=== PATIENT | female | born 1950 | race Caucasian/White ===

== ENCOUNTER 2017-08-16 12:35 | Inpatient (IN) | payer OTHER ==
[2017-08-16 12:53] VITALS: BMI 21.6
--- NOTE | 2017-08-16 14:14 | PDOC ---
History of Present Illness - General Chief Complaint: Chest Pain Stated Complaint: CHEST PAIN Time Seen by Provider: 08/16/17 14:13 - History of Present Illness Initial Comments: 08/16/17 14:47 Ms. Stewart is a 67 yo female w/ pmh of HTN and prior R mastectomy for breast cancer (1998) who presents c/o a 2 month history of cough and 2 week history of chest pain. She presented to physician this morning and was sent over for further evaluation. Ms. Stewart says that she has been "coughing non-stop" although she denies any productive sputum. She reports she has had generalized body aches as well and that her chest hurts midline at her sternum. The patient denies headache and dizziness. Denies fever, chills, nausea, vomit, diarrhea and constipation. Denies dysuria, frequency, urgency and hematuria. Allergies: NKDA Past History - Past Medical History Allergies/Adverse Reactions: Allergies Allergy/AdvReac Type Severity Reaction Status Date / Time No Known Allergies Allergy Verified 08/16/17 12:50 Home Medications: Ambulatory Orders Albuterol 0.083% Nebulizer Marcia [Ventolin 0.083% Nebulizer Soln -] 1 neb NEB Q6H PRN 08/16/17 Losartan 50Mg/Hctz 12.5MG [Hyzaar -] 1 tab PO DAILY 08/16/17 Raloxifene HCl 60 mg PO DAILY 08/16/17 Cancer: Yes (rt breast) COPD: No HTN: Yes Other medical history: op - Suicide/Smoking/Psychosocial Hx Smoking History: Never smoked Information on smoking cessation initiated: No Hx Alcohol Use: No Drug/Substance Use Hx: No Substance Use Type: None *Physical Exam - Vital Signs Last Vital Signs Temp Pulse Resp BP Pulse Ox 98.0 F 93 H 18 130/75 100 08/16/17 12:50 08/16/17 12:50 08/16/17 12:50 08/16/17 12:50 08/16/17 12:50 ED Treatment Course - LABORATORY CBC & Chemistry Diagram: 08/16/17 14:30 08/16/17 14:30 Medical Decision Making - Medical Decision Making 08/16/17 15:00 Discussed patient w/ PCP Darell Loredo who requests cardiac workup plus chest x- ray and Dr. Howe for cardiology. Will comply. 08/16/17 16:18 EKG negative. Chest x-ray showed shaggy heart border suspicious for pneumonia. HEART score 1 (HTN). Patient sodium low at 130, Dr. Loredo would like to admit for treatment. Will comply. *DC/Admit/Observation/Transfer Diagnosis at time of Disposition: Hyponatremia - Discharge Dispostion Admit: Yes - Referrals - Patient Instructions - Post Discharge Activity
[2017-08-16 14:39] LABS: BASO % 0.6 % (0-2.0); EOS % 1.8 % (0-4.5); MCH 31.7 pg (25.7-33.7); MCHC 35.7 g/dl (32.0-36.0); MEAN CELL VOLUME 88.6 fl (80-96); MEAN PLT VOLUME 7.9 fl (7.5-11.1); NEUT % 57.6 % (42.8-82.8); PLATELET COUNT 277 K/MM3 (134-434); WHITE BLOOD COUNT 9.5 K/mm3 (4.0-10.0)
--- NOTE | 2017-08-16 14:43 | PDOC ---
Attending Attestation - HPI HPI: 08/16/17 16:15 Patient is a 67 year old female with a significant past medical history of HTN who presents to the ED with complaints of chest pain that began 2 weeks ago. Patient reports experiencing a dry cough for 2 months with no sign of subsiding. She reports chest pain is an intermittent pressured chest pain that does not radiate. Patient states chest pain comes every hour and lasts about 2 minutes. She reports nothing alleviates chest pain, as it is present even when she is at rest. Patient reports experiencing sweating, nausea, and diarrhea but is unsure if its connected to chest pain. She reports experiencing lightheadedness, dizziness, and bilateral leg cramping, that she states sometimes stops me from walking. Denies fever,chills. Denies vomiting. Denies out of state travel, contact with sick individuals. Denies any other symptoms. Allergies: None Social history: No smoking. No alcohol. No illicit drugs. Surgical history PMD: None - Physicial Exam PE: 08/16/17 16:15 Vitals: Triage Vital signs reviewed General Appearance: no acute distress, well nourished well developed Head: Atraumatic Chest Wall: Nontender Cardiac: Regular rate and rhythym, no murmurs, no rubs, no gallops Lungs: Clear to auscultation bilateral, good air movement bilaterally Abdomen: Soft, non distended, normal bowel sounds, non tender to palpation Extremities: Full range of motion to all extremities, no cyanosis, clubbing, or edema Skin: Warm and dry, no rashes or lesions, no rash, no petechiae Neuro: AOX3; Cranial Nerves 2-12 grossly intact, Strength intact to all extremities, Sensation intact to all extremities, gait normal Psych: Normal mood, normal affect - Medical Decision Making 08/16/17 16:15 Documentation prepared by Seth Feng, acting as medical records coder for John Flores MD, MD/DO. <Seth Feng - Last Filed: 08/16/17 16:15> - Resident Resident Name: TaigisselJorge - ED Attending Attestation I have performed the following: I have examined & evaluated the patient, The case was reviewed & discussed with the resident, I agree w/resident's findings & plan, Exceptions are as noted - HPI HPI: 08/16/17 16:27 2 week history of intermittent chest pain cough no PE DVT risk factors. EKG nonischemic troponin negative case discussed with patient's primary care provider given mild hyponatremia we will observe for serial troponins repletion of sodium and further management. Heart score 4. <John Flores - Last Filed: 08/16/17 16:27>
[2017-08-16 14:58] LABS: ALBUMIN 3.4 g/dl (3.4-5.0); ANION GAP 8 (8-16); CALCIUM 8.7 mg/dL (8.5-10.1); CO2 29 mmol/L (21-32); GLUCOSE,RANDOM 101 mg/dL (74-106); INR 1.08 (0.82-1.09); PROTHROMBIN TIME (PATIENT) 12.2 SEC (9.98-11.88)
--- NOTE | 2017-08-16 15:02 | EKG ---
Test Reason : Blood Pressure : / mmHG Vent. Rate : 092 BPM Atrial Rate : 092 BPM P-R Int : 120 ms QRS Dur : 086 ms QT Int : 352 ms P-R-T Axes : 019 040 045 degrees QTc Int : 435 ms NORMAL SINUS RHYTHM NORMAL ECG WHEN COMPARED WITH ECG OF 05-MAY-2010 13:27, NO SIGNIFICANT CHANGE WAS FOUND Confirmed by JORGE CÁRDENAS MD ([id number]) on 08/16/2017 3:01:48 PM Referred By: Confirmed By:JORGE CÁRDENAS MD
[2017-08-16 15:03] LABS: ALK PHOS 103 U/L (45-117); BILIRUBIN,TOTAL 0.5 mg/dL (0.2-1.0); CPK 61 IU/L (26-192); CREATININE 0.7 mg/dL (0.55-1.02); SGOT/AST 24 U/L (15-37); SGPT/ALT 29 U/L (12-78); TOT PROT 7.2 g/dl (6.4-8.2); TROPONIN I < 0.02 ng/ml (0.00-0.05)
--- NOTE | 2017-08-16 16:24 | HP ---
Admitting History and Physical - Admission Chief Complaint: chest heaviness x 1 wk sob History Source: Patient Limitations to Obtaining History: No Limitations - Past Medical History ...: No - Smoking History Smoking history: Never smoked - Alcohol/Substance Use Hx Alcohol Use: No Home Medications - Allergies Allergies/Adverse Reactions: Allergies Allergy/AdvReac Type Severity Reaction Status Date / Time No Known Allergies Allergy Verified 08/16/17 12:50 - Home Medications Home Medications: Ambulatory Orders Albuterol 0.083% Nebulizer Marcia [Ventolin 0.083% Nebulizer Soln -] 1 neb NEB Q6H PRN 08/16/17 Losartan 50Mg/Hctz 12.5MG [Hyzaar -] 1 tab PO DAILY 08/16/17 Raloxifene HCl 60 mg PO DAILY 08/16/17 Family Disease History - Family Disease History Family History: Unremarkable Review of Systems - Review of Systems Constitutional: reports: Other (sob cp) Eyes: reports: No Symptoms HENT: reports: No Symptoms Neck: reports: No Symptoms Cardiovascular: reports: Chest Pain, Shortness of Breath Respiratory: reports: SOB on Exertion Gastrointestinal: reports: No Symptoms Genitourinary: reports: No Symptoms Breasts: reports: No Symptoms Reported Musculoskeletal: reports: No Symptoms Integumentary: denies: No Symptoms Neurological: reports: No Symptoms Endocrine: reports: No Symptoms Hematology/Lymphatic: reports: No Symptoms Psychiatric: reports: Anxiety Physical Examination Vital Signs: Vital Signs Temperature 98.0 F 08/16/17 12:50 Pulse Rate 93 H 08/16/17 12:50 Respiratory Rate 18 08/16/17 12:50 Blood Pressure 130/75 08/16/17 12:50 O2 Sat by Pulse Oximetry (%) 100 08/16/17 12:50 Constitutional: Yes: Well Nourished Eyes: Yes: WNL HENT: Yes: WNL Neck: Yes: WNL Cardiovascular: Yes: WNL Respiratory: Yes: WNL Gastrointestinal: Yes: WNL ...Rectal Exam: Yes: WNL Renal/: Yes: WNL Breast(s): Yes: WNL Musculoskeletal: Yes: Joint Stiffness Extremities: Yes: WNL Edema: No Peripheral Pulses WNL: Yes Integumentary: Yes: WNL Neurological: Yes: WNL ...Motor Strength: WNL Psychiatric: Yes: WNL Labs: CBC, BMP 08/16/17 14:30 08/16/17 14:30 Problem List - Problems (1) Chest pain Code(s): R07.9 - CHEST PAIN, UNSPECIFIED (2) Hyponatremia Code(s): E87.1 - HYPO-OSMOLALITY AND HYPONATREMIA (3) Osteopenia Code(s): M85.80 - OTH DISRD OF BONE DENSITY AND STRUCTURE, UNSPECIFIED SITE (4) GERD without esophagitis Code(s): K21.9 - GASTRO-ESOPHAGEAL REFLUX DISEASE WITHOUT ESOPHAGITIS Assessment/Plan admt inserv 1 liter restriction dayly cardcen z q 2 card f/u ? stess test in am
[2017-08-16] MEDS: PANTOPRAZOLE 40 MG TABLET (FP) PO ONE (16:42)
[2017-08-16] MEDS ORDERED: PANTOPRAZOLE 40 MG TABLET (FP) ONE (16:43)
[2017-08-17] MEDS ORDERED: LOSARTAN 50MG/HCTZ 12.5MG 1 TAB (FP) PO SCH (10:00)
[2017-08-17] MEDS ORDERED: ASPIRIN 81 MG CHEWABLE TABLETS PO SCH (10:00)
[2017-08-17] MEDS ORDERED: PT OWN MED DRAWER 7, Y5N ONE (10:42)
--- NOTE | 2017-08-17 10:45 | PN ---
Progress Note, Physician Chief Complaint: less cp sob w exsertoin n/c dizzy w ambulation upon standing only no other complaints - Current Medication List Current Medications: Active Medications Aspirin (Ecotrin -) 81 mg PO DAILY BARB HCTZ/Losartan Potassium (Hyzaar -) 1 tab PO DAILY BARB - Objective Vital Signs: Vital Signs Temperature 98.2 F 08/17/17 06:00 Pulse Rate 92 H 08/17/17 06:00 Respiratory Rate 18 08/17/17 06:00 Blood Pressure 143/86 08/17/17 06:00 O2 Sat by Pulse Oximetry (%) 95 08/17/17 05:00 Constitutional: Yes: Well Nourished Eyes: Yes: WNL HENT: Yes: WNL Neck: Yes: WNL Cardiovascular: Yes: WNL Respiratory: Yes: SOB on Exertion (distant sounds) Gastrointestinal: Yes: WNL ...Rectal Exam: Yes: Deferred Genitourinary: Yes: WNL Breast(s): Yes: WNL, Left Musculoskeletal: Yes: WNL Extremities: Yes: WNL Edema: No Peripheral Pulses WNL: Yes Integumentary: Yes: WNL Neurological: Yes: WNL, Unresponsive Psychiatric: Yes: WNL Labs: CBC, BMP 08/16/17 14:30 INR, PTT INR 1.08 (0.82-1.09) 08/16/17 14:30 Problem List - Problems (1) Chest pain Code(s): R07.9 - CHEST PAIN, UNSPECIFIED (2) Hyponatremia Code(s): E87.1 - HYPO-OSMOLALITY AND HYPONATREMIA (3) Osteopenia Code(s): M85.80 - OT DISRD OF BONE DENSITY AND STRUCTURE, UNSPECIFIED SITE (4) GERD without esophagitis Code(s): K21.9 - GASTRO-ESOPHAGEAL REFLUX DISEASE WITHOUT ESOPHAGITIS Assessment/Plan chk na level now cont tx as is symbocort inhaler card for stress test ? today
[2017-08-17] MEDS: PANTOPRAZOLE 40 MG TABLET (FP) PO ONE (10:49)
[2017-08-17] MEDS: PNEUMOC 13-VAL CONJ-DIP CRM/PF 0.5 ML DISP.SYRIN IM ONE (10:54)
[2017-08-17] MEDS: ASPIRIN COATED 81 MG TABLET.EC PO SCH (10:54)
[2017-08-17 11:13] LABS: ANION GAP 6 (8-16); CO2 30 mmol/L (21-32); CREATININE 0.8 mg/dL (0.55-1.02); GLUCOSE,RANDOM 108 mg/dL (74-106)
--- NOTE | 2017-08-17 13:54 | CONS ---
CARDIOLOGY CONSULTATION DATE OF CONSULTATION: 08/17/2017 REQUESTING PHYSICIAN: Darell Loredo MD CHIEF COMPLAINTS: 1. Chest discomfort. 2. Shortness of breath. 3. Persistent nonproductive cough. HISTORY OF PRESENT ILLNESS: The patient has been complaining of retrosternal and anterior chest discomfort for the past 3 months. It occurs at random, has occurred both at rest, and at times, has woken up in the morning with chest discomfort, usually lasts approximately 1 minute and is relieved spontaneously. She also has been experiencing increasing dyspnea with exertion and has 4-pillow orthopnea, has a persistent cough for several years, which is mostly nonproductive. There is no history of paroxysmal nocturnal dyspnea. There is history of intermittent pedal edema that also occurs at random. Patient stated that she exercises for 30 minutes twice a week on a treadmill without experiencing any symptoms. She was told to have borderline elevation of cholesterol. She also was diagnosed to have COPD, a fatty liver, and has borderline elevation of blood sugar. Apparently has diskogenic disease involving the cervical spine. On further questioning, patient volunteers that the shortness of breath is relieved by using Atrovent inhaler, and she is symptom free for approximately 2 hours. The inhaler also helps alleviate her cough. She has bene using the inhaler frequently over the past 2 weeks. The wheezing is precipitated by humid and cold weather. PAST HISTORY: As mentioned in the history of present illness. SURGICAL HISTORY: Status post hysterectomy. Status post right mastectomy for carcinoma. SOCIAL HISTORY: She was born in [place]. 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 She has never smoked, never drank. Has 3 cups of decaffeinated coffee. FAMILY HISTORY: Father at age 58 of myocardial infarction. Mother at age 78 related to pancreatic cancer. A sister at age 49 of throat cancer, who was a smoker. She has a younger sister who also has asthma and hypertension. Has 4 brothers who are healthy. ALLERGIES: None reported. MEDICATIONS: 1. Symbicort 80/4.5 mcg 2 inhalations b.i.d. 2. Losartan/HCT 50/12.5 mg p.o. daily. 3. Aspirin 81 mg p.o. daily. REVIEW OF SYSTEMS: Constitutional: No history of chills, fever, or night sweats. No history of unintentional weight loss. HEENT: History of intermittent occipital headaches, usually associated with elevated blood pressure. No history of diplopia, blurred vision. No history of epistaxis, hoarseness, tinnitus, or deafness reported. Neck: History of intermittent neck discomfort, usually associated with movement and elevated blood pressure. Cardiovascular: See history of present illness. No history of palpitations. Respiratory: See history of present illness. No history of hemoptysis or tuberculosis. Gastrointestinal: No history of nausea, vomiting, melena, or hematemesis. No history of abdominal pain or discomfort. No history of change in bowel habits. Neurological: No history of seizures, syncope, or focal weakness. Occasional lightheadedness and dizziness with change in posture, especially on standing from recumbent position. Patient also has paresthesias involving the left lower extremity and gives history of low-back discomfort. Endocrine: No history of polyuria or polydipsia. No history of intolerance to cold or warm weather. Musculoskeletal: History of arthralgias involving the knees and neck. No history of myalgias. Genitourinary: History of hysterectomy. No history of dysuria, frequency, or hematuria. Hematological/Lymphatics: No history of anemia, ecchymosis, or bleeding. No history of lymphadenopathy. PHYSICAL EXAMINATION: General: A 67-year-old female who is in no distress. No pallor, cyanosis, clubbing, or jaundice. Vital Signs: Blood pressure 123/76 mmHg. Pulse 87 beats per minute and regular. Patient was afebrile. Respirations were 18 per minute. Oxygen saturation was 95% on room air. Neck: Supple. No jugular venous distention. Carotids were 2+. Upstrokes were normal. No bruits were heard and no thyromegaly was present. Heart: No heaves or thrills. PMI was in the 5th intercostal space. Heart sounds were slightly distant. S1 and S2 were normal. No murmur or gallops were heard. Lungs: Bibasilar fine crepitation, unchanged with coughing. Chest: Normal AP diameter. Expansion was symmetrical. Abdomen: Soft, slightly protuberant and nontender. No hepatosplenomegaly or palpable masses were felt. Bowel sounds were present. No bruits were heard. Extremities: No calf tenderness or dependent edema. Pulses were equal. No deformities were noted. LABORATORY DATA: CBC: WBC count was 9500. RBCs were 4.63. Hemoglobin was 14.7 g/dL. Platelets were 277,000. Differential revealed elevated monocytes at 11.4%. Chemistry: Sodium was 130, potassium was 3.9, chloride 93, CO2 of 29 mmol/L. BUN 15, creatinine 0.7 mg/dL. Random glucose was 101 mg/dL. Troponins were less than 0.02. CK was 61. BNP was 67.49 dated August 16, 2017. Blood work for August 17, 2017 is pending. X-ray chest dated August 16, 2017: A single frontal projection revealed tortuosity and calcification of the thoracic aorta and degenerative changes of the thoracic spine. Impression: No acute disease. ECG reported as normal sinus rhythm. Normal ECG. When compared to ECG of April,, no significant change was found. IMPRESSION: 1. Chest pain syndrome, atypical for coronary artery disease, angina pectoris needs exclusion. 2. Nonproductive cough, intermittent wheezing, and dyspnea, relieved temporarily by bronchodilators, is consistent with bronchial asthma, poorly controlled. 3. History of diskogenic disease involving the cervical spine. 4. Bibasilar crepitations, etiology: a. Bronchiectasis needs exclusion. b. Interstitial lung disease. 5. Hyponatremia. Etiology to be determined, possibly related to her diuretics. 6. Status post right mastectomy for carcinoma. RECOMMENDATIONS: 1. Consider CT scan of the chest. 2. Patient is able to walk on a treadmill; would suggest a Myoview stress test after she has obtained a CT scan. 3. Follow up basic metabolic profile. 4. Echocardiogram. 5. Further suggestions will depend upon the results of the above-mentioned tests. Thank you for your referral. Yours sincerely, SHEA HUDSON M.D. [id number]
[2017-08-17] MEDS: BUDESONIDE/FORMETEROL FUMARATE 80/4.5 mcg INHALER IH SCH (22:19)
[2017-08-17] MEDS ORDERED: ACETAMINOPHEN 325 MG TABLET (FP) PO PRN ×2 (23:07)
[2017-08-17] MEDS ORDERED: NITROGLYCERIN SUBLINGUAL 1/150 0.4 MG TAB SL PRN (23:08)
[2017-08-18] MEDS: METOPROLOL SUCCINATE 25 MG TAB.SR.24H (FP) PO SCH ×2 (00:15→13:02)
[2017-08-18 00:52] LABS: TROPONIN I < 0.02 ng/ml (0.00-0.05)
[2017-08-18 01:22] LABS: CPK 90 IU/L (26-192)
[2017-08-18 07:55] LABS: BASO % 0.4 % (0-2.0); EOS % 1.4 % (0-4.5); MCH 31.5 pg (25.7-33.7); MCHC 35.5 g/dl (32.0-36.0); MEAN CELL VOLUME 88.7 fl (80-96); MEAN PLT VOLUME 8.5 fl (7.5-11.1); NEUT % 67.1 % (42.8-82.8); PLATELET COUNT 272 K/MM3 (134-434); RDW 11.9 % (11.6-15.6); WHITE BLOOD COUNT 9.8 K/mm3 (4.0-10.0)
[2017-08-18 08:26] LABS: ANION GAP 10 (8-16); CALCIUM 8.7 mg/dL (8.5-10.1); CO2 28 mmol/L (21-32); CREATININE 0.8 mg/dL (0.55-1.02); GLUCOSE,RANDOM 143 mg/dL (74-106)
[2017-08-18] MEDS ORDERED: PT OWN MED DRAWER 7, Y5N ONE ×2 (09:47→11:00)
[2017-08-18] MEDS ORDERED: PIPERACILLIN/TAZOB 3.375 GM 3.375 GM in DEXTROSE 5%-WATER - 50 ML IVPB SCH (10:00)
[2017-08-18] MEDS: BUDESONIDE/FORMETEROL FUMARATE 80/4.5 mcg INHALER IH SCH ×3 (10:00→21:10)
[2017-08-18] MEDS: ASPIRIN COATED 81 MG TABLET.EC PO SCH ×2 (10:00→15:17)
[2017-08-18] MEDS ORDERED: REGADENOSON 0.4 MG/5 ML PRE-FILLED SYRINGE IVPUSH ONE (10:00)
[2017-08-18] MEDS ORDERED: PIPERACILLIN/TAZOB 3.375 GM 3.375 GM in DEXTROSE 5%-WATER - 50 ML IVPB ONE ×2 (11:15→15:15)
--- NOTE | 2017-08-18 11:33 | EKG ---
Test Reason : Blood Pressure : / mmHG Vent. Rate : 098 BPM Atrial Rate : 098 BPM P-R Int : 144 ms QRS Dur : 086 ms QT Int : 366 ms P-R-T Axes : 003 011 035 degrees QTc Int : 467 ms NORMAL SINUS RHYTHM MINIMAL VOLTAGE CRITERIA FOR LVH, MAY BE NORMAL VARIANT BORDERLINE ECG WHEN COMPARED WITH ECG OF 16-AUG-2017 12:42, NO SIGNIFICANT CHANGE WAS FOUND Confirmed by LILA JONES, CALVIN ([id number]) on 08/18/2017 11:33:50 AM Referred By: Confirmed By:CALVIN SHARP MD
--- NOTE | 2017-08-18 12:44 | PN ---
Progress Note, Physician - Current Medication List Current Medications: Active Medications Acetaminophen (Tylenol -) 650 mg PO Q4H PRN PRN Reason: FEVER OR PAIN Last Admin: 08/17/17 23:33 Dose: 650 mg Acetaminophen (Tylenol -) 650 mg PO Q6H PRN PRN Reason: FEVER OR PAIN Aspirin (Ecotrin -) [address] [facility] Last Admin: 08/17/17 10:54 Dose: 81 mg Budesonide/Formoterol Fumarate (Symbicort 80/4.5mcg -) 2 puff IH BID BARB Last Admin: 08/17/17 22:19 Dose: 2 puff Piperacillin Sod/Tazobactam (Sod 3.375 gm/ Dextrose) 50 mls @ 100 mls/hr IVPB Q8H-IV BARB PRN Reason: Protocol Stop: 08/23/17 02:29 Metoprolol Succinate (Toprol Xl -) [address] [facility] Nitroglycerin (Nitrostat -) 0.4 mg SL Q5M PRN - Objective Vital Signs: Vital Signs Temperature 97.9 F 08/18/17 10:00 Pulse Rate 72 08/18/17 10:00 Respiratory Rate 18 08/18/17 10:00 Blood Pressure 122/76 08/18/17 10:00 O2 Sat by Pulse Oximetry (%) 98 08/18/17 10:00 Constitutional: Yes: Well Nourished, Pallor HENT: Yes: WNL Neck: Yes: WNL Cardiovascular: Yes: WNL Respiratory: Yes: WNL Gastrointestinal: Yes: WNL ...Rectal Exam: Yes: Deferred Genitourinary: Yes: WNL Breast(s): Yes: WNL Musculoskeletal: Yes: WNL Extremities: Yes: WNL Edema: No Integumentary: Yes: WNL Neurological: Yes: WNL ...Motor Strength: WNL Psychiatric: Yes: WNL Labs: CBC, BMP 08/18/17 06:00 08/18/17 06:00 INR, PTT INR 1.08 (0.82-1.09) 08/16/17 14:30 Problem List - Problems (1) Chest pain Code(s): R07.9 - CHEST PAIN, UNSPECIFIED (2) Hyponatremia Code(s): E87.1 - HYPO-OSMOLALITY AND HYPONATREMIA (3) Osteopenia Code(s): M85.80 - OTH DISRD OF BONE DENSITY AND STRUCTURE, UNSPECIFIED SITE (4) GERD without esophagitis Code(s): K21.9 - GASTRO-ESOPHAGEAL REFLUX DISEASE WITHOUT ESOPHAGITIS Assessment/Plan W/U LOW NA CHANGRD DIET IV ANTBX PNUEMONIA MAAME RAY NOW GOING ON
--- NOTE | 2017-08-18 15:17 | PN ---
Progress Note (short form) - Note Progress Note: 67 year old female admitted with persistent cough, wheezing, 4 pillow orthopnea atypical chest pain and SOB. work up is in progress, underwent stress test and echocardiogram. Remains symptomatic. CT scan of chest reveals bilateral consolidatios atehe bases, bilateral hilar lymphadenopath and cholithiasis Active Medications Generic Name Dose Route Start Last Admin Trade Name Freq PRN Reason Stop Dose Admin Acetaminophen 650 mg 08/17/17 23:07 08/17/17 23:33 Tylenol - PO 650 mg Q4H PRN Administration FEVER OR PAIN Acetaminophen 650 mg 08/17/17 23:07 Tylenol - PO Q6H PRN FEVER OR PAIN Aspirin 81 mg 08/17/17 10:00 08/18/17 15:17 Ecotrin - PO 81 mg DAILY BARB Administration Budesonide/Formoterol Fumarate 2 puff 08/17/17 22:00 08/18/17 15:17 Symbicort 80/4.5mcg - IH 2 puff BID BARB Administration Piperacillin Sod/Tazobactam 50 mls @ 100 mls/hr 08/18/17 10:00 Sod 3.375 gm/ Dextrose IVPB 08/23/17 02:29 Q8H-IV BARB Protocol Piperacillin Sod/Tazobactam 50 mls @ 100 mls/hr 08/18/17 15:15 08/18/17 15:14 Sod 3.375 gm/ Dextrose IVPB 08/18/17 15:44 Not Given ONCE ONE Metoprolol Succinate 50 mg 08/19/17 10:00 08/18/17 15:18 Toprol Xl - PO 50 mg DAILY BARB Administration Nitroglycerin 0.4 mg 08/17/17 23:08 Nitrostat - SL Q5M PRN 67 year old female c/o fatique, no pallor, cyanosis, clubbing or jaundice. Last Vital Signs Temp Pulse Resp BP Pulse Ox 97.9 F 72 18 122/76 98 08/18/17 10:00 08/18/17 10:00 08/18/17 10:00 08/18/17 10:00 08/18/17 10:00 NECK: Supple, no JVD, carotids 2+ HEART: PMI in the 5th ICS, NEC along the LSB , no murmur or gallop heard. LUNGS: Bibasilar creps, no wheezing heard. ABDOMEN: Soft, nontender, no organomegaly or palpable masses. EXTREMITIES: No calf tenderness or dependent edema. CBC, BMP 08/18/17 06:00 08/18/17 06:00 CMP 1. Bronchial asthma, since age 26. 2. Clinical presentation and CT chest findings, a). Sarcoidosis needs to be excluded. b). Metastatic disease. 3. Hyponatermia, SIADH needs exclusion. 4. Atypical chest pain syndrome, etiology to be determined. 5. Elevated blood sugar. RECOMMENDATIONS: 1. Work up in progress. 2. Evaluation of hyponatermia and appropriate workup. 3. Myoview ETT results are pending. 4. HbAIc. 5. Pulmorary and ID work up and treatment in progress.
[2017-08-18] MEDS: METOPROLOL SUCCINATE 50 MG TAB.SR.24H (FP) PO SCH (15:18)
--- NOTE | 2017-08-18 15:36 | PN ---
Progress Note (short form) - Note Progress Note: PULMONARY CONSULTATION DICTATED 08/18/17 IMP BILATERAL CONSOLIDATIONS ? ETIOLOGY ?INFECTIOUS< ? INFLAMMATORY,BOOP PULMONARY NODULES ?INFLAMMATORY, ? MALIGNANT BILATERAL HILAR ADENOPATHY ?REACTIVE DYSPNEA,CHEST TIGHTNESS ASTHMA HYPONATREMIA ? SIADH H/O BREAST CA S/P R MASTECTOMY H/O EVA PLAN IV STEROIDS INHALED BRONCHODILATORS O2 ANTIBIOTICS PER ID CULTURES URINE LYTES,OSMOLALITY F/U CHEST CT 4WKS OF NO IMPROVEMENT WILL REQUIRE TISSUE DX DR PAULSON Problem List - Problems (1) Dyspnea Code(s): R06.00 - DYSPNEA, UNSPECIFIED (2) Hyponatremia Code(s): E87.1 - HYPO-OSMOLALITY AND HYPONATREMIA (3) Pneumonia Code(s): J18.9 - PNEUMONIA, UNSPECIFIED ORGANISM
[2017-08-18] MEDS ORDERED: ALBUTEROL SO4 2.5/IPRATROPIUM 0.5 INH SOL 3 ML VIAL.NEB. NEB PRN (15:39)
--- NOTE | 2017-08-18 16:42 | PN ---
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 denies HIV no history of tb last travel to [place] in July denies dental work lives with son- no pets house- no construction went to see PMD in May- given Ventolin MDI/ Prednisone/Zpak/flovent chest ct- bilateral adenopathy patchy bilateral nodular infiltrates bilateral infiltrates- ?infectious, ?inflammatory, ?neoplastic hyponatremia hiv testing tsh/cortisol/urine electrolytes with osm legionella antigen, blood cultures, mycoplasma serology esr/crp rocephin/zithromax quantiferon Problem List - Problems (1) Pneumonia Code(s): J18.9 - PNEUMONIA, UNSPECIFIED ORGANISM (2) Hyponatremia Code(s): E87.1 - HYPO-OSMOLALITY AND HYPONATREMIA
[2017-08-18] MEDS ORDERED: cefTRIAXone 1 GM/50 ML BAG (PRE-DOCKED) IVPB SCH (17:00)
[2017-08-18] MEDS: AZITHROMYCIN 250 MG TABLET PO SCH (17:04)
[2017-08-18] MEDS: methylPREDNISolone NA SUCC 40 MG/1 ML VIAL IVPUSH SCH ×2 (17:04→21:09)
[2017-08-18] MEDS: CEFTRIAXONE 1 G/50 ML PREMIX 50 ML IVPB SCH (17:04)
[2017-08-18 18:34] LABS: THYROID STIMULATING HORMONE 0.52 uIU/ml (0.358-3.74)
[2017-08-18 20:57] LABS: URINE APPEARANCE SLCLOUDY; URINE BILIRUBIN NEGATIVE (NEGATIVE); URINE BLOOD NEGATIVE (NEGATIVE); URINE COLOR YELLOW; URINE GLUCOSE (UA) NEGATIVE (NEGATIVE); URINE KETONE NEGATIVE (NEGATIVE); URINE NITRITE POSITIVE (NEGATIVE); URINE PROTEIN NEGATIVE (NEGATIVE); URINE UROBILINOGEN NEGATIVE mg/dL (0.2-1.0)
--- NOTE | 2017-08-18 21:07 | CONS ---
DATE OF CONSULTATION: 08/18/2017 REQUESTING PHYSICIAN: Darell Loredo MD This is a 67-year-old woman with past medical history of hypertension and breast cancer admitted with a several month history of nonproductive cough, especially at night. She is unable to lay flat to sleep. She has been sleeping in a recliner over the last 2 or 3 weeks. She has had worsening chest discomfort for which she presented to the emergency room. She denies any hemoptysis. She denies any weight loss. She has had no nausea or vomiting. She has no GI or symptoms. She is able to ambulate without getting dyspneic. She does have a history of asthma. I called her pharmacy. She saw her PMD in May and was prescribed Ventolin, 5 days of prednisone, Flovent, and a Z-Chato, which she took in May without any real improvement. She lives here in [place]. She denies any sick contacts. PAST MEDICAL HISTORY: Notable for a history of hypertension. She has a history of breast cancer. SURGICAL HISTORY: Notable for a hysterectomy and right mastectomy. SOCIAL HISTORY: She was originally from [place]. She has lived here for many years. Her last travel was in July to [place]. She is . 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 She lives with one of her sons. There is no history of any cigarette use. She is unaware of her PPD status. She reports that she has been HIV tested and was HIV-negative. There has been no history of any recent dental visits. REVIEW OF SYSTEMS: She has no fevers, chills, night sweats, or weight loss, nausea, vomiting, or symptoms. She has no rash. She has no diarrhea or dysuria. She has no pets at home. ALLERGIES: No known drug allergies. MEDICATIONS: Include Symbicort, losartan, hydrochlorothiazide, and aspirin. FAMILY HISTORY: Notable for father at 58 from [place] and mother of cancer. PHYSICAL EXAMINATION: General: She is a young appearing woman in no acute distress. HEENT: She is wearing sunglasses, which she refuses to take off. She refuses to open her mouth for an oral examination, but tells me that she has not recently been to the dentist. Neck: Supple. She has no adenopathy. Lungs: Clear to auscultation. Heart: Regular rate and rhythm. On my examination, she has no palpable sternal discomfort. Abdomen: Soft, nontender. She has no hepatosplenomegaly. Extremities: Without edema. LABORATORY: White count is 9.8, hemoglobin 14.2, platelets of 272. Her BUN is 13 and creatinine is 0.8. Sodium of 128. LFTs are normal. Urinalysis has not been done. There are no cultures. She had a CT scan of her chest that is notable for bilateral consolidative opacities and solid nodular opacities compatible with multifocal pneumonia. She also has bilateral hilar adenopathy and cholelithiasis. IN SUMMARY: This is a 67-year-old woman with bilateral infiltrates, possibly infectious inflammatory neoplastic along with hyponatremia. I recommend HIV testing with TSH, cortisol, urine electrolytes with urine osmolality and serum osmolality. Legionella antigen, blood cultures, mycoplasma serology, sedimentation rate, CRP. I will treat her with Rocephin and Zithromax and obtain a QuantiFERON as well. Further recommendations to follow based on her clinical course. Unfortunately she was quite exhausted from having spoken to many doctors today, hence the limited physical examination and history. JOHANNA BARRIGA M.D. VICOTR [id number]
[2017-08-18 21:09] LABS: URINE LEUK ESTERASE 1+ (NEGATIVE)
[2017-08-18 21:10] LABS: URINE HYALINE CAST 1 /lpf; URINE MUCUS RARE; URINE RBC 4 /hpf (0-3); URINE WBC 24 /hpf (3-5)
[2017-08-19] MEDS: methylPREDNISolone NA SUCC 40 MG/1 ML VIAL IVPUSH SCH ×4 (02:03→21:05)
[2017-08-19 08:48] LABS: BASO % 0.1 % (0-2.0); MCH 30.6 pg (25.7-33.7); MCHC 34.4 g/dl (32.0-36.0); MEAN CELL VOLUME 88.9 fl (80-96); MEAN PLT VOLUME 8.2 fl (7.5-11.1); NEUT % 85.7 % (42.8-82.8); PLATELET COUNT 299 K/MM3 (134-434); RDW 11.9 % (11.6-15.6); WHITE BLOOD COUNT 11.7 K/mm3 (4.0-10.0)
[2017-08-19 09:31] LABS: ANION GAP 13 (8-16); CALCIUM 9.1 mg/dL (8.5-10.1); CO2 26 mmol/L (21-32); CREATININE 0.8 mg/dL (0.55-1.02); GLUCOSE,RANDOM 167 mg/dL (74-106)
--- NOTE | 2017-08-19 09:51 | CONS ---
DATE OF CONSULTATION: 08/18/2017 REFERRING PHYSICIAN: Darell Loredo MD The patient is a 67-year-old female with a past medical history of asthma, history of breast CA, status post right mastectomy in 1990, history of total abdominal hysterectomy, nonsmoker, admitted to [facility] with complaint of 3-month history of shortness of breath, nonproductive cough, as well as chest tightness. The patient states that approximately 3 months ago she started developing the above symptoms. She states that she stayed progressively short of breath as well as having chest tightness and cough. She takes an inhaler, which offers some improvement. Symptoms continue to recur. She denies any nausea, vomiting, diaphoresis. Denies any fevers, weight loss, or night sweats. She states that she has had a cough for the past few months, which is nonproductive. She denies any hemoptysis. She denies any recent travel and she has no pets at home. She presented to the emergency room with the above and she was subsequently admitted for further evaluation and evaluated by Dr. Castro for cardiology consultation. Patient underwent an echocardiogram, which was within normal limits. She had a CT scan of the chest, which revealed bilateral lower lobe infiltrates as well as a nodular density bilaterally. PAST MEDICAL HISTORY: Again includes asthma, history of breast CA, status post right mastectomy in 1990, status post hysterectomy as well as osteoporosis. SOCIAL HISTORY: Nonsmoker. Born in [place]. Moved to the [facility] 30 years ago. 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 REVIEW OF SYSTEMS: Positive for orthopnea, positive dyspnea, positive cough, positive chest tightness. No chest pain, but chest tightness. No abdominal pain. No nausea, no vomiting. No diaphoresis or hemoptysis. No fevers, no weight loss, or night sweats. No lower extremity edema. CURRENT MEDICATIONS: Include Symbicort inhaled 4.5, Tylenol, piperacillin, Toprol, Nitro Stat, and Ecotrin. PHYSICAL EXAMINATION: General: The patient is a thin, female, well-developed, well-nourished. Awake and alert, in no acute distress. Vital signs: She is afebrile. Blood pressure is 122/76, respiratory rate is 18 , O2 saturation is 98% on 2 L. HEENT: Examination is normocephalic, atraumatic. Neck: Supple. Heart: Regular S1, S2. Chest: Bilateral crackles one-third up. Abdomen: Soft. Bowel sounds are positive. Extremities: No cyanosis or edema. LABORATORY: WBC is 9.8, hemoglobin is 14.2, hematocrit 39.9, platelet count of 272,000, 67 neutrophils, 19 lymphocytes, and 11 monocytes. D-dimer is 254, sodium is 128. Chest CT again reveals consolidation opacities compatible with multifocal pneumonia in the right lower lobe as well as the middle lobe and left upper lobe. There is mild mediastinal enlarged hilar nodes and scattered pulmonary nodules. IMPRESSION: 1. Bilateral infiltrates, etiology to be determined. Rule out possible infectious, although the patient has had these symptoms for the past 3 months. Possible inflammatory and possible Sarcoid, although radiographic findings are not completely typical. Rule out the possibility of neoplastic. 2. Dyspnea, chest tightness, possibly secondary to asthma and exacerbation of infectious process and/or inflammatory process. 3. Hyponatremia. Rule out syndrome of inappropriate antidiuretic hormone secretion. 4. History of breast cancer, status post right mastectomy. 5. History of hysterectomy. PLAN: Short course of IV steroids, inhaled bronchodilators, antibiotics as per Infectious Disease. Obtain cultures. We will also obtain ESR and sedimentation rate. Obtain urine electrolytes. We will also obtain follow up chest CT in approximately 1 month, at which time to evaluate response to the medications. If no change, would consider possible diagnostic procedure with bronchoscopy and/or needle biopsy to obtain tissue diagnosis. DELIA PAULSON M.D. [id number] MTDD
--- NOTE | 2017-08-19 10:33 | PN ---
Progress Note (short form) - Note Progress Note: PULMONARY States breathing slightly improved. Still dyspneic with exertion. No chest pain. No fevers or chills. Cough nonproductive. Last Vital Signs Temp Pulse Resp BP Pulse Ox 98 F 78 20 118/70 95 08/19/17 06:16 08/19/17 06:16 08/19/17 06:16 08/19/17 06:16 08/18/17 21:00 Gen: NAD at rest Heart: RRR Lung: scattered basilar rales Abd: soft, nontender Ext: no edema CBC, BMP 08/19/17 08:00 08/19/17 08:00 Active Medications Acetaminophen (Tylenol -) 650 mg PO Q4H PRN PRN Reason: FEVER OR PAIN Last Admin: 08/17/17 23:33 Dose: 650 mg Acetaminophen (Tylenol -) 650 mg PO Q6H PRN PRN Reason: FEVER OR PAIN Albuterol/Ipratropium (Duoneb -) 1 amp NEB Q4H PRN PRN Reason: SHORTNESS OF BREATH Aspirin (Ecotrin -) 81 mg PO DAILY [facility] Last Admin: 08/18/17 15:17 Dose: 81 mg Azithromycin (Zithromax -) 500 mg PO DAILY [facility] Last Admin: 08/18/17 17:04 Dose: 500 mg Budesonide/Formoterol Fumarate (Symbicort 80/4.5mcg -) 2 puff IH BID [facility] Last Admin: 08/18/17 21:10 Dose: 2 puff CEFTRIAXONE 1 G/50 ML PREMIX (Ceftriaxone 1 Gm-D5w Bag) 50 mls @ 100 mls/hr IVPB DAILY [facility] Last Admin: 08/18/17 17:04 Dose: 100 mls/hr Methylprednisolone Sodium Succinate (Solu-Medrol -) 40 mg IVPUSH Q6H-IV [facility] Last Admin: 08/19/17 02:03 Dose: 40 mg Metoprolol Succinate (Toprol Xl -) 50 mg PO DAILY [facility] Last Admin: 08/18/17 15:18 Dose: 50 mg Nitroglycerin (Nitrostat -) 0.4 mg SL Q5M PRN A/P r/o Pneumonia Lung Nodules Hilar Lymphadenopathy Asthma Hyponatremia - agree with empiric antibiotics, medrol - inhaled bronchodilators - O2 as needed - will need outpt f/u of chest imaging to ensure resolution - will need biopsy if nodules/infiltrates persist - DVT prophylaxis
[2017-08-19 10:37] LABS: URINE LEUK ESTERASE 1+ (NEGATIVE)
[2017-08-19] MEDS: CEFTRIAXONE 1 G/50 ML PREMIX 50 ML IVPB SCH (11:06)
[2017-08-19] MEDS: ASPIRIN COATED 81 MG TABLET.EC PO SCH (11:09)
[2017-08-19] MEDS: METOPROLOL SUCCINATE 50 MG TAB.SR.24H (FP) PO SCH (11:09)
[2017-08-19] MEDS: AZITHROMYCIN 250 MG TABLET PO SCH (11:09)
[2017-08-19] MEDS: BUDESONIDE/FORMETEROL FUMARATE 80/4.5 mcg INHALER IH SCH ×2 (13:33→21:05)
--- NOTE | 2017-08-19 15:16 | PN ---
Progress Note (short form) - Note Progress Note: ID consult dictated imp/reccd chest ct- bilateral adenopathy patchy bilateral nodular infiltrates feels better today no chest pain less cough Vital Signs Period Temp Pulse Resp BP Sys/Le Pulse Ox Last 24 Hr 97.7 F-98.6 F 78-85 18-20 114-143/64-76 95 cor-rrr lungs decreased bs at bases crackles left base abd soft,nt ext no edema CBC, BMP 08/19/17 08:00 08/19/17 08:00 Laboratory Tests 08/18/17 08/18/17 06:00 17:40 ESR 33 H C-Reactive Protein 0.4 H Microbiology 08/18/17 17:00 Urine For Antigen Detection Legionella Antigen - Final 08/18/17 17:00 Urine For Antigen Detection Streptococcus pneumoniae Antigen (M - Final a/p bilateral infiltrates- ?infectious, ?inflammatory, ?neoplastic-?sarcoid hyponatremia continue rocephin/zithromax persistent hypoonatremia suggest HIV testing Problem List - Problems (1) Pneumonia Code(s): J18.9 - PNEUMONIA, UNSPECIFIED ORGANISM (2) Hyponatremia Code(s): E87.1 - HYPO-OSMOLALITY AND HYPONATREMIA
--- NOTE | 2017-08-19 16:27 | PN ---
Progress Note, Physician Chief Complaint: pt states drinking 6 liters water daily at home siadh picture based on subclical values cont fl restriction chk labs in am nefro f/u will f/u ct chest out pt to see neoplasm vs inflm vs pneumonia - Current Medication List Current Medications: Active Medications Acetaminophen (Tylenol -) 650 mg PO Q4H PRN PRN Reason: FEVER OR PAIN Last Admin: 08/17/17 23:33 Dose: 650 mg Acetaminophen (Tylenol -) 650 mg PO Q6H PRN PRN Reason: FEVER OR PAIN Albuterol/Ipratropium (Duoneb -) 1 amp NEB Q4H PRN PRN Reason: SHORTNESS OF BREATH Aspirin (Ecotrin -) 81 mg PO DAILY [facility] Last Admin: 08/19/17 11:09 Dose: 81 mg Azithromycin (Zithromax -) 500 mg PO DAILY [facility] Last Admin: 08/19/17 11:09 Dose: 500 mg Budesonide/Formoterol Fumarate (Symbicort 80/4.5mcg -) 2 puff IH BID [facility] Last Admin: 08/19/17 13:33 Dose: Not Given CEFTRIAXONE 1 G/50 ML PREMIX (Ceftriaxone 1 Gm-D5w Bag) 50 mls @ 100 mls/hr IVPB DAILY [facility] Last Admin: 08/19/17 11:06 Dose: 100 mls/hr Methylprednisolone Sodium Succinate (Solu-Medrol -) 40 mg IVPUSH Q6H-IV [facility] Last Admin: 08/19/17 15:13 Dose: 40 mg Metoprolol Succinate (Toprol Xl -) 50 mg PO DAILY [facility] Last Admin: 08/19/17 11:09 Dose: 50 mg Nitroglycerin (Nitrostat -) 0.4 mg SL Q5M PRN - Objective Vital Signs: Vital Signs Temperature 97.7 F 08/19/17 14:10 Pulse Rate 78 08/19/17 14:10 Respiratory Rate 18 08/19/17 14:10 Blood Pressure 143/76 08/19/17 14:10 O2 Sat by Pulse Oximetry (%) 95 08/18/17 21:00 Constitutional: Yes: Well Nourished Eyes: Yes: WNL HENT: Yes: WNL Neck: Yes: WNL Cardiovascular: Yes: WNL Respiratory: Yes: WNL Gastrointestinal: Yes: WNL ...Rectal Exam: Yes: WNL Genitourinary: Yes: WNL Breast(s): Yes: WNL Musculoskeletal: Yes: WNL Extremities: Yes: WNL Edema: No Peripheral Pulses WNL: Yes Integumentary: Yes: WNL Neurological: Yes: WNL ...Motor Strength: WNL Psychiatric: Yes: WNL Labs: CBC, BMP 08/19/17 08:00 08/19/17 08:00 INR, PTT INR 1.08 (0.82-1.09) 08/16/17 14:30 Problem List - Problems (1) Chest pain Code(s): R07.9 - CHEST PAIN, UNSPECIFIED (2) Hyponatremia Code(s): E87.1 - HYPO-OSMOLALITY AND HYPONATREMIA (3) Osteopenia Code(s): M85.80 - OT DISRD OF BONE DENSITY AND STRUCTURE, UNSPECIFIED SITE (4) GERD without esophagitis Code(s): K21.9 - GASTRO-ESOPHAGEAL REFLUX DISEASE WITHOUT ESOPHAGITIS
--- NOTE | 2017-08-19 16:46 | CONSULT ---
Consult Consult Specialty:: Nephrology Reason for Consultation:: hyponatremia - History of Present Illness Chief Complaint: cough and chest pain History of Present Illness: Pt is a 67 year old female with pmhx of breast cancer and HTN who presents to the ER with cough and chest pain. She was admitted for workup. Her sodium has been low and I was called to evaluate her. Pt was on 12.5 mg hctz for 7 days before it was stopped. She also says she likes to drink water and drinks over 6 liters per day. She denies headache or loss of balance. She is awake and alert. She was found to have opacities in her lungs. - History Source History Provided By: Patient, Medical Record - Past Medical History Cardio/Vascular: Yes: HTN ...: No Heme/Onc: Yes: Other (breast cancer) - Past Surgical History Past Surgical History: Yes: Mastectomy - Alcohol/Substance Use Hx Alcohol Use: No - Smoking History Smoking history: Never smoked Home Medications - Allergies Allergies/Adverse Reactions: Allergies Allergy/AdvReac Type Severity Reaction Status Date / Time No Known Allergies Allergy Verified 08/16/17 12:50 - Home Medications Home Medications: Ambulatory Orders Albuterol Sulfate Inhaler - [Ventolin Hfa Inhaler -] 2 inh PO Q4H PRN 08/16/17 Losartan 50Mg/Hctz 12.5MG [Hyzaar -] 1 tab PO DAILY 08/16/17 Family Disease History - Family Disease History Family History: Denies Review of Systems - Review of Systems Constitutional: reports: Malaise Eyes: reports: No Symptoms HENT: reports: No Symptoms Neck: reports: No Symptoms Cardiovascular: reports: Chest Pain Respiratory: reports: Cough Gastrointestinal: reports: No Symptoms Genitourinary: reports: No Symptoms Musculoskeletal: reports: No Symptoms Integumentary: reports: No Symptoms Neurological: reports: No Symptoms Endocrine: reports: No Symptoms Hematology/Lymphatic: reports: No Symptoms Psychiatric: reports: No Symptoms Physical Exam Vital Signs: Vital Signs Temperature 97.7 F 08/19/17 14:10 Pulse Rate 78 08/19/17 14:10 Respiratory Rate 18 08/19/17 14:10 Blood Pressure 143/76 08/19/17 14:10 O2 Sat by Pulse Oximetry (%) 95 08/18/17 21:00 Constitutional: Yes: Calm Eyes: Yes: Conjunctiva Clear HENT: Yes: Atraumatic Cardiovascular: Yes: S1, S2 Respiratory: Yes: CTA Bilaterally Gastrointestinal: Yes: Soft Renal/: Yes: WNL Musculoskeletal: Yes: WNL Edema: No Neurological: Yes: Oriented Psychiatric: Yes: Oriented Labs: CBC, BMP 08/19/17 08:00 08/19/17 08:00 Laboratory Tests 08/16/17 08/18/17 08/18/17 14:30 06:00 06:00 WBC 9.5 9.8 Hgb 14.2 Sodium 128 L Random Glucose Serum Osmolality Urine Osmolality Ur Random Sodium 08/18/17 08/18/17 08/18/17 06:00 17:00 17:00 WBC Hgb Sodium Random Glucose Serum Osmolality 269 L Urine Osmolality 524 Ur Random Sodium 45 08/19/17 08/19/17 08:00 08:00 WBC 11.7 H Hgb 13.8 Sodium 130 L Random Glucose 167 H Serum Osmolality Urine Osmolality Ur Random Sodium Imaging - Results Cat Scan: Report Reviewed Problem List - Problems (1) Chest pain Code(s): R07.9 - CHEST PAIN, UNSPECIFIED (2) GERD without esophagitis Code(s): K21.9 - GASTRO-ESOPHAGEAL REFLUX DISEASE WITHOUT ESOPHAGITIS (3) Hyponatremia Code(s): E87.1 - HYPO-OSMOLALITY AND HYPONATREMIA (4) Pneumonia Code(s): J18.9 - PNEUMONIA, UNSPECIFIED ORGANISM Assessment/Plan Current Medications Generic Name Dose Route Start Last Admin Trade Name Freq PRN Reason Stop Dose Admin Acetaminophen 650 mg 08/17/17 23:07 08/17/17 23:33 Tylenol - PO 650 mg Q4H PRN Administration FEVER OR PAIN Acetaminophen 650 mg 08/17/17 23:07 Tylenol - PO Q6H PRN FEVER OR PAIN Albuterol/Ipratropium 1 amp 08/18/17 15:39 Duoneb - NEB Q4H PRN SHORTNESS OF BREATH Aspirin 81 mg 08/17/17 10:00 08/19/17 11:09 Ecotrin - PO 81 mg DAILY [facility] Administration Azithromycin 500 mg 08/18/17 17:00 08/19/17 11:09 Zithromax - PO 500 mg DAILY [facility] Administration Budesonide/Formoterol Fumarate 2 puff 08/17/17 22:00 08/19/17 13:33 Symbicort 80/4.5mcg - IH Not Given BID [facility] CEFTRIAXONE 1 G/50 ML PREMIX 50 mls @ 100 mls/hr 08/18/17 17:00 08/19/17 11: 06 Ceftriaxone 1 Gm-D5w Bag IVPB 100 mls/hr DAILY [facility] Administration Methylprednisolone Sodium Succinate 40 mg 08/18/17 15:45 08/19/17 15:13 Solu-Medrol - IVPUSH 40 mg Q6H-IV [facility] Administration Metoprolol Succinate 50 mg 08/19/17 10:00 08/19/17 11:09 Toprol Xl - PO 50 mg DAILY [facility] Administration Nitroglycerin 0.4 mg 08/17/17 23:08 Nitrostat - SL Q5M PRN Laboratory Tests 08/18/17 08/18/17 06:00 17:40 TSH 0.52 Cortisol PM Sample Pending Impression 1. hyponatremia 2. hx breast cancer 3. HTN 4. chest pain 5. gerd Plan - restrict free water to 1 liter - agree with stopping hctz - urine osm is much more concentrated than serum osm and urine sodium is elevated, these findings are consistent with an siadh picture - will repeat osms in am - repeat sodium - will give a salt tab today - will need to rule out malignancy Dr Maloney
--- NOTE | 2017-08-19 21:44 | PN ---
Progress Note (short form) - Note Progress Note: 67 year old female admitted with persistent cough, wheezing, 4 pillow orthopnea atypical chest pain and SOB. Feels better, no chest pain reported, no wheezing and no SOB. Myoview ETT did not reveal any ischemia A Active Medications Generic Name Dose Route Start Last Admin Trade Name Freq PRN Reason Stop Dose Admin Acetaminophen 650 mg 08/17/17 23:07 08/17/17 23:33 Tylenol - PO 650 mg Q4H PRN Administration FEVER OR PAIN Acetaminophen 650 mg 08/17/17 23:07 Tylenol - PO Q6H PRN FEVER OR PAIN Albuterol/Ipratropium 1 amp 08/18/17 15:39 Duoneb - NEB Q4H PRN SHORTNESS OF BREATH Aspirin 81 mg 08/17/17 10:00 08/19/17 11:09 Ecotrin - PO 81 mg DAILY [facility] Administration Azithromycin 500 mg 08/18/17 17:00 08/19/17 11:09 Zithromax - PO 500 mg DAILY [facility] Administration Budesonide/Formoterol Fumarate 2 puff 08/17/17 22:00 08/19/17 21:05 Symbicort 80/4.5mcg - IH 2 puff BID [facility] Administration CEFTRIAXONE 1 G/50 ML PREMIX 50 mls @ 100 mls/hr 08/18/17 17:00 08/19/17 11: 06 Ceftriaxone 1 Gm-D5w Bag IVPB 100 mls/hr DAILY [facility] Administration Methylprednisolone Sodium Succinate 40 mg 08/18/17 15:45 08/19/17 21:05 Solu-Medrol - IVPUSH 40 mg Q6H-IV [facility] Administration Metoprolol Succinate 50 mg 08/19/17 10:00 08/19/17 11:09 Toprol Xl - PO 50 mg DAILY [facility] Administration Nitroglycerin 0.4 mg 08/17/17 23:08 Nitrostat - SL Q5M PRN 67 year old female c/o fatique, no pallor, cyanosis, clubbing or jaundice. Last Vital Signs Temp Pulse Resp BP Pulse Ox 97.7 F 78 18 143/76 95 08/19/17 14:10 08/19/17 14:10 08/19/17 14:10 08/19/17 14:10 08/18/17 21:00 NECK: Supple, no JVD, carotids 2+ HEART: PMI in the 5th ICS, NEC along the LSB , no murmur or gallop heard. LUNGS: Bibasilar creps, no wheezing heard. ABDOMEN: Soft, nontender, no organomegaly or palpable masses. EXTREMITIES: No calf tenderness or dependent edema. CBC, BMP 08/19/17 08:00 08/19/17 08:00 1. Bronchial asthma, since age 26. 2. Clinical presentation and CT chest findings, a). Sarcoidosis needs to be excluded. b). Metastatic disease. 3. Hyponatermia, SIADH needs exclusion. 4. Diabetes Mellitus. RECOMMENDATIONS: 1. Work up in progress. 2. Evaluation of hyponatermia and hyposmolality in progress. 3. HbAIc.
[2017-08-20] MEDS: methylPREDNISolone NA SUCC 40 MG/1 ML VIAL IVPUSH SCH ×3 (02:52→17:42)
[2017-08-20] MEDS: PNEUMOC 13-VAL CONJ-DIP CRM/PF 0.5 ML DISP.SYRIN IM ONE (07:31)
[2017-08-20 08:19] LABS: ANION GAP 13 (8-16); CO2 25 mmol/L (21-32); GLUCOSE,RANDOM 175 mg/dL (74-106)
[2017-08-20] MEDS: METOPROLOL SUCCINATE 50 MG TAB.SR.24H (FP) PO SCH (09:32)
[2017-08-20] MEDS: ASPIRIN COATED 81 MG TABLET.EC PO SCH (09:33)
[2017-08-20] MEDS: AZITHROMYCIN 250 MG TABLET PO SCH (09:33)
[2017-08-20] MEDS: CEFTRIAXONE 1 G/50 ML PREMIX 50 ML IVPB SCH (09:33)
[2017-08-20] MEDS ORDERED: PT OWN MED DRAWER 7, Y5N ONE ×2 (09:36→20:12)
[2017-08-20] MEDS: BUDESONIDE/FORMETEROL FUMARATE 80/4.5 mcg INHALER IH SCH ×2 (09:48→21:00)
[2017-08-20] MEDS ORDERED: ASPIRIN COATED 81 MG TABLET.EC PO SCH (10:00)
--- NOTE | 2017-08-20 11:43 | PN ---
Progress Note (short form) - Note Progress Note: 67 year old female resting comfortably. Denies having cough or expectoration, no further wheezing reported. Patient is on IV steroids. No chills or fever. Etiology of mediastinal lymphadenopathy and lesions involving both lung higgins at the present time remains obscured. Active Medications Generic Name Dose Route Start Last Admin Trade Name Freq PRN Reason Stop Dose Admin Acetaminophen 650 mg 08/17/17 23:07 08/17/17 23:33 Tylenol - PO 650 mg Q4H PRN Administration FEVER OR PAIN Acetaminophen 650 mg 08/17/17 23:07 Tylenol - PO Q6H PRN FEVER OR PAIN Albuterol/Ipratropium 1 amp 08/18/17 15:39 Duoneb - NEB Q4H PRN SHORTNESS OF BREATH Aspirin 81 mg 08/17/17 10:00 08/20/17 09:33 Ecotrin - PO 81 mg DAILY [facility] Administration Azithromycin 500 mg 08/18/17 17:00 08/20/17 09:33 Zithromax - PO 500 mg DAILY [facility] Administration Budesonide/Formoterol Fumarate 2 puff 08/17/17 22:00 08/20/17 09:48 Symbicort 80/4.5mcg - IH 2 puff BID [facility] Administration CEFTRIAXONE 1 G/50 ML PREMIX 50 mls @ 100 mls/hr 08/18/17 17:00 08/20/17 09: 33 Ceftriaxone 1 Gm-D5w Bag IVPB 100 mls/hr DAILY [facility] Administration Methylprednisolone Sodium Succinate 40 mg 08/18/17 15:45 08/20/17 09:33 Solu-Medrol - IVPUSH 40 mg Q6H-IV [facility] Administration Metoprolol Succinate 50 mg 08/19/17 10:00 08/20/17 09:32 Toprol Xl - PO 50 mg DAILY [facility] Administration Nitroglycerin 0.4 mg 08/17/17 23:08 Nitrostat - SL Q5M PRN Sodium Chloride 1 gm 08/20/17 10:30 Sodium Chloride Tablet - PO BID [facility] 67 year old female c/o fatigue, no pallor, cyanosis, clubbing or jaundice. Last Vital Signs Temp Pulse Resp BP Pulse Ox 97.7 F 72 20 116/70 95 08/19/17 22:00 08/19/17 22:00 08/19/17 22:00 08/19/17 22:00 08/19/17 21:00 NECK: Supple, no JVD, carotids 2+ HEART: PMI in the 5th ICS, NEC along the LSB , no murmur or gallop heard. LUNGS: Bibasilar creps, no wheezing heard. ABDOMEN: Soft, nontender, no organomegaly or palpable masses. EXTREMITIES: No calf tenderness or dependent edema. CBC, BMP 08/19/17 08:00 08/20/17 06:30 1. Clinical presentation and CT chest findings, a). Sarcoidosis needs to be excluded. b). Metastatic pulmonary disease. c). Atypical PNA is being excluded. 2. Hyponatermia, SIADH needs exclusion. 3. Diabetes Mellitus. 4. Bronchial asthma. RECOMMENDATIONS: 1. Work up in progress. 2. Evaluation of hyponatermia and hyposmolality in progress. 3. Follow up fasting blood sugar and HbAIc.
[2017-08-20] MEDS: SODIUM CHLORIDE 1 GM TABLET PO SCH ×2 (11:55→21:00)
--- NOTE | 2017-08-20 13:39 | PN ---
Progress Note, Physician Chief Complaint: comfortable sugg reduce steroids salt tabs po ok chk lab in am - Current Medication List Current Medications: Active Medications Acetaminophen (Tylenol -) 650 mg PO Q4H PRN PRN Reason: FEVER OR PAIN Last Admin: 08/17/17 23:33 Dose: 650 mg Acetaminophen (Tylenol -) 650 mg PO Q6H PRN PRN Reason: FEVER OR PAIN Albuterol/Ipratropium (Duoneb -) 1 amp NEB Q4H PRN PRN Reason: SHORTNESS OF BREATH Aspirin (Ecotrin -) 81 mg PO DAILY [facility] Last Admin: 08/20/17 09:33 Dose: 81 mg Azithromycin (Zithromax -) 500 mg PO DAILY [facility] Last Admin: 08/20/17 09:33 Dose: 500 mg Budesonide/Formoterol Fumarate (Symbicort 80/4.5mcg -) 2 puff IH BID [facility] Last Admin: 08/20/17 09:48 Dose: 2 puff CEFTRIAXONE 1 G/50 ML PREMIX (Ceftriaxone 1 Gm-D5w Bag) 50 mls @ 100 mls/hr IVPB DAILY [facility] Last Admin: 08/20/17 09:33 Dose: 100 mls/hr Methylprednisolone Sodium Succinate (Solu-Medrol -) 40 mg IVPUSH Q6H-IV [facility] Last Admin: 08/20/17 09:33 Dose: 40 mg Metoprolol Succinate (Toprol Xl -) 50 mg PO DAILY [facility] Last Admin: 08/20/17 09:32 Dose: 50 mg Nitroglycerin (Nitrostat -) 0.4 mg SL Q5M PRN Sodium Chloride (Sodium Chloride Tablet -) 1 gm PO BID [facility] Last Admin: 08/20/17 11:55 Dose: 1 gm - Objective Vital Signs: Vital Signs Temperature 97.8 F 08/20/17 10:00 Pulse Rate 76 08/20/17 10:00 Respiratory Rate 20 08/20/17 10:00 Blood Pressure 129/67 08/20/17 10:00 O2 Sat by Pulse Oximetry (%) 95 08/19/17 21:00 Constitutional: Yes: Well Nourished Eyes: Yes: WNL HENT: Yes: WNL Neck: Yes: WNL Cardiovascular: Yes: WNL Respiratory: Yes: Other (distant) Gastrointestinal: Yes: WNL ...Rectal Exam: Yes: Deferred Genitourinary: Yes: WNL Breast(s): Yes: Other (rt mastectomy) Musculoskeletal: Yes: WNL Extremities: Yes: WNL Edema: No Peripheral Pulses WNL: Yes Integumentary: Yes: WNL Neurological: Yes: WNL ...Motor Strength: WNL Psychiatric: Yes: WNL Labs: CBC, BMP 08/19/17 08:00 08/20/17 06:30 INR, PTT INR 1.08 (0.82-1.09) 08/16/17 14:30 Problem List - Problems (1) Chest pain Code(s): R07.9 - CHEST PAIN, UNSPECIFIED (2) Hyponatremia Code(s): E87.1 - HYPO-OSMOLALITY AND HYPONATREMIA (3) Osteopenia Code(s): M85.80 - OT DISRD OF BONE DENSITY AND STRUCTURE, UNSPECIFIED SITE (4) GERD without esophagitis Code(s): K21.9 - GASTRO-ESOPHAGEAL REFLUX DISEASE WITHOUT ESOPHAGITIS
--- NOTE | 2017-08-20 14:18 | PN ---
Progress Note, Physician Chief Complaint: ID Asymptomatic Ceftriaxone - Current Medication List Current Medications: Active Medications Acetaminophen (Tylenol -) 650 mg PO Q4H PRN PRN Reason: FEVER OR PAIN Last Admin: 08/17/17 23:33 Dose: 650 mg Acetaminophen (Tylenol -) 650 mg PO Q6H PRN PRN Reason: FEVER OR PAIN Albuterol/Ipratropium (Duoneb -) 1 amp NEB Q4H PRN PRN Reason: SHORTNESS OF BREATH Aspirin (Ecotrin -) 81 mg PO DAILY [facility] Last Admin: 08/20/17 09:33 Dose: 81 mg Azithromycin (Zithromax -) 500 mg PO DAILY [facility] Last Admin: 08/20/17 09:33 Dose: 500 mg Budesonide/Formoterol Fumarate (Symbicort 80/4.5mcg -) 2 puff IH BID [facility] Last Admin: 08/20/17 09:48 Dose: 2 puff CEFTRIAXONE 1 G/50 ML PREMIX (Ceftriaxone 1 Gm-D5w Bag) 50 mls @ 100 mls/hr IVPB DAILY [facility] Last Admin: 08/20/17 09:33 Dose: 100 mls/hr Methylprednisolone Sodium Succinate (Solu-Medrol -) 40 mg IVPUSH Q6H-IV [facility] Last Admin: 08/20/17 09:33 Dose: 40 mg Metoprolol Succinate (Toprol Xl -) 50 mg PO DAILY [facility] Last Admin: 08/20/17 09:32 Dose: 50 mg Nitroglycerin (Nitrostat -) 0.4 mg SL Q5M PRN Sodium Chloride (Sodium Chloride Tablet -) 1 gm PO BID [facility] Last Admin: 08/20/17 11:55 Dose: 1 gm - Objective Vital Signs: Vital Signs Temperature 97.8 F 08/20/17 10:00 Pulse Rate 76 08/20/17 10:00 Respiratory Rate 20 08/20/17 10:00 Blood Pressure 129/67 08/20/17 10:00 O2 Sat by Pulse Oximetry (%) 95 08/19/17 21:00 Constitutional: Yes: Well Nourished, No Distress Neck: Yes: WNL, Supple Cardiovascular: Yes: Regular Rate and Rhythm, S1, S2. No: Murmur Respiratory: Yes: WNL, Regular, CTA Bilaterally Gastrointestinal: Yes: WNL, Normal Bowel Sounds, Soft Labs: CBC, BMP 08/19/17 08:00 08/20/17 06:30 INR, PTT INR 1.08 (0.82-1.09) 08/16/17 14:30 Assessment/Plan Microbiology 08/18/17 17:00 Urine For Antigen Detection Legionella Antigen - Final 08/18/17 17:00 Urine For Antigen Detection Streptococcus pneumoniae Antigen (M - Final 08/18/17 17:40 Blood - Peripheral Venous Blood Culture - Preliminary NO GROWTH OBTAINED AFTER 24 HOURS, INCUBATION TO CONTINUE FOR 4 DAYS. 08/18/17 17:40 Blood - Peripheral Venous Blood Culture - Preliminary NO GROWTH OBTAINED AFTER 24 HOURS, INCUBATION TO CONTINUE FOR 4 DAYS. Laboratory Tests 08/19/17 08:00 WBC 11.7 H RBC 4.51 Plt Count 299 Assessment Pneumonia unspecified etiology Plan For today continue current antibiotics Noha JONES
--- NOTE | 2017-08-20 14:42 | PN ---
Progress Note (short form) - Note Progress Note: PULMONARY AWAKE/ALERT OFFERS NO COMPLAINTS APPEARS STABLE VSS/AFEBRILE ANICTERIC DISTANT BUT CLEAR S1S2 BS+ NO EDEMA LABS/MEDS/NOTES/IMAGES/CT CHEST REVIEWED Pneumonia Lung Nodules Hilar Lymphadenopathy Asthma Hyponatremia - agree with empiric antibiotics - medrol taper - inhaled bronchodilators - O2 as needed - will need outpt f/u of chest imaging to ensure resolution - will need biopsy if nodules/infiltrates persist - DVT prophylaxis Rina SMILEY MD
--- NOTE | 2017-08-20 15:07 | PN ---
Progress Note, Physician History of Present Illness: Pt seen and examined at bedside. She is awake and alert. She denies shortness of breath. - Current Medication List Current Medications: Active Medications Acetaminophen (Tylenol -) 650 mg PO Q4H PRN PRN Reason: FEVER OR PAIN Last Admin: 08/17/17 23:33 Dose: 650 mg Acetaminophen (Tylenol -) 650 mg PO Q6H PRN PRN Reason: FEVER OR PAIN Albuterol/Ipratropium (Duoneb -) 1 amp NEB Q4H PRN PRN Reason: SHORTNESS OF BREATH Aspirin (Ecotrin -) 81 mg PO DAILY [facility] Last Admin: 08/20/17 09:33 Dose: 81 mg Azithromycin (Zithromax -) 500 mg PO DAILY [facility] Last Admin: 08/20/17 09:33 Dose: 500 mg Budesonide/Formoterol Fumarate (Symbicort 80/4.5mcg -) 2 puff IH BID [facility] Last Admin: 08/20/17 09:48 Dose: 2 puff CEFTRIAXONE 1 G/50 ML PREMIX (Ceftriaxone 1 Gm-D5w Bag) 50 mls @ 100 mls/hr IVPB DAILY [facility] Last Admin: 08/20/17 09:33 Dose: 100 mls/hr Methylprednisolone Sodium Succinate (Solu-Medrol -) 40 mg IVPUSH Q8H-IV [facility] Metoprolol Succinate (Toprol Xl -) 50 mg PO DAILY [facility] Last Admin: 08/20/17 09:32 Dose: 50 mg Nitroglycerin (Nitrostat -) 0.4 mg SL Q5M PRN Sodium Chloride (Sodium Chloride Tablet -) 1 gm PO BID [facility] Last Admin: 08/20/17 11:55 Dose: 1 gm - Objective Vital Signs: Vital Signs Temperature 97.8 F 08/20/17 10:00 Pulse Rate 76 08/20/17 10:00 Respiratory Rate 20 08/20/17 10:00 Blood Pressure 129/67 08/20/17 10:00 O2 Sat by Pulse Oximetry (%) 95 08/19/17 21:00 Constitutional: Yes: Calm Eyes: Yes: Conjunctiva Clear HENT: Yes: Atraumatic Neck: Yes: Supple Cardiovascular: Yes: S1, S2 Respiratory: Yes: CTA Bilaterally Gastrointestinal: Yes: Soft Genitourinary: Yes: WNL Musculoskeletal: Yes: WNL Edema: No Neurological: Yes: Oriented Psychiatric: Yes: Oriented Labs: CBC, BMP 08/19/17 08:00 08/20/17 06:30 INR, PTT INR 1.08 (0.82-1.09) 08/16/17 14:30 Problem List - Problems (1) Chest pain Code(s): R07.9 - CHEST PAIN, UNSPECIFIED (2) GERD without esophagitis Code(s): K21.9 - GASTRO-ESOPHAGEAL REFLUX DISEASE WITHOUT ESOPHAGITIS (3) Hyponatremia Code(s): E87.1 - HYPO-OSMOLALITY AND HYPONATREMIA (4) Pneumonia Code(s): J18.9 - PNEUMONIA, UNSPECIFIED ORGANISM Assessment/Plan Current Medications Generic Name Dose Route Start Last Admin Trade Name Freq PRN Reason Stop Dose Admin Acetaminophen 650 mg 08/17/17 23:07 08/17/17 23:33 Tylenol - PO 650 mg Q4H PRN Administration FEVER OR PAIN Acetaminophen 650 mg 08/17/17 23:07 Tylenol - PO Q6H PRN FEVER OR PAIN Albuterol/Ipratropium 1 amp 08/18/17 15:39 Duoneb - NEB Q4H PRN SHORTNESS OF BREATH Aspirin 81 mg 08/17/17 10:00 08/20/17 09:33 Ecotrin - PO 81 mg DAILY [facility] Administration Azithromycin 500 mg 08/18/17 17:00 08/20/17 09:33 Zithromax - PO 500 mg DAILY [facility] Administration Budesonide/Formoterol Fumarate 2 puff 08/17/17 22:00 08/20/17 09:48 Symbicort 80/4.5mcg - IH 2 puff BID [facility] Administration CEFTRIAXONE 1 G/50 ML PREMIX 50 mls @ 100 mls/hr 08/18/17 17:00 08/20/17 09: 33 Ceftriaxone 1 Gm-D5w Bag IVPB 100 mls/hr DAILY [facility] Administration Methylprednisolone Sodium Succinate 40 mg 08/20/17 18:00 Solu-Medrol - IVPUSH Q8H-IV [facility] Metoprolol Succinate 50 mg 08/19/17 10:00 08/20/17 09:32 Toprol Xl - PO 50 mg DAILY [facility] Administration Nitroglycerin 0.4 mg 08/17/17 23:08 Nitrostat - SL Q5M PRN Sodium Chloride 1 gm 08/20/17 10:30 08/20/17 11:55 Sodium Chloride Tablet - PO 1 gm BID [facility] Administration Laboratory Tests 08/18/17 17:40 Cortisol PM Sample Pending Impression 1. hyponatremia 2. hx breast cancer 3. HTN 4. chest pain 5. gerd Plan - cont free water restriction - cont salt tabs - taper steroids as tolerated - repeat labs in am - discussed plan with pt and her son - hctz stopped - will need to rule out malignancy Dr Maloney
[2017-08-20 16:28] LABS: QFT TB AG - NIL VALUE <0.01 IU/mL (.); QUANT MITOGEN VALUE 8.56 IU/mL (.); QUANT NIL VALUE 0.05 IU/mL (.); QUANT TB AG VALUE 0.04 IU/mL (.); QUANTIFERON GOLD Negative (Negative)
[2017-08-21] MEDS: methylPREDNISolone NA SUCC 40 MG/1 ML VIAL IVPUSH SCH ×2 (01:44→09:32)
[2017-08-21 08:02] LABS: BASO % 0.1 % (0-2.0); MCH 30.3 pg (25.7-33.7); MCHC 33.6 g/dl (32.0-36.0); MEAN PLT VOLUME 8.3 fl (7.5-11.1); NEUT % 87.6 % (42.8-82.8); PLATELET COUNT 329 K/MM3 (134-434); WHITE BLOOD COUNT 18.7 K/mm3 (4.0-10.0)
[2017-08-21 08:30] VITALS: BP 150/85; PULSE 80; TEMP 98.1
[2017-08-21 08:47] LABS: ALBUMIN 3.1 g/dl (3.4-5.0); ALK PHOS 85 U/L (45-117); ANION GAP 10 (8-16); BILIRUBIN,TOTAL 0.5 mg/dL (0.2-1.0); CALCIUM 8.8 mg/dL (8.5-10.1); CO2 26 mmol/L (21-32); CREATININE 0.9 mg/dL (0.55-1.02); GLUCOSE,RANDOM 172 mg/dL (74-106); SGOT/AST 12 U/L (15-37); SGPT/ALT 23 U/L (12-78); TOT PROT 6.5 g/dl (6.4-8.2)
[2017-08-21] MEDS: CEFTRIAXONE 1 G/50 ML PREMIX 50 ML IVPB SCH (09:35)
[2017-08-21] MEDS: ASPIRIN COATED 81 MG TABLET.EC PO SCH (09:37)
[2017-08-21] MEDS: SODIUM CHLORIDE 1 GM TABLET PO SCH (09:38)
[2017-08-21] MEDS: BUDESONIDE/FORMETEROL FUMARATE 80/4.5 mcg INHALER IH SCH (09:39)
[2017-08-21] MEDS: AZITHROMYCIN 250 MG TABLET PO SCH (09:39)
[2017-08-21] MEDS: METOPROLOL SUCCINATE 50 MG TAB.SR.24H (FP) PO SCH (09:39)
--- NOTE | 2017-08-21 12:41 | DS ---
Physical Examination Vital Signs: Vital Signs Temperature 98.1 F 08/21/17 08:27 Pulse Rate 80 08/21/17 08:27 Respiratory Rate 20 08/21/17 08:27 Blood Pressure 150/85 08/21/17 08:27 O2 Sat by Pulse Oximetry (%) 95 08/20/17 21:00 Constitutional: Yes: Well Nourished Eyes: Yes: WNL HENT: Yes: WNL Neck: Yes: WNL Cardiovascular: Yes: WNL Respiratory: Yes: WNL, SOB on Exertion Gastrointestinal: Yes: WNL ...Rectal Exam: Yes: Deferred Renal/: Yes: WNL Breast(s): Yes: WNL Musculoskeletal: Yes: WNL Extremities: Yes: WNL Edema: No Peripheral Pulses WNL: Yes Integumentary: Yes: WNL Neurological: Yes: WNL, Unresponsive Psychiatric: Yes: WNL Labs: CBC, BMP 08/21/17 06:00 08/21/17 06:00 Discharge Summary Reason For Visit: HYPONATREMIA Current Active Problems Chest pain (Acute) Dyspnea (Acute) GERD without esophagitis (Acute) Hyponatremia (Acute) Osteopenia (Acute) Pneumonia (Acute) Condition: Fair - Instructions Diet, Activity, Other Instructions: appt w ri tuesd 1200 Referrals: Mahendra Bain MD [Staff Physician] - Disposition: HOME - Home Medications Comprehensive Discharge Medication List: Ambulatory Orders Albuterol Sulfate Inhaler - [Ventolin HFA Inhaler -] 2 inh PO Q4H PRN 08/16/17 Aspirin Coated [Ecotrin -] 81 mg PO DAILY tablet.ec 08/21/17 Azithromycin [Zithromax 250mg Tablets -] 500 mg PO DAILY 4 Days #4 tablet Metoprolol Succinate [Toprol XL -] 50 mg PO DAILY #90 tab.sr.24h 08/21/17
== END 2017-08-21 13:30 | disposition home or self-care (01) | DRG 640 ==
LOC: JER 12:35 → JERBED 16:21 → J7W 19:10
PROVIDERS: ADMIT Family Medicine; ATTEND Family Medicine
DX: E87.1 Hypo-osmolality and hyponatremia (principal); J18.9 Pneumonia, unspecified organism; I10 Essential (primary) hypertension; R07.89 Other chest pain; M85.80 Other specified disorders of bone density and structure, unspecified site; K21.9 Gastro-esophageal reflux disease without esophagitis; J45.909 Unspecified asthma, uncomplicated; R91.8 Other nonspecific abnormal finding of lung field; R59.1 Generalized enlarged lymph nodes; E11.9 Type 2 diabetes mellitus without complications; Z85.3 Personal history of malignant neoplasm of breast
CPT/HCPCS: 36415; 71010-TC; 71260-TC; 78452-TC; 80048; 80053; 81003; 81015; 82533; 82550; 83880; 83930; 83935; 84300; 84443; 84484; 85025; 85379; 85610; 85651; 86140; 86480; 86738; 87040; 87899; 90670; 93005; 93010; 93017; 93306-TC; 95816; 99283-25; A9502; C1887

== ENCOUNTER 2017-09-26 12:19 | Inpatient (IN) | payer OTHER ==
[2017-09-26 12:37] VITALS: BMI 20.7
--- NOTE | 2017-09-26 14:24 | PDOC ---
History of Present Illness - General Chief Complaint: Pain Stated Complaint: PCP SENT, PAIN Time Seen by Provider: 09/26/17 14:23 History Source: Patient Exam Limitations: No Limitations - History of Present Illness Initial Comments: CHIEF COMPLAINT: 67 y/o afebrile female with PMH HTN, right mastectomy for breast CA (1998) sent in by Dr. Shetty for body pain. HISTORY OF PRESENT ILLNESS: The patient admits she has been in constant generalized pain for the past 3 weeks. She states all of her joints hurt and she cannot even walk to go to the bathroom because of the pain. She called Dr. Shetty today who wants her admitted to obs for a bone scan to r/o mets. She denies f/c, n/v/d, constipation, cough, GLEASON, CP, SOB, abd pain, dysuria. Vital signs on arrival are notable for pulse of 100. REVIEW OF SYSTEMS: GENERAL/CONSTITUTIONAL: No fever/chills. +weakness. +overall body pain. HEAD, EYES, EARS, NOSE AND THROAT: No change in vision. No ear pain or discharge. No sore throat. CARDIOVASCULAR: No chest pain or shortness of breath. RESPIRATORY: No cough, wheezing, or hemoptysis. GASTROINTESTINAL: No abd pain, nausea, vomiting, diarrhea. GENITOURINARY: No dysuria, frequency, or change in urination. MUSCULOSKELETAL: +generalized joint pain. No neck or back pain. SKIN: No rash or easy bruising. NEUROLOGIC: No headache, vertigo, loss of consciousness, or loss of sensation. PHYSICAL EXAM: GENERAL: The patient is awake, alert, and fully oriented, in no acute distress. She is non toxic but tired appearing. HEAD: Normal with no signs of trauma. ENT: Pupils equal, round and reactive to light, extraocular movements intact, sclera anicteric, conjunctiva clear. Neck supple. LUNGS: Clear to auscultation bilaterally. Normal excursion. No respiratory distress or use of accessory muscles. CV: Rapid rate/regular rhythm, S1/S2, no MRG. Cap refill < 2 sec. ABDOMEN: Soft, non-distended, non-tender even to deep palpation, no hepatomegaly or splenomegaly, no masses. EXTREMITIES: Normal range of motion, no edema. NEUROLOGICAL: Normal speech, normal gait. CN II-XII grossly intact.. SKIN: Warm, dry, normal turgor, no rashes or lesions noted. Past History - Past Medical History Allergies/Adverse Reactions: Allergies Allergy/AdvReac Type Severity Reaction Status Date / Time No Known Allergies Allergy Verified 09/26/17 12:38 Home Medications: Ambulatory Orders Aspirin Coated [Ecotrin -] 81 mg PO DAILY tablet.ec 08/21/17 Acetaminophen [Tylenol .Regular Strength -] 650 mg PO Q6H PRN #60 tablet Albuterol Sulfate Inhaler - [Ventolin HFA Inhaler -] 2 puff IH Q4H PRN #1 inhaler 10/12/17 Budesonide/Formeterol Fumarate [SYMBICORT 80/4.5mcg -] 2 puff IH BID #1 inhaler 10/12/17 Furosemide [Lasix -] 20 mg PO DAILY #90 tablet 10/12/17 Metoprolol Succinate [Toprol XL -] 50 mg PO DAILY 90 Days tab.sr.24h 10/12/17 Pantoprazole Sodium [Protonix -] 40 mg PO DAILY #90 tablet.ec 10/12/17 Prednisone [Deltasone -] 40 mg PO DAILY #90 tablet 10/12/17 Triamcinolone 0.1% Cream [Aristocort 0.1% Cream -] 1 applic TP DAILY #1 applic 10/12/17 Cancer: Yes (rt breast) COPD: No HTN: Yes - Suicide/Smoking/Psychosocial Hx Smoking History: Never smoked Have you smoked in the past 12 months: No Information on smoking cessation initiated: No Hx Alcohol Use: No Drug/Substance Use Hx: No Substance Use Type: None *Physical Exam - Vital Signs Last Vital Signs Temp Pulse Resp BP Pulse Ox 98.9 F 100 H 18 109/61 95 09/26/17 12:30 09/26/17 12:30 09/26/17 12:30 09/26/17 12:30 09/26/17 12:30 Heart Score/ECG Review - ECG Intrepretation Comment:: Twelve-lead EKG was performed and reviewed by Dr. Garza. There is sinus tachycardia. The axis is normal. The intervals are normal. There are no ST or T wave abnormalities. Impression: Otherwise normal twelve-lead EKG ED Treatment Course - LABORATORY CBC & Chemistry Diagram: 10/10/17 05:37 10/11/17 06:20 Medical Decision Making - Medical Decision Making A/P: 67 y/o female sent in by Dr. Darell Shetty for admission to [facility] for intractable pain to r/o bone mets. Spoke with Dr. Shetty. He would like a general work up and order for a bone scan to be performed by nuclear medicine tomorrow. Informed the patient of the plan. All orders are in. Troponin 0.27, potassium 5.5. Previous troponin <0.02 on 08/16/17 Patient was already on [facility] in a bed prior to all labs being resulted. Elevated troponin and potassium result never reported by the lab to myself. Shante, patient's RN on , informed of the results. Spoke with Dr. Shetty who states he will have the patient transferred to [facility] and will put orders in. *DC/Admit/Observation/Transfer Diagnosis at time of Disposition: Intractable pain - Discharge Dispostion Disposition: VNS/HOME HEALTH CARE Condition at time of disposition: Guarded Admit: Yes - Prescriptions - Referrals - Patient Instructions - Post Discharge Activity
[2017-09-26 16:17] LABS: HEMOGLOBIN 12.1 GM/dL (10.7-15.3); MCH 29.8 pg (25.7-33.7); MCHC 32.6 g/dl (32.0-36.0); MEAN CELL VOLUME 91.4 fl (80-96); MEAN PLT VOLUME 7.6 fl (7.5-11.1); PLATELET COUNT 433 K/MM3 (134-434); RBC 4.05 M/mm3 (3.60-5.2); RDW 14.3 % (11.6-15.6); WHITE BLOOD COUNT 21.1 K/mm3 (4.0-10.0)
[2017-09-26 16:41] LABS: ALBUMIN 1.4 g/dl (3.4-5.0); ANION GAP 9 (8-16); BILIRUBIN,TOTAL 0.2 mg/dL (0.2-1.0); BLOOD UREA NITROGEN 33 mg/dL (7-18); CALCIUM 8.1 mg/dL (8.5-10.1); CHLORIDE 102 mmol/L (98-107); CO2 25 mmol/L (21-32); CREATININE 0.8 mg/dL (0.55-1.02); GLUCOSE,RANDOM 191 mg/dL (74-106); POTASSIUM 5.5 mmol/L (3.5-5.1); SGOT/AST 176 U/L (15-37); SGPT/ALT 157 U/L (12-78); SODIUM 136 mmol/L (136-145); TOT PROT 4.7 g/dl (6.4-8.2)
[2017-09-26 16:53] LABS: ALK PHOS 69 U/L (45-117)
[2017-09-26 17:29] LABS: PLATELET ESTIMATE ADEQUATE
[2017-09-26] MEDS ORDERED: HEPARIN NA (PORCINE) 5,000 UNITS/ML 1ML VIAL IVPUSH PRN ×2 (18:23)
[2017-09-26] MEDS ORDERED: SODIUM CHLORIDE 1,000 ML IV SCH (18:30)
[2017-09-26] MEDS ORDERED: HEPARIN INFUSION - 25,000 UNITS/500 ML INFUS.BAG IVPB SCH (18:30)
--- NOTE | 2017-09-26 18:51 | PN ---
Progress Note, Physician History of Present Illness: pt sent to floor before pa? docter calling me of results even as i told pa specifically to call me in her notes it states chest pain x 3 wks under ros states no chest oain i transferd pt to telemetry stat spoke to card stat implimented mi w/u and tx ect started iv antbx will see pt in am - Current Medication List Current Medications: Active Medications Heparin Sodium (Porcine) (Heparin -) 1,000 unit IVPUSH PRN PRN PRN Reason: Heparin Heparin Sodium (Porcine) (Heparin -) 5,000 unit IVPUSH PRN PRN PRN Reason: Heparin Last Admin: 09/26/17 18:32 Dose: 5,000 unit Sodium Chloride (Normal Saline -) 1,000 mls @ 83 mls/hr IV ASDIR BARB HEPARIN SOD,PORK IN 0.45% NACL (Heparin-1/2ns 25,000 Units/500) 25,000 unit in 500 mls @ 16 mls/hr IVPB TITR BAR[facility]; 800 UNITS/HR PRN Reason: Protocol Nitroglycerin/Dextrose (Nitroglycerin 25mg/D5w 250ml) 25 mg in 250 mls @ 6 mls/ hr IVPB TITR [facility] PRN Reason: 10 MCG/MIN Piperacillin Sod/Tazobactam (Sod 3.375 gm/ Dextrose) 50 mls @ 100 mls/hr IVPB Q8H-IV [facility] PRN Reason: Protocol Stop: 10/01/17 18:29 Sodium Polystyrene Sulfonate (Kayexalate -) 15 gm PO ONCE ONE Stop: 09/26/17 18:34 - Objective Vital Signs: Vital Signs Temperature 98.9 F 09/26/17 12:30 Pulse Rate 101 H 09/26/17 16:05 Respiratory Rate 20 09/26/17 16:05 Blood Pressure 121/68 09/26/17 16:05 O2 Sat by Pulse Oximetry (%) 98 09/26/17 16:05 Labs: CBC, BMP 09/26/17 15:29 09/26/17 15:29
[2017-09-26] MEDS ORDERED: HYDROmorphone HCL 2 MG TABLET PO PRN ×2 (18:55→19:36)
[2017-09-26] MEDS ORDERED: SODIUM POLYSTYRENE SULFONATE 15 GM/60 ML BOTTLE PO ONE (19:15)
--- NOTE | 2017-09-26 20:12 | PN ---
Progress Note, Physician History of Present Illness: called by card pt w rash severe all over body confluent w/u in progrees for ctd autoimune dzs rh consult in - Current Medication List Current Medications: Active Medications Heparin Sodium (Porcine) (Heparin -) 1,000 unit IVPUSH PRN PRN PRN Reason: Heparin Heparin Sodium (Porcine) (Heparin -) 5,000 unit IVPUSH PRN PRN PRN Reason: Heparin Last Admin: 09/26/17 18:32 Dose: 5,000 unit Hydromorphone HCl (Dilaudid -) 1 mg PO Q6H PRN PRN Reason: PAIN LEVEL 6-10 Stop: 09/29/17 19:35 Sodium Chloride (Normal Saline -) 1,000 mls @ 83 mls/hr IV ASDIR BARB HEPARIN SOD,PORK IN 0.45% NACL (Heparin-1/2ns 25,000 Units/500) 25,000 unit in 500 mls @ 16 mls/hr IVPB TITR BARB; 800 UNITS/HR PRN Reason: Protocol Nitroglycerin/Dextrose (Nitroglycerin 25mg/D5w 250ml) 25 mg in 250 mls @ 6 mls/ hr IVPB TITR BARB PRN Reason: 10 MCG/MIN Piperacillin Sod/Tazobactam (Sod 3.375 gm/ Dextrose) 50 mls @ 100 mls/hr IVPB Q8H-IV [facility] PRN Reason: Protocol Stop: 10/01/17 18:29 Metoprolol Succinate (Toprol Xl -) 50 mg PO DAILY [facility] Pantoprazole Sodium (Protonix Iv) 40 mg IVPUSH DAILY [facility] - Objective Vital Signs: Vital Signs Temperature 98.9 F 09/26/17 12:30 Pulse Rate 101 H 09/26/17 16:05 Respiratory Rate 20 09/26/17 18:59 Blood Pressure 121/68 09/26/17 16:05 O2 Sat by Pulse Oximetry (%) 98 09/26/17 16:05 Labs: CBC, BMP 09/26/17 15:29 09/26/17 15:29
[2017-09-26 21:48] LABS: INR 1.17 (0.82-1.09); PROTHROMBIN TIME (PATIENT) 13.2 SEC (9.98-11.88)
[2017-09-26] MEDS: NITROGLYCERIN 25MG/D5W 250ML 25 MG/250 ML ML IVPB SCH (22:00)
[2017-09-26] MEDS ORDERED: SODIUM POLYSTYRENE SULFONATE 15 GM/60 ML BOTTLE ONE (22:41)
--- NOTE | 2017-09-26 22:46 | CONSULT ---
Consult Consult Specialty:: Rheumatology - History of Present Illness History of Present Illness: 67 year old female with history of right breasr CA in 1990, S/P hysterectomy in 2000, choleliothiasis (scheduled for cholecystectomy) hypertension and hypercholesterolemia (presently not on medication) and asthma, admitted with myalgia, weakness and skin rash. HPI The paatient reports a 3 month history of dry mouth. One month ago she developed progressive diffuse myalgia, diffuse arthralgia involving mainly shoulders, hands and knees with difficulty in standing up or walking in the last 2 weeks. Also one month ago she developed an intermittent pruritic skin rash involving trunk and extremities. She denie fever, oral ulcers, Raynaud's phenomenon or dry mouth and reports SOB related to asthma. On admission CBC with WBC 21.1, ESR 40, Creat 0.8, AST 176 and ALT 157.CK Initial 2,469. Hours later 3067. Tmax 98.9 and pulse 111 - History Source History Provided By: Patient, Medical Record Limitations to Obtaining History: No Limitations - Past Medical History Cardio/Vascular: Yes: AFIB, HTN Pulmonary: Yes: Asthma Gastrointestinal: Yes: Other (Cholelithiasis.) - Past Surgical History Past Surgical History: Yes: Hysterectomy, Mastectomy - Alcohol/Substance Use Hx Alcohol Use: No - Smoking History Smoking history: Never smoked Have you smoked in the past 12 months: No Home Medications - Allergies Allergies/Adverse Reactions: Allergies Allergy/AdvReac Type Severity Reaction Status Date / Time No Known Allergies Allergy Verified 09/26/17 12:38 - Home Medications Home Medications: Ambulatory Orders Albuterol Sulfate Inhaler - [Ventolin HFA Inhaler -] 2 inh PO Q4H PRN 08/16/17 Aspirin Coated [Ecotrin -] 81 mg PO DAILY tablet.ec 08/21/17 Azithromycin [Zithromax 250mg Tablets -] 500 mg PO DAILY 4 Days #4 tablet Metoprolol Succinate [Toprol XL -] 50 mg PO DAILY #90 tab.sr.24h 08/21/17 Review of Systems - Review of Systems Constitutional: reports: Malaise Eyes: reports: No Symptoms HENT: reports: Other (dry mouth) Neck: reports: No Symptoms Cardiovascular: reports: No Symptoms Respiratory: reports: SOB on Exertion Gastrointestinal: reports: No Symptoms Genitourinary: reports: No Symptoms Musculoskeletal: reports: Joint Pain, Muscle Weakness Integumentary: reports: Other (See HPI) Physical Exam Vital Signs: Vital Signs Temperature 98.6 F 09/26/17 21:04 Pulse Rate 111 H 09/26/17 21:04 Respiratory Rate 20 09/26/17 21:04 Blood Pressure 122/61 09/26/17 21:04 O2 Sat by Pulse Oximetry (%) 98 09/26/17 16:05 Constitutional: Yes: Mild Distress Eyes: Yes: WNL HENT: Yes: WNL Neck: Yes: WNL Cardiovascular: Yes: Tachycardia Respiratory: Yes: Other (Bilateral basal crepitus.) Gastrointestinal: Yes: WNL Musculoskeletal: Yes: Other (Significant tenderness in proximal and distal muscles. Muscle weakness 3 to 4 /5 in proximal muscles. No active joints) Labs: CBC, BMP 09/26/17 15:29 09/26/17 15:29 Problem List - Problems (1) Myositis Code(s): M60.9 - MYOSITIS, UNSPECIFIED
[2017-09-26] MEDS: HEPARIN SOD,PORK IN 0.45% NACL 25,000 UNIT/500 ML INFUS.BAG IVPB SCH (22:56)
--- NOTE | 2017-09-26 23:24 | CONS ---
DATE OF CONSULTATION: 09/26/2017 REQUESTING PHYSICIAN: Darell Loredo M.D. CARDIOLOGY CONSULTATION CHIEF COMPLAINT: 1. Shortness of breath with minimal exertion. 2. Palpitations associated with progressive shortness of breath. 3. Joint pains. 4. Progressive weakness of the legs. 5. Difficulty in standing and ambulating. HISTORY OF PRESENT ILLNESS: Patient is a 67-year-old female who was discharged back in August and had been admitted with symptoms of atypical chest pain, progressive shortness of breath over the past 3 months, persistent nonproductive cough, and workup disclosed pulmonary infiltrates, bilateral lymphadenopathy. She was also found to have fatty liver and borderline elevation of blood sugar. She now presents with a 3-week history of increasing dyspnea on minimal exertion , even walking to the bathroom, accompanied by palpitation that she describes as a rapid heartbeat and also has developed progressive arthritic pains which are severe involving the large joints and also has pain involving the interphalangeal joints; these symptoms also started approximately 3 weeks ago. She also complains of muscular pain mostly involving the lower extremities and is accompanied by muscle weakness. She is unable to stand and requires a cane and help to move around. There is no history of paroxysmal nocturnal dyspnea or orthopnea. She continues to have a cough that remains nonproductive. No history of recent chest pain or discomfort either at rest or with exertion. There is no history of pruritus, there is no history of lightheadedness or dizziness. There is no history of chills or fever, although she complains of some night sweats. There is no history of pedal edema. Patient states that she has been incapacitated for 3 weeks, and on questioning states that she has been experiencing pruritus which also started approximately 3 weeks ago. PAST HISTORY: 1. As mentioned in the history of present illness. 2. History of bronchial asthma starting at age 26. 3. History of carcinoma of the right breast diagnosed in 1990. 4. History of low back syndrome. 5. History of paresthesias involving the left lower extremity and recently she has felt paresthesias involving the right foot. SURGICAL HISTORY: 1. Status post hysterectomy and oophorectomy. 2. Status post right mastectomy. SOCIAL HISTORY: She was born in [place]. She is . 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 Had 2 sons, one of them last December in an automobile accident. The other son is also a audio video technician. She usually drinks 3 cups of decaffeinated coffee, has never smoked or had a drink . FAMILY HISTORY: Father at the age of 58 of a myocardial infarction. Mother at age 78 related to pancreatic cancer. A sister in her late 40s of throat carcinoma; she was a smoker. A younger sister has hypertension and bronchial asthma. She has 4 brothers who apparently are healthy. ALLERGIES: None reported. MEDICATION: Recorded in the emergency room are as follows. 1. Aspirin 81 mg p.o. daily. 2. Azithromycin that was given to her last in August. 3. Albuterol inhaler 2 inhalations q.i.d. p.r.n. 4. Metoprolol succinate 50 mg p.o. daily as recorded on August 21, 2017, but patient states she had to discontinue it because she was experiencing low blood pressure. CURRENT MEDICATIONS: 1. Apresoline. 2. Tazobactam 3.375 g IV q.8 h. 3. Heparin as per protocol. 4. Metoprolol 50 mg p.o. daily. 5. Nitroglycerin intravenously. 6. Hydromorphone 1 mg q.6 h. p.o. p.r.n. 7. Pantoprazole 40 mg IV daily. REVIEW OF SYSTEMS: Constitutional: No history of chills or fever, history of intermittent night sweats. History of weight loss. HEENT: No history of headaches, diplopia, blurred vision. History of sensitivity to light involving the left eye since childhood for which she wears sunglasses. No history of epistaxis, hoarseness, no history of tinnitus, or deafness reported. Cardiovascular: See history of recent chest pain or discomfort. See history of present illness. Respiratory: See history of present illness. Gastrointestinal: Denies having nausea, vomiting, melena or hematemesis. No history of abdominal pain or discomfort. History of gallstones as noted on CT scan of the abdomen. No history of change in bowel habits. Neurological: History of peripheral paresthesias, history of back syndrome. No history of seizures, syncope, no history of focal weakness. Musculoskeletal: History of severe arthralgias and myalgias accompanied by muscle weakness of the lower extremities. Endocrine: No history of polyuria, polydipsia. No history of intolerance to cold or warm weather. History of hyponatremia on last admission. Hematological/Lymphatics: No history of ecchymosis, anemia, or bleeding. Genitourinary: No history of dysuria, frequency, or hematuria. Skin: History of intense pruritus for the last 3 weeks. PHYSICAL EXAMINATION: General: A 67-year-old female was in no acute distress, no pallor, cyanosis, clubbing, or jaundice. Vital signs: Weight 125 pounds, blood pressure 121/68 mmHg, pulse 100 beats per minute and regular, temperature 98.9 degrees Fahrenheit, respirations 20 per minute, oxygen saturation 98% on room air. Neck: Supple. No jugular venous distention, hepatojugular reflex was negative, carotids were 2+, upstrokes were normal, no bruits were heard, and no thyromegaly was present. No supraclavicular or submandibular lymphadenopathy was palpable. Heart: PMI was in the 5th intercostal space, no heaves or thrills, rate was regular. S1 and S2 were normal. No murmur or gallops were heard. Lungs: Coarse breath sounds bilaterally. No expiratory wheezing or extraneous sounds were heard. There was no pleural rub. Chest: Normal AP diameter. Expansion was symmetrical. There was a right mastectomy. Abdomen: Soft, protuberant, nontender, no hepatosplenomegaly or palpable masses were felt. Bowel sounds were present. No bruits were heard. Extremities: No calf tenderness or dependent edema, pulses were equal. Skin: There was extensive rash involving both the anterior and posterior chest which was diffuse, and there was rash involving both upper extremities, left more pronounced than right. There was rash involving both thighs and lower back. There was a patchy area of rash involving the right forearm associated with nodularity , early erythema nodosum cannot be excluded. LABORATORY DATA: CBC: WBC count 21,100, hemoglobin 12.1 g, platelet count 433, 000. Differential: neutrophils 77%, bands 9.0%, lymphocytes 2%, eosinophil 5%, myelocytes 2%, platelets were reported to be adequate. Chemistry: sodium 136, potassium 5.5, chloride 102, CO2 of 25 mmol/L. BUN 33, creatinine 0.8 mg/dL. Random glucose 191 mg/dL. Calcium 8.1 mg/dL. AST 176, ALT 157. CK 2469, repeat 2666, alkaline phosphatase 69. Troponins 0.27, 0.36. Total protein 4.7, albumin 1.4 g/dL. X-ray chest not available. ECG: sinus tachycardia at 109 beats per minute, slightly low voltage, upward coving of ST segments in leads I and AVL, may be related to early repolarization, current of injury cannot be entirely ruled out. Compared to ECG of August 16, 2017, ST segments on current ECG in II, III, AVF , V4 to V6 are isoelectric. There is upward curving of ST segment noted in lead I. Myoview stress test of August 18, 2017, nuclear result normal perfusion scan, no evidence of stress-induced ischemia, normal ejection fraction 78%. CT scan of August 17, 2017, impression: 1. Bilateral sizeable consolidative opacities and solid nodular opacities as described above are compatible with multifocal pneumonia in the appropriate clinical setting. Followup images of the chest are recommended after completion of therapy to exclude other processes. 2. Bilateral hilar lymphadenopathy may be reactive. 3. Cholelithiasis. IMPRESSION: Progressive dyspnea on minimal exertion associated with palpitations, acute arthralgias, myalgias, associated with elevated CK and confluent rash in the presence of previous CT scan findings, etiology to be determined: 1. Sarcoidosis with multisystem involvement including possibility of sarcoid myocarditis has to be excluded. 2. Metastatic breast carcinoma. 3. Collagen disease needs exclusion. 4. Hypereosinophilic syndrome should be excluded. RECOMMENDATION: 1. Repeat CT scan of the chest. 2. Echocardiogram. 3. Collagen workup. 4. Pulmonary infectious and oncological evaluation. 5. IV nitroglycerin can be discontinued. 6. Check oxygen saturation on exertion. 7. ESR, C-reactive protein. 8. Lyme titer. Prognosis critical. Time: 2 hours and 10 minutes. Thank you for your referral. Yours sincerely, SHEA HUDSON M.D. [id number] MTDD
[2017-09-27] MEDS ORDERED: PIPERACILLIN/TAZOB 3.375 GM 3.375 GM in DEXTROSE 5%-WATER - 50 ML IVPB SCH (02:00)
[2017-09-27 06:16] LABS: ARTERIAL BLOOD GAS BASE EXCESS -0.5 meq/l (-2-2); ARTERIAL BLOOD GAS PCO2 34.2 mmHg (35-45); ARTERIAL BLOOD GAS PO2 67.5 mmHg (80-100); ARTERIAL BLOOD GAS pH 7.44 (7.35-7.45)
[2017-09-27 07:08] LABS: HEMATOCRIT 35.7 % (32.4-45.2); HEMOGLOBIN 11.7 GM/dL (10.7-15.3); MCH 29.9 pg (25.7-33.7); MCHC 32.7 g/dl (32.0-36.0); MEAN CELL VOLUME 91.3 fl (80-96); MEAN PLT VOLUME 7.4 fl (7.5-11.1); PLATELET COUNT 423 K/MM3 (134-434); RBC 3.91 M/mm3 (3.60-5.2); RDW 14.5 % (11.6-15.6); WHITE BLOOD COUNT 23.1 K/mm3 (4.0-10.0)
[2017-09-27 07:40] LABS: ALBUMIN 1.3 g/dl (3.4-5.0); ANION GAP 9 (8-16); BILIRUBIN,TOTAL 0.4 mg/dL (0.2-1.0); BLOOD UREA NITROGEN 27 mg/dL (7-18); CHLORIDE 103 mmol/L (98-107); CO2 22 mmol/L (21-32); CREATININE 0.6 mg/dL (0.55-1.02); GLUCOSE,RANDOM 93 mg/dL (74-106); POTASSIUM 4.5 mmol/L (3.5-5.1); SGOT/AST 185 U/L (15-37); SGPT/ALT 148 U/L (12-78); SODIUM 134 mmol/L (136-145); TOT PROT 4.5 g/dl (6.4-8.2)
[2017-09-27 07:41] LABS: ALK PHOS 61 U/L (45-117)
--- NOTE | 2017-09-27 08:51 | EKG ---
Test Reason : Blood Pressure : / mmHG Vent. Rate : 109 BPM Atrial Rate : 109 BPM P-R Int : 130 ms QRS Dur : 082 ms QT Int : 328 ms P-R-T Axes : 027 020 036 degrees QTc Int : 441 ms SINUS TACHYCARDIA OTHERWISE NORMAL ECG WHEN COMPARED WITH ECG OF 17-AUG-2017 23:43, NO SIGNIFICANT CHANGE WAS FOUND Confirmed by Cheo Galarza ([id number]) on 09/27/2017 8:51:28 AM Referred By: Confirmed By:Cheo Galarza
--- NOTE | 2017-09-27 09:50 | HP ---
Admitting History and Physical - Admission Chief Complaint: pt was d/c from [facility] ? aug 17 pneumonia low na of [place] si[place] r/o. pt sine than c/o of gen pain all jts i suspected malig? sec mets breast ca. bone scan ordered out pt. pt never had cp and denies it again. ? confused. and states rash comes and goes and subsided today conciderably History of Present Illness: always had streuous sob excertion weakneass progressing over x 2wks History Source: Patient, Family Member Limitations to Obtaining History: Poor Historian - Past Medical History Cardiovascular: Yes: AFIB, HTN Pulmonary: Yes: Asthma Gastrointestinal: Yes: Other (Cholelithiasis.) Hepatobiliary: Yes: Cholelithiasis Reproductive: Yes: Other (h/o brest ca) ...: No Heme/Onc: Yes: Other (breast cancer) Psych: Yes: Anxiety Musculoskeletal: Yes: Other (weak and jt pains) Rheumatology: Yes: Other (? fa test pnd) Dermatology: Yes: Other (chr rash on off) - Past Surgical History Past Surgical History: Yes: Hysterectomy, Mastectomy - Smoking History Smoking history: Never smoked Have you smoked in the past 12 months: No - Alcohol/Substance Use Hx Alcohol Use: No History of Substance Use: reports: None - Social History Usual Living Arrangement: Yes: Alone History of Recent Travel: No Home Medications - Allergies Allergies/Adverse Reactions: Allergies Allergy/AdvReac Type Severity Reaction Status Date / Time No Known Allergies Allergy Verified 09/26/17 12:38 - Home Medications Home Medications: Ambulatory Orders Albuterol Sulfate Inhaler - [Ventolin HFA Inhaler -] 2 inh PO Q4H PRN 08/16/17 Aspirin Coated [Ecotrin -] 81 mg PO DAILY tablet.ec 08/21/17 Azithromycin [Zithromax 250mg Tablets -] 500 mg PO DAILY 4 Days #4 tablet Metoprolol Succinate [Toprol XL -] 50 mg PO DAILY #90 tab.sr.24h 08/21/17 Family Disease History - Family Disease History Family History: Unremarkable Review of Systems - Review of Systems Musculoskeletal: reports: Muscle Pain, Muscle Weakness Integumentary: reports: Rash Pain Intensity: 6 Physical Examination Vital Signs: Vital Signs Temperature 98.3 F 09/27/17 05:56 Pulse Rate 102 H 09/27/17 05:56 Respiratory Rate 20 09/27/17 05:56 Blood Pressure 113/59 09/27/17 05:56 O2 Sat by Pulse Oximetry (%) 92 L 09/26/17 21:00 Constitutional: Yes: Calm Eyes: Yes: WNL HENT: Yes: WNL, Tonsillar Exudate Cardiovascular: Yes: WNL Respiratory: Yes: Diminished Gastrointestinal: Yes: WNL ...Rectal Exam: Yes: Deferred Renal/: Yes: WNL Breast(s): Yes: Other (m astectomy) Musculoskeletal: Yes: Joint Stiffness Extremities: Yes: Other (weakness) Edema: No Peripheral Pulses: Left Radial: 2+, Right Radial: 2+, Left Doralis Pedis: 2+, Right Dorsalis Pedis: 2+, Left Femoral: 2+, Right Femoral: 2+ Integumentary: Yes: Other (rash better) Neurological: Yes: Weakness Psychiatric: Yes: WNL Labs: CBC, BMP 09/27/17 05:15 09/27/17 06:15 Assessment/Plan emg now steroids later when we have more info chest sx ? bx lungs ? bx muscle watch na level will lower iv chk ct labs results no
[2017-09-27] MEDS: PANTOPRAZOLE SODIUM 40 MG VIAL IVPUSH SCH (09:52)
[2017-09-27] MEDS: HEPARIN SOD,PORK IN 0.45% NACL 25,000 UNIT/500 ML INFUS.BAG IVPB SCH ×2 (09:53→22:41)
[2017-09-27] MEDS ORDERED: SODIUM CHLORIDE 1,000 ML IV SCH (10:00)
--- NOTE | 2017-09-27 10:53 | CONSULT ---
Consult - text type - Consultation Consultation Note: Thoracic Surgery Consultation: 67F with h/o Breast cancer in 1990 s/p mastectomy, progressive weakness and dyspnea on exertion over 1 month. No weight loss or fevers. Now p/w B/L effusions and compressive atelectasis as well as multiple nodules. PE: breathing comfortably with normal vitals BSS decreased at bases. Imp/Plan: Bilateral effusions with nodules (appear inflammatory/rheumatologic more than maligant), suspect systemic illness ?rheum, ?malignancy Recommend pulm consultation, thoracentesis (right before left, probably by IR), depending on results would consider more invasive biopsy electively (options include bronchoscopy, ebus, or lung biopsy but not in acute setting). I have spent 40 minutes on this consultation with >50% in counseling and coordination of care including discussion with her physicians, reviewing the images, and discussion with the patient and her sister.
[2017-09-27] MEDS ORDERED: PHYTONADIONE 5 MG TABLET PO ONE (11:00)
--- NOTE | 2017-09-27 12:22 | PN ---
Progress Note (short form) - Note Progress Note: PULMONARY CONSULTATION DICTATED 09/27/17 IMP BILATERAL PLEURAL EFFUSIONS ?CHF,?INFECTIOUS,INFLAMMATORY,?MALIGNANT BILATERAL PULMONARY NODULES ? INFLAMMATORY,INFECTIOUS,SARCOID,? MALIGNANT DYSPNEA WEAKNESS GENERALIZED JOINT PAINS + TROPONINS MYOPATHY/MYOSITIS ASTHMA PLAN THORACENTESIS POSSIBLE BX PENDING RESULTS OF PLEURAL FLUID O2 ANALGESICS TREND TROPONINS ? RHEUMATOLOGY EVALUATION DR PAULSON Problem List - Problems (1) Pleural effusion Code(s): J90 - PLEURAL EFFUSION, NOT ELSEWHERE CLASSIFIED (2) Intractable pain Code(s): R52 - PAIN, UNSPECIFIED (3) Myositis Code(s): M60.9 - MYOSITIS, UNSPECIFIED (4) Dyspnea Code(s): R06.00 - DYSPNEA, UNSPECIFIED (5) Asthma Code(s): J45.909 - UNSPECIFIED ASTHMA, UNCOMPLICATED (6) Troponin level elevated Code(s): R74.8 - ABNORMAL LEVELS OF OTHER SERUM ENZYMES
[2017-09-27 14:17] LABS: ACANTHOCYTES 0; ANISOCYTOSIS 1+; MACROCYTOSIS 1+; PLATELET ESTIMATE NORMAL
--- NOTE | 2017-09-27 15:46 | PN ---
Progress Note (short form) - Note Progress Note: ID Consult dictated Bilateral pleural effusions Probable compressive atelectasis ? connective tissue disorder Will await cultures Diagnostic thoracentesis Observe off antibiotics HIV testing ( pt consents )
--- NOTE | 2017-09-27 17:17 | CONSULT ---
Consult Consult Specialty:: Dermatology - History Source History Provided By: Patient - Past Medical History Cardio/Vascular: Yes: AFIB, HTN Pulmonary: Yes: Asthma Gastrointestinal: Yes: Other (Cholelithiasis.) Hepatobiliary: Yes: Cholelithiasis ...: No Psych: Yes: Anxiety Musculoskeletal: Yes: Other (weak and jt pains) Rheumatology: Yes: Other (? fa test pnd) Dermatology: Yes: Other (chr rash on off) - Past Surgical History Past Surgical History: Yes: Hysterectomy, Mastectomy - Alcohol/Substance Use Hx Alcohol Use: No History of Substance Use: reports: None - Smoking History Smoking history: Never smoked Have you smoked in the past 12 months: No - Social History History of Recent Travel: No Home Medications - Allergies Allergies/Adverse Reactions: Allergies Allergy/AdvReac Type Severity Reaction Status Date / Time No Known Allergies Allergy Verified 09/26/17 12:38 - Home Medications Home Medications: Ambulatory Orders Albuterol Sulfate Inhaler - [Ventolin HFA Inhaler -] 2 inh PO Q4H PRN 08/16/17 Aspirin Coated [Ecotrin -] 81 mg PO DAILY tablet.ec 08/21/17 Azithromycin [Zithromax 250mg Tablets -] 500 mg PO DAILY 4 Days #4 tablet Metoprolol Succinate [Toprol XL -] 50 mg PO DAILY #90 tab.sr.24h 08/21/17 Physical Exam Vital Signs: Vital Signs Temperature 98.1 F 09/27/17 15:00 Pulse Rate 94 H 09/27/17 15:00 Respiratory Rate 20 09/27/17 15:00 Blood Pressure 112/62 09/27/17 15:00 O2 Sat by Pulse Oximetry (%) 92 L 09/26/17 21:00 Labs: CBC, BMP 09/27/17 05:15 09/27/17 06:15 Assessment/Plan Patient admitted for cancer workup. She complains of progressive weakness and difficulty walking a well as pain. Patient says she has a recurrent rash and itching for many years. On exam she has very dry skin and an eczematous erythematous eruption on forearms lower back and generalized pruritis. Patient advised to apply heavy moisturizing cream daily and triamcinolone to affected area daily Dx Eczema Rx moisturizer and triamciolone patient to follow up as needed as outpatient
[2017-09-27] MEDS ORDERED: ACETAMINOPHEN 325 MG TABLET (FP) ONE (17:25)
[2017-09-27] MEDS ORDERED: ACETAMINOPHEN 325 MG TABLET (FP) PO PRN (17:32)
--- NOTE | 2017-09-27 18:32 | CONS ---
INFECTIOUS DISEASE CONSULTATION DATE OF CONSULTATION: DATE OF DICTATION: 09/27/2017 REASON FOR CONSULTATION: The patient is a 67-year-old female who is evaluated for possible pneumonia. HISTORY OF PRESENT ILLNESS: She was admitted to the hospital on September 26, 2017, with a several-week history of generalized pain and weakness. Patient was hospitalized in August of 2017. She was admitted from August 16 through August 21 with pneumonia. She was treated with a course of antibiotics and discharged home. She has not been feeling well for the past several weeks. She reports at least 3-4 week history of constant generalized pain as well as weakness. She has difficulty standing from a seated position, has also had difficulty raising her arms above her shoulders. She was evaluated in the emergency room where she was afebrile. However, had an elevated white blood cell count. CAT scan of the chest shows bilateral pleural effusions with compressive atelectasis and pulmonary nodules. She reports cough which is productive of whitish sputum. She denies any chest pain or dyspnea. No complaints of hemoptysis. She has had no high-grade fever or shaking chills. The patient has a remote history of breast cancer status post mastectomy and hormonal therapy. She denies any ill contacts. She lives at home. She is originally from [place], has been living in [place] for the past 35 years. She denies tobacco, alcohol, or illicit drug use. She denies any risk factors for HIV, although her status is not known. QuantiFERON done in August 2017 was negative. PAST MEDICAL HISTORY: Positive for breast cancer in 1990 status post mastectomy and hormonal therapy, history of atrial fibrillation, hypertension, cholecystectomy, hyperlipidemia, asthma. PAST SURGICAL HISTORY: Status post right mastectomy in 1990, hysterectomy in 2000. ALLERGIES: No known allergies. MEDICATIONS AT HOME: Include Ventolin, Ecotrin, Toprol. SOCIAL HISTORY: As per HPI. SYSTEMS REVIEW: Neurologic: No loss of consciousness, seizure activity, focal weakness. Cardiac: Negative chest pain and palpitations. Respiratory: As per HPI. Gastrointestinal: Negative vomiting or diarrhea. Genitourinary: Negative urinary tract infection. LABORATORY DATA: White count 23,000. Neutrophils 83, bands 3, lymphocytes 1, monocytes 3, eosinophils 6. Hematocrit 35.7, platelet count 423. BUN is 27, creatinine 0.6. Total bilirubin 0.4, alkaline phosphatase 61, AST 185, ALT 148. Serum albumin is 1.3. CK-MB 24, CPK 3067. Aldolase is pending. Urinalysis 24 white cells. RPR and Lyme titer negative. Hepatitis panel pending. QuantiFERON from August 2017 negative. Previous cultures negative. Influenza swab negative. PHYSICAL EXAMINATION: General: She is out of bed to chair, in no acute distress. She is not acutely toxic appearing. Breathing is non-labored. Vital Signs: Temperature 98.3; blood pressure 113/59; pulse 102, regular; respirations 20 per minute. HEENT: Sclerae anicteric. Heart: Sounds S1, S2. No murmur. Lungs: Diminished breath sounds at the bases bilaterally. Abdomen: Soft. No tenderness elicited. Extremities: Pedal edema 1+. There is a macular/papular rash present on her chest and back, as well as extremities, pruritic in nature. No vesicular lesions noted. IMPRESSION: 1. Bilateral pleural effusions, new since her previous admission in August. 2. Probable compressive atelectasis. 3. Possible connective tissue disorder. Constellation of symptoms including generalized weakness and pain in conjunction with elevated CPK raises the possibility of an underlying connective tissue disorder such as dermatomyositis or polymyositis. Rheumatology evaluation appreciated. Serologies are pending. Blood cultures have been obtained. Will await cultures. Diagnostic thoracentesis. Observe off antibiotic therapy. Will obtain HIV serology as patient gives verbal consent. Case discussed with district supervisor and Cardiothoracic Surgery. Will follow. Thank you for the kind referral. HELEN ROD M.D. [id number]
--- NOTE | 2017-09-27 20:39 | PN ---
Progress Note (short form) - Note Progress Note: 67 year old female admitted with SOB, palpitations with minimal exertion arthalgias, myalgias and rash for the past 3 weeks. H/o of abnormal CT scan in 2016. Symptoms persist and there is a new patch of rash over the forehead. symptoms remain unchanged. except c/o further weakness of the lower extremities. Increase in total CK. Active Medications Generic Name Dose Route Start Last Admin Trade Name Freq PRN Reason Stop Dose Admin Acetaminophen 650 mg 09/27/17 17:32 Tylenol - PO Q6H PRN FEVER Heparin Sodium (Porcine) 1,000 unit 09/26/17 18:23 Heparin - IVPUSH PRN PRN Heparin Heparin Sodium (Porcine) 5,000 unit 09/26/17 18:23 09/26/17 18:32 Heparin - IVPUSH 5,000 unit PRN PRN Administration Heparin Hydromorphone HCl 1 mg 09/26/17 19:36 Dilaudid - PO 09/29/17 19:35 Q6H PRN PAIN LEVEL 6-10 HEPARIN SOD,PORK IN 0.45% NACL 25,000 unit in 500 mls @ 16 mls/hr 09/26/17 18: 30 09/27/17 09:53 Heparin-1/2ns 25,000 Units/500 IVPB 800 units/hr TITR BARB 16 mls/hr Protocol Administration 800 UNITS/HR Nitroglycerin/Dextrose 25 mg in 250 mls @ 6 mls/hr 09/26/17 18:45 09/26/17 22 :00 Nitroglycerin 25mg/D5w 250ml IVPB Not Given TITR BARB Protocol 10 MCG/MIN Sodium Chloride 1,000 mls @ 42 mls/hr 09/27/17 10:00 09/27/17 10:00 Normal Saline - IV 42 mls/hr ASDIR BARB Administration Metoprolol Succinate 50 mg 09/27/17 10:00 09/27/17 09:52 Toprol Xl - PO 50 mg DAILY BARB Administration Pantoprazole Sodium 40 mg 09/27/17 10:00 09/27/17 09:52 Protonix Iv IVPUSH 40 mg DAILY BARB Administration Triamcinolone Acetonide 1 applic 09/27/17 17:30 Aristocort 0.1% Ointment - TP DAILY [facility] 67 year old female c/o arthalgias and myalgias, no pallor or cyanosis, no jaundice noted. Last Vital Signs Temp Pulse Resp BP Pulse Ox 99.7 F H 104 H 20 132/66 93 L 09/27/17 18:00 09/27/17 18:00 09/27/17 18:00 09/27/17 18:00 09/27/17 09:00 Intake & Output 09/24/17 09/25/17 09/26/17 09/27/17 23:59 23:59 23:59 23:59 Intake Total 450 Balance 450 Weight 125 lb NECK: Supple, no JVD, slightly +ve HJR,carotids equal, no bruits. HEART: PMI in the 5th ICS, no heaves or thrills. S1 and S2 are normal, no murmur , gallops or rubs heard. LUNGS: Bibasilar crepitations. ABDOMEN: Soft, nontender, no organomegaly or masses felt. EXTREMITIES: Swelling of both hands, movements are painful. No dependent edema. SKIN: Persistent rash. CBC, BMP 09/27/17 05:15 09/27/17 06:15 Echocardiogram: Report is unchanged from previous study. CT chest: Bilateral pleural effusions and atelactesis. new developing pulmonary nodular lesion in the right middle lobe.No PE IMPRESSION: 1. Dyspnea, palpitations, arthritis, myalgias, rash and pulmonary nodular lesions and bilateral effusions, etiology; a). Sarcoidosis. b). Collagen disease. 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 2. Elevated trops: a). Secondary to Myocarditis b). KRISTEN. c). Infectious process. 3. CHF/ Volume overload needs exclusion. RECOMMENDATINS: 1. BNP 2. BMP/CBC. 3. Awaitng test results.
[2017-09-27] MEDS: NITROGLYCERIN 25MG/D5W 250ML 25 MG/250 ML ML IVPB SCH (22:42)
[2017-09-27] MEDS: TRIAMCINOLONE ACET 0.1% OINT 15 GM TUBE TP SCH (22:49)
[2017-09-28 07:27] LABS: HEMATOCRIT 36.4 % (32.4-45.2); HEMOGLOBIN 11.9 GM/dL (10.7-15.3); MCHC 32.6 g/dl (32.0-36.0); MEAN CELL VOLUME 91.9 fl (80-96); MEAN PLT VOLUME 7.6 fl (7.5-11.1); PLATELET COUNT 453 K/MM3 (134-434); RBC 3.96 M/mm3 (3.60-5.2); RDW 14.5 % (11.6-15.6); WHITE BLOOD COUNT 25.4 K/mm3 (4.0-10.0)
[2017-09-28 07:47] LABS: ALBUMIN 1.3 g/dl (3.4-5.0); ANION GAP 10 (8-16); BLOOD UREA NITROGEN 26 mg/dL (7-18); CALCIUM 7.3 mg/dL (8.5-10.1); CHLORIDE 103 mmol/L (98-107); CO2 21 mmol/L (21-32); CREATININE 0.6 mg/dL (0.55-1.02); GLUCOSE,RANDOM 76 mg/dL (74-106); SGOT/AST 249 U/L (15-37); SGPT/ALT 172 U/L (12-78); SODIUM 134 mmol/L (136-145)
[2017-09-28 07:49] LABS: ALK PHOS 65 U/L (45-117); BILIRUBIN,TOTAL 0.3 mg/dL (0.2-1.0); TOT PROT 4.5 g/dl (6.4-8.2)
[2017-09-28 08:34] LABS: INR 1.06 (0.82-1.09)
[2017-09-28 08:55] LABS: ACTIVATED PTT 79.5 SECONDS (26.9-34.4)
[2017-09-28] MEDS ORDERED: PT OWN MED DRAWER 7, Y5N ONE (09:15)
[2017-09-28] MEDS: PANTOPRAZOLE SODIUM 40 MG VIAL IVPUSH SCH (09:54)
[2017-09-28] MEDS: TRIAMCINOLONE ACET 0.1% OINT 15 GM TUBE TP SCH (09:56)
[2017-09-28] MEDS: HEPARIN SOD,PORK IN 0.45% NACL 25,000 UNIT/500 ML INFUS.BAG IVPB SCH ×3 (09:58→20:41)
[2017-09-28] MEDS ORDERED: SODIUM CHLORIDE 1,000 ML IV SCH (10:30)
--- NOTE | 2017-09-28 11:14 | PN ---
Progress Note, Physician History of Present Illness: PULMONARY ALERT,NO C/O SOB,-CP,+LOWER EXT WEAKNESS - Current Medication List Current Medications: Active Medications Acetaminophen (Tylenol -) 650 mg PO Q6H PRN PRN Reason: FEVER Heparin Sodium (Porcine) (Heparin -) 1,000 unit IVPUSH PRN PRN PRN Reason: Heparin Heparin Sodium (Porcine) (Heparin -) 5,000 unit IVPUSH PRN PRN PRN Reason: Heparin Last Admin: 09/26/17 18:32 Dose: 5,000 unit Hydromorphone HCl (Dilaudid -) 1 mg PO Q6H PRN PRN Reason: PAIN LEVEL 6-10 Stop: 09/29/17 19:35 HEPARIN SOD,PORK IN 0.45% NACL (Heparin-1/2ns 25,000 Units/500) 25,000 unit in 500 mls @ 16 mls/hr IVPB TITR BARB; 800 UNITS/HR PRN Reason: Protocol Last Admin: 09/28/17 10:07 Dose: 750 units/hr, 15 mls/hr Nitroglycerin/Dextrose (Nitroglycerin 25mg/D5w 250ml) 25 mg in 250 mls @ 6 mls/ hr IVPB TITR BARB; 10 MCG/MIN PRN Reason: Protocol Last Admin: 09/27/17 22:42 Dose: Not Given Sodium Chloride (Normal Saline -) 1,000 mls @ 125 mls/hr IV ASDIR BARB Metoprolol Succinate (Toprol Xl -) 50 mg PO DAILY [facility] Last Admin: 09/28/17 09:54 Dose: 50 mg Pantoprazole Sodium (Protonix Iv) 40 mg IVPUSH DAILY [facility] Last Admin: 09/28/17 09:54 Dose: 40 mg Triamcinolone Acetonide (Aristocort 0.1% Ointment -) 1 applic TP DAILY [facility] Last Admin: 09/28/17 09:56 Dose: 1 applic - Objective Vital Signs: Vital Signs Temperature 98 F 09/28/17 10:00 Pulse Rate 102 H 09/28/17 10:00 Respiratory Rate 20 09/28/17 10:00 Blood Pressure 124/60 09/28/17 10:00 O2 Sat by Pulse Oximetry (%) 95 09/27/17 21:00 Constitutional: Yes: Well Nourished, Calm Eyes: Yes: WNL HENT: Yes: WNL Neck: Yes: WNL Cardiovascular: Yes: Regular Rate and Rhythm, S1, S2 Respiratory: Yes: Rales (LOBO CRACKLES) Gastrointestinal: Yes: Normal Bowel Sounds, Soft Extremities: Yes: WNL Edema: Yes Labs: CBC, BMP 09/28/17 06:30 09/28/17 06:30 INR, PTT INR 1.06 (0.82-1.09) 09/28/17 06:30 Problem List - Problems (1) Pleural effusion Code(s): J90 - PLEURAL EFFUSION, NOT ELSEWHERE CLASSIFIED (2) Intractable pain Code(s): R52 - PAIN, UNSPECIFIED (3) Myositis Code(s): M60.9 - MYOSITIS, UNSPECIFIED (4) Dyspnea Code(s): R06.00 - DYSPNEA, UNSPECIFIED (5) Asthma Code(s): J45.909 - UNSPECIFIED ASTHMA, UNCOMPLICATED (6) Troponin level elevated Code(s): R74.8 - ABNORMAL LEVELS OF OTHER SERUM ENZYMES Assessment/Plan IMP BILATERAL PLEURAL EFFUSIONS ?CHF,?INFECTIOUS,INFLAMMATORY,?MALIGNANT BILATERAL PULMONARY NODULES ? INFLAMMATORY,INFECTIOUS,SARCOID,? MALIGNANT DYSPNEA WEAKNESS GENERALIZED JOINT PAINS + TROPONINS ? MYOPATHY,?CTD ASTHMA PLAN THORACENTESIS POSSIBLE BX PENDING RESULTS OF PLEURAL FLUID O2 ANALGESICS TREND TROPONINS DR PAULSON Problem List - Problems (1) Pleural effusion Code(s): J90 - PLEURAL EFFUSION, NOT ELSEWHERE CLASSIFIED (2) Intractable pain Code(s): R52 - PAIN, UNSPECIFIED (3) Myositis Code(s): M60.9 - MYOSITIS, UNSPECIFIED (4) Dyspnea Code(s): R06.00 - DYSPNEA, UNSPECIFIED (5) Asthma Code(s): J45.909 - UNSPECIFIED ASTHMA, UNCOMPLICATED (6) Troponin level elevated Code(s): R74.8 - ABNORMAL LEVELS OF OTHER SERUM ENZYMES
[2017-09-28] MEDS ORDERED: FUROSEMIDE 40 MG/4 ML INJECTABLE VIAL IVPUSH ONE ×2 (11:19→22:45)
--- NOTE | 2017-09-28 11:27 | PN ---
Progress Note, Physician Chief Complaint: weakness no other complaints History of Present Illness: aneesh leg edema plus 2 ? fluid overload ?// - Current Medication List Current Medications: Active Medications Acetaminophen (Tylenol -) 650 mg PO Q6H PRN PRN Reason: FEVER Heparin Sodium (Porcine) (Heparin -) 1,000 unit IVPUSH PRN PRN PRN Reason: Heparin Heparin Sodium (Porcine) (Heparin -) 5,000 unit IVPUSH PRN PRN PRN Reason: Heparin Last Admin: 09/26/17 18:32 Dose: 5,000 unit Hydromorphone HCl (Dilaudid -) 1 mg PO Q6H PRN PRN Reason: PAIN LEVEL 6-10 Stop: 09/29/17 19:35 HEPARIN SOD,PORK IN 0.45% NACL (Heparin-1/2ns 25,000 Units/500) 25,000 unit in 500 mls @ 16 mls/hr IVPB TITR BARB; 800 UNITS/HR PRN Reason: Protocol Last Admin: 09/28/17 10:07 Dose: 750 units/hr, 15 mls/hr Nitroglycerin/Dextrose (Nitroglycerin 25mg/D5w 250ml) 25 mg in 250 mls @ 6 mls/ hr IVPB TITR BARB; 10 MCG/MIN PRN Reason: Protocol Last Admin: 09/27/17 22:42 Dose: Not Given Metoprolol Succinate (Toprol Xl -) 50 mg PO DAILY [facility] Last Admin: 09/28/17 09:54 Dose: 50 mg Pantoprazole Sodium (Protonix Iv) 40 mg IVPUSH DAILY [facility] Last Admin: 09/28/17 09:54 Dose: 40 mg Triamcinolone Acetonide (Aristocort 0.1% Ointment -) 1 applic TP DAILY [facility] Last Admin: 09/28/17 09:56 Dose: 1 applic - Objective Vital Signs: Vital Signs Temperature 98 F 09/28/17 10:00 Pulse Rate 102 H 09/28/17 10:00 Respiratory Rate 20 09/28/17 10:00 Blood Pressure 124/60 09/28/17 10:00 O2 Sat by Pulse Oximetry (%) 95 09/27/17 21:00 Constitutional: Yes: Other (weak) Eyes: Yes: WNL HENT: Yes: WNL Neck: Yes: WNL Cardiovascular: Yes: WNL Respiratory: Yes: SOB on Exertion Gastrointestinal: Yes: WNL ...Rectal Exam: Yes: Deferred Genitourinary: Yes: WNL Breast(s): Yes: WNL, Left Musculoskeletal: Yes: Muscle Weakness Extremities: Yes: Other (edema) Edema: Yes Edema: LLE: 2+, RLE: 2+ Peripheral Pulses WNL: Yes Peripheral Pulses: Left Radial: 1+, Right Radial: 1+, Left Doralis Pedis: 1+, Right Dorsalis Pedis: 1+, Left Femoral: 1+ Integumentary: Yes: Rash (on and off derm appreciated) Labs: CBC, BMP 09/28/17 06:30 09/28/17 06:30 INR, PTT INR 1.06 (0.82-1.09) 09/28/17 06:30 Assessment/Plan give lasix 40 iv stat hold fluids thorocetisis in am w dr castro hold vhep 6 to 8 hrs prior to procedure fiu labs in am oob p/t tom chk remaining serology labs
--- NOTE | 2017-09-28 12:17 | PN ---
Progress Note, Physician History of Present Illness: Awake, alert Supine in bed C/O profound weakness, inability to stand unasisted + dry cough No c/o chest pain/ dyspnea Low grade temp noted WBC remains elevated Blood c/s (-) HIV test negative - Current Medication List Current Medications: Active Medications Acetaminophen (Tylenol -) 650 mg PO Q6H PRN PRN Reason: FEVER Heparin Sodium (Porcine) (Heparin -) 1,000 unit IVPUSH PRN PRN PRN Reason: Heparin Heparin Sodium (Porcine) (Heparin -) 5,000 unit IVPUSH PRN PRN PRN Reason: Heparin Last Admin: 09/26/17 18:32 Dose: 5,000 unit Hydromorphone HCl (Dilaudid -) 1 mg PO Q6H PRN PRN Reason: PAIN LEVEL 6-10 Stop: 09/29/17 19:35 HEPARIN SOD,PORK IN 0.45% NACL (Heparin-1/2ns 25,000 Units/500) 25,000 unit in 500 mls @ 16 mls/hr IVPB TITR BARB; 800 UNITS/HR PRN Reason: Protocol Last Admin: 09/28/17 10:07 Dose: 750 units/hr, 15 mls/hr Nitroglycerin/Dextrose (Nitroglycerin 25mg/D5w 250ml) 25 mg in 250 mls @ 6 mls/ hr IVPB TITR BARB; 10 MCG/MIN PRN Reason: Protocol Last Admin: 09/27/17 22:42 Dose: Not Given Metoprolol Succinate (Toprol Xl -) 50 mg PO DAILY [facility] Last Admin: 09/28/17 09:54 Dose: 50 mg Pantoprazole Sodium (Protonix Iv) 40 mg IVPUSH DAILY [facility] Last Admin: 09/28/17 09:54 Dose: 40 mg Triamcinolone Acetonide (Aristocort 0.1% Ointment -) 1 applic TP DAILY [facility] Last Admin: 09/28/17 09:56 Dose: 1 applic - Objective Vital Signs: Vital Signs Temperature 98 F 09/28/17 10:00 Pulse Rate 102 H 09/28/17 10:00 Respiratory Rate 20 09/28/17 10:00 Blood Pressure 124/60 09/28/17 10:00 O2 Sat by Pulse Oximetry (%) 95 09/27/17 21:00 Constitutional: Yes: No Distress Eyes: Yes: Conjunctiva Clear Cardiovascular: Yes: Regular Rate and Rhythm, S1, S2 Respiratory: Yes: Other (few crepitations at bases bilaterally) Gastrointestinal: Yes: Normal Bowel Sounds, Soft. No: Tenderness Edema: Yes Edema: LLE: 1+, RLE: 1+ Labs: CBC, BMP 09/28/17 06:30 INR, PTT INR 1.06 (0.82-1.09) 09/28/17 06:30 Assessment/Plan Bilateral pleural effusions Leukocytosis ? connective tissue disorder ? occult malignancy For diagnostic thoracentesis Observe off antibiotics
[2017-09-28 12:38] LABS: LIPASE 160 U/L (73-393)
[2017-09-28 14:26] LABS: MACROCYTOSIS 1+
--- NOTE | 2017-09-28 15:08 | PN ---
Progress Note (short form) - Note Progress Note: surgery pt seen and examined. 67f scheduled for elective cholecystectomy in october, admitted for sudden deterioration of health with myocarditis, heart failure, pleural effusions, pulmonary nodules, myositis, kidney failure,... all of unknown etiology. Pt tolerating regular diet and scheduled for pleural tap. Clinically no acute biliary event. would defer any elective cholecystectomy while acute events are being diagnosed and treated. should re-evaluate surgery as outpt once well.
[2017-09-28 16:29] LABS: JO-1 ANTIBODY 4.8 AI (0.0-0.9)
--- NOTE | 2017-09-28 19:09 | PN ---
Progress Note (short form) - Note Progress Note: 67 year old female admitted with SOB, palpitations with minimal exertion arthalgias, myalgias and rash for the past 3 weeks. C/O SOB with minimal exertion and accompanied by palpitations. She is developing generalised edema. Rash is less pronounced on topical steroids. IV fluids were d/c'd. Increasing leukocytosis and thrombocytosis. Intermittent air hunger. Active Medications Acetaminophen (Tylenol -) 650 mg PO Q6H PRN PRN Reason: FEVER Heparin Sodium (Porcine) (Heparin -) 1,000 unit IVPUSH PRN PRN PRN Reason: Heparin Heparin Sodium (Porcine) (Heparin -) 5,000 unit IVPUSH PRN PRN PRN Reason: Heparin Last Admin: 09/26/17 18:32 Dose: 5,000 unit Hydromorphone HCl (Dilaudid -) 1 mg PO Q6H PRN PRN Reason: PAIN LEVEL 6-10 Stop: 09/29/17 19:35 HEPARIN SOD,PORK IN 0.45% NACL (Heparin-1/2ns 25,000 Units/500) 25,000 unit in 500 mls @ 16 mls/hr IVPB TITR BARB; 800 UNITS/HR PRN Reason: Protocol Last Admin: 09/28/17 10:07 Dose: 750 units/hr, 15 mls/hr Nitroglycerin/Dextrose (Nitroglycerin 25mg/D5w 250ml) 25 mg in 250 mls @ 6 mls/ hr IVPB TITR BARB; 10 MCG/MIN PRN Reason: Protocol Last Admin: 09/27/17 22:42 Dose: Not Given Metoprolol Succinate (Toprol Xl -) 50 mg PO DAILY [facility] Last Admin: 09/28/17 09:54 Dose: 50 mg Pantoprazole Sodium (Protonix Iv) 40 mg IVPUSH DAILY [facility] Last Admin: 09/28/17 09:54 Dose: 40 mg Triamcinolone Acetonide (Aristocort 0.1% Ointment -) 1 applic TP DAILY [facility] Last Admin: 09/28/17 09:56 Dose: 1 applic 67 year old female in mild distress no pallor or cyanosis or jaundice. Last Vital Signs Temp Pulse Resp BP Pulse Ox 99.8 F H 96 H 20 114/63 98 09/28/17 18:00 09/28/17 18:00 09/28/17 18:00 09/28/17 18:00 09/28/17 09:00 Intake & Output 09/25/17 09/26/17 09/27/17 09/28/17 23:59 23:59 23:59 23:59 Intake Total 450 690 Balance 450 690 Weight 125 lb NECK: Supple, no JVD, slightly +ve HJR,carotids equal, no bruits. HEART: PMI in the 5th ICS, no heaves or thrills. S1 and S2 are normal, no murmur , gallops or rubs heard. LUNGS:Bilateral posterior crepitations ABDOMEN: Soft, nontender, no organomegaly or masses felt. EXTREMITIES: 2+ Pitting edema of both upper and lower extremities, increase warmth rt.wrist. SKIN: Persistent rash, less pronounced than 09-27-17 CBC, BMP 09/28/17 06:30 IMPRESSION: 1. Dyspnea, palpitations, arthritis, myalgias, rash and pulmonary nodular lesions and bilateral effusions, etiology; a). Sarcoidosis. b). Collagen disease. 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 2. Elevated trops: a). Secondary to Myocarditis b). KRISTEN. c). Infectious process. 3. CHF/ Volume overload needs exclusion. RECOMMENDATINS: 1. Scheduled to undergo thoracentesis. 2. Consider hematological consult. 3. O2 2 liters /min 4. Daily weights. 5. BNP
[2017-09-28] MEDS: NITROGLYCERIN 25MG/D5W 250ML 25 MG/250 ML ML IVPB SCH (20:41)
[2017-09-29 00:11] LABS: COMPLEMENT TOTAL(CH50) 44 U/mL (42-60)
[2017-09-29 07:52] LABS: HEMATOCRIT 34.9 % (32.4-45.2); HEMOGLOBIN 11.3 GM/dL (10.7-15.3); MCH 29.6 pg (25.7-33.7); MCHC 32.5 g/dl (32.0-36.0); MEAN CELL VOLUME 91.1 fl (80-96); MEAN PLT VOLUME 7.4 fl (7.5-11.1); PLATELET COUNT 476 K/MM3 (134-434); RBC 3.83 M/mm3 (3.60-5.2); RDW 14.5 % (11.6-15.6); WHITE BLOOD COUNT 25.2 K/mm3 (4.0-10.0)
[2017-09-29 08:01] LABS: CHLORIDE 101 mmol/L (98-107); POTASSIUM 4.4 mmol/L (3.5-5.1); SODIUM 135 mmol/L (136-145)
[2017-09-29 08:14] LABS: ALBUMIN 1.3 g/dl (3.4-5.0); ALK PHOS 65 U/L (45-117); ANION GAP 10 (8-16); BILIRUBIN,TOTAL 0.3 mg/dL (0.2-1.0); BLOOD UREA NITROGEN 27 mg/dL (7-18); CALCIUM 7.5 mg/dL (8.5-10.1); CO2 24 mmol/L (21-32); CREATININE 0.6 mg/dL (0.55-1.02); GLUCOSE,RANDOM 83 mg/dL (74-106); SGOT/AST 252 U/L (15-37); SGPT/ALT 190 U/L (12-78); TOT PROT 4.8 g/dl (6.4-8.2)
[2017-09-29 08:16] LABS: INR 1.04 (0.82-1.09); PROTHROMBIN TIME (PATIENT) 11.8 SEC (9.98-11.88)
[2017-09-29] MEDS: TRIAMCINOLONE ACET 0.1% OINT 15 GM TUBE TP SCH (09:10)
[2017-09-29] MEDS: PANTOPRAZOLE SODIUM 40 MG VIAL IVPUSH SCH (10:11)
--- NOTE | 2017-09-29 10:22 | PN ---
Progress Note (short form) - Note Progress Note: 67 year old female admitted with SOB, palpitations with minimal exertion arthalgias, myalgias and rash for the past 3 weeks. Waiting for thoracentesis, Slightly less dyspneic and generalised edema. Increasing leukocytosis and thrombocytosis. still has palpitations with minimal exertion. Diagnosis remains uncertain. Active Medications Generic Name Dose Route Start Last Admin Trade Name Freq PRN Reason Stop Dose Admin Acetaminophen 650 mg 09/27/17 17:32 Tylenol - PO Q6H PRN FEVER Heparin Sodium (Porcine) 1,000 unit 09/26/17 18:23 Heparin - IVPUSH PRN PRN Heparin Heparin Sodium (Porcine) 5,000 unit 09/26/17 18:23 09/26/17 18:32 Heparin - IVPUSH 5,000 unit PRN PRN Administration Heparin Hydromorphone HCl 1 mg 09/26/17 19:36 Dilaudid - PO 09/29/17 19:35 Q6H PRN PAIN LEVEL 6-10 HEPARIN SOD,PORK IN 0.45% NACL 25,000 unit in 500 mls @ 16 mls/hr 09/26/17 18: 30 09/28/17 20:41 Heparin-1/2ns 25,000 Units/500 IVPB Not Given TITR BARB Protocol 800 UNITS/HR Nitroglycerin/Dextrose 25 mg in 250 mls @ 6 mls/hr 09/26/17 18:45 09/28/17 20 :41 Nitroglycerin 25mg/D5w 250ml IVPB Not Given TITR BARB Protocol 10 MCG/MIN Metoprolol Succinate 50 mg 09/27/17 10:00 09/28/17 09:54 Toprol Xl - PO 50 mg DAILY [facility] Administration Pantoprazole Sodium 40 mg 09/27/17 10:00 09/28/17 09:54 Protonix Iv IVPUSH 40 mg DAILY [facility] Administration Triamcinolone Acetonide 1 applic 09/27/17 17:30 09/28/17 09:56 Aristocort 0.1% Ointment - TP 1 applic DAILY [facility] Administration 67 year old female in mild distress no pallor or cyanosis or jaundice. Last Vital Signs Temp Pulse Resp BP Pulse Ox 99.8 F H 96 H 20 114/63 98 09/28/17 18:00 09/28/17 18:00 09/28/17 18:00 09/28/17 18:00 09/28/17 09:00 Intake & Output 09/25/17 09/26/17 09/27/17 09/28/17 23:59 23:59 23:59 23:59 Intake Total 450 690 Balance 450 690 Weight 125 lb NECK: Supple, no JVD, slightly +ve HJR,carotids equal, no bruits. HEART: PMI in the 5th ICS, no heaves or thrills. S1 and S2 are normal, no murmur , gallops or rubs heard. LUNGS:Bilateral posterior crepitations. ABDOMEN: Soft, nontender, no organomegaly or masses felt. Dullness on percussion rt. flank EXTREMITIES: 1+ Pitting edema of both upper and lower extremities, increase warmth rt.wrist. SKIN: Persistent but less pronounced rash. CBC, BMP 09/29/17 06:16 09/29/17 06:16 Troponin, BNP 09/28/17 09/29/17 20:30 06:16 B-Natriuretic Peptide 1760.95 H 1592.16 H IMPRESSION: 1. Dyspnea, palpitations, arthritis, myalgias, rash and pulmonary nodular lesions and bilateral effusions, etiology; a). Sarcoidosis. b). Collagen disease. 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 2. Elevated trops: a). Secondary to Myocarditis b). KRISTEN. c). Infectious process. 3. CHF/ Volume overload needs exclusion. RECOMMENDATINS: 1. Scheduled to undergo thoracentesis. 2. Consider hematological consult. 3. O2 2 liters /min 4. Daily weights. 5. Consider abdominal CT.
[2017-09-29 11:47] LABS: ACANTHOCYTES 0; ANISOCYTOSIS 0; HELMET CELLS 0; HOWELL-JOLLY BODIES 0; MACROCYTOSIS 0; OVALOCYTE 0; PLATELET ESTIMATE INCREASED; ROULEAU 0; SICKELED CELLS 0; TARGET CELLS 0; TEAR DROP CELLS 0; TOXIC GRANULATION 0
--- NOTE | 2017-09-29 12:13 | PN ---
Progress Note, Physician History of Present Illness: For diagnostic thoracentesis today Awake, alert Supine in bed Continues to c/o profound weakness, inability to stand unasisted Rash resolved No c/o pruritis No c/o chest pain/ dyspnea Low grade temp noted WBC remains elevated Blood c/s (-) HIV test negative - Current Medication List Current Medications: Active Medications Acetaminophen (Tylenol -) 650 mg PO Q6H PRN PRN Reason: FEVER Heparin Sodium (Porcine) (Heparin -) 1,000 unit IVPUSH PRN PRN PRN Reason: Heparin Heparin Sodium (Porcine) (Heparin -) 5,000 unit IVPUSH PRN PRN PRN Reason: Heparin Last Admin: 09/26/17 18:32 Dose: 5,000 unit Hydromorphone HCl (Dilaudid -) 1 mg PO Q6H PRN PRN Reason: PAIN LEVEL 6-10 Stop: 09/29/17 19:35 HEPARIN SOD,PORK IN 0.45% NACL (Heparin-1/2ns 25,000 Units/500) 25,000 unit in 500 mls @ 16 mls/hr IVPB TITR BARB; 800 UNITS/HR PRN Reason: Protocol Last Admin: 09/28/17 20:41 Dose: Not Given Nitroglycerin/Dextrose (Nitroglycerin 25mg/D5w 250ml) 25 mg in 250 mls @ 6 mls/ hr IVPB TITR BARB; 10 MCG/MIN PRN Reason: Protocol Last Admin: 09/28/17 20:41 Dose: Not Given Metoprolol Succinate (Toprol Xl -) 50 mg PO DAILY [facility] Last Admin: 09/29/17 10:11 Dose: 50 mg Pantoprazole Sodium (Protonix Iv) 40 mg IVPUSH DAILY [facility] Last Admin: 09/29/17 10:11 Dose: 40 mg Triamcinolone Acetonide (Aristocort 0.1% Ointment -) 1 applic TP DAILY [facility] Last Admin: 09/28/17 09:56 Dose: 1 applic - Objective Vital Signs: Vital Signs Temperature 98.7 F 09/29/17 09:00 Pulse Rate 101 H 09/29/17 09:00 Respiratory Rate 20 09/29/17 09:00 Blood Pressure 111/62 09/29/17 09:00 O2 Sat by Pulse Oximetry (%) 95 09/29/17 09:00 Constitutional: Yes: No Distress Eyes: Yes: Conjunctiva Clear Cardiovascular: Yes: Regular Rate and Rhythm, S1, S2 Respiratory: Yes: Diminished Gastrointestinal: Yes: Normal Bowel Sounds, Soft. No: Tenderness Edema: Yes Edema: LLE: 1+, RLE: 1+ Labs: CBC, BMP 09/29/17 06:16 09/29/17 06:16 INR, PTT INR 1.04 (0.82-1.09) 09/29/17 06:16 Assessment/Plan Bilateral pleural effusions Leukocytosis ? connective tissue disorder ? occult malignancy For diagnostic thoracentesis Observe off antibiotics
--- NOTE | 2017-09-29 14:31 | PN ---
Progress Note (short form) - Note Progress Note: Physiatry event note: was requested for EMG. Patient called for Wednesday09/27/[address] Schuler, unable to come for EMG due to bone scan. Patient called for Wednesday by Dr Schuler, patient unable to come (reason not given). Patient called for Wednesday09/29/17 by myself, patient unable to come due to thoracentesis. Will try again later in week if patient available. EMG may also be done as outpatient if unable to come while inpatient.
[2017-09-29 17:07] LABS: PLEURAL FLUID APPEARANCE SL.CLOUDY; PLEURAL FLUID COLOR YELLOW; PLEURAL FLUID RBC 934 /mm3
[2017-09-29] MEDS: ASPIRIN 81 MG CHEWABLE TABLETS PO SCH (17:10)
[2017-09-29 18:35] LABS: GLUCOSE,PLEURAL FLUID 106.317; TOTAL PROTEIN,PLEURAL FLUID 2.132
--- NOTE | 2017-09-29 20:08 | CONS ---
PHYSICAL MEDICINE REHABILITATION AND ELECTRODIAGNOSTIC CONSULTATION DATE OF CONSULTATION: 09/29/2017 DATE OF ELECTRODIAGNOSTIC STUDY: 09/29/2017 HISTORY OF PRESENT ILLNESS: The patient is a 67-year-old woman who was admitted with weakness, difficulty walking. Patient evidently found to have elevation in CPK in about 3000 range. Patient was seen by Dr. Negro who ordered electrodiagnostic studies. On admission, patient had some elevation in WBCs. On September 27, they were 23.1, hemoglobin 11.7, platelet count 423; BUN 27, creatinine 0.6. Patient also underwent a bone scan which showed possible rib trauma but no evidence of any bony metastatic disease. Patient also underwent thoracentesis, results pending. Patient continues to have difficulty walking. She states premorbidly she was completely independent and has 20 stairs at home she was able to negotiate, but over the last 3 weeks, she has had progressive weakness. She also had a rash which comes and goes but apparently is much better currently. She is again now seen for electrodiagnostic evaluation to rule out myositis. PAST MEDICAL AND SURGICAL HISTORY: Atrial fibrillation, hypertension, asthma, cholelithiasis, breast cancer, hysterectomy, mastectomy. SOCIAL HISTORY: Lives with daughter, 20 steps within the home, premorbidly independent. Current function: Needs assistance. No tobacco. No alcohol use. REVIEW OF SYSTEMS: She does get lightheaded at times. No chest pain. At times but no current shortness of breath. No numbness/tingling but she has weakness in both the upper and lower limbs. No neck or back pain. PHYSICAL EXAMINATION: General: Patient is seen both sitting as well as standing and transferring. She is in on acute distress. She is awake and cooperative. HEENT: She is normocephalic and atraumatic. Extraocular muscles appear intact. Neck: Supple. Extremities: With some edema in the lower extremities, +1. Neuromuscular: She is awake, alert, and cooperative. Cranial nerves 2-12 are grossly intact. She has weakness in the shoulder girdle and hip girdle grossly 2-3/5, better strength distally, 4/5. Normal sensation to light touch and pinprick and again difficulty getting up from lower surface, easier to get up from elevated surface. RESULTS OF ELECTROMYOGRAPHY NERVE CONDUCTION STUDIES: Please refer to report for details. OVERALL IMPRESSION: 1. Proximal muscle membrane instability with lower amplitude proximal motor conduction studies, which could be consistent with inflammatory myopathy. 2. No polyneuropathy, left lumbosacral or left cervical radiculopathy. No mononeuropathy such as carpal tunnel syndrome. 3. Deficits in mobility and activities of daily living. 4. Pleural effusion status post thoracentesis. 5. History of breast cancer. 6. Atrial fibrillation. 7. Chronic obstructive pulmonary disease and asthma. 8. Elevated risk for deep venous thrombosis due to immobility. 9. Edema of the lower extremities. PLAN/SUGGESTION: 1. Follow up with Dr. Negro. 2. For definite diagnosis, consider right proximal upper or right proximal lower limb muscle biopsy. 3. Physical therapy. 4. Consider steroids. 5. Results of thoracentesis. 6. DVT prophylaxis. 7. Consider LOENILA stockings. 8. Bowel regimen. Patient may require short-term rehab. Thank you for this referral. KRYSTYNA BARRETO M.D. [id number]
[2017-09-29 20:57] LABS: PLEURAL FLUID LYMPHOCYTES 3 %; PLEURAL FLUID MONOCYTE 3 %; PLEURAL FLUID NEUTROPHIL 69 %
[2017-09-29 20:58] LABS: PLEURAL FLD EOSINOPHIL 2 %; PLEURAL FLUID MACROPHAGES 10 %; PLEURAL FLUID MESOTHELIAL 13 %
[2017-09-29] MEDS: NITROGLYCERIN 25MG/D5W 250ML 25 MG/250 ML ML IVPB SCH (21:13)
[2017-09-30 07:52] LABS: HEMATOCRIT 34.1 % (32.4-45.2); HEMOGLOBIN 11.2 GM/dL (10.7-15.3); MCH 29.8 pg (25.7-33.7); MCHC 32.8 g/dl (32.0-36.0); MEAN CELL VOLUME 90.8 fl (80-96); MEAN PLT VOLUME 7.4 fl (7.5-11.1); PLATELET COUNT 480 K/MM3 (134-434); RBC 3.75 M/mm3 (3.60-5.2); RDW 14.5 % (11.6-15.6); WHITE BLOOD COUNT 25.9 K/mm3 (4.0-10.0)
[2017-09-30 08:14] LABS: CHLORIDE 103 mmol/L (98-107); POTASSIUM 4.7 mmol/L (3.5-5.1); SODIUM 137 mmol/L (136-145)
[2017-09-30 08:20] LABS: ALBUMIN 1.3 g/dl (3.4-5.0); ALK PHOS 56 U/L (45-117); ANION GAP 10 (8-16); BILIRUBIN,TOTAL 0.5 mg/dL (0.2-1.0); BLOOD UREA NITROGEN 25 mg/dL (7-18); CALCIUM 7.1 mg/dL (8.5-10.1); CO2 24 mmol/L (21-32); CREATININE 0.5 mg/dL (0.55-1.02); GLUCOSE,RANDOM 84 mg/dL (74-106); LDH 456 U/L (84-246); SGOT/AST 220 U/L (15-37); SGPT/ALT 184 U/L (12-78); TOT PROT 4.5 g/dl (6.4-8.2)
[2017-09-30] MEDS: PANTOPRAZOLE SODIUM 40 MG VIAL IVPUSH SCH (09:36)
[2017-09-30] MEDS: ASPIRIN 81 MG CHEWABLE TABLETS PO SCH (09:36)
[2017-09-30] MEDS: TRIAMCINOLONE ACET 0.1% OINT 15 GM TUBE TP SCH (09:36)
--- NOTE | 2017-09-30 10:23 | PN ---
Progress Note (short form) - Note Progress Note: 67 year old female admitted with SOB, palpitations with minimal exertion arthalgias, myalgias and rash for the past 3 weeks. Still has joint pains but less pronounced, decrease in generalised edema. C/o severe lower extremity weakness, Rash has faded but still present. Awaiting results on pleural fluid. Active Medications Acetaminophen (Tylenol -) 650 mg PO Q6H PRN PRN Reason: FEVER Aspirin (Asa -) 81 mg PO DAILY [facility] Last Admin: 09/30/17 09:36 Dose: 81 mg Nitroglycerin/Dextrose (Nitroglycerin 25mg/D5w 250ml) 25 mg in 250 mls @ 6 mls/ hr IVPB TITR BARB; 10 MCG/MIN PRN Reason: Protocol Last Admin: 09/29/17 21:13 Dose: Not Given Metoprolol Succinate (Toprol Xl -) 50 mg PO DAILY [facility] Last Admin: 09/30/17 09:36 Dose: 50 mg Pantoprazole Sodium (Protonix Iv) 40 mg IVPUSH DAILY [facility] Last Admin: 09/30/17 09:36 Dose: 40 mg Triamcinolone Acetonide (Aristocort 0.1% Ointment -) 1 applic TP DAILY [facility] Last Admin: 09/30/17 09:36 Dose: Not Given 67 year old female in mild distress no pallor or cyanosis or jaundice. Last Vital Signs Temp Pulse Resp BP Pulse Ox 97.7 F 100 H 20 117/56 99 09/30/17 06:00 09/30/17 06:00 09/30/17 09:00 09/30/17 06:00 09/30/17 09:00 Intake & Output 09/27/17 09/28/17 09/29/17 09/30/17 23:59 23:59 23:59 23:59 Intake Total 450 690 420 20 Balance 450 690 420 20 NECK: Supple, no JVD, slightly +ve HJR,carotids equal, no bruits. HEART: PMI in the 5th ICS, no heaves or thrills. S1 and S2 are normal, no murmur , gallops or rubs heard. LUNGS:Bilateral posterior crepitations. ABDOMEN: Soft, nontender, no organomegaly or masses felt. Dullness on percussion both flanks. EXTREMITIES: 1 to 2+ lower extremities, edema of the hands has resolved. no wrist tenderness elicited. SKIN: Persistent but less pronounced rash. CBC, BMP 09/30/17 06:21 09/30/17 06:21 IMPRESSION: 1. Dyspnea, palpitations, arthritis, myalgias, Severe peripheral myopathy, rash and pulmonary nodular lesions and bilateral effusions, etiology; a). Sarcoidosis. b). Collagen disease. c). Carcinomatosis. 2. Elevated trops: a). Secondary to Myocarditis b). KRISTEN. c). Infectious process. 3. CHF/ Volume overload needs exclusion. 4. Ascitis needs to b excluded 5. Persistent leukocytosis and thrombocytosis, Etiology to be determined. RECOMMENDATINS: 1. Abdominal CT vs ultra sound. 2. Consider hematological consult. 3. Results on pleural fluid pending
--- NOTE | 2017-09-30 10:30 | PN ---
Progress Note (short form) - Note Progress Note: No clinical changes. The patient continues having significant weakness. P/E. Lungs clear. Proximal weakness 3-4/5. I am aware of thoracocentesis: WBC 907, N:69, L: 3, M:3, E: 2 Macrophage 10. LDH pleural/ serum: 0.5. Protein pleural/serum: 0.47. The patient had yesterday evening an EMG - reported with inflammatory myopathy. Anti-Estela:1 positive. Last CK: 3067. Based on these findings the patient has polymyositis and the association with anti-Estela-1 indictaed a high risk for interstitial lung disease. Plan: As per discussion with Dr. Loredo, will obtain surgical consult for muscle biopsy (Obtain biopsy on RIGHT thigh (she had the EMG on the left)). I will start Prednisone 60 mg/d. Problem List - Problems (1) Myositis Code(s): M60.9 - MYOSITIS, UNSPECIFIED
[2017-09-30] MEDS: predniSONE 20 MG TABLET (UD) PO SCH ×2 (10:41→10:59)
--- NOTE | 2017-09-30 10:59 | PN ---
Progress Note, Physician - Current Medication List Current Medications: Active Medications Acetaminophen (Tylenol -) 650 mg PO Q6H PRN PRN Reason: FEVER Aspirin (Asa -) 81 mg PO DAILY [facility] Last Admin: 09/30/17 09:36 Dose: 81 mg Nitroglycerin/Dextrose (Nitroglycerin 25mg/D5w 250ml) 25 mg in 250 mls @ 6 mls/ hr IVPB TITR BARB; 10 MCG/MIN PRN Reason: Protocol Last Admin: 09/29/17 21:13 Dose: Not Given Metoprolol Succinate (Toprol Xl -) 50 mg PO DAILY [facility] Last Admin: 09/30/17 09:36 Dose: 50 mg Pantoprazole Sodium (Protonix Iv) 40 mg IVPUSH DAILY [facility] Last Admin: 09/30/17 09:36 Dose: 40 mg Prednisone (Deltasone -) 60 mg PO DAILY [facility] Last Admin: 09/30/17 10:41 Dose: Not Given Triamcinolone Acetonide (Aristocort 0.1% Ointment -) 1 applic TP DAILY [facility] Last Admin: 09/30/17 09:36 Dose: Not Given - Objective Vital Signs: Vital Signs Temperature 97.7 F 09/30/17 06:00 Pulse Rate 102 H 09/30/17 10:34 Respiratory Rate 18 09/30/17 10:34 Blood Pressure 127/67 09/30/17 10:34 O2 Sat by Pulse Oximetry (%) 99 09/30/17 09:00 Constitutional: Yes: No Distress, Calm Eyes: Yes: WNL HENT: Yes: WNL Neck: Yes: WNL Cardiovascular: Yes: WNL Respiratory: Yes: WNL Gastrointestinal: Yes: WNL ...Rectal Exam: Yes: Deferred Genitourinary: Yes: WNL Breast(s): Yes: WNL Musculoskeletal: Yes: Muscle Pain, Other (exts edema) Extremities: Yes: Other (edematous) Edema: LUE: 3+, RUE: 3+, LLE: 3+, RLE: 3+ Peripheral Pulses WNL: Yes Integumentary: Yes: Other (edema) Psychiatric: Yes: WNL Labs: CBC, BMP 09/30/17 06:21 09/30/17 06:21 INR, PTT INR 1.04 (0.82-1.09) 09/29/17 06:16 Assessment/Plan 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 plan dr reyes bx muscle steroids will not eff results dr kang ? bone marrow bx doubt wbc reactive steroids stated and agree wbxc will react more? oob p/t important
[2017-09-30 11:49] LABS: ANISOCYTOSIS 0; PLATELET ESTIMATE NORMAL; TOXIC GRANULATION 1+
--- NOTE | 2017-09-30 11:53 | CONSULT ---
Consult Consult Specialty:: Hematology - History of Present Illness History of Present Illness: 67 year old female admitted with SOB, palpitations with minimal exertion arthalgias, myalgias and rash for the past 3 weeks. Hospital Course thus far: she was found to have bilateral pleural effusions, pleural nodules, seen by ID/ Rheum/Cardiology/Pulm. she underwent thoracentesis Awaiting pulm studies EMG reviewed, consistent with myopathy plan to start steroids. Hematology consulted for Leucocytosis. Patient seen and examined . - History Source History Provided By: Patient, Medical Record - Past Medical History Cardio/Vascular: Yes: AFIB, HTN Pulmonary: Yes: Asthma Gastrointestinal: Yes: Other (Cholelithiasis.) Hepatobiliary: Yes: Cholelithiasis ...: No Psych: Yes: Anxiety Musculoskeletal: Yes: Other (weak and jt pains) Rheumatology: Yes: Other (? fa test pnd) Dermatology: Yes: Other (chr rash on off) - Past Surgical History Past Surgical History: Yes: Hysterectomy, Mastectomy - Alcohol/Substance Use Hx Alcohol Use: No History of Substance Use: reports: None - Smoking History Smoking history: Never smoked Have you smoked in the past 12 months: No - Social History History of Recent Travel: No Home Medications - Allergies Allergies/Adverse Reactions: Allergies Allergy/AdvReac Type Severity Reaction Status Date / Time No Known Allergies Allergy Verified 09/26/17 12:38 - Home Medications Home Medications: Ambulatory Orders Albuterol Sulfate Inhaler - [Ventolin HFA Inhaler -] 2 inh PO Q4H PRN 08/16/17 Aspirin Coated [Ecotrin -] 81 mg PO DAILY tablet.ec 08/21/17 Azithromycin [Zithromax 250mg Tablets -] 500 mg PO DAILY 4 Days #4 tablet Metoprolol Succinate [Toprol XL -] 50 mg PO DAILY #90 tab.sr.24h 08/21/17 Physical Exam Vital Signs: Vital Signs Temperature 97.7 F 09/30/17 06:00 Pulse Rate 102 H 09/30/17 10:34 Respiratory Rate 18 09/30/17 10:34 Blood Pressure 127/67 09/30/17 10:34 O2 Sat by Pulse Oximetry (%) 99 09/30/17 09:00 Constitutional: Yes: Calm Eyes: Yes: Other (glasses) HENT: Yes: Atraumatic, Normocephalic Neck: Yes: Supple, Trachea Midline Cardiovascular: Yes: Regular Rate and Rhythm Respiratory: Yes: Regular Gastrointestinal: Yes: Normal Bowel Sounds, Soft, Abdomen, Obese Extremities: Yes: WNL Edema: Yes Edema: LLE: 1+, RLE: 1+ Neurological: Yes: Alert, Oriented Psychiatric: Yes: Alert, Oriented Labs: CBC, BMP 09/30/17 06:21 09/30/17 06:21 Imaging - Results Cat Scan: Report Reviewed Problem List - Problems (1) Myositis Code(s): M60.9 - MYOSITIS, UNSPECIFIED (2) Pleural effusion Code(s): J90 - PLEURAL EFFUSION, NOT ELSEWHERE CLASSIFIED (3) Leucocytosis Code(s): D72.829 - ELEVATED WHITE BLOOD CELL COUNT, UNSPECIFIED (4) Intractable pain Code(s): R52 - PAIN, UNSPECIFIED (5) Breast cancer Code(s): C50.919 - MALIGNANT NEOPLASM OF UNSP SITE OF UNSPECIFIED FEMALE BREAST Assessment/Plan Leucocytosis/thrombocytosis mostly reactive from the underlying rheumatological disorder. diff mostly with neutrophils. paper work sent for peripheral blood flow. Pleural effusion: will follow cytology given hx of malignancy Inflammatory myositis steroids per rehum White cells expected to trend up
--- NOTE | 2017-09-30 12:17 | PN ---
Progress Note, Physician History of Present Illness: PULMONARY ALERT,FEELING BETTER,-RESP DISTRESS. PT S/P THORACENTESIS,PLEURAL FLUID C/W EXUDATE ELEVATED LDH 242 > 2/3 UPPER LIMIT NORMAL FOR SERUM LDH (246),ALBUMIN GRADIENT LESS THAN 1.2,PLEURAL FLUID PROTEIN GRADIENT 2.7 (3.1 0R GREATER C/W TRANSUDATE) - Current Medication List Current Medications: Active Medications Acetaminophen (Tylenol -) 650 mg PO Q6H PRN PRN Reason: FEVER Aspirin (Asa -) 81 mg PO DAILY [facility] Last Admin: 09/30/17 09:36 Dose: 81 mg Nitroglycerin/Dextrose (Nitroglycerin 25mg/D5w 250ml) 25 mg in 250 mls @ 6 mls/ hr IVPB TITR BARB; 10 MCG/MIN PRN Reason: Protocol Last Admin: 09/29/17 21:13 Dose: Not Given Metoprolol Succinate (Toprol Xl -) 50 mg PO DAILY [facility] Last Admin: 09/30/17 09:36 Dose: 50 mg Pantoprazole Sodium (Protonix Iv) 40 mg IVPUSH DAILY [facility] Last Admin: 09/30/17 09:36 Dose: 40 mg Prednisone (Deltasone -) 60 mg PO DAILY [facility] Last Admin: 09/30/17 10:59 Dose: 60 mg Triamcinolone Acetonide (Aristocort 0.1% Ointment -) 1 applic TP DAILY [facility] Last Admin: 09/30/17 09:36 Dose: Not Given - Objective Vital Signs: Vital Signs Temperature 97.7 F 09/30/17 06:00 Pulse Rate 102 H 09/30/17 10:34 Respiratory Rate 18 09/30/17 10:34 Blood Pressure 127/67 09/30/17 10:34 O2 Sat by Pulse Oximetry (%) 99 09/30/17 09:00 Constitutional: Yes: Well Nourished, Calm Eyes: Yes: WNL HENT: Yes: WNL Neck: Yes: WNL Cardiovascular: Yes: Regular Rate and Rhythm, S1, S2 Respiratory: Yes: Rales (BILATERAL CRACKLES) Gastrointestinal: Yes: Normal Bowel Sounds, Soft Extremities: Yes: WNL Edema: Yes Labs: CBC, BMP 09/30/17 06:21 09/30/17 06:21 INR, PTT INR 1.04 (0.82-1.09) 09/29/17 06:16 Problem List - Problems (1) Pleural effusion Code(s): J90 - PLEURAL EFFUSION, NOT ELSEWHERE CLASSIFIED (2) Intractable pain Code(s): R52 - PAIN, UNSPECIFIED (3) Myositis Code(s): M60.9 - MYOSITIS, UNSPECIFIED (4) Dyspnea Code(s): R06.00 - DYSPNEA, UNSPECIFIED (5) Asthma Code(s): J45.909 - UNSPECIFIED ASTHMA, UNCOMPLICATED (6) Troponin level elevated Code(s): R74.8 - ABNORMAL LEVELS OF OTHER SERUM ENZYMES Assessment/Plan IMP BILATERAL PLEURAL EFFUSIONS ,?INFECTIOUS,INFLAMMATORY,?MALIGNANT BILATERAL PULMONARY NODULES ? INFLAMMATORY,INFECTIOUS,SARCOID,? MALIGNANT DYSPNEA WEAKNESS IMPROVING GENERALIZED JOINT PAINS + TROPONINS MYOPATHY,MYOSITIS ASTHMA PLAN PREDNISONE CHECK RESULTS OF PLEURAL FLUID CYTOLOGY O2 ANALGESICS DR PAULSON Problem List - Problems (1) Pleural effusion Code(s): J90 - PLEURAL EFFUSION, NOT ELSEWHERE CLASSIFIED (2) Intractable pain Code(s): R52 - PAIN, UNSPECIFIED (3) Myositis Code(s): M60.9 - MYOSITIS, UNSPECIFIED (4) Dyspnea Code(s): R06.00 - DYSPNEA, UNSPECIFIED (5) Asthma Code(s): J45.909 - UNSPECIFIED ASTHMA, UNCOMPLICATED (6) Troponin level elevated Code(s): R74.8 - ABNORMAL LEVELS OF OTHER SERUM ENZYMES
[2017-09-30 13:49] LABS: MACROCYTOSIS 1+
--- NOTE | 2017-09-30 14:31 | PN ---
Progress Note, Physician History of Present Illness: S/P thoracentesis. Breathing improved Awake, alert Supine in bed Continues to c/o profound weakness, inability to stand unasisted No c/o chest pain/ dyspnea Afebrile WBC remains elevated Blood c/s (-) HIV test negative - Current Medication List Current Medications: Active Medications Acetaminophen (Tylenol -) 650 mg PO Q6H PRN PRN Reason: FEVER Aspirin (Asa -) 81 mg PO DAILY [facility] Last Admin: 09/30/17 09:36 Dose: 81 mg Nitroglycerin/Dextrose (Nitroglycerin 25mg/D5w 250ml) 25 mg in 250 mls @ 6 mls/ hr IVPB TITR BARB; 10 MCG/MIN PRN Reason: Protocol Last Admin: 09/29/17 21:13 Dose: Not Given Metoprolol Succinate (Toprol Xl -) 50 mg PO DAILY [facility] Last Admin: 09/30/17 09:36 Dose: 50 mg Pantoprazole Sodium (Protonix Iv) 40 mg IVPUSH DAILY [facility] Last Admin: 09/30/17 09:36 Dose: 40 mg Prednisone (Deltasone -) 60 mg PO DAILY [facility] Last Admin: 09/30/17 10:59 Dose: 60 mg Triamcinolone Acetonide (Aristocort 0.1% Ointment -) 1 applic TP DAILY [facility] Last Admin: 09/30/17 09:36 Dose: Not Given - Objective Vital Signs: Vital Signs Temperature 97.7 F 09/30/17 06:00 Pulse Rate 102 H 09/30/17 10:34 Respiratory Rate 18 09/30/17 10:34 Blood Pressure 127/67 09/30/17 10:34 O2 Sat by Pulse Oximetry (%) 99 09/30/17 09:00 Constitutional: Yes: No Distress Eyes: Yes: Conjunctiva Clear Cardiovascular: Yes: Regular Rate and Rhythm, S1, S2 Respiratory: Yes: Diminished Gastrointestinal: Yes: Normal Bowel Sounds, Soft. No: Tenderness Edema: Yes Labs: CBC, BMP 09/30/17 06:21 09/30/17 06:21 INR, PTT INR 1.04 (0.82-1.09) 09/29/17 06:16 Assessment/Plan Bilateral pleural effusions S/P thoracentesis Leukocytosis ? connective tissue disorder ? occult malignancy Started on prednisone for polymyositis Await pleural fluid cultures Observe off antibiotics
--- NOTE | 2017-09-30 16:27 | PN ---
Progress Note (short form) - Note Progress Note: Vascular Surgery Pt seen and examined with son at bedside. Rheum note appreciated. Will do right thigh muscle biopsy betsy at 9am. NPO past midnite Lizandro trevino DO
[2017-10-01 07:32] LABS: ALBUMIN 1.4 g/dl (3.4-5.0); ANION GAP 8 (8-16); BLOOD UREA NITROGEN 24 mg/dL (7-18); CALCIUM 7.6 mg/dL (8.5-10.1); CHLORIDE 104 mmol/L (98-107); CO2 25 mmol/L (21-32); GLUCOSE,RANDOM 94 mg/dL (74-106); POTASSIUM 4.5 mmol/L (3.5-5.1); SGOT/AST 169 U/L (15-37); SGPT/ALT 195 U/L (12-78); SODIUM 137 mmol/L (136-145)
[2017-10-01 07:34] LABS: ALK PHOS 62 U/L (45-117); BILIRUBIN,TOTAL 0.3 mg/dL (0.2-1.0); CREATININE 0.5 mg/dL (0.55-1.02); TOT PROT 4.8 g/dl (6.4-8.2)
[2017-10-01] MEDS ORDERED: PROPOFOL 20 ML ONE (08:04)
[2017-10-01] MEDS ORDERED: MIDAZOLAM HCL 2 MG/2 ML SINGLE DOSE VIAL ONE (08:05)
[2017-10-01 08:07] LABS: HEMATOCRIT 34.7 % (32.4-45.2); HEMOGLOBIN 11.3 GM/dL (10.7-15.3); MCH 30.1 pg (25.7-33.7); MCHC 32.7 g/dl (32.0-36.0); MEAN PLT VOLUME 7.6 fl (7.5-11.1); PLATELET COUNT 499 K/MM3 (134-434); RBC 3.77 M/mm3 (3.60-5.2); WHITE BLOOD COUNT 28.9 K/mm3 (4.0-10.0)
[2017-10-01] MEDS ORDERED: LIDOCAINE HCL 1%, 10 MG/ML (20ML VIAL) ONE (08:49)
[2017-10-01 09:07] LABS: CHOLESTEROL 119 mg/dL (50-200); TRIGLYCERIDES 136 mg/dL (35-160)
[2017-10-01] MEDS ORDERED: BACITRACIN 15 GM TUBE TOPICAL OINTMENT ONE (09:12)
[2017-10-01 09:24] LABS: HDL CHOLESTEROL 24 mg/dl (29-89); LDL CHOLESTEROL (ONLY SJRH) 88 mg/dL (5-100)
[2017-10-01] MEDS ORDERED: ceFAZolin SODIUM 1 GM VIAL IVPB ONE (09:33)
[2017-10-01] MEDS ORDERED: LIDOCAINE HCL 1%, 10 MG/ML (20ML VIAL) INF ONE (09:41)
[2017-10-01] MEDS ORDERED: ceFAZolin SODIUM 1 GM VIAL ONE (09:41)
--- NOTE | 2017-10-01 09:58 | OP ---
Operative Note - Note: Operative Date: 10/01/17 Pre-Operative Diagnosis: rule out myositis Operation: right thigh muscle biopsy Post-Operative Diagnosis: Same as Pre-op Surgeon: Lizandro Musa Anesthesia: Fractional Specimens Removed: muscle sent to path Estimated Blood Loss (mls): 5 Operative Report Dictated: Yes
--- NOTE | 2017-10-01 10:37 | PN ---
Progress Note (short form) - Note Progress Note: 67 year old female admitted with SOB, palpitations with minimal exertion arthalgias, myalgias and rash for the past 3 weeks. Patient seen in the recovery room. Drowsy but awake. Had muscle biopsy. Hemodynamically stable except that she has sinus tachycardia at 106 beats per minute. Active Medications Generic Name Dose Route Start Last Admin Trade Name Freq PRN Reason Stop Dose Admin Acetaminophen 650 mg 09/27/17 17:32 Tylenol - PO Q6H PRN FEVER Aspirin 81 mg 09/29/17 16:30 09/30/17 09:36 Asa - PO 81 mg DAILY [facility] Administration Fentanyl 25 mcg 10/01/17 10:04 Sublimaze Injection - IVPUSH [id number] PRN PAIN-PACU ORDER X 4 DOSES ONLY Metoprolol Succinate 50 mg 09/27/17 10:00 09/30/17 09:36 Toprol Xl - PO 50 mg DAILY [facility] Administration Pantoprazole Sodium 40 mg 09/27/17 10:00 09/30/17 09:36 Protonix Iv IVPUSH 40 mg DAILY [facility] Administration Prednisone 60 mg 09/30/17 10:50 09/30/17 10:59 Deltasone - PO 60 mg DAILY [facility] Administration Triamcinolone Acetonide 1 applic 09/27/17 17:30 09/30/17 09:36 Aristocort 0.1% Ointment - TP Not Given DAILY [facility] 67 year old female in mild distress no pallor or cyanosis or jaundice. Last Vital Signs Temp Pulse Resp BP Pulse Ox 97.8 F 92 H 20 116/69 99 10/01/17 06:00 10/01/17 06:00 10/01/17 06:00 10/01/17 06:00 09/30/17 21:00 Intake & Output 09/28/17 09/29/17 09/30/17 10/01/17 23:59 23:59 23:59 23:59 Intake Total 690 420 330 200 Balance 690 420 330 200 NECK: Supple, no JVD, slightly +ve HJR,carotids equal, no bruits. HEART: PMI in the 5th ICS, no heaves or thrills. S1 and S2 are normal, no murmur , gallops or rubs heard. LUNGS:Bilateral posterior crepitations. ABDOMEN: Soft, nontender, no organomegaly or masses felt. Dullness on percussion both flanks. EXTREMITIES: 1 to 2+ lower extremities, edema of the hands has resolved. no wrist tenderness elicited. CBC, BMP 10/01/17 06:45 10/01/17 06:45 IMPRESSION: 1. Dyspnea, palpitations, arthritis, myalgias, Severe peripheral myopathy, rash and pulmonary nodular lesions and bilateral effusions, etiology; a). Sarcoidosis. b). Collagen disease. c). Carcinomatosis. 2. Elevated trops: a). Secondary to Myocarditis b). KRISTEN. c). Infectious process. 3. CHF/ Volume overload needs exclusion. 4. Ascitis needs to b excluded 5. Persistent leukocytosis and thrombocytosis, Etiology to be determined. RECOMMENDATINS: 1. Abdominal CT vs ultra sound. 2. Results on pleural fluid pending.
--- NOTE | 2017-10-01 10:43 | OP ---
DATE OF OPERATION: 10/01/2017 PREOPERATIVE DIAGNOSIS: Rule out myositis. POSTOPERATIVE DIAGNOSIS: Rule out myositis. PROCEDURE: Right thigh muscle biopsy. SURGEON: Lizandro Francis DO ANESTHESIA: Fractional. BLOOD LOSS: 5 mL. INDICATIONS: The patient is a 67-year-old female recently seen by Medicine and Rheumatology. She is having a lot of muscle atrophy and muscle weakness in bilateral lower extremities, and it was decided that she would need a muscle biopsy. DESCRIPTION OF PROCEDURE: The patient was consented for the procedure understanding all risks, benefits, and alternatives and then taken to the operating room. Once in the operative suite, she was laid on the operating room table in supine position. The area of the right thigh was prepped and draped in a sterile surgical manner. We then using a skin marker khushbu a 5-cm transverse incision over the thigh. We then injected 10 mL of lidocaine 1% in the area. We then took our 15 blade and made a 5-cm incision. Bovie electrocautery was used to control hemostasis. Using Bovie electrocautery, we were able to get through all of the subcutaneous and down to the fascia. Once we got down to the fascia, we used Metzenbaum scissors and opened the fascia, and the muscle was right there. We then went ahead and took an Allis clamp and grabbed the biceps femoris muscle. Using a 15 blade, we were able to excise the muscle and sent it down to Pathology. Bovie electrocautery was used to control hemostasis. We then irrigated the wound copiously. Then 3-0 Vicryl was used, and the subcutaneous tissue was approximated in an interrupted manner, and the skin was closed with 4-0 Biosyn in a subcuticular running fashion. The area was wet and dried. Steri-Strips, 4 x 4s, and Tegaderms were placed. The patient tolerated the procedure with no complication. The patient was transferred to PACU in stable condition. LIZANDRO FRANCIS DO LOG SKIDDER/[id number]
[2017-10-01] MEDS: PANTOPRAZOLE SODIUM 40 MG VIAL IVPUSH SCH (12:14)
[2017-10-01] MEDS: ASPIRIN 81 MG CHEWABLE TABLETS PO SCH (12:15)
[2017-10-01] MEDS: TRIAMCINOLONE ACET 0.1% OINT 15 GM TUBE TP SCH (12:15)
[2017-10-01] MEDS: predniSONE 20 MG TABLET (UD) PO SCH ×2 (12:15→16:35)
[2017-10-01 13:08] LABS: ACANTHOCYTES 0; ANISOCYTOSIS 0; HELMET CELLS 0; HOWELL-JOLLY BODIES 0; MACROCYTOSIS 0; OVALOCYTE 0; PLATELET ESTIMATE INCREASED; ROULEAU 0; SICKELED CELLS 0; TARGET CELLS 0; TEAR DROP CELLS 0; TOXIC GRANULATION 0
--- NOTE | 2017-10-01 15:07 | PN ---
Progress Note, Physician History of Present Illness: S/P muscle biopsy Awake, weak apearing Supine in bed C/O profound weakness No c/o chest pain/ dyspnea Afebrile WBC remains elevated. Now on steroids Blood c/s (-) HIV test negative - Current Medication List Current Medications: Active Medications Acetaminophen (Tylenol -) 650 mg PO Q6H PRN PRN Reason: FEVER Aspirin (Ecotrin -) 81 mg PO DAILY [facility] Fentanyl (Sublimaze Injection -) 25 mcg IVPUSH [id number] PRN PRN Reason: PAIN-PACU ORDER X 4 DOSES ONLY Metoprolol Succinate (Toprol Xl -) 50 mg PO DAILY [facility] Pantoprazole Sodium (Protonix -) 40 mg PO DAILY [facility] Prednisone (Deltasone -) 60 mg PO DAILY [facility] Triamcinolone Acetonide (Aristocort 0.1% Cream -) 1 applic TP DAILY [facility] - Objective Vital Signs: Vital Signs Temperature 98.7 F 10/01/17 14:00 Pulse Rate 112 H 10/01/17 14:00 Respiratory Rate 22 10/01/17 11:00 Blood Pressure 147/84 10/01/17 14:00 O2 Sat by Pulse Oximetry (%) 94 L 10/01/17 11:00 Constitutional: Yes: No Distress Eyes: Yes: Conjunctiva Clear Cardiovascular: Yes: Regular Rate and Rhythm, S1, S2 Respiratory: Yes: Diminished Gastrointestinal: Yes: Normal Bowel Sounds, Soft. No: Tenderness Edema: Yes Labs: CBC, BMP 10/01/17 06:45 10/01/17 06:45 INR, PTT INR 1.04 (0.82-1.09) 09/29/17 06:16 Assessment/Plan Bilateral pleural effusions S/P thoracentesis Cultures negative Leukocytosis connective tissue disorder ? occult malignancy Started on prednisone for polymyositis pleural fluid cultures no growth Await muscle bx Observe off antibiotics
--- NOTE | 2017-10-01 16:20 | PN ---
Progress Note (short form) - Note Progress Note: Patient seen and examined s/p muscle biopsy she feels tired and fatigued. O/E: Constitutional: Yes: Calm Eyes: Yes: Other (glasses) HENT: Yes: Atraumatic, Normocephalic Neck: Yes: Supple, Trachea Midline Cardiovascular: Yes: Regular Rate and Rhythm Respiratory: Yes: Regular Gastrointestinal: Yes: Normal Bowel Sounds, Soft, Abdomen, Obese Extremities: Yes: WNL Edema: Yes Edema: LLE: 1+, RLE: 1+ Neurological: Yes: Alert, Oriented Psychiatric: Yes: Alert, Oriented Last Vital Signs Temp Pulse Resp BP Pulse Ox 98.7 F 112 H 22 147/84 94 L 10/01/17 14:00 10/01/17 14:00 10/01/17 11:00 10/01/17 14:00 10/01/17 11:00 CBC, BMP 10/01/17 06:45 10/01/17 06:45 Current Medications Generic Name Dose Route Start Last Admin Trade Name Freq PRN Reason Stop Dose Admin Acetaminophen 650 mg 10/01/17 11:01 Tylenol - PO Q6H PRN FEVER Aspirin 81 mg 10/01/17 16:15 Ecotrin - PO DAILY [facility] Fentanyl 25 mcg 10/01/17 10:04 Sublimaze Injection - IVPUSH [id number] PRN PAIN-PACU ORDER X 4 DOSES ONLY Metoprolol Succinate 50 mg 10/01/17 16:15 Toprol Xl - PO DAILY [facility] Pantoprazole Sodium 40 mg 10/01/17 16:15 Protonix - PO DAILY [facility] Prednisone 60 mg 10/01/17 16:15 Deltasone - PO DAILY [facility] Triamcinolone Acetonide 1 applic 10/02/17 10:00 Aristocort 0.1% Cream - TP DAILY [facility] Leucocytosis/thrombocytosis mostly reactive from the underlying rheumatological disorder. diff mostly with neutrophils. f/u on peripheral flow cytometry Pleural effusion: will follow cytology given hx of malignancy Inflammatory myositis steroids per rehum White cells trend up as expected. s/p muscle biopsy today rheum f/u noted will follow Problem List - Problems (1) Myositis Code(s): M60.9 - MYOSITIS, UNSPECIFIED (2) Pleural effusion Code(s): J90 - PLEURAL EFFUSION, NOT ELSEWHERE CLASSIFIED (3) Leucocytosis Code(s): D72.829 - ELEVATED WHITE BLOOD CELL COUNT, UNSPECIFIED (4) Intractable pain Code(s): R52 - PAIN, UNSPECIFIED (5) Breast cancer Code(s): C50.919 - MALIGNANT NEOPLASM OF UNSP SITE OF UNSPECIFIED FEMALE BREAST
[2017-10-01] MEDS: ASPIRIN COATED 81 MG TABLET.EC PO SCH (16:35)
[2017-10-01] MEDS: PANTOPRAZOLE 40 MG TABLET (FP) PO SCH (16:35)
[2017-10-02 08:01] LABS: HEMATOCRIT 35.3 % (32.4-45.2); HEMOGLOBIN 11.5 GM/dL (10.7-15.3); MCH 29.8 pg (25.7-33.7); MCHC 32.4 g/dl (32.0-36.0); MEAN CELL VOLUME 91.9 fl (80-96); MEAN PLT VOLUME 7.1 fl (7.5-11.1); PLATELET COUNT 502 K/MM3 (134-434); RBC 3.84 M/mm3 (3.60-5.2); RDW 14.7 % (11.6-15.6); WHITE BLOOD COUNT 22.2 K/mm3 (4.0-10.0)
[2017-10-02] MEDS ORDERED: PANTOPRAZOLE SODIUM 40 MG VIAL IVPUSH SCH (10:00)
[2017-10-02] MEDS ORDERED: TRIAMCINOLONE ACET 0.1% OINT 15 GM TUBE TP SCH (10:00)
[2017-10-02] MEDS ORDERED: ASPIRIN 81 MG CHEWABLE TABLETS PO SCH (10:00)
--- NOTE | 2017-10-02 10:21 | PN ---
Progress Note (short form) - Note Progress Note: Anesthesiology post-op POD#1 s/p right thigh muscle biopsy under MAC. Pt. is OOB in chair. She is feeling well, denies pain. VSS. No apparent anesthesia-related issues.
[2017-10-02] MEDS: predniSONE 20 MG TABLET (UD) PO SCH (10:30)
[2017-10-02] MEDS: ASPIRIN COATED 81 MG TABLET.EC PO SCH (10:30)
[2017-10-02] MEDS: PANTOPRAZOLE 40 MG TABLET (FP) PO SCH (10:31)
[2017-10-02] MEDS: TRIAMCINOLONE ACET 0.1% CREAM 15 GM TUBE TP SCH (10:40)
[2017-10-02 10:54] LABS: ANION GAP 7 (8-16); BLOOD UREA NITROGEN 25 mg/dL (7-18); CALCIUM 7.4 mg/dL (8.5-10.1); CHLORIDE 103 mmol/L (98-107); CO2 26 mmol/L (21-32); CREATININE 0.5 mg/dL (0.55-1.02); GLUCOSE,RANDOM 119 mg/dL (74-106); POTASSIUM 5.3 mmol/L (3.5-5.1); SODIUM 136 mmol/L (136-145)
[2017-10-02] MEDS ORDERED: SODIUM POLYSTYRENE SULFONATE 15 GM/60 ML BOTTLE PO ONE (11:48)
--- NOTE | 2017-10-02 12:48 | PN ---
Progress Note, Physician History of Present Illness: pt more mobile wbc less despite steroids k tx today was high - Current Medication List Current Medications: Active Medications Acetaminophen (Tylenol -) 650 mg PO Q6H PRN PRN Reason: FEVER Aspirin (Ecotrin -) 81 mg PO DAILY [facility] Last Admin: 10/02/17 10:30 Dose: 81 mg Metoprolol Succinate (Toprol Xl -) 50 mg PO DAILY [facility] Last Admin: 10/02/17 10:30 Dose: 50 mg Pantoprazole Sodium (Protonix -) 40 mg PO DAILY [facility] Last Admin: 10/02/17 10:31 Dose: 40 mg Prednisone (Deltasone -) 60 mg PO DAILY [facility] Last Admin: 10/02/17 10:30 Dose: 60 mg Triamcinolone Acetonide (Aristocort 0.1% Cream -) 1 applic TP DAILY [facility] Last Admin: 10/02/17 10:40 Dose: 1 applic - Objective Vital Signs: Vital Signs Temperature 98.1 F 10/02/17 04:54 Pulse Rate 86 10/02/17 04:54 Respiratory Rate 20 10/02/17 04:54 Blood Pressure 126/70 10/02/17 04:54 O2 Sat by Pulse Oximetry (%) 96 10/01/17 20:34 Constitutional: Yes: No Distress Eyes: Yes: WNL HENT: Yes: WNL Neck: Yes: WNL Cardiovascular: Yes: WNL Respiratory: Yes: WNL, SOB on Exertion Gastrointestinal: Yes: WNL ...Rectal Exam: Yes: Deferred Genitourinary: Yes: WNL Breast(s): Yes: WNL Musculoskeletal: Yes: Muscle Pain Extremities: Yes: WNL Edema: LUE: 1+, RUE: 1+, LLE: 1+, RLE: 1+ Peripheral Pulses WNL: Yes Integumentary: Yes: WNL Neurological: Yes: Weakness Psychiatric: Yes: WNL Labs: CBC, BMP 10/02/17 05:05 10/02/17 10:15 INR, PTT INR 1.04 (0.82-1.09) 09/29/17 06:16 Assessment/Plan cont steroids oob p/t f/u labs in am
--- NOTE | 2017-10-02 13:27 | PN ---
Progress Note (short form) - Note Progress Note: PULMONARY VSS/AFEBRILE SUBJECTIVE IMPROVEMENT ANICTERIC DIMINISHED BREATH SOUNDS BASES S1S2 BS+ RIGHT LOWER EXT EDEMA1+ LABS/MEDS/NOTES/IMAGES REVIEWED (1) Pleural effusion Code(s): J90 - PLEURAL EFFUSION, NOT ELSEWHERE CLASSIFIED (2) Intractable pain Code(s): R52 - PAIN, UNSPECIFIED (3) Myositis Code(s): M60.9 - MYOSITIS, UNSPECIFIED (4) Dyspnea Code(s): R06.00 - DYSPNEA, UNSPECIFIED (5) Asthma Code(s): J45.909 - UNSPECIFIED ASTHMA, UNCOMPLICATED (6) Troponin level elevated Code(s): R74.8 - ABNORMAL LEVELS OF OTHER SERUM ENZYMES Assessment/Plan IMP BILATERAL PLEURAL EFFUSIONS ,?INFECTIOUS,INFLAMMATORY,?MALIGNANT BILATERAL PULMONARY NODULES ? INFLAMMATORY,INFECTIOUS,SARCOID,? MALIGNANT DYSPNEA + TROPONINS MYOPATHY,MYOSITIS ASTHMA AWAITING CYTOLOGY/MICRO ON PLEURAL FLUID CONTINUE CURRENT TREATMENT AWAITING MUSCLE BIPSY RESULT
[2017-10-02] MEDS ORDERED: SODIUM POLYSTYRENE SULFONATE 15 GM/60 ML BOTTLE ONE (14:04)
--- NOTE | 2017-10-02 14:25 | CON.NEP ---
Consult Consult Specialty:: nephrology - History of Present Illness Chief Complaint: weakness History of Present Illness: Asked to evaluate this pleasant 67 year old woman with history of breast ca s/p mastectomy for nephrotic syndrome. She was admitted with progressive weakness to the point that she is unable to walk. She was seen in the past for hyponatremia and now she is hyperkalemic. Devyn denies difficulty urinating though states that when she is given medications she urinates less. She also has not been eating her usual fruits so is not having as many bowel movements. She is currently coughing and weak. - History Source History Provided By: Patient, Medical Record - Past Medical History Cardio/Vascular: Yes: AFIB, HTN Pulmonary: Yes: Asthma Gastrointestinal: Yes: Other (Cholelithiasis.) Hepatobiliary: Yes: Cholelithiasis ...: No Psych: Yes: Anxiety Musculoskeletal: Yes: Other (weak and jt pains) Rheumatology: Yes: Other (? fa test pnd) Dermatology: Yes: Other (chr rash on off) - Past Surgical History Past Surgical History: Yes: Hysterectomy, Mastectomy - Alcohol/Substance Use Hx Alcohol Use: No History of Substance Use: reports: None - Smoking History Smoking history: Never smoked Have you smoked in the past 12 months: No - Social History History of Recent Travel: No Home Medications - Allergies Allergies/Adverse Reactions: Allergies Allergy/AdvReac Type Severity Reaction Status Date / Time No Known Allergies Allergy Verified 09/26/17 12:38 - Home Medications Home Medications: Ambulatory Orders Albuterol Sulfate Inhaler - [Ventolin HFA Inhaler -] 2 inh PO Q4H PRN 08/16/17 Aspirin Coated [Ecotrin -] 81 mg PO DAILY tablet.ec 08/21/17 Azithromycin [Zithromax 250mg Tablets -] 500 mg PO DAILY 4 Days #4 tablet Metoprolol Succinate [Toprol XL -] 50 mg PO DAILY #90 tab.sr.24h 08/21/17 Review of Systems - Review of Systems Constitutional: reports: Weakness Eyes: reports: No Symptoms HENT: reports: No Symptoms Neck: reports: No Symptoms Cardiovascular: reports: No Symptoms Respiratory: reports: Cough Gastrointestinal: reports: No Symptoms Genitourinary: reports: No Symptoms Breasts: reports: No Symptoms Reported Musculoskeletal: reports: Muscle Weakness Integumentary: reports: No Symptoms Neurological: reports: Weakness Endocrine: reports: No Symptoms Hematology/Lymphatic: reports: No Symptoms Psychiatric: reports: No Symptoms Nephrology Consult - Height Height: 5 ft 5 in - Weight Weight: 125 lb - BMI Body Mass Index (BMI): 20.7 - Lab Results CBC,BMP: CBC, BMP 10/02/17 05:05 10/02/17 10:15 Anion Gap: Anion Gap Anion Gap 7 (8-16) L 10/02/17 10:15 - Imaging Chest X-ray: Report Reviewed (resolution of effusion post thoracentesis no pneumothorax) - Physical Examination Vital Signs: Vital Signs Temperature 98.1 F 10/02/17 04:54 Pulse Rate 86 10/02/17 04:54 Respiratory Rate 20 10/02/17 04:54 Blood Pressure 126/70 10/02/17 04:54 O2 Sat by Pulse Oximetry (%) 96 10/01/17 20:34 Constitutional: Yes: Well Nourished, Mild Distress Eyes: Yes: Conjunctiva Clear HENT: Yes: Atraumatic, Normocephalic Neck: Yes: Supple, Trachea Midline Cardiovascular: Yes: Regular Rate and Rhythm Respiratory: Yes: Rhonchi Gastrointestinal: Yes: Normal Bowel Sounds Renal/: Yes: WNL Musculoskeletal: Yes: WNL Extremities: Yes: WNL Edema: Yes Edema: LLE: 1+, RLE: 1+ Integumentary: Yes: Other (biopsy site on right thigh clean and dry) Wound/Incision: Yes: Clean/Dry Neurological: Yes: Alert, Oriented Psychiatric: Yes: Alert, Oriented Assessment/Plan IMPRESSION Pt has normal renal plasma filtration ANti Jo1 antibody positive which is consistent with polymyositis Hep B c IgM positive needs further investigation mild hyperkalemia possibly from constipation and reduced urine output, also from muscle enzyme release exudative effusion PLAN obtain urinalysis and urine protein and creatinine follow up pathology report rheum follow up necessary- pt already on steroids Hep B DNA, Hep B e antigen MV
[2017-10-02 14:38] LABS: URINE APPEARANCE SLCLOUDY; URINE BILIRUBIN NEGATIVE (NEGATIVE); URINE BLOOD 2+ (NEGATIVE); URINE COLOR YELLOW; URINE GLUCOSE (UA) NEGATIVE (NEGATIVE); URINE KETONE NEGATIVE (NEGATIVE); URINE LEUK ESTERASE NEGATIVE (NEGATIVE); URINE NITRITE NEGATIVE (NEGATIVE); URINE PROTEIN NEGATIVE (NEGATIVE); URINE UROBILINOGEN NEGATIVE mg/dL (0.2-1.0)
[2017-10-02 14:58] LABS: EPI CELLS RARE /HPF (FEW); URINE BACTERIA FEW /hpf (NONE SEEN); URINE HYALINE CAST 10 /lpf; URINE MUCUS RARE
--- NOTE | 2017-10-02 15:16 | PN ---
Progress Note (short form) - Note Progress Note: 67 year old female admitted with SOB, palpitations with minimal exertion arthalgias, myalgias and rash for the past 3 weeks prior to admission.H /o Hyponatremia. She continues to have progressive muscular weakness and is having difficulty to stand up and is unable to lift her right arm without support, The left arm is also has significant weakness. She is again developing edema of the extremities. Decrease in arthritic pain. No chest pain or discomfort, no SOB, PND or orthopnea. U/A revealed 2+ blood, 10 hylaine casts no protein. total protein and albumin have been low. On steroids. Rash has faded. Diagnosis remains undetermined. Active Medications Acetaminophen (Tylenol -) 650 mg PO Q6H PRN PRN Reason: FEVER Aspirin (Ecotrin -) 81 mg PO DAILY [facility] Last Admin: 10/02/17 10:30 Dose: 81 mg Metoprolol Succinate (Toprol Xl -) 50 mg PO DAILY [facility] Last Admin: 10/02/17 10:30 Dose: 50 mg Pantoprazole Sodium (Protonix -) 40 mg PO DAILY [facility] Last Admin: 10/02/17 10:31 Dose: 40 mg Prednisone (Deltasone -) 60 mg PO DAILY [facility] Last Admin: 10/02/17 10:30 Dose: 60 mg Triamcinolone Acetonide (Aristocort 0.1% Cream -) 1 applic TP DAILY [facility] Last Admin: 10/02/17 10:40 Dose: 1 applic Zolpidem Tartrate (Ambien -) 5 mg PO HS PRN PRN Reason: INSOMNIA Stop: 10/06/17 23:59 67 year old female in mild distress no pallor or cyanosis or jaundice. Last Vital Signs Temp Pulse Resp BP Pulse Ox 98.1 F 86 20 126/70 96 10/02/17 04:54 10/02/17 04:54 10/02/17 04:54 10/02/17 04:54 10/01/17 20:34 Intake & Output 09/29/17 09/30/17 10/01/17 10/02/17 23:59 23:59 23:59 23:59 Intake Total 420 330 610 0 Output Total 0 Balance 420 330 610 0 Weight 125 lb NECK: Supple, no JVD, slightly +ve HJR,carotids equal, no bruits. HEART: PMI in the 5th ICS, no heaves or thrills. S1 and S2 are normal, no murmur , gallops or rubs heard. LUNGS:Bilateral posterior crepitations. ABDOMEN: Soft, nontender, no organomegaly or masses felt. Dullness on percussion both flanks. EXTREMITIES: 1 to 2+ lower extremities, edema of the hands has resolved. no wrist tenderness elicited. CBC, BMP 10/02/17 05:05 10/02/17 10:15 Abnormal Lab Results 10/02/17 10/02/17 10/02/17 05:05 10:15 13:00 WBC 22.2 H Plt Count 502 H MPV 7.1 L Potassium 5.3 H Anion Gap 7 L BUN 25 H Creatinine 0.5 L Random Glucose 119 H Calcium 7.4 L Urine Blood 2+ H Urine Test Results Urine Color Yellow 10/02/17 13:00 Urine Appearance Slcloudy 10/02/17 13:00 Urine pH 5.0 (5.0-8.0) 10/02/17 13:00 Ur Specific [place] 1.021 (1.001-1.035) 10/02/17 13:00 Urine Protein Negative (NEGATIVE) 10/02/17 13:00 Urine Glucose (UA) Negative (NEGATIVE) 10/02/17 13:00 Urine Ketones Negative (NEGATIVE) 10/02/17 13:00 Urine Blood 2+ (NEGATIVE) H 10/02/17 13:00 Urine Nitrite Negative (NEGATIVE) 10/02/17 13:00 Urine Bilirubin Negative (NEGATIVE) 10/02/17 13:00 Ur Leukocyte Esterase Negative (NEGATIVE) 10/02/17 13:00 Ur Epithelial Cells Rare /HPF (FEW) 10/02/17 13:00 Urine Bacteria Few /hpf (NONE SEEN) 10/02/17 13:00 Urine Mucus Rare 10/02/17 13:00 IMPRESSION: 1. Dyspnea, palpitations, arthritis, myalgias, Severe peripheral geralised polymyopathy, rash and pulmonary nodular lesions, lymphadenopathy and bilateral effusions, etiology; a). Sarcoidosis. b). Collagen disease. c). Carcinomatosis. 2. Elevated trops: a). Secondary to Myocarditis b). KRISTEN. c). Infectious process. 3. Generalised edema, partly related to hypoproteinemia. 4. Ascitis needs to b excluded 5. Persistent leukocytosis and thrombocytosis, Etiology to be determined. RECOMMENDATINS: 1. Abdominal CT vs ultra sound. 2. Results on pleural fluid pending and muscle biopsy results are pending. 3. F/u echocardiogram Time spent-35 mins.
[2017-10-02] MEDS ORDERED: ZOLPIDEM TARTRATE 5 MG TABLET PO PRN (22:00)
[2017-10-03 07:10] LABS: HEMATOCRIT 39.4 % (32.4-45.2); HEMOGLOBIN 12.7 GM/dL (10.7-15.3); MCH 29.4 pg (25.7-33.7); MCHC 32.2 g/dl (32.0-36.0); MEAN CELL VOLUME 91.3 fl (80-96); PLATELET COUNT 561 K/MM3 (134-434); RBC 4.32 M/mm3 (3.60-5.2); WHITE BLOOD COUNT 19.6 K/mm3 (4.0-10.0)
[2017-10-03 07:14] LABS: CHLORIDE 102 mmol/L (98-107); POTASSIUM 4.4 mmol/L (3.5-5.1); SODIUM 137 mmol/L (136-145)
[2017-10-03 07:40] LABS: ALBUMIN 1.5 g/dl (3.4-5.0); ALK PHOS 63 U/L (45-117); ANION GAP 9 (8-16); BILIRUBIN,DIRECT < 0.2 mg/dL (0.0-0.2); BILIRUBIN,TOTAL 0.4 mg/dL (0.2-1.0); BLOOD UREA NITROGEN 31 mg/dL (7-18); CALCIUM 7.9 mg/dL (8.5-10.1); CO2 26 mmol/L (21-32); CREATININE 0.6 mg/dL (0.55-1.02); GLUCOSE,RANDOM 105 mg/dL (74-106); SGOT/AST 154 U/L (15-37); SGPT/ALT 181 U/L (12-78)
[2017-10-03] MEDS: PANTOPRAZOLE 40 MG TABLET (FP) PO SCH (09:16)
[2017-10-03] MEDS: predniSONE 20 MG TABLET (UD) PO SCH (09:16)
[2017-10-03] MEDS: ASPIRIN COATED 81 MG TABLET.EC PO SCH (09:16)
[2017-10-03] MEDS: ACETAMINOPHEN 325 MG TABLET (FP) PO PRN (09:17)
[2017-10-03] MEDS: TRIAMCINOLONE ACET 0.1% CREAM 15 GM TUBE TP SCH (09:20)
[2017-10-03 09:54] LABS: ACANTHOCYTES 0; ANISOCYTOSIS 0; HELMET CELLS 0; HOWELL-JOLLY BODIES 0; MACROCYTOSIS 0; OVALOCYTE 0; PLATELET ESTIMATE INCREASED; ROULEAU 0; SICKELED CELLS 0; TARGET CELLS 0; TEAR DROP CELLS 0; TOXIC GRANULATION 0
[2017-10-03 10:32] LABS: URINE APPEARANCE SLCLOUDY; URINE BILIRUBIN NEGATIVE (NEGATIVE); URINE BLOOD 3+ (NEGATIVE); URINE COLOR YELLOW; URINE GLUCOSE (UA) NEGATIVE (NEGATIVE); URINE KETONE NEGATIVE (NEGATIVE); URINE LEUK ESTERASE NEGATIVE (NEGATIVE); URINE NITRITE NEGATIVE (NEGATIVE); URINE UROBILINOGEN NEGATIVE mg/dL (0.2-1.0)
[2017-10-03 10:36] LABS: URINE PROTEIN 1+ (NEGATIVE)
[2017-10-03 11:21] LABS: EPI CELLS RARE /HPF (FEW); GRANULAR CASTS 12 /lpf; URINE HYALINE CAST 1 /lpf; URINE MUCUS RARE
[2017-10-03] MEDS ORDERED: ALBUTEROL SO4 0.083% IH SOL 2.5 MG/3 ML VIAL.NEB. NEB ONE (12:01)
--- NOTE | 2017-10-03 13:08 | PN ---
Progress Note (short form) - Note Progress Note: PULMONARY VSS/AFEBRILE HAD SOB EARLIER RESPONDING TO ALBUTEROL TAYLOR ANICTERIC DIMINISHED BREATH SOUNDS BASES S1S2 BS+ RIGHT LOWER EXT EDEMA1+ LABS/MEDS/NOTES/IMAGES REVIEWED (1) Pleural effusion Code(s): J90 - PLEURAL EFFUSION, NOT ELSEWHERE CLASSIFIED (2) Intractable pain Code(s): R52 - PAIN, UNSPECIFIED (3) Myositis Code(s): M60.9 - MYOSITIS, UNSPECIFIED (4) Dyspnea Code(s): R06.00 - DYSPNEA, UNSPECIFIED (5) Asthma Code(s): J45.909 - UNSPECIFIED ASTHMA, UNCOMPLICATED (6) Troponin level elevated Code(s): R74.8 - ABNORMAL LEVELS OF OTHER SERUM ENZYMES Assessment/Plan IMP BILATERAL PLEURAL EFFUSIONS ,?INFECTIOUS,INFLAMMATORY,?MALIGNANT BILATERAL PULMONARY NODULES ? INFLAMMATORY,INFECTIOUS,SARCOID,? MALIGNANT DYSPNEA + TROPONINS MYOPATHY,MYOSITIS ASTHMA AWAITING CYTOLOGY/MICRO ON PLEURAL FLUID CONTINUE CURRENT TREATMENT AWAITING MUSCLE BIPSY RESULT WILL ORDER PRN TAYLOR SMILEY MD
[2017-10-03 13:09] LABS: RATIO URIN PROTEIN/URIN CREAT 0.9 MG/DL
--- NOTE | 2017-10-03 14:51 | PN ---
Progress Note (short form) - Note Progress Note: RENAL Awake and alert more comfortable today able to move her lower extremities Last Vital Signs Temp Pulse Resp BP Pulse Ox 98.9 F 102 H 20 145/88 96 10/03/17 09:00 10/03/17 09:00 10/03/17 09:00 10/03/17 09:00 10/03/17 09:00 lungs wheezing anteriorly cvs s1s2 rr abd soft ext +edema neuro a+ox3 CBC, BMP 10/03/17 05:05 10/03/17 05:05 Current Medications Generic Name Dose Route Start Last Admin Trade Name Freq PRN Reason Stop Dose Admin Acetaminophen 650 mg 10/01/17 11:01 10/03/17 09:17 Tylenol - PO 650 mg Q6H PRN Administration FEVER Albuterol Sulfate 1 amp 10/03/17 13:10 Ventolin 0.083% Nebulizer Soln - NEB Q4H PRN SHORT OF BREATH/WHEEZING Aspirin 81 mg 10/01/17 16:15 10/03/17 09:16 Ecotrin - PO 81 mg DAILY BARB Administration Metoprolol Succinate 50 mg 10/01/17 16:15 10/03/17 09:20 Toprol Xl - PO Not Given DAILY [facility] Pantoprazole Sodium 40 mg 10/01/17 16:15 10/03/17 09:16 Protonix - PO 40 mg DAILY [facility] Administration Prednisone 60 mg 10/01/17 16:15 10/03/17 09:16 Deltasone - PO 60 mg DAILY BARB Administration Triamcinolone Acetonide 1 applic 10/02/17 10:00 10/03/17 09:20 Aristocort 0.1% Cream - TP Not Given DAILY BARB Zolpidem Tartrate 5 mg 10/02/17 22:00 10/02/17 22:05 Ambien - PO 10/06/17 21:59 5 mg HS PRN Administration INSOMNIA IMPRESSION Pt has normal renal plasma filtration ANti Jo1 antibody positive which is consistent with polymyositis Hep B c IgM positive needs further investigation mild hyperkalemia possibly from constipation and reduced urine output, also from muscle enzyme release exudative effusion urinalysis is suggestive of myoglobinuria, subnephrotic proteinuria PLAN urine protein electrophoresis no indication for kidney biopsy for now follow up muscle biopsy report rheum follow up necessary- pt already on steroids Hep B DNA, Hep B e antigen MV
--- NOTE | 2017-10-03 15:30 | PN ---
Progress Note (short form) - Note Progress Note: 67 year old female admitted with SOB, palpitations with minimal exertion arthalgias, myalgias and rash for the past 3 weeks prior to admission. H/o Hyponatremia. Patient feels better today, less myalgias and arthralgias, c/o SOB and felt better after a treatment. The left arm is also has weakness. She is again developing edema of the extremities. Decrease in arthritic pain. No chest pain or discomfort, no SOB, PND or orthopnea. U/A revealed 2+ blood, 10 hylaine casts no protein. Total protein and albumin have been low. On steroids. Rash has faded. Diagnosis remains undetermined. Active Medications Generic Name Dose Route Start Last Admin Trade Name Freq PRN Reason Stop Dose Admin Acetaminophen 650 mg 10/01/17 11:01 10/03/17 09:17 Tylenol - PO 650 mg Q6H PRN Administration FEVER Albuterol Sulfate 1 amp 10/03/17 13:10 Ventolin 0.083% Nebulizer Soln - NEB Q4H PRN SHORT OF BREATH/WHEEZING Aspirin 81 mg 10/01/17 16:15 10/03/17 09:16 Ecotrin - PO 81 mg DAILY BARB Administration Metoprolol Succinate 50 mg 10/01/17 16:15 10/03/17 09:20 Toprol Xl - PO Not Given DAILY [facility] Pantoprazole Sodium 40 mg 10/01/17 16:15 10/03/17 09:16 Protonix - PO 40 mg DAILY [facility] Administration Prednisone 60 mg 10/01/17 16:15 10/03/17 09:16 Deltasone - PO 60 mg DAILY [facility] Administration Triamcinolone Acetonide 1 applic 10/02/17 10:00 10/03/17 09:20 Aristocort 0.1% Cream - TP Not Given DAILY [facility] Zolpidem Tartrate 5 mg 10/02/17 22:00 10/02/17 22:05 Ambien - PO 10/06/17 21:59 5 mg HS PRN Administration INSOMNIA 67 year old female in mild distress no pallor or cyanosis or jaundice. Last Vital Signs Temp Pulse Resp BP Pulse Ox 98.8 F 94 H 20 105/62 96 10/03/17 14:00 10/03/17 14:00 10/03/17 14:00 10/03/17 14:00 10/03/17 09:00 Intake & Output 09/30/17 10/01/17 10/02/17 10/03/17 23:59 23:59 23:59 23:59 Intake Total 330 610 10 Output Total 0 Balance 330 610 10 Weight 125 lb 138 lb 12.8 oz NECK: Supple, no JVD, slightly +ve HJR,carotids equal, no bruits. HEART: PMI in the 5th ICS, no heaves or thrills. S1 and S2 are normal, no murmur , gallops or rubs heard. LUNGS:Bilateral posterior crepitations. ABDOMEN: Soft, nontender, no organomegaly or masses felt. Dullness on percussion both flanks. EXTREMITIES: 2+ lower extremities, edema of the hands has resolved. no wrist tenderness elicited or increased warmth, no tenderness of the knees. CBC, BMP 10/03/17 05:05 10/03/17 05:05 LIZBETH-i antibody is elevated 48. Ultra sound of the abdomen: Diffuse fatty liver, GB sludge, large pleural effusions and trace ascitis. IMPRESSION: 1. Dyspnea, palpitations, arthritis, myalgias, Severe peripheral geralised polymyopathy, rash and pulmonary nodular lesions, lymphadenopathy and bilateral Pleurals effusions, a). Sarcoidosis. b). Collagen disease/ polymyositis. c). Carcinomatosis. 2. Elevated trops: a). Secondary to Myocarditis b). KRISTEN. c). Infectious process. 3. Generalised edema, partly related to hypoproteinemia. 4. Ascitis needs to b excluded 5. Persistent leukocytosis and thrombocytosis, Etiology to be determined. 6. Exudative bilateralpleural effusions ( see pleural fluid report). RECOMMENDATINS: 1. Abdominal CT vs ultra sound. 2. Results of muscle biopsy results are pending. 3. F/u echocardiogram. 4. Rheumatology follow up.
--- NOTE | 2017-10-03 18:36 | PN ---
Progress Note, Physician - Current Medication List Current Medications: Active Medications Acetaminophen (Tylenol -) 650 mg PO Q6H PRN PRN Reason: FEVER Last Admin: 10/03/17 09:17 Dose: 650 mg Albuterol Sulfate (Ventolin 0.083% Nebulizer Soln -) 1 amp NEB Q4H PRN PRN Reason: SHORT OF BREATH/WHEEZING Aspirin (Ecotrin -) 81 mg PO DAILY [facility] Last Admin: 10/03/17 09:16 Dose: 81 mg Metoprolol Succinate (Toprol Xl -) 50 mg PO DAILY [facility] Last Admin: 10/03/17 09:20 Dose: Not Given Pantoprazole Sodium (Protonix -) 40 mg PO DAILY [facility] Last Admin: 10/03/17 09:16 Dose: 40 mg Prednisone (Deltasone -) 60 mg PO DAILY [facility] Last Admin: 10/03/17 09:16 Dose: 60 mg Triamcinolone Acetonide (Aristocort 0.1% Cream -) 1 applic TP DAILY [facility] Last Admin: 10/03/17 09:20 Dose: Not Given Zolpidem Tartrate (Ambien -) 5 mg PO HS PRN PRN Reason: INSOMNIA Stop: 10/06/17 21:59 Last Admin: 10/02/17 22:05 Dose: 5 mg - Objective Vital Signs: Vital Signs Temperature 98.8 F 10/03/17 14:00 Pulse Rate 94 H 10/03/17 14:00 Respiratory Rate 20 10/03/17 14:00 Blood Pressure 105/62 10/03/17 14:00 O2 Sat by Pulse Oximetry (%) 96 10/03/17 09:00 Labs: CBC, BMP 10/03/17 05:05 10/03/17 05:05 INR, PTT INR 1.04 (0.82-1.09) 09/29/17 06:16 Assessment/Plan wheezing today vss protein in urine on steroids alweady neb tx on going chk bx may not be ready in 9 days? cont p/t will see if d/c ok if rheumotologist agree
[2017-10-03] MEDS: ALBUTEROL SO4 0.083% IH SOL 2.5 MG/3 ML VIAL.NEB. NEB PRN (21:21)
[2017-10-04] MEDS: ALBUTEROL SO4 0.083% IH SOL 2.5 MG/3 ML VIAL.NEB. NEB PRN ×5 (05:25→21:29)
[2017-10-04 06:59] LABS: HEMATOCRIT 40.4 % (32.4-45.2); HEMOGLOBIN 13.1 GM/dL (10.7-15.3); MCH 29.8 pg (25.7-33.7); MCHC 32.4 g/dl (32.0-36.0); MEAN CELL VOLUME 91.8 fl (80-96); PLATELET COUNT 550 K/MM3 (134-434); RDW 14.9 % (11.6-15.6); WHITE BLOOD COUNT 24.1 K/mm3 (4.0-10.0)
[2017-10-04 07:43] LABS: ANION GAP 10 (8-16); BLOOD UREA NITROGEN 33 mg/dL (7-18); CALCIUM 7.8 mg/dL (8.5-10.1); CHLORIDE 102 mmol/L (98-107); CO2 25 mmol/L (21-32); CREATININE 0.6 mg/dL (0.55-1.02); GLUCOSE,RANDOM 95 mg/dL (74-106); POTASSIUM 4.4 mmol/L (3.5-5.1); SODIUM 137 mmol/L (136-145)
[2017-10-04] MEDS: TRIAMCINOLONE ACET 0.1% CREAM 15 GM TUBE TP SCH (09:46)
[2017-10-04] MEDS: ASPIRIN COATED 81 MG TABLET.EC PO SCH (09:47)
[2017-10-04] MEDS: PANTOPRAZOLE 40 MG TABLET (FP) PO SCH (09:47)
[2017-10-04] MEDS: predniSONE 20 MG TABLET (UD) PO SCH (09:47)
--- NOTE | 2017-10-04 10:24 | PN ---
Progress Note, Physician Chief Complaint: pt states feels chest tight pule 100 pe min weak upper exts still oob p/t on going wbc up again? steroids - Current Medication List Current Medications: Active Medications Acetaminophen (Tylenol -) 650 mg PO Q6H PRN PRN Reason: FEVER Last Admin: 10/03/17 09:17 Dose: 650 mg Albuterol Sulfate (Ventolin 0.083% Nebulizer Soln -) 1 amp NEB Q4H PRN PRN Reason: SHORT OF BREATH/WHEEZING Last Admin: 10/04/17 08:28 Dose: 1 amp Aspirin (Ecotrin -) 81 mg PO DAILY [facility] Last Admin: 10/04/17 09:47 Dose: 81 mg Metoprolol Succinate (Toprol Xl -) 50 mg PO DAILY [facility] Last Admin: 10/04/17 09:47 Dose: 50 mg Pantoprazole Sodium (Protonix -) 40 mg PO DAILY [facility] Last Admin: 10/04/17 09:47 Dose: 40 mg Prednisone (Deltasone -) 60 mg PO DAILY [facility] Last Admin: 10/04/17 09:47 Dose: 60 mg Triamcinolone Acetonide (Aristocort 0.1% Cream -) 1 applic TP DAILY [facility] Last Admin: 10/04/17 09:46 Dose: Not Given Zolpidem Tartrate (Ambien -) 5 mg PO HS PRN PRN Reason: INSOMNIA Stop: 10/06/17 21:59 Last Admin: 10/02/17 22:05 Dose: 5 mg - Objective Vital Signs: Vital Signs Temperature 98.5 F 10/04/17 02:00 Pulse Rate 101 H 10/04/17 02:00 Respiratory Rate 20 10/04/17 02:00 Blood Pressure 144/80 10/04/17 02:00 O2 Sat by Pulse Oximetry (%) 97 10/03/17 21:00 Constitutional: Yes: No Distress Eyes: Yes: WNL HENT: Yes: WNL Neck: Yes: WNL Cardiovascular: Yes: Tachycardia Respiratory: Yes: Diminished, On Nasal O2, SOB on Exertion Gastrointestinal: Yes: WNL ...Rectal Exam: Yes: Deferred Genitourinary: Yes: WNL Breast(s): Yes: WNL Musculoskeletal: Yes: Muscle Pain, Muscle Weakness Extremities: Yes: WNL Edema: Yes Edema: LUE: 2+, RUE: 2+, LLE: 2+, RLE: 2+ Peripheral Pulses WNL: Yes Peripheral Pulses: Left Radial: 1+, Right Radial: 1+, Left Doralis Pedis: 1+, Right Dorsalis Pedis: 1+, Left Femoral: 1+, Right Femoral: 1+ Integumentary: Yes: WNL Wound/Incision: Yes: Clean/Dry ...Motor Strength: WNL, LUE (all weak), LLE, RUE, RLE Labs: CBC, BMP 10/04/17 06:35 10/04/17 06:35 INR, PTT INR 1.04 (0.82-1.09) 09/29/17 06:16 Assessment/Plan change po to iv steroids 40 q 6 hrs cont neb tx inhalers also cxr today watsch for pe doubt nepro rhn to see pt today ? renal bx? lap chol for ruq pain on off w food assit pt w eating
[2017-10-04] MEDS ORDERED: ALBUTEROL SO4 18 GM HFA INHALER IH PRN (10:27)
[2017-10-04 10:29] LABS: ANISOCYTOSIS 1+; MACROCYTOSIS 0; PLATELET ESTIMATE INCREASED
--- NOTE | 2017-10-04 12:22 | PATH ---
Surgical Pathology Report Patient Name: BEATRICE VILLALOBOS [facility]. Rec. #: [id number] /Age/Gender: 1950 (Age: 67) / F Account: [id number] Location: 4 W TELEMETRY U Taken: 10/01/2017 Received: 10/01/2017 Reported: 10/04/2017 Physicians: Rosibel Solomon M.D. Specimen(s) Received PERIPHERAL BLOOD Clinical History The Leukocytosis Final Diagnosis COMPREHENSIVE FLOW PANEL performed and interpreted at [facility], [place], [place] ([id number]) shows the following: INTERPRETATION: Granulocytosis with no discrete atypical flow cytometric findings seen. See [facility] report ([id number]) for additional details. Electronically Signed Janet Orozco M.D. Gross Description Received are 2 green top tubes of peripheral blood which are sent to [facility]. DL/10/01/2017 saudi/10/01/2017
--- NOTE | 2017-10-04 13:06 | PN ---
Progress Note, Physician History of Present Illness: pulmonary alert,c/o sob with exertion,+palpitations - Current Medication List Current Medications: Active Medications Acetaminophen (Tylenol -) 650 mg PO Q6H PRN PRN Reason: FEVER Last Admin: 10/03/17 09:17 Dose: 650 mg Albuterol Sulfate (Ventolin 0.083% Nebulizer Soln -) 1 amp NEB Q4H PRN PRN Reason: SHORT OF BREATH/WHEEZING Last Admin: 10/04/17 11:38 Dose: 1 amp Albuterol Sulfate (Ventolin Hfa Inhaler -) 2 puff IH Q4H PRN PRN Reason: SHORT OF BREATH/WHEEZING Aspirin (Ecotrin -) 81 mg PO DAILY [facility] Last Admin: 10/04/17 09:47 Dose: 81 mg Budesonide/Formoterol Fumarate (Symbicort 80/4.5mcg -) 2 puff IH BID BARB Methylprednisolone Sodium Succinate (Solu-Medrol -) 40 mg IVPUSH Q6H-IV BARB Metoprolol Succinate (Toprol Xl -) 50 mg PO DAILY [facility] Last Admin: 10/04/17 09:47 Dose: 50 mg Pantoprazole Sodium (Protonix -) 40 mg PO DAILY [facility] Last Admin: 10/04/17 09:47 Dose: 40 mg Triamcinolone Acetonide (Aristocort 0.1% Cream -) 1 applic TP DAILY [facility] Last Admin: 10/04/17 09:46 Dose: Not Given Zolpidem Tartrate (Ambien -) 5 mg PO HS PRN PRN Reason: INSOMNIA Stop: 10/06/17 21:59 Last Admin: 10/02/17 22:05 Dose: 5 mg - Objective Vital Signs: Vital Signs Temperature 98.5 F 10/04/17 02:00 Pulse Rate 101 H 10/04/17 02:00 Respiratory Rate 20 10/04/17 02:00 Blood Pressure 144/80 10/04/17 02:00 O2 Sat by Pulse Oximetry (%) 97 10/03/17 21:00 Constitutional: Yes: Well Nourished, Calm Eyes: Yes: WNL HENT: Yes: WNL Neck: Yes: WNL Cardiovascular: Yes: Regular Rate and Rhythm, S1, S2 Respiratory: Yes: Diminished, Rales (diminished bs at bases,few aneesh crackles) Gastrointestinal: Yes: Normal Bowel Sounds, Soft Extremities: Yes: WNL Edema: Yes Labs: CBC, BMP 10/04/17 06:35 10/04/17 06:35 INR, PTT INR 1.04 (0.82-1.09) 09/29/17 06:16 Problem List - Problems (1) Pleural effusion Code(s): J90 - PLEURAL EFFUSION, NOT ELSEWHERE CLASSIFIED (2) Intractable pain Code(s): R52 - PAIN, UNSPECIFIED (3) Myositis Code(s): M60.9 - MYOSITIS, UNSPECIFIED (4) Dyspnea Code(s): R06.00 - DYSPNEA, UNSPECIFIED (5) Asthma Code(s): J45.909 - UNSPECIFIED ASTHMA, UNCOMPLICATED (6) Troponin level elevated Code(s): R74.8 - ABNORMAL LEVELS OF OTHER SERUM ENZYMES Assessment/Plan IMP BILATERAL PLEURAL EFFUSIONS BILATERAL PULMONARY NODULES ? INFLAMMATORY,INFECTIOUS,SARCOID,? MALIGNANT DYSPNEA WEAKNESS IMPROVING GENERALIZED JOINT PAINS + TROPONINS MYOPATHY,MYOSITIS ?POLYMYOSITIS + ANTI LIZBETH ANTIBODY ASTHMA PLAN STEROIDS PER RHEUMATOLOGY RESULTS OF PLEURAL FLUID CYTOLOGY PENDING O2 ANALGESICS MUSCLE BX PATH PENDING RHEUMATOLOGY F/U DR PAULSON Problem List - Problems (1) Pleural effusion Code(s): J90 - PLEURAL EFFUSION, NOT ELSEWHERE CLASSIFIED (2) Intractable pain Code(s): R52 - PAIN, UNSPECIFIED (3) Myositis Code(s): M60.9 - MYOSITIS, UNSPECIFIED (4) Dyspnea Code(s): R06.00 - DYSPNEA, UNSPECIFIED (5) Asthma Code(s): J45.909 - UNSPECIFIED ASTHMA, UNCOMPLICATED (6) Troponin level elevated Code(s): R74.8 - ABNORMAL LEVELS OF OTHER SERUM ENZYMES
--- NOTE | 2017-10-04 14:45 | PN ---
Progress Note, Physician History of Present Illness: Pt seen and examined at bedside. She is awake and alert. She complains of generalized edema. She also complains of shortness of breath. - Current Medication List Current Medications: Active Medications Acetaminophen (Tylenol -) 650 mg PO Q6H PRN PRN Reason: FEVER Last Admin: 10/03/17 09:17 Dose: 650 mg Albuterol Sulfate (Ventolin 0.083% Nebulizer Soln -) 1 amp NEB Q4H PRN PRN Reason: SHORT OF BREATH/WHEEZING Last Admin: 10/04/17 11:38 Dose: 1 amp Albuterol Sulfate (Ventolin Hfa Inhaler -) 2 puff IH Q4H PRN PRN Reason: SHORT OF BREATH/WHEEZING Aspirin (Ecotrin -) 81 mg PO DAILY [facility] Last Admin: 10/04/17 09:47 Dose: 81 mg Budesonide/Formoterol Fumarate (Symbicort 80/4.5mcg -) 2 puff IH BID [facility] Methylprednisolone Sodium Succinate (Solu-Medrol -) 40 mg IVPUSH Q6H-IV BARB Metoprolol Succinate (Toprol Xl -) 50 mg PO DAILY [facility] Last Admin: 10/04/17 09:47 Dose: 50 mg Pantoprazole Sodium (Protonix -) 40 mg PO DAILY [facility] Last Admin: 10/04/17 09:47 Dose: 40 mg Triamcinolone Acetonide (Aristocort 0.1% Cream -) 1 applic TP DAILY [facility] Last Admin: 10/04/17 09:46 Dose: Not Given Zolpidem Tartrate (Ambien -) 5 mg PO HS PRN PRN Reason: INSOMNIA Stop: 10/06/17 21:59 Last Admin: 10/02/17 22:05 Dose: 5 mg - Objective Vital Signs: Vital Signs Temperature 98.5 F 10/04/17 02:00 Pulse Rate 101 H 10/04/17 02:00 Respiratory Rate 20 10/04/17 02:00 Blood Pressure 144/80 10/04/17 02:00 O2 Sat by Pulse Oximetry (%) 97 10/03/17 21:00 Constitutional: Yes: Calm Eyes: Yes: Conjunctiva Clear HENT: Yes: Atraumatic Cardiovascular: Yes: S1, S2 Respiratory: Yes: On Nasal O2 Gastrointestinal: Yes: Soft Genitourinary: Yes: WNL Musculoskeletal: Yes: WNL Edema: Yes Edema: LLE: 1+, RLE: 1+ Neurological: Yes: Oriented Psychiatric: Yes: Oriented Labs: CBC, BMP 10/04/17 06:35 10/04/17 06:35 INR, PTT INR 1.04 (0.82-1.09) 09/29/17 06:16 Problem List - Problems (1) Asthma Code(s): J45.909 - UNSPECIFIED ASTHMA, UNCOMPLICATED (2) Myositis Code(s): M60.9 - MYOSITIS, UNSPECIFIED (3) Pleural effusion Code(s): J90 - PLEURAL EFFUSION, NOT ELSEWHERE CLASSIFIED (4) Chest pain Code(s): R07.9 - CHEST PAIN, UNSPECIFIED Assessment/Plan Current Medications Generic Name Dose Route Start Last Admin Trade Name Freq PRN Reason Stop Dose Admin Acetaminophen 650 mg 10/01/17 11:01 10/03/17 09:17 Tylenol - PO 650 mg Q6H PRN Administration FEVER Albuterol Sulfate 1 amp 10/03/17 13:10 10/04/17 11:38 Ventolin 0.083% Nebulizer Soln - NEB 1 amp Q4H PRN Administration SHORT OF BREATH/WHEEZING Albuterol Sulfate 2 puff 10/04/17 10:27 Ventolin Hfa Inhaler - IH Q4H PRN SHORT OF BREATH/WHEEZING Aspirin 81 mg 10/01/17 16:15 10/04/17 09:47 Ecotrin - PO 81 mg DAILY [facility] Administration Budesonide/Formoterol Fumarate 2 puff 10/04/17 22:00 Symbicort 80/4.5mcg - IH BID [facility] Methylprednisolone Sodium Succinate 40 mg 10/04/17 15:00 Solu-Medrol - IVPUSH Q6H-IV BARB Metoprolol Succinate 50 mg 10/01/17 16:15 10/04/17 09:47 Toprol Xl - PO 50 mg DAILY [facility] Administration Pantoprazole Sodium 40 mg 10/01/17 16:15 10/04/17 09:47 Protonix - PO 40 mg DAILY [facility] Administration Triamcinolone Acetonide 1 applic 10/02/17 10:00 10/04/17 09:46 Aristocort 0.1% Cream - TP Not Given DAILY [facility] Zolpidem Tartrate 5 mg 10/02/17 22:00 10/02/17 22:05 Ambien - PO 10/06/17 21:59 5 mg HS PRN Administration INSOMNIA Laboratory Tests 09/26/17 09/27/17 09/27/17 21:00 06:15 06:15 Creatinine Albumin Urine Protein Urine Blood Protein/Creatinin Ratio Rheumatoid Arth Biomark Pending c-ANCA Pending Proteinase 3 (PR3) Pending p-ANCA Pending Double Strand DNA Ab <1 Tot Complement (CH50) 44 Hep Bs Antigen Negative Hep B Core IgM Ab Positive H Hep B DNA copies/mL Hep B DNA (Units/mL) Hepatitis Be Antibody Hepatitis Be Antigen Hepatitis C Antibody 0.1 HIV 1&2 Antibody Screen HIV P24 Antigen 09/28/17 10/03/17 10/03/17 06:30 05:05 05:05 Creatinine Albumin 1.5 L Urine Protein Urine Blood Protein/Creatinin Ratio Rheumatoid Arth Biomark c-ANCA Proteinase 3 (PR3) p-ANCA Double Strand DNA Ab Tot Complement (CH50) Hep Bs Antigen Hep B Core IgM Ab Hep B DNA copies/mL Pending Hep B DNA (Units/mL) Pending Hepatitis Be Antibody Pending Hepatitis Be Antigen Pending Hepatitis C Antibody HIV 1&2 Antibody Screen Negative HIV P24 Antigen Negative 10/03/17 10/03/17 10/04/17 09:15 09:15 06:35 Creatinine 0.6 Albumin Urine Protein 1+ H Urine Blood 3+ H Protein/Creatinin Ratio 0.9 Rheumatoid Arth Biomark c-ANCA Proteinase 3 (PR3) p-ANCA Double Strand DNA Ab Tot Complement (CH50) Hep Bs Antigen Hep B Core IgM Ab Hep B DNA copies/mL Hep B DNA (Units/mL) Hepatitis Be Antibody Hepatitis Be Antigen Hepatitis C Antibody HIV 1&2 Antibody Screen HIV P24 Antigen Impression 1. polymyositis 2. hx breast cancer 3. HTN 4. pleural effusions 5. gerd 6. pos heb b core 7. hypoalbuminemia 8. mucroscopic hematuria Plan - called and discussed with pmd - recall rheum for follow up - will give a dose of lasix for edema - repeat labs in am - renal workup in progress - may need kidney biopsy - will hold asa 81, pt on it prophylactically - repeat ua and prt to ironer sock ration - follow up biopsy - hep sq for dvt proph, discussed with attending Dr Maloney
[2017-10-04] MEDS ORDERED: methylPREDNISolone NA SUCC 40 MG/1 ML VIAL IVPUSH SCH (15:00)
[2017-10-04] MEDS ORDERED: FUROSEMIDE 40 MG/4 ML INJECTABLE VIAL IVPUSH ONE (15:15)
--- NOTE | 2017-10-04 15:44 | PATH ---
Cytology Non-Gynecological Report Patient Name: BEATRICE VILLALOBOS [facility]. Rec. #: [id number] /Age/Gender: 1950 (Age: 67) / F Account: [id number] Location: 4 W TELEMETRY U Taken: 09/29/2017 Received: 10/01/2017 Reported: 10/04/2017 Physicians: Rosibel Munson M.D. Specimen(s) Received A: PLEURAL FLUID B: PLEURAL FLUID Clinical History Pleural effusion Final Diagnosis A & B. PLEURAL FLUID, RIGHT, THORACENTESIS: SATISFACTORY FOR EVALUATION. NO MALIGNANT CELLS IDENTIFIED. MESOTHELIAL CELLS, SCATTERED NEUTROPHILS AND LYMPHOCYTES PRESENT. Electronically Signed Janet Orozco M.D. Gross Description A. Approximately 50 cc of yellow fluid received fixed in 50% alcohol. Two cytofunnels and one cellblock prepared. B. Approximately 500 cc of yellow fluid received fresh. Two cytofunnels and one cellblock prepared.
--- NOTE | 2017-10-04 19:29 | PN ---
Progress Note (short form) - Note Progress Note: 67 year old female admitted with SOB, palpitations with minimal exertion arthalgias, myalgias and rash for the past 3 weeks prior to admission. H/o Hyponatremia. Patient feels better today, less myalgias and arthralgias, c/o SOB and felt better after a treatment. The left arm is also has weakness. She is again developing edema of the extremities. No chest pain or discomfort, has increasing edema and received lasix, has polymyositis and elevated lizbeth-1antibody which can explain the pulmonary findings. Waiting for rheumatology follow up. 67 year old female in mild distress no pallor or cyanosis or jaundice. Last Vital Signs Temp Pulse Resp BP Pulse Ox 98.8 F 94 H 20 105/62 96 10/03/17 14:00 10/03/17 14:00 10/03/17 14:00 10/03/17 14:00 10/03/17 09:00 Intake & Output 09/30/17 10/01/17 10/02/17 10/03/17 23:59 23:59 23:59 23:59 Intake Total 330 610 10 Output Total 0 Balance 330 610 10 Weight 125 lb 138 lb 12.8 oz NECK: Supple, no JVD, slightly +ve HJR,carotids equal, no bruits. HEART: PMI in the 5th ICS, no heaves or thrills. S1 and S2 are normal, no murmur , gallops or rubs heard. LUNGS:Bilateral posterior crepitations. ABDOMEN: Soft, nontender, no organomegaly or masses felt. Dullness on percussion both flanks. EXTREMITIES: 2+ lower extremities, edema of the hands has recurred, no wrist tenderness elicited or increased warmth, no tenderness of the knees. CBC, BMP 10/03/17 05:05 10/03/17 05:05 LIZBETH-i antibody is elevated 4.8. Ultra sound of the abdomen: Diffuse fatty liver, GB sludge, large pleural effusions and trace ascitis. IMPRESSION: 1. Dyspnea, palpitations, arthritis, myalgias, Severe peripheral geralised polymyopathy, rash and pulmonary nodular lesions, lymphadenopathy and bilateral Pleurals effusions. Etiology still not confirmed a). Polymyositis, associated with pulmonary infiltrates and lymphadenopathy b). Sarcoidosis c). Carcinomatosis. 2. Elevated trops: a). Secondary to Myocarditis b). KRISTEN. c). Infectious process. 3. Generalised edema, partly related to hypoproteinemia. 4. Ascitis needs to b excluded 5. Persistent leukocytosis and thrombocytosis, Etiology to be determined. 6. Exudative bilateral pleural effusions ( see pleural fluid report). RECOMMENDATINS: 1. In view of multi organ involvement with minimal response to steroids (to date ) may need to consider further evaluation regarding diagnosis and treatment. 2. Results of muscle biopsy results are pending. 3. F/u echocardiogram, to exclude valvular and myocardial involvement. 4. Rheumatology follow up GATO.
[2017-10-04] MEDS: HEPARIN NA (PORCINE) 5,000 UNITS/ML 1ML VIAL SQ SCH (21:02)
[2017-10-04] MEDS: BUDESONIDE/FORMETEROL FUMARATE 80/4.5 mcg INHALER IH SCH (22:49)
[2017-10-05 07:11] LABS: ALBUMIN 1.6 g/dl (3.4-5.0); ALK PHOS 50 U/L (45-117); ANION GAP 9 (8-16); BILIRUBIN,TOTAL 0.4 mg/dL (0.2-1.0); BLOOD UREA NITROGEN 39 mg/dL (7-18); CALCIUM 8.1 mg/dL (8.5-10.1); CHLORIDE 100 mmol/L (98-107); CO2 27 mmol/L (21-32); CREATININE 0.8 mg/dL (0.55-1.02); GLUCOSE,RANDOM 114 mg/dL (74-106); POTASSIUM 4.9 mmol/L (3.5-5.1); SGOT/AST 135 U/L (15-37); SGPT/ALT 177 U/L (12-78); SODIUM 136 mmol/L (136-145); TOT PROT 5.2 g/dl (6.4-8.2)
--- NOTE | 2017-10-05 07:38 | PN ---
Progress Note (short form) - Note Progress Note: The patient reports weakness is improving, can walk better, Contnues having SOB and peripheral edema. P/E Lungs - diffuse crackles. Pitting edema in right arm and both legs. Aware of CT chest 09/26: bilateral pleural effusion with atelectatic changes in both lower lobes. Increased interstitial markings in upper lobes. Bilateral pleural effusion. Initial infiltration improved. CK improved 1:28: 07228. Today AST 135, ALT 177. Albumin 1.6. Urinalysis protein 1+ and blood 3+, Prot/creat ratio 0.9 Impression. Polymyositis with anti-Jo1 positive. Myositis improving with steroids. Etiology of lung disease not clear. It is unlikely that she has alveolitis or interstitial lung disease related to polymyositis. Significant edema low albumin. UA with active sediment. Rule out MCTD. Plan: ANti-Sm, anti-RETAIL CONSULTANT, Continue with Prednisone 60 mg/d., I will discuss with Dr. Maloney obtaining kidney biopsy. Problem List - Problems (1) Myositis Code(s): M60.9 - MYOSITIS, UNSPECIFIED
[2017-10-05 07:42] LABS: HEMATOCRIT 38.8 % (32.4-45.2); HEMOGLOBIN 12.5 GM/dL (10.7-15.3); MCH 29.5 pg (25.7-33.7); MCHC 32.2 g/dl (32.0-36.0); MEAN CELL VOLUME 91.6 fl (80-96); MEAN PLT VOLUME 7.2 fl (7.5-11.1); PLATELET COUNT 476 K/MM3 (134-434); RBC 4.24 M/mm3 (3.60-5.2); RDW 15.1 % (11.6-15.6); WHITE BLOOD COUNT 25.5 K/mm3 (4.0-10.0)
[2017-10-05] MEDS: predniSONE 20 MG TABLET (UD) PO SCH (09:36)
[2017-10-05] MEDS: PANTOPRAZOLE 40 MG TABLET (FP) PO SCH (09:36)
[2017-10-05] MEDS: HEPARIN NA (PORCINE) 5,000 UNITS/ML 1ML VIAL SQ SCH (09:37)
[2017-10-05] MEDS: BUDESONIDE/FORMETEROL FUMARATE 80/4.5 mcg INHALER IH SCH ×2 (09:38→21:10)
--- NOTE | 2017-10-05 10:59 | PN ---
Progress Note, Physician Chief Complaint: good apetite providing gets help eating bnm ok vss needs assistance w brps needs ass w ambulating ? walker also ext closest to torso n/c edematous - Current Medication List Current Medications: Active Medications Acetaminophen (Tylenol -) 650 mg PO Q6H PRN PRN Reason: FEVER Last Admin: 10/03/17 09:17 Dose: 650 mg Albuterol Sulfate (Ventolin 0.083% Nebulizer Soln -) 1 amp NEB Q4H PRN PRN Reason: SHORT OF BREATH/WHEEZING Last Admin: 10/04/17 21:29 Dose: 1 amp Albuterol Sulfate (Ventolin Hfa Inhaler -) 2 puff IH Q4H PRN PRN Reason: SHORT OF BREATH/WHEEZING Budesonide/Formoterol Fumarate (Symbicort 80/4.5mcg -) 2 puff IH BID [facility] Last Admin: 10/05/17 09:38 Dose: 2 puff Heparin Sodium (Porcine) (Heparin -) 5,000 unit SQ BID [facility] Last Admin: 10/05/17 09:37 Dose: 5,000 unit Metoprolol Succinate (Toprol Xl -) 50 mg PO DAILY [facility] Last Admin: 10/05/17 09:36 Dose: 50 mg Pantoprazole Sodium (Protonix -) 40 mg PO DAILY [facility] Last Admin: 10/05/17 09:36 Dose: 40 mg Prednisone (Deltasone -) 60 mg PO DAILY [facility] Last Admin: 10/05/17 09:36 Dose: 60 mg Triamcinolone Acetonide (Aristocort 0.1% Cream -) 1 applic TP DAILY [facility] Last Admin: 10/04/17 09:46 Dose: Not Given Zolpidem Tartrate (Ambien -) 5 mg PO HS PRN PRN Reason: INSOMNIA Stop: 10/06/17 21:59 Last Admin: 10/02/17 22:05 Dose: 5 mg - Objective Vital Signs: Vital Signs Temperature 98 F 10/05/17 09:00 Pulse Rate 102 H 10/05/17 09:00 Respiratory Rate 18 10/05/17 09:00 Blood Pressure 132/86 10/05/17 09:00 O2 Sat by Pulse Oximetry (%) 97 10/04/17 20:12 Constitutional: Yes: Calm Eyes: Yes: WNL HENT: Yes: WNL Neck: Yes: WNL Cardiovascular: Yes: WNL Respiratory: Yes: On Nasal O2, SOB on Exertion Gastrointestinal: Yes: WNL ...Rectal Exam: Yes: Deferred Genitourinary: Yes: WNL Breast(s): Yes: WNL Musculoskeletal: Yes: Joint Stiffness, Muscle Pain, Muscle Weakness Extremities: Yes: Other (weak) Edema: Yes Edema: LUE: 1+, RUE: 1+, LLE: 1+, RLE: 1+ Peripheral Pulses WNL: Yes Integumentary: Yes: Other (edemaTOUS) Neurological: Yes: WNL Labs: CBC, BMP 10/05/17 05:05 10/05/17 05:05 INR, PTT INR 1.04 (0.82-1.09) 09/29/17 06:16 Assessment/Plan NO MIORE ECHO SUG METHOTRAXATE PER RHUOMOTOLOGIST NEEDS HELP W FEEDING NEEDS HELP W AMBULATING FOR BRPS DOUBT IF CHEST SX WILL BX SMALL RUL NODULE CT ABD PELVIC NL WITCH I REVEUED W RAD IOLOG MALIGNACY I DOUBT DX ? POLYMYOSITIS NEPRETIC SYN ASA D/C 2 DAYS AGO ? RENAL BX PULM F/U ? PLEUROSNDESIS ASD PE DR PAULSON F/U FOR REHAP OUT PT OR At minimum vns sevices
[2017-10-05] MEDS: TRIAMCINOLONE ACET 0.1% CREAM 15 GM TUBE TP SCH (11:19)
--- NOTE | 2017-10-05 11:58 | PN ---
Progress Note, Physician History of Present Illness: PULMONARY ALERT,OOB-CHAIR,LESS DYSPNEIC - Current Medication List Current Medications: Active Medications Acetaminophen (Tylenol -) 650 mg PO Q6H PRN PRN Reason: FEVER Last Admin: 10/03/17 09:17 Dose: 650 mg Albuterol Sulfate (Ventolin 0.083% Nebulizer Soln -) 1 amp NEB Q4H PRN PRN Reason: SHORT OF BREATH/WHEEZING Last Admin: 10/04/17 21:29 Dose: 1 amp Albuterol Sulfate (Ventolin Hfa Inhaler -) 2 puff IH Q4H PRN PRN Reason: SHORT OF BREATH/WHEEZING Budesonide/Formoterol Fumarate (Symbicort 80/4.5mcg -) 2 puff IH BID [facility] Last Admin: 10/05/17 09:38 Dose: 2 puff Heparin Sodium (Porcine) (Heparin -) 5,000 unit SQ BID [facility] Last Admin: 10/05/17 09:37 Dose: 5,000 unit Metoprolol Succinate (Toprol Xl -) 50 mg PO DAILY [facility] Last Admin: 10/05/17 09:36 Dose: 50 mg Pantoprazole Sodium (Protonix -) 40 mg PO DAILY [facility] Last Admin: 10/05/17 09:36 Dose: 40 mg Prednisone (Deltasone -) 60 mg PO DAILY [facility] Last Admin: 10/05/17 09:36 Dose: 60 mg Triamcinolone Acetonide (Aristocort 0.1% Cream -) 1 applic TP DAILY [facility] Last Admin: 10/05/17 11:19 Dose: 1 applic Zolpidem Tartrate (Ambien -) 5 mg PO HS PRN PRN Reason: INSOMNIA Stop: 10/06/17 21:59 Last Admin: 10/02/17 22:05 Dose: 5 mg - Objective Vital Signs: Vital Signs Temperature 98 F 10/05/17 09:00 Pulse Rate 102 H 10/05/17 09:00 Respiratory Rate 18 10/05/17 09:00 Blood Pressure 132/86 10/05/17 09:00 O2 Sat by Pulse Oximetry (%) 98 10/05/17 09:00 Constitutional: Yes: Well Nourished, Calm Eyes: Yes: WNL HENT: Yes: WNL Neck: Yes: WNL Cardiovascular: Yes: Regular Rate and Rhythm, S1, S2 Respiratory: Yes: Diminished Gastrointestinal: Yes: Normal Bowel Sounds, Soft Extremities: Yes: WNL Edema: Yes Labs: CBC, BMP 10/05/17 05:05 10/05/17 05:05 INR, PTT INR 1.04 (0.82-1.09) 09/29/17 06:16 Problem List - Problems (1) Pleural effusion Code(s): J90 - PLEURAL EFFUSION, NOT ELSEWHERE CLASSIFIED (2) Intractable pain Code(s): R52 - PAIN, UNSPECIFIED (3) Myositis Code(s): M60.9 - MYOSITIS, UNSPECIFIED (4) Dyspnea Code(s): R06.00 - DYSPNEA, UNSPECIFIED (5) Asthma Code(s): J45.909 - UNSPECIFIED ASTHMA, UNCOMPLICATED (6) Troponin level elevated Code(s): R74.8 - ABNORMAL LEVELS OF OTHER SERUM ENZYMES Assessment/Plan IMP BILATERAL PLEURAL EFFUSIONS cytology negative BILATERAL PULMONARY NODULES ? INFLAMMATORY,INFECTIOUS,SARCOID,? MALIGNANT DYSPNEA WEAKNESS IMPROVING GENERALIZED JOINT PAINS + TROPONINS MYOPATHY,MYOSITIS ?POLYMYOSITIS + ANTI LIZBETH ANTIBODY ASTHMA PLAN STEROIDS RHEUMATOLOGY O2 ANALGESICS MUSCLE BX PATH PENDING THORACENTESIS DR PAULSON Problem List - Problems (1) Pleural effusion Code(s): J90 - PLEURAL EFFUSION, NOT ELSEWHERE CLASSIFIED (2) Intractable pain Code(s): R52 - PAIN, UNSPECIFIED (3) Myositis Code(s): M60.9 - MYOSITIS, UNSPECIFIED (4) Dyspnea Code(s): R06.00 - DYSPNEA, UNSPECIFIED (5) Asthma Code(s): J45.909 - UNSPECIFIED ASTHMA, UNCOMPLICATED (6) Troponin level elevated Code(s): R74.8 - ABNORMAL LEVELS OF OTHER SERUM ENZYMES
[2017-10-05 11:59] LABS: ACANTHOCYTES 0; ANISOCYTOSIS 0; HELMET CELLS 0; HOWELL-JOLLY BODIES 0; MACROCYTOSIS 0; OVALOCYTE 0; PLATELET ESTIMATE NORMAL; ROULEAU 0; SICKELED CELLS 0; TARGET CELLS 0; TEAR DROP CELLS 0; TOXIC GRANULATION 0
--- NOTE | 2017-10-05 14:46 | CONSULT ---
Consult - text type - Consultation Consultation Note: Progress Note: Pt seen and discussed plan. Appears to have systemic inflammatory process. Would repeat CT scan and if plan is for lung bx would recommend doing CT guided core of RUL peripheral lesion if still present.
--- NOTE | 2017-10-05 14:58 | PN ---
Progress Note (short form) - Note Progress Note: Patient seen and examined feels a bit improved. all the notes reviewed. O/E: Constitutional: Yes: Calm Eyes: Yes: Other (glasses) HENT: Yes: Atraumatic, Normocephalic Neck: Yes: Supple, Trachea Midline Cardiovascular: Yes: Regular Rate and Rhythm Respiratory: Yes: Regular Gastrointestinal: Yes: Normal Bowel Sounds, Soft, Abdomen, Obese Extremities: Yes: WNL Edema: Yes Edema: LLE: 1+, RLE: 1+ Neurological: Yes: Alert, Oriented Psychiatric: Yes: Alert, Oriented Last Vital Signs Temp Pulse Resp BP Pulse Ox 98.2 F 90 18 142/82 98 10/05/17 14:35 10/05/17 14:35 10/05/17 14:35 10/05/17 14:35 10/05/17 09:00 CBC, BMP 10/05/17 05:05 10/05/17 05:05 Current Medications Generic Name Dose Route Start Last Admin Trade Name Freq PRN Reason Stop Dose Admin Acetaminophen 650 mg 10/01/17 11:01 10/03/17 09:17 Tylenol - PO 650 mg Q6H PRN Administration FEVER Albuterol Sulfate 1 amp 10/03/17 13:10 10/04/17 21:29 Ventolin 0.083% Nebulizer Soln - NEB 1 amp Q4H PRN Administration SHORT OF BREATH/WHEEZING Albuterol Sulfate 2 puff 10/04/17 10:27 Ventolin Hfa Inhaler - IH Q4H PRN SHORT OF BREATH/WHEEZING Budesonide/Formoterol Fumarate 2 puff 10/04/17 22:00 10/05/17 09:38 Symbicort 80/4.5mcg - IH 2 puff BID [facility] Administration Metoprolol Succinate 50 mg 10/01/17 16:15 10/05/17 09:36 Toprol Xl - PO 50 mg DAILY [facility] Administration Pantoprazole Sodium 40 mg 10/01/17 16:15 10/05/17 09:36 Protonix - PO 40 mg DAILY [facility] Administration Prednisone 60 mg 10/05/17 10:00 10/05/17 09:36 Deltasone - PO 60 mg DAILY [facility] Administration Triamcinolone Acetonide 1 applic 10/02/17 10:00 10/05/17 11:19 Aristocort 0.1% Cream - TP 1 applic DAILY [facility] Administration Zolpidem Tartrate 5 mg 10/02/17 22:00 10/02/17 22:05 Ambien - PO 10/06/17 21:59 5 mg HS PRN Administration INSOMNIA Leucocytosis/thrombocytosis mostly reactive from the underlying rheumatological disorder. diff mostly with neutrophils. unremarkable peripheral flow cytometry Pleural effusion: no malignant cells isolated Inflammatory myositis steroids per rehum rheum f/u noted Problem List - Problems (1) Myositis Code(s): M60.9 - MYOSITIS, UNSPECIFIED (2) Pleural effusion Code(s): J90 - PLEURAL EFFUSION, NOT ELSEWHERE CLASSIFIED (3) Leucocytosis Code(s): D72.829 - ELEVATED WHITE BLOOD CELL COUNT, UNSPECIFIED (4) Intractable pain Code(s): R52 - PAIN, UNSPECIFIED (5) Breast cancer Code(s): C50.919 - MALIGNANT NEOPLASM OF UNSP SITE OF UNSPECIFIED FEMALE BREAST
--- NOTE | 2017-10-05 15:51 | PN ---
Progress Note, Physician History of Present Illness: Pt seen and examined at bedside. She is awake and alert. She complains of generalized edema. - Current Medication List Current Medications: Active Medications Acetaminophen (Tylenol -) 650 mg PO Q6H PRN PRN Reason: FEVER Last Admin: 10/03/17 09:17 Dose: 650 mg Albuterol Sulfate (Ventolin 0.083% Nebulizer Soln -) 1 amp NEB Q4H PRN PRN Reason: SHORT OF BREATH/WHEEZING Last Admin: 10/04/17 21:29 Dose: 1 amp Albuterol Sulfate (Ventolin Hfa Inhaler -) 2 puff IH Q4H PRN PRN Reason: SHORT OF BREATH/WHEEZING Budesonide/Formoterol Fumarate (Symbicort 80/4.5mcg -) 2 puff IH BID [facility] Last Admin: 10/05/17 09:38 Dose: 2 puff Metoprolol Succinate (Toprol Xl -) 50 mg PO DAILY [facility] Last Admin: 10/05/17 09:36 Dose: 50 mg Pantoprazole Sodium (Protonix -) 40 mg PO DAILY [facility] Last Admin: 10/05/17 09:36 Dose: 40 mg Prednisone (Deltasone -) 60 mg PO DAILY [facility] Last Admin: 10/05/17 09:36 Dose: 60 mg Triamcinolone Acetonide (Aristocort 0.1% Cream -) 1 applic TP DAILY [facility] Last Admin: 10/05/17 11:19 Dose: 1 applic Zolpidem Tartrate (Ambien -) 5 mg PO HS PRN PRN Reason: INSOMNIA Stop: 10/06/17 21:59 Last Admin: 10/02/17 22:05 Dose: 5 mg - Objective Vital Signs: Vital Signs Temperature 98.2 F 10/05/17 14:35 Pulse Rate 90 10/05/17 14:35 Respiratory Rate 18 10/05/17 14:35 Blood Pressure 142/82 10/05/17 14:35 O2 Sat by Pulse Oximetry (%) 98 10/05/17 09:00 Constitutional: Yes: Calm Eyes: Yes: Conjunctiva Clear HENT: Yes: Atraumatic Neck: Yes: Supple Cardiovascular: Yes: S1, S2 Respiratory: Yes: On Nasal O2 Gastrointestinal: Yes: Soft Genitourinary: Yes: WNL Musculoskeletal: Yes: Muscle Weakness Edema: Yes Edema: LUE: 1+, RUE: 1+, LLE: 2+, RLE: 2+ Neurological: Yes: Oriented Psychiatric: Yes: Oriented Labs: CBC, BMP 10/05/17 05:05 10/05/17 05:05 INR, PTT INR 1.04 (0.82-1.09) 09/29/17 06:16 Problem List - Problems (1) Asthma Code(s): J45.909 - UNSPECIFIED ASTHMA, UNCOMPLICATED (2) Myositis Code(s): M60.9 - MYOSITIS, UNSPECIFIED (3) Pleural effusion Code(s): J90 - PLEURAL EFFUSION, NOT ELSEWHERE CLASSIFIED (4) Chest pain Code(s): R07.9 - CHEST PAIN, UNSPECIFIED Assessment/Plan Current Medications Generic Name Dose Route Start Last Admin Trade Name Freq PRN Reason Stop Dose Admin Acetaminophen 650 mg 10/01/17 11:01 10/03/17 09:17 Tylenol - PO 650 mg Q6H PRN Administration FEVER Albuterol Sulfate 1 amp 10/03/17 13:10 10/04/17 21:29 Ventolin 0.083% Nebulizer Soln - NEB 1 amp Q4H PRN Administration SHORT OF BREATH/WHEEZING Albuterol Sulfate 2 puff 10/04/17 10:27 Ventolin Hfa Inhaler - IH Q4H PRN SHORT OF BREATH/WHEEZING Budesonide/Formoterol Fumarate 2 puff 10/04/17 22:00 10/05/17 09:38 Symbicort 80/4.5mcg - IH 2 puff BID [facility] Administration Metoprolol Succinate 50 mg 10/01/17 16:15 10/05/17 09:36 Toprol Xl - PO 50 mg DAILY [facility] Administration Pantoprazole Sodium 40 mg 10/01/17 16:15 10/05/17 09:36 Protonix - PO 40 mg DAILY [facility] Administration Prednisone 60 mg 10/05/17 10:00 10/05/17 09:36 Deltasone - PO 60 mg DAILY [facility] Administration Triamcinolone Acetonide 1 applic 10/02/17 10:00 10/05/17 11:19 Aristocort 0.1% Cream - TP 1 applic DAILY [facility] Administration Zolpidem Tartrate 5 mg 10/02/17 22:00 01/27/18 22:05 Ambien - PO 10/06/17 21:59 5 mg HS PRN Administration INSOMNIA Laboratory Tests 09/27/17 10/05/17 06:15 05:05 Double Strand DNA Ab <1 Glomerular Base Memb Ab Pending Impression 1. polymyositis 2. hx breast cancer 3. HTN 4. pleural effusions 5. gerd 6. pos heb b core 7. hypoalbuminemia 8. mucroscopic hematuria Plan - will give another dose of lasix today - repeat labs in am - kidney biopsy once pt off of asa for 7 days - dvt prphylaxis - renal workup in progress - repeat ua and prt to latex fashions designer ration - follow up muscle biopsy Dr Maloney
[2017-10-05] MEDS ORDERED: FUROSEMIDE 40 MG TABLET (FP) PO ONE (16:00)
[2017-10-05] MEDS: ALBUTEROL SO4 0.083% IH SOL 2.5 MG/3 ML VIAL.NEB. NEB PRN (21:41)
--- NOTE | 2017-10-05 21:59 | PN ---
Progress Note (short form) - Note Progress Note: 67 year old female admitted with SOB, palpitations with minimal exertion arthalgias, myalgias and rash for the past 3 weeks prior to admission. Recent history of Hyponatremia. Patient has recurring SOB relieved by bronchodilators, feels better. Weakness of the extremities persists, still not able to stand up without assistance. No chest pain or discomfort, rash has cleared. Active Medications Acetaminophen (Tylenol -) 650 mg PO Q6H PRN PRN Reason: FEVER Last Admin: 10/03/17 09:17 Dose: 650 mg Albuterol Sulfate (Ventolin 0.083% Nebulizer Soln -) 1 amp NEB Q4H PRN PRN Reason: SHORT OF BREATH/WHEEZING Last Admin: 10/05/17 21:41 Dose: 1 amp Albuterol Sulfate (Ventolin Hfa Inhaler -) 2 puff IH Q4H PRN PRN Reason: SHORT OF BREATH/WHEEZING Budesonide/Formoterol Fumarate (Symbicort 80/4.5mcg -) 2 puff IH BID [facility] Last Admin: 10/05/17 21:10 Dose: 2 puff Metoprolol Succinate (Toprol Xl -) 50 mg PO DAILY [facility] Last Admin: 10/05/17 09:36 Dose: 50 mg Pantoprazole Sodium (Protonix -) 40 mg PO DAILY [facility] Last Admin: 10/05/17 09:36 Dose: 40 mg Prednisone (Deltasone -) 60 mg PO DAILY [facility] Last Admin: 10/05/17 09:36 Dose: 60 mg Triamcinolone Acetonide (Aristocort 0.1% Cream -) 1 applic TP DAILY [facility] Last Admin: 10/05/17 11:19 Dose: 1 applic Zolpidem Tartrate (Ambien -) 5 mg PO HS PRN PRN Reason: INSOMNIA Stop: 10/06/17 21:59 Last Admin: 10/02/17 22:05 Dose: 5 mg 67 year old female in mild distress no pallor or cyanosis or jaundice. Last Vital Signs Temp Pulse Resp BP Pulse Ox 97.7 F 90 18 139/76 91 L 10/05/17 20:09 10/05/17 20:09 10/05/17 20:10/05/17 20:10/05/17 14:00 Intake & Output 01/10/03/17 10/04/17 10/05/17 23:59 23:59 23:59 23:59 Intake Total 10 300 10 0 Balance 10 300 10 0 Weight 125 lb 138 lb 12.8 oz 136 lb 12.8 oz 138 lb 4 oz NECK: Supple, no JVD, slightly +ve HJR,carotids equal, no bruits. HEART: PMI in the 5th ICS, no heaves or thrills. S1 and S2 are normal, no murmur , gallops or rubs heard. LUNGS: Bilateral fine posterior crepitations. Decreased breath sounds at both bases. ABDOMEN: Soft, nontender, no organomegaly or masses felt. Dullness on percussion both flanks. EXTREMITIES: 2+ lower extremities, edema of the hands has recurred, no wrist tenderness elicited or increased warmth, no tenderness of the knees. CBC, BMP 10/05/17 05:05 10/05/17 05:05 Abnormal Lab Results 10/03/17 10/05/17 10/05/17 05:05 05:05 05:05 WBC 25.5 H Plt Count 476 H MPV 7.2 L Neutrophils % (Manual) 90.9 H* Lymphocytes % (Manual) 0.0 L BUN 39 H Random Glucose 114 H Calcium 8.1 L AST 135 H ALT 177 H Total Protein 5.2 L Albumin 1.6 L Hepatitis Be Antibody Positive H IMPRESSION: 1. Dyspnea, palpitations, arthritis, myalgias, Severe peripheral generalised polymyopathy, rash and pulmonary nodular lesions, lymphadenopathy and bilateral exudative pleural effusions. Etiology still not confirmed a). Polymyositis, associated with pulmonary infiltrates and lymphadenopathy b). Sarcoidosis c). Carcinomatosis. 2. Elevated trops: a). Secondary to Myocarditis b). KRISTEN. c). Infectious process. 3. Generalised edema, partly related to hypoproteinemia. 4. Persistent leukocytosis and thrombocytosis, Etiology to be determined, secondary to inflammatory process. 5. Exudative bilateral pleural effusions ( see pleural fluid report). 6. S/p breast carcinoma. RECOMMENDATIONS: 1. F/u Echocardiogram. 2. Diuretic as per nephrology. 3. Further work up in progress.
[2017-10-06] MEDS: ALBUTEROL SO4 0.083% IH SOL 2.5 MG/3 ML VIAL.NEB. NEB PRN ×3 (01:35→22:13)
[2017-10-06 01:52] LABS: URINE APPEARANCE CLEAR; URINE BILIRUBIN NEGATIVE (NEGATIVE); URINE BLOOD 2+ (NEGATIVE); URINE COLOR LTYELLOW; URINE GLUCOSE (UA) NEGATIVE (NEGATIVE); URINE KETONE NEGATIVE (NEGATIVE); URINE LEUK ESTERASE NEGATIVE (NEGATIVE); URINE NITRITE NEGATIVE (NEGATIVE); URINE PROTEIN NEGATIVE (NEGATIVE); URINE UROBILINOGEN NEGATIVE mg/dL (0.2-1.0)
[2017-10-06 02:23] LABS: EPI CELLS FEW /HPF (FEW); URINE HYALINE CAST 7 /lpf; URINE MUCUS RARE
[2017-10-06 07:16] LABS: HEMATOCRIT 40.4 % (32.4-45.2); MCH 29.3 pg (25.7-33.7); MCHC 32.2 g/dl (32.0-36.0); MEAN CELL VOLUME 91.1 fl (80-96); MEAN PLT VOLUME 7.2 fl (7.5-11.1); PLATELET COUNT 491 K/MM3 (134-434); RBC 4.43 M/mm3 (3.60-5.2); RDW 15.1 % (11.6-15.6); WHITE BLOOD COUNT 21.6 K/mm3 (4.0-10.0)
[2017-10-06 07:49] LABS: CHLORIDE 98 mmol/L (98-107); SODIUM 134 mmol/L (136-145)
[2017-10-06 07:59] LABS: ALBUMIN 1.8 g/dl (3.4-5.0); ALK PHOS 53 U/L (45-117); ANION GAP 13 (8-16); BILIRUBIN,TOTAL 0.5 mg/dL (0.2-1.0); BLOOD UREA NITROGEN 39 mg/dL (7-18); CO2 23 mmol/L (21-32); CREATININE 0.8 mg/dL (0.55-1.02); GLUCOSE,RANDOM 88 mg/dL (74-106); SGOT/AST 161 U/L (15-37); SGPT/ALT 190 U/L (12-78); TOT PROT 5.4 g/dl (6.4-8.2)
[2017-10-06 08:07] LABS: ALPHA 2 MACROGLOBULINS,QN 252 mg/dL (110-276); ALT(SGPT)P5P 162 IU/L (0-40); CHOLESTEROL TOTAL 125 mg/dL (100-199); FIBROSIS SCORE 0.12 (0.00-0.21); GGT= 8 IU/L (0-60); GLUCOSE SERUM 120 mg/dL (65-99); HEIGHT 65 Inches (.); WEIGHT- 138 LBS (.)
[2017-10-06] MEDS ORDERED: PT OWN MED DRAWER 7, Y5N ONE (09:01)
[2017-10-06] MEDS: predniSONE 20 MG TABLET (UD) PO SCH (09:04)
[2017-10-06] MEDS: PANTOPRAZOLE 40 MG TABLET (FP) PO SCH (09:04)
[2017-10-06] MEDS: BUDESONIDE/FORMETEROL FUMARATE 80/4.5 mcg INHALER IH SCH ×2 (09:05→21:05)
--- NOTE | 2017-10-06 10:39 | PN ---
Progress Note (short form) - Note Progress Note: 67 year old female admitted with SOB, palpitations with minimal exertion arthalgias, myalgias and rash for the past 3 weeks prior to admission. Recent history of Hyponatremia. Patient undergoing physical therapy with the help of a walker. Improving myopathy. Still has dyspnea on minimal exertion associated with palpitations. No arthralgia reported. Still has edema of both upper and lower extremities. Echocardiogram reveals normal LV function, there is trace mitral and tricuspid regurgitation. Active Medications Generic Name Dose Route Start Last Admin Trade Name Freq PRN Reason Stop Dose Admin Acetaminophen 650 mg 10/01/17 11:01 10/03/17 09:17 Tylenol - PO 650 mg Q6H PRN Administration FEVER Albuterol Sulfate 1 amp 10/03/17 13:10 10/06/17 01:35 Ventolin 0.083% Nebulizer Soln - NEB 1 amp Q4H PRN Administration SHORT OF BREATH/WHEEZING Albuterol Sulfate 2 puff 10/04/17 10:27 Ventolin Hfa Inhaler - IH Q4H PRN SHORT OF BREATH/WHEEZING Budesonide/Formoterol Fumarate 2 puff 10/04/17 22:00 10/06/17 09:05 Symbicort 80/4.5mcg - IH 2 puff BID [facility] Administration Metoprolol Succinate 50 mg 10/01/17 16:15 10/06/17 09:04 Toprol Xl - PO 50 mg DAILY [facility] Administration Pantoprazole Sodium 40 mg 10/01/17 16:15 10/06/17 09:04 Protonix - PO 40 mg DAILY [facility] Administration Prednisone 60 mg 10/05/17 10:00 10/06/17 09:04 Deltasone - PO 60 mg DAILY [facility] Administration Triamcinolone Acetonide 1 applic 10/02/17 10:00 10/05/17 11:19 Aristocort 0.1% Cream - TP 1 applic DAILY [facility] Administration 67 year old female in mild distress no pallor or cyanosis or jaundice. Last Vital Signs Temp Pulse Resp BP Pulse Ox 98.2 F 104 H 18 120/68 91 L 10/06/17 08:20 10/06/17 08:20 10/06/17 08:20 10/06/17 08:20 10/05/17 14:00 Intake & Output 10/03/17 10/04/17 10/05/17 01/31/18 23:59 23:59 23:59 23:59 Intake Total 300 10 10 Balance 300 10 10 Weight 138 lb 12.8 oz 136 lb 12.8 oz 138 lb 4 oz 137 lb 3.2 oz NECK: Supple, no JVD, slightly +ve HJR,carotids equal, no bruits. HEART: PMI in the 5th ICS, no heaves or thrills. S1 and S2 are normal, no murmur , gallops or rubs heard. LUNGS:Bilateral posterior crepitations. ABDOMEN: Soft, nontender, no organomegaly or masses felt. Dullness on percussion both flanks. EXTREMITIES: 2+ lower extremities, edema of the hands has recurred, no wrist tenderness elicited or increased warmth, no tenderness of the knees. CBC, BMP 10/06/17 06:55 10/06/17 06:55 Abnormal Lab Results 10/06/17 10/06/17 06:55 06:55 WBC 21.6 H Plt Count 491 H MPV 7.2 L Neutrophils % (Manual) Lymphocytes % (Manual) Haptoglobin Sodium 134 L BUN 39 H Glucose Calcium 8.0 L AST 161 H ALT 190 H Total Protein 5.4 L Albumin 1.8 L Apolipoprotein A-1 Urine Blood IMPRESSION: 1. Dyspnea, palpitations, arthritis, myalgias, Severe peripheral generalised polymyopathy, rash and pulmonary nodular lesions, lymphadenopathy and bilateral exudative pleural effusions. Etiology is being determined. 2. S/p breast carcinoma. 3. Generalised edema, partly related to hypoproteinemia. 4. Persistent leukocytosis and thrombocytosis, Etiology to be determined, secondary to inflammatory process. 5. Exudative bilateral pleural effusions ( see pleural fluid report). 6. Fatty liver. RECOMMENDATIONS: 1. Continue therapy as outlined. 2. Progressive ambulation in progress. 3. Muscle biopsy report is pending.
--- NOTE | 2017-10-06 11:19 | PN ---
Progress Note, Physician History of Present Illness: Pt seen and examined at bedside. She is awake and alert. She complains of generalized edema. - Current Medication List Current Medications: Active Medications Acetaminophen (Tylenol -) 650 mg PO Q6H PRN PRN Reason: FEVER Last Admin: 10/03/17 09:17 Dose: 650 mg Albuterol Sulfate (Ventolin 0.083% Nebulizer Soln -) 1 amp NEB Q4H PRN PRN Reason: SHORT OF BREATH/WHEEZING Last Admin: 10/06/17 01:35 Dose: 1 amp Albuterol Sulfate (Ventolin Hfa Inhaler -) 2 puff IH Q4H PRN PRN Reason: SHORT OF BREATH/WHEEZING Budesonide/Formoterol Fumarate (Symbicort 80/4.5mcg -) 2 puff IH BID [facility] Last Admin: 10/06/17 09:05 Dose: 2 puff Metoprolol Succinate (Toprol Xl -) 50 mg PO DAILY [facility] Last Admin: 10/06/17 09:04 Dose: 50 mg Pantoprazole Sodium (Protonix -) 40 mg PO DAILY [facility] Last Admin: 10/06/17 09:04 Dose: 40 mg Prednisone (Deltasone -) 60 mg PO DAILY [facility] Last Admin: 10/06/17 09:04 Dose: 60 mg Triamcinolone Acetonide (Aristocort 0.1% Cream -) 1 applic TP DAILY [facility] Last Admin: 10/05/17 11:19 Dose: 1 applic - Objective Vital Signs: Vital Signs Temperature 98.2 F 10/06/17 08:20 Pulse Rate 104 H 10/06/17 08:20 Respiratory Rate 18 10/06/17 08:20 Blood Pressure 120/68 10/06/17 08:20 O2 Sat by Pulse Oximetry (%) 91 L 10/05/17 14:00 Constitutional: Yes: Calm Eyes: Yes: Conjunctiva Clear HENT: Yes: Atraumatic Neck: Yes: Supple Cardiovascular: Yes: S1, S2 Respiratory: Yes: On Nasal O2 Gastrointestinal: Yes: Soft Genitourinary: Yes: WNL Musculoskeletal: Yes: WNL Edema: Yes Edema: LUE: 1+, RUE: 1+, LLE: 2+, RLE: 2+ Wound/Incision: Yes: Dressing Dry and Intact Neurological: Yes: Oriented Psychiatric: Yes: Oriented Labs: CBC, BMP 10/06/17 06:55 10/06/17 06:55 INR, PTT INR 1.04 (0.82-1.09) 09/29/17 06:16 Problem List - Problems (1) Asthma Code(s): J45.909 - UNSPECIFIED ASTHMA, UNCOMPLICATED (2) Myositis Code(s): M60.9 - MYOSITIS, UNSPECIFIED (3) Pleural effusion Code(s): J90 - PLEURAL EFFUSION, NOT ELSEWHERE CLASSIFIED (4) Chest pain Code(s): R07.9 - CHEST PAIN, UNSPECIFIED Assessment/Plan Current Medications Generic Name Dose Route Start Last Admin Trade Name Freq PRN Reason Stop Dose Admin Acetaminophen 650 mg 10/01/17 11:01 10/03/17 09:17 Tylenol - PO 650 mg Q6H PRN Administration FEVER Albuterol Sulfate 1 amp 10/03/17 13:10 10/06/17 01:35 Ventolin 0.083% Nebulizer Soln - NEB 1 amp Q4H PRN Administration SHORT OF BREATH/WHEEZING Albuterol Sulfate 2 puff 10/04/17 10:27 Ventolin Hfa Inhaler - IH Q4H PRN SHORT OF BREATH/WHEEZING Budesonide/Formoterol Fumarate 2 puff 10/04/17 22:00 10/06/17 09:05 Symbicort 80/4.5mcg - IH 2 puff BID [facility] Administration Metoprolol Succinate 50 mg 10/01/17 16:15 10/06/17 09:04 Toprol Xl - PO 50 mg DAILY [facility] Administration Pantoprazole Sodium 40 mg 10/01/17 16:15 10/06/17 09:04 Protonix - PO 40 mg DAILY [facility] Administration Prednisone 60 mg 10/05/17 10:00 10/06/17 09:04 Deltasone - PO 60 mg DAILY [facility] Administration Triamcinolone Acetonide 1 applic 10/02/17 10:00 10/05/17 11:19 Aristocort 0.1% Cream - TP 1 applic DAILY [facility] Administration Laboratory Tests 09/26/17 09/26/17 09/27/17 21:00 21:00 06:15 Urine Protein Urine Blood Rheumatoid Arth Biomark Pending [place] Screen c-ANCA Pending Proteinase 3 (PR3) Pending p-ANCA Pending Atypical p-ANCA Pending Myeloperoxidase Ab Pending LIZBETH-1 Antibody 4.8 H Double Strand DNA Ab <1 Smooth Musc &BIOSOLIDS MANAGEMENT TECHNICIAN Intrp Glomerular Base Memb Ab Complement C3 Complement C4 10/05/17 10/05/17 10/05/17 05:05 05:05 08:30 Urine Protein Urine Blood Rheumatoid Arth Biomark [place] Screen Pending c-ANCA Proteinase 3 (PR3) p-ANCA Atypical p-ANCA Myeloperoxidase Ab LIZBETH-1 Antibody Double Strand DNA Ab Smooth Musc &BIOSOLIDS MANAGEMENT TECHNICIAN Intrp Pending Glomerular Base Memb Ab Pending Complement C3 116 Complement C4 22 10/06/17 01:30 Urine Protein Negative Urine Blood 2+ H Rheumatoid Arth Biomark [place] Screen c-ANCA Proteinase 3 (PR3) p-ANCA Atypical p-ANCA Myeloperoxidase Ab LIZBETH-1 Antibody Double Strand DNA Ab Smooth Musc &BIOSOLIDS MANAGEMENT TECHNICIAN Intrp Glomerular Base Memb Ab Complement C3 Complement C4 Impression 1. polymyositis 2. hx breast cancer 3. HTN 4. pleural effusions 5. gerd 6. pos heb b core 7. hypoalbuminemia 8. microscopic hematuria Plan - follow muscle biopsy - protein on UA is improved, she still has blood - follow serologic workup - will give does of lasix - kidney biopsy once pt off of asa for 7 days - dvt prophylaxis - renal workup in progress Dr Maloney
[2017-10-06 11:42] LABS: ACANTHOCYTES 0; ANISOCYTOSIS 0; HELMET CELLS 0; HOWELL-JOLLY BODIES 0; MACROCYTOSIS 0; OVALOCYTE 0; PLATELET ESTIMATE NORMAL; ROULEAU 0; SICKELED CELLS 0; TARGET CELLS 0; TEAR DROP CELLS 0; TOXIC GRANULATION 0
--- NOTE | 2017-10-06 12:17 | PN ---
Progress Note, Physician History of Present Illness: pulmonary alert,less dyspneic,still weak but improving,-cp. pt for thoracentesis today , then f/u chest ct - Current Medication List Current Medications: Active Medications Acetaminophen (Tylenol -) 650 mg PO Q6H PRN PRN Reason: FEVER Last Admin: 10/03/17 09:17 Dose: 650 mg Albuterol Sulfate (Ventolin 0.083% Nebulizer Soln -) 1 amp NEB Q4H PRN PRN Reason: SHORT OF BREATH/WHEEZING Last Admin: 10/06/17 11:45 Dose: 1 amp Albuterol Sulfate (Ventolin Hfa Inhaler -) 2 puff IH Q4H PRN PRN Reason: SHORT OF BREATH/WHEEZING Budesonide/Formoterol Fumarate (Symbicort 80/4.5mcg -) 2 puff IH BID [facility] Last Admin: 10/06/17 09:05 Dose: 2 puff Furosemide (Lasix -) 40 mg PO DAILY [facility] Metoprolol Succinate (Toprol Xl -) 50 mg PO DAILY [facility] Last Admin: 10/06/17 09:04 Dose: 50 mg Pantoprazole Sodium (Protonix -) 40 mg PO DAILY [facility] Last Admin: 10/06/17 09:04 Dose: 40 mg Prednisone (Deltasone -) 60 mg PO DAILY [facility] Last Admin: 10/06/17 09:04 Dose: 60 mg Triamcinolone Acetonide (Aristocort 0.1% Cream -) 1 applic TP DAILY [facility] Last Admin: 10/05/17 11:19 Dose: 1 applic - Objective Vital Signs: Vital Signs Temperature 98.2 F 10/06/17 08:20 Pulse Rate 104 H 10/06/17 08:20 Respiratory Rate 18 10/06/17 08:20 Blood Pressure 120/68 10/06/17 08:20 O2 Sat by Pulse Oximetry (%) 91 L 10/05/17 14:00 Constitutional: Yes: Well Nourished, Calm Eyes: Yes: WNL HENT: Yes: WNL Neck: Yes: WNL Cardiovascular: Yes: Regular Rate and Rhythm, S1, S2 Respiratory: Yes: Diminished, Rales (few crackles aneesh) Gastrointestinal: Yes: Normal Bowel Sounds, Soft Extremities: Yes: WNL Edema: Yes Labs: CBC, BMP 10/06/17 06:55 10/06/17 06:55 INR, PTT INR 1.04 (0.82-1.09) 09/29/17 06:16 Problem List - Problems (1) Pleural effusion Code(s): J90 - PLEURAL EFFUSION, NOT ELSEWHERE CLASSIFIED (2) Intractable pain Code(s): R52 - PAIN, UNSPECIFIED (3) Myositis Code(s): M60.9 - MYOSITIS, UNSPECIFIED (4) Dyspnea Code(s): R06.00 - DYSPNEA, UNSPECIFIED (5) Asthma Code(s): J45.909 - UNSPECIFIED ASTHMA, UNCOMPLICATED (6) Troponin level elevated Code(s): R74.8 - ABNORMAL LEVELS OF OTHER SERUM ENZYMES Assessment/Plan IMP BILATERAL PLEURAL EFFUSIONS cytology negative BILATERAL PULMONARY NODULES ? INFLAMMATORY,INFECTIOUS,SARCOID,? MALIGNANT DYSPNEA WEAKNESS IMPROVING GENERALIZED JOINT PAINS + TROPONINS MYOPATHY,MYOSITIS ?POLYMYOSITIS + ANTI LIZBETH ANTIBODY ASTHMA PLAN STEROIDS RHEUMATOLOGY O2 ANALGESICS MUSCLE BX PATH PENDING THORACENTESIS TODAY F/U CHEST CT TODAY AFTER THORACENTESIS LASIX PER RENAL DR PAULSON Problem List - Problems (1) Pleural effusion Code(s): J90 - PLEURAL EFFUSION, NOT ELSEWHERE CLASSIFIED (2) Intractable pain Code(s): R52 - PAIN, UNSPECIFIED (3) Myositis Code(s): M60.9 - MYOSITIS, UNSPECIFIED (4) Dyspnea Code(s): R06.00 - DYSPNEA, UNSPECIFIED (5) Asthma Code(s): J45.909 - UNSPECIFIED ASTHMA, UNCOMPLICATED (6) Troponin level elevated Code(s): R74.8 - ABNORMAL LEVELS OF OTHER SERUM ENZYMES
[2017-10-06] MEDS: TRIAMCINOLONE ACET 0.1% CREAM 15 GM TUBE TP SCH (13:46)
[2017-10-06] MEDS: FUROSEMIDE 40 MG TABLET (FP) PO SCH (13:46)
[2017-10-06 14:18] LABS: RNP ANTIBODIES <0.2 AI (0.0-0.9)
--- NOTE | 2017-10-06 15:50 | PN ---
Progress Note (short form) - Note Progress Note: The patient reports improvement in muscle strength, however she had difficulty in walking even short distances due to shortness of breath and light headiness. P/E. Lungs decreased air entry in bases, difuse crackles. I spoke with the pathologist at [facility]. Preliminary report of muslce biopsy: no significant iflammatory infiltration, mild atrophy (probably of fiber type II) and no necrosis. Histochemistry and EM pending. Laboratory work-up: ant-DNAds, anti-BGM, anti-Sm and anti-PUBLICITY AGENT negative. Complement normal (C3: 116, C4: 22). Urinalysis blood 2+ and no protein. Impression. Myositis with anti-Estela-1 and no evidence of interstitial lung disease. Based on labs it is unlikley that the patient has lupus or mixed connective tissue disease. Histological findings are not typical for polymyositis. Edema probably related to low albumin, however etiology of low protein is not clear. Hematuria and normal creatinine, etiology to be determined. Kidney biopsy was postponed due to previous treatment with aspirin. In summary she has probable polymyositis associated with anti-Estela-1. Lung disease and kidney disease could be associated to polymyosistis, however serology for other CTS is negative. Myositis improving with steroids. Awaiting kidney biopsy. Problem List - Problems (1) Myositis Code(s): M60.9 - MYOSITIS, UNSPECIFIED
[2017-10-07 06:56] LABS: BASO % 0.1 % (0-2.0); EOS % 0.3 % (0-4.5); HEMATOCRIT 33.3 % (32.4-45.2); HEMOGLOBIN 10.9 GM/dL (10.7-15.3); LYMPH % 8.3 % (8-40); MCH 29.8 pg (25.7-33.7); MCHC 32.7 g/dl (32.0-36.0); MONO % 9.3 % (3.8-10.2); PLATELET COUNT 317 K/MM3 (134-434); RBC 3.66 M/mm3 (3.60-5.2); RDW 15.3 % (11.6-15.6); WHITE BLOOD COUNT 16.1 K/mm3 (4.0-10.0)
[2017-10-07 07:48] LABS: ALBUMIN 1.6 g/dl (3.4-5.0); BLOOD UREA NITROGEN 36 mg/dL (7-18); CHLORIDE 100 mmol/L (98-107); POTASSIUM 3.6 mmol/L (3.5-5.1); SODIUM 137 mmol/L (136-145)
[2017-10-07 07:54] LABS: ALK PHOS 43 U/L (45-117); ANION GAP 9 (8-16); BILIRUBIN,TOTAL 0.4 mg/dL (0.2-1.0); CALCIUM 7.2 mg/dL (8.5-10.1); CO2 28 mmol/L (21-32); CREATININE 0.6 mg/dL (0.55-1.02); GLUCOSE,RANDOM 76 mg/dL (74-106); SGOT/AST 127 U/L (15-37); SGPT/ALT 161 U/L (12-78); TOT PROT 4.4 g/dl (6.4-8.2)
[2017-10-07] MEDS: predniSONE 20 MG TABLET (UD) PO SCH (09:45)
[2017-10-07] MEDS: FUROSEMIDE 40 MG TABLET (FP) PO SCH (09:46)
[2017-10-07] MEDS: TRIAMCINOLONE ACET 0.1% CREAM 15 GM TUBE TP SCH (09:46)
[2017-10-07] MEDS: PANTOPRAZOLE 40 MG TABLET (FP) PO SCH (09:46)
[2017-10-07] MEDS: BUDESONIDE/FORMETEROL FUMARATE 80/4.5 mcg INHALER IH SCH ×2 (09:46→21:55)
[2017-10-07] MEDS: ALBUTEROL SO4 0.083% IH SOL 2.5 MG/3 ML VIAL.NEB. NEB PRN ×3 (09:58→21:35)
--- NOTE | 2017-10-07 10:27 | PN ---
Progress Note (short form) - Note Progress Note: 67 year old female admitted with SOB, palpitations with minimal exertion arthalgias, myalgias and rash for the past 3 weeks prior to admission. Recent history of Hyponatremia. Patient has recurring SOB relieved by bronchodilators and o2, currently on aerosol therapy. Weakness of the extremities persists, still not able to stand up without assistance. No chest pain or discomfort,gereralised edema persists. No mylagias or arthalgias reported. Sitting in a chair.Dr. Negro's note seen. Active Medications Acetaminophen (Tylenol -) 650 mg PO Q6H PRN PRN Reason: FEVER Last Admin: 10/03/17 09:17 Dose: 650 mg Albuterol Sulfate (Ventolin 0.083% Nebulizer Soln -) 1 amp NEB Q4H PRN PRN Reason: SHORT OF BREATH/WHEEZING Last Admin: 10/07/17 09:58 Dose: 1 amp Albuterol Sulfate (Ventolin Hfa Inhaler -) 2 puff IH Q4H PRN PRN Reason: SHORT OF BREATH/WHEEZING Budesonide/Formoterol Fumarate (Symbicort 80/4.5mcg -) 2 puff IH BID [facility] Last Admin: 10/07/17 09:46 Dose: 2 puff Furosemide (Lasix -) 40 mg PO DAILY [facility] Last Admin: 10/07/17 09:46 Dose: 40 mg Metoprolol Succinate (Toprol Xl -) 50 mg PO DAILY [facility] Last Admin: 10/07/17 09:46 Dose: 50 mg Pantoprazole Sodium (Protonix -) 40 mg PO DAILY [facility] Last Admin: 10/07/17 09:46 Dose: 40 mg Prednisone (Deltasone -) 60 mg PO DAILY [facility] Last Admin: 10/07/17 09:45 Dose: 60 mg Triamcinolone Acetonide (Aristocort 0.1% Cream -) 1 applic TP DAILY [facility] Last Admin: 10/07/17 09:46 Dose: 1 applic 67 year old female in moderate distress no pallor or cyanosis or jaundice. Last Vital Signs Temp Pulse Resp BP Pulse Ox 98.7 F 98 H 20 130/74 91 L 10/07/17 05:04 10/07/17 05:04 10/07/17 05:04 10/07/17 05:04 10/05/17 14:00 Intake & Output 10/04/17 10/05/17 10/06/17 10/07/17 23:59 23:59 23:59 23:59 Intake Total 10 10 110 Balance 10 10 110 Weight 136 lb 12.8 oz 138 lb 4 oz 137 lb 3.2 oz 137 lb 3.2 oz NECK: Supple, no JVD, slightly +ve HJR,carotids equal, no bruits. HEART: PMI in the 5th ICS, no heaves or thrills. S1 and S2 are normal, no murmur , gallops or rubs heard. LUNGS: Bilateral fine posterior crepitations. Decreased breath sounds at both bases. ABDOMEN: Soft, nontender, no organomegaly or masses felt. EXTREMITIES: 2+ lower extremities, edema of the hands has recurred, no wrist tenderness elicited or increased warmth, no tenderness of the knees. CBC, BMP 10/07/17 06:15 10/07/17 06:15 IMPRESSION: 1. Dyspnea, palpitations, arthritis, myalgias, Severe peripheral generalised polymyopathy, rash and pulmonary nodular lesions, lymphadenopathy and bilateral exudative pleural effusions. Etiology a). Polymyositis, associated with pulmonary infiltrates, pleural effusions and lymphadenopathy. 2. Elevated trops: a). Secondary to Myocarditis b). KRISTEN. c). Infectious process. 3. Generalised edema, partly related to hypoproteinemia. 4. Improving leukocytosis and thrombocytosis, since on steroids. 5. Exudative bilateral pleural effusions ( see pleural fluid report). 6. S/p breast carcinoma. 7. Fatty liver, RECOMMENDATIONS: 1. GI evauation for fatty liver disease. 2. Diuretics as per nephrology. 3. Further work up in progress.
--- NOTE | 2017-10-07 10:47 | PN ---
Progress Note, Physician History of Present Illness: Pt seen and examined at bedside. She is out of bed to chair today. She says that her appetite is improving. - Current Medication List Current Medications: Active Medications Acetaminophen (Tylenol -) 650 mg PO Q6H PRN PRN Reason: FEVER Last Admin: 10/03/17 09:17 Dose: 650 mg Albuterol Sulfate (Ventolin 0.083% Nebulizer Soln -) 1 amp NEB Q4H PRN PRN Reason: SHORT OF BREATH/WHEEZING Last Admin: 10/07/17 09:58 Dose: 1 amp Albuterol Sulfate (Ventolin Hfa Inhaler -) 2 puff IH Q4H PRN PRN Reason: SHORT OF BREATH/WHEEZING Budesonide/Formoterol Fumarate (Symbicort 80/4.5mcg -) 2 puff IH BID [facility] Last Admin: 10/07/17 09:46 Dose: 2 puff Furosemide (Lasix -) 40 mg PO DAILY [facility] Last Admin: 10/07/17 09:46 Dose: 40 mg Metoprolol Succinate (Toprol Xl -) 50 mg PO DAILY [facility] Last Admin: 10/07/17 09:46 Dose: 50 mg Pantoprazole Sodium (Protonix -) 40 mg PO DAILY [facility] Last Admin: 10/07/17 09:46 Dose: 40 mg Prednisone (Deltasone -) 60 mg PO DAILY [facility] Last Admin: 10/07/17 09:45 Dose: 60 mg Triamcinolone Acetonide (Aristocort 0.1% Cream -) 1 applic TP DAILY [facility] Last Admin: 10/07/17 09:46 Dose: 1 applic - Objective Vital Signs: Vital Signs Temperature 98.7 F 10/07/17 05:04 Pulse Rate 98 H 10/07/17 05:04 Respiratory Rate 20 10/07/17 05:04 Blood Pressure 130/74 10/07/17 05:04 O2 Sat by Pulse Oximetry (%) 91 L 10/05/17 14:00 Constitutional: Yes: Calm Eyes: Yes: Conjunctiva Clear HENT: Yes: Atraumatic Neck: Yes: Supple Cardiovascular: Yes: S1, S2 Respiratory: Yes: Rhonchi Gastrointestinal: Yes: Soft Genitourinary: Yes: WNL Musculoskeletal: Yes: Muscle Weakness Edema: Yes (improving) Edema: LUE: 1+, RUE: 1+, LLE: 1+, RLE: 1+ Neurological: Yes: Oriented Psychiatric: Yes: Oriented Labs: CBC, BMP 10/07/17 06:15 10/07/17 06:15 INR, PTT INR 1.04 (0.82-1.09) 09/29/17 06:16 Problem List - Problems (1) Asthma Code(s): J45.909 - UNSPECIFIED ASTHMA, UNCOMPLICATED (2) Myositis Code(s): M60.9 - MYOSITIS, UNSPECIFIED (3) Pleural effusion Code(s): J90 - PLEURAL EFFUSION, NOT ELSEWHERE CLASSIFIED (4) Chest pain Code(s): R07.9 - CHEST PAIN, UNSPECIFIED Assessment/Plan Current Medications Generic Name Dose Route Start Last Admin Trade Name Freq PRN Reason Stop Dose Admin Acetaminophen 650 mg 10/01/17 11:01 10/03/17 09:17 Tylenol - PO 650 mg Q6H PRN Administration FEVER Albuterol Sulfate 1 amp 10/03/17 13:10 10/07/17 09:58 Ventolin 0.083% Nebulizer Soln - NEB 1 amp Q4H PRN Administration SHORT OF BREATH/WHEEZING Albuterol Sulfate 2 puff 10/04/17 10:27 Ventolin Hfa Inhaler - IH Q4H PRN SHORT OF BREATH/WHEEZING Budesonide/Formoterol Fumarate 2 puff 10/04/17 22:00 10/07/17 09:46 Symbicort 80/4.5mcg - IH 2 puff BID [facility] Administration Furosemide 40 mg 10/06/17 11:30 10/07/17 09:46 Lasix - PO 40 mg DAILY [facility] Administration Metoprolol Succinate 50 mg 10/01/17 16:15 10/07/17 09:46 Toprol Xl - PO 50 mg DAILY [facility] Administration Pantoprazole Sodium 40 mg 10/01/17 16:15 10/07/17 09:46 Protonix - PO 40 mg DAILY [facility] Administration Prednisone 60 mg 10/05/17 10:00 10/07/17 09:45 Deltasone - PO 60 mg DAILY [facility] Administration Triamcinolone Acetonide 1 applic 10/02/17 10:00 10/07/17 09:46 Aristocort 0.1% Cream - TP 1 applic DAILY [facility] Administration Impression 1. polymyositis 2. hx breast cancer 3. HTN 4. pleural effusions 5. gerd 6. pos heb b core 7. hypoalbuminemia 8. microscopic hematuria 9. fatty infiltration of liver Plan - cont steroids - encourage PO intake - dvt prophylaxis - cont with lasix - discussed with rheumatology - follow serologic workup - GI prophylaxis - consider GI eval for fatty liver - kidney biopsy once pt off of asa for 7 days - renal workup in progress Dr Maloney
--- NOTE | 2017-10-07 10:59 | PN ---
Progress Note, Physician Chief Complaint: pt states not hungre oob chair less leg edema - Current Medication List Current Medications: Active Medications Acetaminophen (Tylenol -) 650 mg PO Q6H PRN PRN Reason: FEVER Last Admin: 10/03/17 09:17 Dose: 650 mg Albuterol Sulfate (Ventolin 0.083% Nebulizer Soln -) 1 amp NEB Q4H PRN PRN Reason: SHORT OF BREATH/WHEEZING Last Admin: 10/07/17 09:58 Dose: 1 amp Albuterol Sulfate (Ventolin Hfa Inhaler -) 2 puff IH Q4H PRN PRN Reason: SHORT OF BREATH/WHEEZING Budesonide/Formoterol Fumarate (Symbicort 80/4.5mcg -) 2 puff IH BID [facility] Last Admin: 10/07/17 09:46 Dose: 2 puff Furosemide (Lasix -) 40 mg PO DAILY [facility] Last Admin: 10/07/17 09:46 Dose: 40 mg Metoprolol Succinate (Toprol Xl -) 50 mg PO DAILY [facility] Last Admin: 10/07/17 09:46 Dose: 50 mg Pantoprazole Sodium (Protonix -) 40 mg PO DAILY [facility] Last Admin: 10/07/17 09:46 Dose: 40 mg Prednisone (Deltasone -) 60 mg PO DAILY [facility] Last Admin: 10/07/17 09:45 Dose: 60 mg Triamcinolone Acetonide (Aristocort 0.1% Cream -) 1 applic TP DAILY [facility] Last Admin: 10/07/17 09:46 Dose: 1 applic - Objective Vital Signs: Vital Signs Temperature 98.7 F 10/07/17 05:04 Pulse Rate 98 H 10/07/17 05:04 Respiratory Rate 20 10/07/17 05:04 Blood Pressure 130/74 10/07/17 05:04 O2 Sat by Pulse Oximetry (%) 91 L 10/05/17 14:00 Constitutional: Yes: Other (slightly malnutritive) Eyes: Yes: WNL HENT: Yes: WNL Neck: Yes: WNL Cardiovascular: Yes: WNL Respiratory: Yes: WNL Gastrointestinal: Yes: WNL ...Rectal Exam: Yes: Deferred Genitourinary: Yes: WNL Breast(s): Yes: WNL Musculoskeletal: Yes: Muscle Weakness Extremities: Yes: WNL Edema: Yes Edema: LUE: 1+, RUE: 1+, LLE: 1+, RLE: 1+ Peripheral Pulses WNL: Yes Peripheral Pulses: Left Radial: 1+, Right Radial: 1+, Left Doralis Pedis: 1+, Right Dorsalis Pedis: 1+, Left Femoral: 1+, Right Femoral: 1+ Integumentary: Yes: WNL Neurological: Yes: WNL Psychiatric: Yes: WNL Labs: CBC, BMP 10/07/17 06:15 10/07/17 06:15 INR, PTT INR 1.04 (0.82-1.09) 09/29/17 06:16 Assessment/Plan nesure po nutrtionts to see pt restart herparin
--- NOTE | 2017-10-07 11:20 | CONSULT ---
Admitting History and Physical - Primary Care Physician PCP: Darell Loredo - Admission History of Present Illness: Per EMR and pt history: 67 year old female with history of right breast CA in 1990, S/P hysterectomy in 2000, choleliothiasis (scheduled for cholecystectomy) hypertension and hypercholesterolemia (presently not on medication) and asthma, admitted with myalgia, weakness and skin rash. emg noted 3 month history of dry mouth, which has worsened over last week.. One month ago she developed progressive diffuse myalgia, diffuse arthralgia involving mainly shoulders, hands and knees with difficulty in standing up or walking in the last 2 weeks. Also one month ago she developed an intermittent pruritic skin rash involving trunk and extremities. Rheumathology: probable polymyositis associated with [id number] on steroids History Source: Patient, Medical Record Limitations to Obtaining History: No Limitations - Past Medical History Cardiovascular: Yes: AFIB, HTN Pulmonary: Yes: Asthma Gastrointestinal: Yes: Other (Cholelithiasis.) Hepatobiliary: Yes: Cholelithiasis ...: No Heme/Onc: Yes: Other (breast cancer) Psych: Yes: Anxiety Musculoskeletal: Yes: Other (weak and jt pains) Rheumatology: Yes: Other (? fa test pnd) Dermatology: Yes: Other (chr rash on off) - Past Surgical History Past Surgical History: Yes: Hysterectomy, Mastectomy - Smoking History Smoking history: Never smoked Have you smoked in the past 12 months: No - Alcohol/Substance Use Hx Alcohol Use: No History of Substance Use: reports: None - Social History History of Recent Travel: No History - Admission Reason For Visit: INTRACTABLE PAIN - Diagnostics X-ray: Report Reviewed CT Scan: Report Reviewed - General Mental Status: Alert and Oriented, Awake and Alert, Able to Follow Commands Attention: Intact Ability to Follow Directions: Excellent Head/Neck Control: WFL - Hearing Hearing: Functional Speech Evaluation - Communication Primary Language: ARMENIAN Communication: Yes: Within Normal Limits Oral Expression Ability: Yes: No Impairment - Speech Production Able to Make Needs Known: Yes: WNL Intelligibility: Yes: WNL - Speech Characteristics Voice Loudness: Mildly Soft/Quiet Voice Pitch: Yes: Normal Voice Phonatory-based Quality: Yes: Normal Speech Pattern: Normal Speech Clarity: < 100% Nasal Resonance: Normal Rate of Speech: Intact - Language/Auditory Comprehension Follows: Yes: 2 Stage Simple Commands - Language/Verbal Expression Able to Respond to Simple Queries: Yes: WNL Able to Communicate Wants and Needs: Yes: WNL Functional Communication Status: Yes: WNL - Swallow Evaluation/Bedside Assessment Current Nutritional Intake: Thin Liquids, Other (choppede) Oral Secretions: Yes: Dryness Dentition: Yes: Adequate Facial Symmetry at Rest: Symmetrical Facial Symmetry on Retraction: Symmetrical (bilateral reduced retraction?) Facial Movement: Controlled Pucker Lips: Normal Smile: Weak Lingual Movement: Normal, Symmetric Lingual Speed of Movement: Normal Lingual Movement Characteristics: Normal Velopharyngeal Movement: Normal Laryngeal Elevation: Impaired Laryngeal Movement: Reduced Excursion, Labored,delay initiation, Reduced Velocity Rate of Intake: WFL Bolus Size: Small Labial Seal: WFL Chewing: Impaired Oral Prep Time: Increased A-P Transit: Impaired Pocketing: None Timing of Swallow: Delayed Coughing/Throat Clear: Yes (thin liquid intermittently) Recommendations - Speech Evaluation, Impression/Plan Impression: Per Rheumathology: probable polymyositis associated with anti-Estela- 1started on steroids. Pt reports dry mouth, coughing intermittently on thin liquids and food sticking in her throat. Laryngeal elevation is delayed in onset, reduced in vom and excursion. Suspect intermittent aspiration and stasis in pharynx with solids. - Disposition Discharge to: To be Determined (str?) - Dysphagia Impressions/Plan Dysphagia Impressions: Mild Impairment, Moderate Impairment, Suspect Aspiration *Silent aspiration: cannot be R/O at bedside Recommendations: MBS w Esophagus - Recommendations Medication Administration: Crushed with applesauce
--- NOTE | 2017-10-07 12:32 | PN ---
Progress Note (short form) - Note Progress Note: Breathing feels better, less SOB. Generalized weakness and fatigue. No CP. Seems to be improving since steroids were started. Intake & Output 10/04/17 10/05/17 10/06/17 10/07/17 23:59 23:59 23:59 23:59 Intake Total 10 10 110 Balance 10 10 110 Weight 136 lb 12.8 oz 138 lb 4 oz 137 lb 3.2 oz 137 lb 3.2 oz Last Vital Signs Temp Pulse Resp BP Pulse Ox 98.7 F 98 H 20 130/74 91 L 10/07/17 05:04 10/07/17 05:04 10/07/17 05:04 10/07/17 05:04 10/05/17 14:00 Active Medications Acetaminophen (Tylenol -) 650 mg PO Q6H PRN PRN Reason: FEVER Last Admin: 10/03/17 09:17 Dose: 650 mg Albuterol Sulfate (Ventolin 0.083% Nebulizer Soln -) 1 amp NEB Q4H PRN PRN Reason: SHORT OF BREATH/WHEEZING Last Admin: 10/07/17 09:58 Dose: 1 amp Albuterol Sulfate (Ventolin Hfa Inhaler -) 2 puff IH Q4H PRN PRN Reason: SHORT OF BREATH/WHEEZING Budesonide/Formoterol Fumarate (Symbicort 80/4.5mcg -) 2 puff IH BID [facility] Last Admin: 10/07/17 09:46 Dose: 2 puff Furosemide (Lasix -) 40 mg PO DAILY [facility] Last Admin: 10/07/17 09:46 Dose: 40 mg Heparin Sodium (Porcine) (Heparin -) 5,000 unit SQ TID [facility] Metoprolol Succinate (Toprol Xl -) 50 mg PO DAILY [facility] Last Admin: 10/07/17 09:46 Dose: 50 mg Pantoprazole Sodium (Protonix -) 40 mg PO DAILY [facility] Last Admin: 10/07/17 09:46 Dose: 40 mg Prednisone (Deltasone -) 60 mg PO DAILY [facility] Last Admin: 10/07/17 09:45 Dose: 60 mg Triamcinolone Acetonide (Aristocort 0.1% Cream -) 1 applic TP DAILY [facility] Last Admin: 10/07/17 09:46 Dose: 1 applic Constitutional: Yes: NAD Eyes: Yes: WNL HENT: Yes: WNL Neck: Yes: WNL Cardiovascular: Yes: Regular Rate and Rhythm, S1, S2 Respiratory: Yes: Diminished, few basilar Gastrointestinal: Yes: Normal Bowel Sounds, Soft Extremities: Yes: WNL Edema: Yes Labs: Laboratory Results - last 24 hr 10/05/17 10/05/17 10/05/17 05:05 05:05 08:30 WBC RBC Hgb Hct MCV MCH MCHC RDW Plt Count MPV Neutrophils % Lymphocytes % Monocytes % Eosinophils % Basophils % Sodium Potassium Chloride Carbon Dioxide Anion Gap BUN Creatinine Creat Clearance w eGFR Random Glucose Calcium Total Bilirubin AST ALT Alkaline Phosphatase Total Protein Albumin MANSOOR Screen Negative Sm (Carr) Antibody <0.2 [employer] Antibody <0.2 Smooth Musc &[employer] Intrp 24 H Glomerular Base Memb Ab 3 10/07/17 10/07/17 06:15 06:15 WBC 16.1 H RBC 3.66 Hgb 10.9 D Hct 33.3 D MCV 91.0 MCH 29.8 MCHC 32.7 RDW 15.3 Plt Count 317 D MPV 7.0 L Neutrophils % 82.0 Lymphocytes % 8.3 Monocytes % 9.3 D Eosinophils % 0.3 D Basophils % 0.1 Sodium 137 Potassium 3.6 Chloride 100 Carbon Dioxide 28 Anion Gap 9 BUN 36 H Creatinine 0.6 Creat Clearance w eGFR > 60 Random Glucose 76 Calcium 7.2 L Total Bilirubin 0.4 AST 127 H ALT 161 H Alkaline Phosphatase 43 L Total Protein 4.4 L Albumin 1.6 L MANSOOR Screen Sm (Carr) Antibody [employer] Antibody Smooth Musc &[employer] Intrp Glomerular Base Memb Ab Problem List - Problems (1) Pleural effusion Code(s): J90 - PLEURAL EFFUSION, NOT ELSEWHERE CLASSIFIED (2) Intractable pain Code(s): R52 - PAIN, UNSPECIFIED (3) Myositis Code(s): M60.9 - MYOSITIS, UNSPECIFIED (4) Dyspnea Code(s): R06.00 - DYSPNEA, UNSPECIFIED (5) Asthma Code(s): J45.909 - UNSPECIFIED ASTHMA, UNCOMPLICATED (6) Troponin level elevated Code(s): R74.8 - ABNORMAL LEVELS OF OTHER SERUM ENZYMES Assessment/Plan IMP BILATERAL PLEURAL EFFUSIONS cytology negative BILATERAL PULMONARY NODULES ? INFLAMMATORY,INFECTIOUS,SARCOID,? MALIGNANT DYSPNEA WEAKNESS IMPROVING GENERALIZED JOINT PAINS + TROPONINS MYOPATHY,MYOSITIS ?POLYMYOSITIS + ANTI LIZBETH ANTIBODY ASTHMA PLAN Prednisone 60 MG OD O2 as needed Nutritional support Susana PT Dr Mathis
[2017-10-07] MEDS: HEPARIN NA (PORCINE) 5,000 UNITS/ML 1ML VIAL SQ SCH ×2 (17:15→21:55)
[2017-10-08] MEDS: ALBUTEROL SO4 0.083% IH SOL 2.5 MG/3 ML VIAL.NEB. NEB PRN ×5 (02:55→23:32)
[2017-10-08] MEDS: HEPARIN NA (PORCINE) 5,000 UNITS/ML 1ML VIAL SQ SCH ×3 (06:48→21:24)
[2017-10-08 07:15] LABS: BASO % 0.3 % (0-2.0); EOS % 0.2 % (0-4.5); HEMATOCRIT 34.5 % (32.4-45.2); HEMOGLOBIN 11.4 GM/dL (10.7-15.3); LYMPH % 9.8 % (8-40); MCH 30.1 pg (25.7-33.7); MEAN CELL VOLUME 91.2 fl (80-96); MEAN PLT VOLUME 7.5 fl (7.5-11.1); MONO % 11.9 % (3.8-10.2); NEUT % 77.8 % (42.8-82.8); PLATELET COUNT 290 K/MM3 (134-434); RBC 3.78 M/mm3 (3.60-5.2); RDW 15.2 % (11.6-15.6)
[2017-10-08 07:25] LABS: CHLORIDE 101 mmol/L (98-107); POTASSIUM 3.9 mmol/L (3.5-5.1); SODIUM 137 mmol/L (136-145)
[2017-10-08 07:34] LABS: ALBUMIN 1.8 g/dl (3.4-5.0); ALK PHOS 49 U/L (45-117); ANION GAP 8 (8-16); BILIRUBIN,TOTAL 0.5 mg/dL (0.2-1.0); BLOOD UREA NITROGEN 35 mg/dL (7-18); CALCIUM 7.4 mg/dL (8.5-10.1); CO2 28 mmol/L (21-32); CREATININE 0.7 mg/dL (0.55-1.02); GLUCOSE,RANDOM 101 mg/dL (74-106); SGOT/AST 131 U/L (15-37); SGPT/ALT 163 U/L (12-78); TOT PROT 4.7 g/dl (6.4-8.2)
--- NOTE | 2017-10-08 09:10 | PN ---
Progress Note, Physician Chief Complaint: feels better vss diet better toleratesd nl bm oob less edema in legs chest tightness n/c - Current Medication List Current Medications: Active Medications Acetaminophen (Tylenol -) 650 mg PO Q6H PRN PRN Reason: FEVER Last Admin: 10/03/17 09:17 Dose: 650 mg Albuterol Sulfate (Ventolin 0.083% Nebulizer Soln -) 1 amp NEB Q4H PRN PRN Reason: SHORT OF BREATH/WHEEZING Last Admin: 10/08/17 08:17 Dose: 1 amp Albuterol Sulfate (Ventolin Hfa Inhaler -) 2 puff IH Q4H PRN PRN Reason: SHORT OF BREATH/WHEEZING Budesonide/Formoterol Fumarate (Symbicort 80/4.5mcg -) 2 puff IH BID [facility] Last Admin: 10/07/17 21:55 Dose: 2 puff Furosemide (Lasix -) 40 mg PO DAILY [facility] Last Admin: 10/07/17 09:46 Dose: 40 mg Heparin Sodium (Porcine) (Heparin -) 5,000 unit SQ TID [facility] Last Admin: 10/08/17 06:48 Dose: 5,000 unit Metoprolol Succinate (Toprol Xl -) 50 mg PO DAILY [facility] Last Admin: 10/07/17 09:46 Dose: 50 mg Pantoprazole Sodium (Protonix -) 40 mg PO DAILY [facility] Last Admin: 10/07/17 09:46 Dose: 40 mg Prednisone (Deltasone -) 60 mg PO DAILY [facility] Last Admin: 10/07/17 09:45 Dose: 60 mg Triamcinolone Acetonide (Aristocort 0.1% Cream -) 1 applic TP DAILY [facility] Last Admin: 10/07/17 09:46 Dose: 1 applic - Objective Vital Signs: Vital Signs Temperature 98.1 F 10/08/17 06:00 Pulse Rate 94 H 10/08/17 06:00 Respiratory Rate 20 10/08/17 06:00 Blood Pressure 122/67 10/08/17 06:00 O2 Sat by Pulse Oximetry (%) 98 10/07/17 21:00 Constitutional: Yes: Calm Eyes: Yes: WNL HENT: Yes: WNL Neck: Yes: WNL Cardiovascular: Yes: WNL Respiratory: Yes: On Nasal O2, SOB on Exertion Gastrointestinal: Yes: WNL ...Rectal Exam: Yes: Deferred Genitourinary: Yes: WNL Breast(s): Yes: WNL Musculoskeletal: Yes: Muscle Weakness Extremities: Yes: WNL Edema: Yes Edema: LUE: Trace, RUE: Trace, LLE: Trace, RLE: Trace Peripheral Pulses WNL: Yes Peripheral Pulses: Left Radial: 1+, Right Radial: 1+, Left Doralis Pedis: 1+, Right Dorsalis Pedis: 1+, Left Femoral: 1+, Right Femoral: 1+ Integumentary: Yes: WNL Neurological: Yes: WNL Psychiatric: Yes: WNL Labs: CBC, BMP 10/08/17 05:35 10/08/17 05:35 INR, PTT INR 1.04 (0.82-1.09) 09/29/17 06:16 Assessment/Plan nephro bx kid wednesday a must npo after mid on wednesday ? lung bx nodule also ? wednesday gallbladder sx outpt cont all tx as is cxr in am
[2017-10-08] MEDS: PANTOPRAZOLE 40 MG TABLET (FP) PO SCH (09:51)
[2017-10-08] MEDS: FUROSEMIDE 40 MG TABLET (FP) PO SCH (09:51)
[2017-10-08] MEDS: predniSONE 20 MG TABLET (UD) PO SCH (09:51)
[2017-10-08] MEDS: TRIAMCINOLONE ACET 0.1% CREAM 15 GM TUBE TP SCH (09:52)
[2017-10-08] MEDS: BUDESONIDE/FORMETEROL FUMARATE 80/4.5 mcg INHALER IH SCH ×2 (09:52→21:24)
--- NOTE | 2017-10-08 10:58 | PN ---
Progress Note (short form) - Note Progress Note: 67 year old female admitted with SOB, palpitations with minimal exertion arthalgias, myalgias and rash for the past 3 weeks prior to admission. Recent history of Hyponatremia. Patient is out of bed in the chair. Still has difficulty lifting her arms above her shoulders. Denies having mylagias or arthalgia. No chest pain or discomfort, gereralised edema persists. Movement causes increase in heart rate. Echocardiogram revealed normal LV function. Improving renal function and decreasing WBC count. Liver function tests appear to have stabilized but are still abnormal. Active Medications Generic Name Dose Route Start Last Admin Trade Name Freq PRN Reason Stop Dose Admin Acetaminophen 650 mg 10/01/17 11:01 10/03/17 09:17 Tylenol - PO 650 mg Q6H PRN Administration FEVER Albuterol Sulfate 1 amp 10/03/17 13:10 10/08/17 08:17 Ventolin 0.083% Nebulizer Soln - NEB 1 amp Q4H PRN Administration SHORT OF BREATH/WHEEZING Albuterol Sulfate 2 puff 10/04/17 10:27 Ventolin Hfa Inhaler - IH Q4H PRN SHORT OF BREATH/WHEEZING Budesonide/Formoterol Fumarate 2 puff 10/04/17 22:00 10/08/17 09:52 Symbicort 80/4.5mcg - IH 2 puff BID [facility] Administration Furosemide 40 mg 10/06/17 11:30 10/08/17 09:51 Lasix - PO 40 mg DAILY [facility] Administration Heparin Sodium (Porcine) 5,000 unit 10/07/17 14:00 10/08/17 06:48 Heparin - SQ 5,000 unit TID [facility] Administration Metoprolol Succinate 50 mg 10/01/17 16:15 10/08/17 09:51 Toprol Xl - PO 50 mg DAILY [facility] Administration Pantoprazole Sodium 40 mg 10/01/17 16:15 10/08/17 09:51 Protonix - PO 40 mg DAILY [facility] Administration Prednisone 60 mg 10/05/17 10:00 10/08/17 09:51 Deltasone - PO 60 mg DAILY [facility] Administration Triamcinolone Acetonide 1 applic 10/02/17 10:00 10/08/17 09:52 Aristocort 0.1% Cream - TP 1 applic DAILY [facility] Administration 67 year old female in moderate distress no pallor or cyanosis or jaundice. Last Vital Signs Temp Pulse Resp BP Pulse Ox 98.2 F 98 H 20 118/72 97 10/08/17 10:00 10/08/17 10:00 10/08/17 10:00 10/08/17 10:10/08/17 10:00 Intake & Output 10/05/17 10/06/17 10/07/17 10/08/17 23:59 23:59 23:59 23:59 Intake Total 10 110 320 160 Balance 10 110 320 160 Weight 138 lb 4 oz 137 lb 3.2 oz 137 lb 3.2 oz 137 lb 3.2 oz NECK: Supple, no JVD, slightly +ve HJR,carotids equal, no bruits. HEART: PMI in the 5th ICS, no heaves or thrills. S1 and S2 are normal, no murmur , gallops or rubs heard. LUNGS: No crepitations or wheezing heard. Decreased breath sounds at both bases. ABDOMEN: Soft, nontender, no organomegaly or masses felt. EXTREMITIES: 2+ lower extremities, edema of the hands has recurred, no wrist tenderness elicited or increased warmth, no tenderness of the knees. CBC, BMP 10/08/17 05:35 10/08/17 05:35 IMPRESSION: 1. Dyspnea, palpitations, arthritis, myalgias, Severe peripheral generalised polymyopathy, rash and pulmonary nodular lesions, lymphadenopathy and bilateral exudative pleural effusions. Etiology a). Polymyositis, associated with pulmonary infiltrates, pleural effusions and lymphadenopathy. 2. Elevated trops: a). Secondary to Myocarditis b). KRISTEN. c). Infectious process. 3. Generalised edema, partly related to hypoproteinemia. 4. Improving leukocytosis and thrombocytosis, since on steroids. 5. Exudative bilateral pleural effusions ( see pleural fluid report). 6. S/p breast carcinoma. 7. Fatty liver, RECOMMENDATIONS: 1. Progressive PT 2. Awaiting renal biopsy.
--- NOTE | 2017-10-08 11:45 | PN ---
Progress Note, Physician History of Present Illness: PULMONARY ALERT,+AGUILLON,-CP. - Current Medication List Current Medications: Active Medications Acetaminophen (Tylenol -) 650 mg PO Q6H PRN PRN Reason: FEVER Last Admin: 10/03/17 09:17 Dose: 650 mg Albuterol Sulfate (Ventolin 0.083% Nebulizer Soln -) 1 amp NEB Q4H PRN PRN Reason: SHORT OF BREATH/WHEEZING Last Admin: 10/08/17 08:17 Dose: 1 amp Albuterol Sulfate (Ventolin Hfa Inhaler -) 2 puff IH Q4H PRN PRN Reason: SHORT OF BREATH/WHEEZING Budesonide/Formoterol Fumarate (Symbicort 80/4.5mcg -) 2 puff IH BID [facility] Last Admin: 10/08/17 09:52 Dose: 2 puff Furosemide (Lasix -) 40 mg PO DAILY [facility] Last Admin: 10/08/17 09:51 Dose: 40 mg Heparin Sodium (Porcine) (Heparin -) 5,000 unit SQ TID [facility] Last Admin: 10/08/17 06:48 Dose: 5,000 unit Metoprolol Succinate (Toprol Xl -) 50 mg PO DAILY [facility] Last Admin: 10/08/17 09:51 Dose: 50 mg Pantoprazole Sodium (Protonix -) 40 mg PO DAILY [facility] Last Admin: 10/08/17 09:51 Dose: 40 mg Prednisone (Deltasone -) 60 mg PO DAILY [facility] Last Admin: 10/08/17 09:51 Dose: 60 mg Triamcinolone Acetonide (Aristocort 0.1% Cream -) 1 applic TP DAILY [facility] Last Admin: 10/08/17 09:52 Dose: 1 applic - Objective Vital Signs: Vital Signs Temperature 98.2 F 10/08/17 10:00 Pulse Rate 98 H 10/08/17 10:00 Respiratory Rate 20 10/08/17 10:00 Blood Pressure 118/72 10/08/17 10:00 O2 Sat by Pulse Oximetry (%) 97 10/08/17 10:00 Constitutional: Yes: Well Nourished, Calm Eyes: Yes: WNL HENT: Yes: WNL Neck: Yes: WNL Cardiovascular: Yes: Regular Rate and Rhythm, S1, S2 Respiratory: Yes: Diminished Gastrointestinal: Yes: Normal Bowel Sounds, Soft Extremities: Yes: WNL Edema: Yes Labs: CBC, BMP 10/08/17 05:35 10/08/17 05:35 INR, PTT INR 1.04 (0.82-1.09) 09/29/17 06:16 Problem List - Problems (1) Pleural effusion Code(s): J90 - PLEURAL EFFUSION, NOT ELSEWHERE CLASSIFIED (2) Intractable pain Code(s): R52 - PAIN, UNSPECIFIED (3) Myositis Code(s): M60.9 - MYOSITIS, UNSPECIFIED (4) Dyspnea Code(s): R06.00 - DYSPNEA, UNSPECIFIED (5) Asthma Code(s): J45.909 - UNSPECIFIED ASTHMA, UNCOMPLICATED (6) Troponin level elevated Code(s): R74.8 - ABNORMAL LEVELS OF OTHER SERUM ENZYMES Assessment/Plan IMP BILATERAL PLEURAL EFFUSIONS cytology negative BILATERAL PULMONARY NODULES ? INFLAMMATORY,INFECTIOUS,SARCOID,? MALIGNANT DYSPNEA WEAKNESS IMPROVING GENERALIZED JOINT PAINS + TROPONINS MYOPATHY,MYOSITIS ?POLYMYOSITIS + ANTI LIZBETH ANTIBODY ASTHMA PLAN STEROIDS RHEUMATOLOGY O2 ANALGESICS MUSCLE BX PATH PENDING THORACENTESIS ON WEDNESDAY F/U CHEST CT AFTER THORACENTESIS LASIX PER RENAL DR PAULSON Problem List - Problems (1) Pleural effusion Code(s): J90 - PLEURAL EFFUSION, NOT ELSEWHERE CLASSIFIED (2) Intractable pain Code(s): R52 - PAIN, UNSPECIFIED (3) Myositis Code(s): M60.9 - MYOSITIS, UNSPECIFIED (4) Dyspnea Code(s): R06.00 - DYSPNEA, UNSPECIFIED (5) Asthma Code(s): J45.909 - UNSPECIFIED ASTHMA, UNCOMPLICATED (6) Troponin level elevated Code(s): R74.8 - ABNORMAL LEVELS OF OTHER SERUM ENZYMES
--- NOTE | 2017-10-08 12:24 | PN ---
Progress Note, TRANSPORTATION COORDINATOR - Note Progress Note: MBS results reviewed with staff, pt and family.Pt is compliant with swallowing compensatory strategies. Swallowing exercises given for self practice between tx sessions. Selected Entries 10/07/17 10/07/17 10/07/17 02:00 05:04 10:00 Breakfast 75% Lunch Supper Temperature 97.7 F 98.7 F 98.1 F 10/07/17 10/07/17 10/07/17 14:00 18:00 19:26 Breakfast 75% Lunch 50% Supper 75% Temperature 98.0 F 10/07/17 10/08/17 10/08/17 22:00 02:00 06:00 Breakfast Lunch Supper Temperature 98.2 F 98.2 F 98.1 F 10/08/17 10/08/17 10:00 11:06 Breakfast 50% 75% Lunch Supper Temperature 98.2 F Continued swallowing tx upon d/c. Repeat MBS, if changes in swallowing are noted.
--- NOTE | 2017-10-08 15:54 | PN ---
Progress Note, Physician History of Present Illness: Pt seen and examined at bedside. She says that she feels better today. She feels that her edema is starting to improve. - Current Medication List Current Medications: Active Medications Acetaminophen (Tylenol -) 650 mg PO Q6H PRN PRN Reason: FEVER Last Admin: 10/03/17 09:17 Dose: 650 mg Albuterol Sulfate (Ventolin Hfa Inhaler -) 2 puff IH Q4H PRN PRN Reason: SHORT OF BREATH/WHEEZING Budesonide/Formoterol Fumarate (Symbicort 80/4.5mcg -) 2 puff IH BID [facility] Last Admin: 10/08/17 09:52 Dose: 2 puff Furosemide (Lasix -) 40 mg PO DAILY [facility] Last Admin: 10/08/17 09:51 Dose: 40 mg Heparin Sodium (Porcine) (Heparin -) 5,000 unit SQ TID [facility] Last Admin: 10/08/17 15:16 Dose: 5,000 unit Metoprolol Succinate (Toprol Xl -) 50 mg PO DAILY [facility] Last Admin: 10/08/17 09:51 Dose: 50 mg Pantoprazole Sodium (Protonix -) 40 mg PO DAILY [facility] Last Admin: 10/08/17 09:51 Dose: 40 mg Prednisone (Deltasone -) 60 mg PO DAILY [facility] Last Admin: 10/08/17 09:51 Dose: 60 mg Triamcinolone Acetonide (Aristocort 0.1% Cream -) 1 applic TP DAILY [facility] Last Admin: 10/08/17 09:52 Dose: 1 applic - Objective Vital Signs: Vital Signs Temperature 98.9 F 10/08/17 15:00 Pulse Rate 85 10/08/17 15:00 Respiratory Rate 20 10/08/17 15:00 Blood Pressure 146/90 10/08/17 15:00 O2 Sat by Pulse Oximetry (%) 97 10/08/17 10:00 Constitutional: Yes: Calm Eyes: Yes: Conjunctiva Clear HENT: Yes: Atraumatic Neck: Yes: Supple Cardiovascular: Yes: S1, S2 Respiratory: Yes: CTA Bilaterally Gastrointestinal: Yes: Soft Genitourinary: Yes: WNL Musculoskeletal: Yes: Muscle Weakness Edema: Yes Edema: LLE: 2+, RLE: 2+ Neurological: Yes: Oriented Psychiatric: Yes: Oriented Labs: CBC, BMP 10/08/17 05:35 10/08/17 05:35 INR, PTT INR 1.04 (0.82-1.09) 09/29/17 06:16 Problem List - Problems (1) Asthma Code(s): J45.909 - UNSPECIFIED ASTHMA, UNCOMPLICATED (2) Myositis Code(s): M60.9 - MYOSITIS, UNSPECIFIED (3) Pleural effusion Code(s): J90 - PLEURAL EFFUSION, NOT ELSEWHERE CLASSIFIED (4) Chest pain Code(s): R07.9 - CHEST PAIN, UNSPECIFIED Assessment/Plan Current Medications Generic Name Dose Route Start Last Admin Trade Name Freq PRN Reason Stop Dose Admin Acetaminophen 650 mg 10/01/17 11:01 10/03/17 09:17 Tylenol - PO 650 mg Q6H PRN Administration FEVER Albuterol Sulfate 2 puff 10/04/17 10:27 Ventolin Hfa Inhaler - IH Q4H PRN SHORT OF BREATH/WHEEZING Budesonide/Formoterol Fumarate 2 puff 10/04/17 22:00 10/08/17 09:52 Symbicort 80/4.5mcg - IH 2 puff BID [facility] Administration Furosemide 40 mg 10/06/17 11:30 10/08/17 09:51 Lasix - PO 40 mg DAILY [facility] Administration Heparin Sodium (Porcine) 5,000 unit 10/07/17 14:00 10/08/17 15:16 Heparin - SQ 5,000 unit TID [facility] Administration Metoprolol Succinate 50 mg 10/01/17 16:15 10/08/17 09:51 Toprol Xl - PO 50 mg DAILY [facility] Administration Pantoprazole Sodium 40 mg 10/01/17 16:15 10/08/17 09:51 Protonix - PO 40 mg DAILY [facility] Administration Prednisone 60 mg 10/05/17 10:00 10/08/17 09:51 Deltasone - PO 60 mg DAILY [facility] Administration Triamcinolone Acetonide 1 applic 10/02/17 10:00 10/08/17 09:52 Aristocort 0.1% Cream - TP 1 applic DAILY [facility] Administration Impression 1. polymyositis 2. hx breast cancer 3. HTN 4. pleural effusions 5. gerd 6. pos heb b core 7. hypoalbuminemia 8. microscopic hematuria 9. fatty infiltration of liver Plan - repeat labs in am - repeat ua tomorrow - thoracocentesis on Wednesday - serologic workup in progress - follow final path from muscle biopsy - consider GI eval for fatty liver - kidney biopsy once pt off of asa for 7 days - renal workup in progress Dr Maloney
--- NOTE | 2017-10-08 16:50 | PN ---
Progress Note (short form) - Note Progress Note: Patient seen and examined Feels well. Denies any complaints Last Vital Signs Temp Pulse Resp BP Pulse Ox 98.9 F 85 20 146/90 97 10/08/17 15:00 10/08/17 15:00 10/08/17 15:00 10/08/17 15:00 10/08/17 10:00 Cor: RSR, No murmurs, No gallops Lungs: Clear to P&A Abd: Soft, Normal bowel sounds, No organomegaly Ext:RUE edema.b/l lower ext edema Abnormal Lab Results 10/08/17 10/08/17 05:35 05:35 WBC 14.0 H Monocytes % 11.9 H BUN 35 H Calcium 7.4 L AST 131 H ALT 163 H Total Protein 4.7 L Albumin 1.8 L Active Medications Generic Name Dose Route Start Last Admin Trade Name Freq PRN Reason Stop Dose Admin Acetaminophen 650 mg 10/01/17 11:01 10/03/17 09:17 Tylenol - PO 650 mg Q6H PRN Administration FEVER Albuterol Sulfate 2 puff 10/04/17 10:27 Ventolin Hfa Inhaler - IH Q4H PRN SHORT OF BREATH/WHEEZING Budesonide/Formoterol Fumarate 2 puff 10/04/17 22:00 10/08/17 09:52 Symbicort 80/4.5mcg - IH 2 puff BID [facility] Administration Furosemide 40 mg 10/06/17 11:30 10/08/17 09:51 Lasix - PO 40 mg DAILY [facility] Administration Heparin Sodium (Porcine) 5,000 unit 10/07/17 14:00 10/08/17 15:16 Heparin - SQ 5,000 unit TID [facility] Administration Metoprolol Succinate 50 mg 10/01/17 16:15 10/08/17 09:51 Toprol Xl - PO 50 mg DAILY [facility] Administration Pantoprazole Sodium 40 mg 10/01/17 16:15 10/08/17 09:51 Protonix - PO 40 mg DAILY [facility] Administration Prednisone 60 mg 10/05/17 10:00 10/08/17 09:51 Deltasone - PO 60 mg DAILY [facility] Administration Triamcinolone Acetonide 1 applic 10/02/17 10:00 10/08/17 09:52 Aristocort 0.1% Cream - TP 1 applic DAILY [facility] Administration A/P 67y/o female-- Leucocytosis/thrombocytosis mostly reactive from the underlying rheumatological disorder. diff mostly with neutrophils. unremarkable peripheral flow cytometry Pleural effusion: no malignant cells isolated Inflammatory myositis steroids per rehum rheum f/u noted forkidney biopsy
[2017-10-09] MEDS: ALBUTEROL SO4 0.083% IH SOL 2.5 MG/3 ML VIAL.NEB. NEB PRN ×5 (04:09→19:49)
[2017-10-09] MEDS: HEPARIN NA (PORCINE) 5,000 UNITS/ML 1ML VIAL SQ SCH ×3 (05:54→21:05)
[2017-10-09 07:46] LABS: HEMATOCRIT 34.9 % (32.4-45.2); HEMOGLOBIN 11.4 GM/dL (10.7-15.3); MCH 29.7 pg (25.7-33.7); MCHC 32.7 g/dl (32.0-36.0); MEAN CELL VOLUME 91.1 fl (80-96); MEAN PLT VOLUME 7.5 fl (7.5-11.1); PLATELET COUNT 281 K/MM3 (134-434); RBC 3.83 M/mm3 (3.60-5.2); RDW 14.9 % (11.6-15.6); WHITE BLOOD COUNT 13.9 K/mm3 (4.0-10.0)
[2017-10-09 08:07] LABS: ALBUMIN 1.9 g/dl (3.4-5.0); ANION GAP 4 (8-16); BLOOD UREA NITROGEN 31 mg/dL (7-18); CHLORIDE 102 mmol/L (98-107); CO2 31 mmol/L (21-32); GLUCOSE,RANDOM 103 mg/dL (74-106); POTASSIUM 3.9 mmol/L (3.5-5.1); SODIUM 137 mmol/L (136-145)
[2017-10-09 08:10] LABS: ALK PHOS 49 U/L (45-117); BILIRUBIN,TOTAL 0.5 mg/dL (0.2-1.0); CALCIUM 7.4 mg/dL (8.5-10.1); CREATININE 0.7 mg/dL (0.55-1.02); SGOT/AST 134 U/L (15-37); SGPT/ALT 173 U/L (12-78); TOT PROT 4.8 g/dl (6.4-8.2)
--- NOTE | 2017-10-09 08:45 | PN ---
Progress Note, Physician Chief Complaint: (seen for dr baltazar) History of Present Illness: notes that her breathing feels better when getting OOB to bathroom feet swollen--denies this at home no cp, palpitations no cigs - Current Medication List Current Medications: Active Medications Acetaminophen (Tylenol -) 650 mg PO Q6H PRN PRN Reason: FEVER Last Admin: 10/03/17 09:17 Dose: 650 mg Albuterol Sulfate (Ventolin Hfa Inhaler -) 2 puff IH Q4H PRN PRN Reason: SHORT OF BREATH/WHEEZING Albuterol Sulfate (Ventolin 0.083% Nebulizer Soln -) 1 amp NEB Q4H PRN PRN Reason: SHORT OF BREATH/WHEEZING Last Admin: 10/09/17 04:09 Dose: 1 amp Budesonide/Formoterol Fumarate (Symbicort 80/4.5mcg -) [address] [facility] Last Admin: 10/08/17 21:24 Dose: 2 puff Furosemide (Lasix -) [address] [facility] Last Admin: 10/08/17 09:51 Dose: 40 mg Heparin Sodium (Porcine) (Heparin -) 5,[address] [facility] Stop: 10/10/17 23:00 Last Admin: 10/09/17 05:54 Dose: 5,000 unit Metoprolol Succinate (Toprol Xl -) [address] [facility] Last Admin: 10/08/17 09:51 Dose: 50 mg Pantoprazole Sodium (Protonix -) [address] [facility] Last Admin: 10/08/17 09:51 Dose: 40 mg Prednisone (Deltasone -) [address] [facility] Last Admin: 10/08/17 09:51 Dose: 60 mg Triamcinolone Acetonide (Aristocort 0.1% Cream -) [address] [facility] Last Admin: 10/08/17 09:52 Dose: 1 applic - Objective Vital Signs: Vital Signs Temperature 98 F 10/09/17 06:00 Pulse Rate 93 H 10/09/17 06:00 Respiratory Rate 18 10/09/17 06:00 Blood Pressure 122/38 10/09/17 06:00 O2 Sat by Pulse Oximetry (%) 99 10/09/17 06:00 Constitutional: Yes: No Distress, Calm Eyes: No: Sclera Icterus HENT: No: Nasal Congestion Cardiovascular: Yes: Regular Rate and Rhythm, JVD (+ 10cm), S1, S2, Other (PMI non diplaced). No: Gallop, Murmur Respiratory: Yes: CTA Bilaterally, Diminished (at bases). No: Accessory Muscle Use, Rales, Wheezes Gastrointestinal: Yes: Normal Bowel Sounds, Soft. No: Tenderness Musculoskeletal: Yes: Other (No kyphosis) Extremities: No: Cold Edema: Yes (2+ pedal) Integumentary: No: Jaundice Neurological: Yes: Alert, Oriented (x3) Psychiatric: No: Agitated Labs: CBC, BMP 10/09/17 05:43 INR, PTT INR 1.04 (0.82-1.09) 09/29/17 06:16 - ....Imaging EKG: Other (tele: NSR, no VT) Assessment/Plan IMPRESSION: 1. Dyspnea, palpitations, arthritis, myalgias, severe peripheral generalised polymyopathy, rash and pulmonary nodular lesions, lymphadenopathy and bilateral exudative pleural effusions. Etiology a). Polymyositis, associated with pulmonary infiltrates, pleural effusions and lymphadenopathy. 2. Intermediate range trops on admit (0.2-0.3), not diagnostic of ACS in absence of suggestive clinical history-->repeated for trend on 10/09 = 0.7 --? secondary to Mario-pericarditis--has had no ventricular arrhythmias on tele here, LV (and RV) function remains normal on 3 x serial echoes here, no peric effusion No infectious process has been identified to cause troponin leak, no major tachy /hypotension/hypoxia or acute anemia recorded in computer which would cause Type II LA 3. Volume overload (including JVD), hypoalbuminemia 4. Improving leukocytosis and thrombocytosis, since on steroids. 5. Exudative bilateral pleural effusions (see pleural fluid report). 6. S/p breast carcinoma. 7. Elevated AST/LT--? sec to fatty liver 8. Skeletal muscle CPK elevation--? from underlying connective tissue/ inflammatory dz PLAN: 1) plan per rheum 2) for renal biopsy once off ASA x 7d 3) for thoracentesis and f/u chest CT after that, per pulmonary 4) change lasix to iv (40mg iv qd)--trend weights and lytes/renal fxn 5) cont tele monitoring 6) trend troponins 7) remains with no myocardial ischemia sx's. cont metoprolol as doing, ASA on hold for renal biopsy 8) consider risk stratification with MPI once other clinical issues are stabilized--per dr baltazar
[2017-10-09] MEDS: FUROSEMIDE 40 MG TABLET (FP) PO SCH (09:43)
[2017-10-09] MEDS: predniSONE 20 MG TABLET (UD) PO SCH (09:43)
[2017-10-09] MEDS: PANTOPRAZOLE 40 MG TABLET (FP) PO SCH (09:43)
[2017-10-09] MEDS: TRIAMCINOLONE ACET 0.1% CREAM 15 GM TUBE TP SCH (09:44)
[2017-10-09] MEDS: BUDESONIDE/FORMETEROL FUMARATE 80/4.5 mcg INHALER IH SCH ×2 (09:44→21:08)
[2017-10-09 09:54] LABS: PLATELET ESTIMATE ADEQUATE
--- NOTE | 2017-10-09 12:41 | PN ---
Progress Note (short form) - Note Progress Note: PULMONARY Still with shortness of breath, nonproductive cough and wheezing but improving. Last Vital Signs Temp Pulse Resp BP Pulse Ox 98.3 F 92 H 18 130/77 99 10/09/17 10:00 10/09/17 10:00 10/09/17 10:00 10/09/17 10:00 10/09/17 10:00 Gen: NAD at rest Heart: RRR Lung: decreased breath sounds at the bases Abd: soft, nontender Ext: no edema CBC, BMP 10/09/17 05:43 10/09/17 05:43 Active Medications Acetaminophen (Tylenol -) 650 mg PO Q6H PRN PRN Reason: FEVER Last Admin: 10/03/17 09:17 Dose: 650 mg Albuterol Sulfate (Ventolin Hfa Inhaler -) 2 puff IH Q4H PRN PRN Reason: SHORT OF BREATH/WHEEZING Last Admin: 10/09/17 09:45 Dose: 2 inh Albuterol Sulfate (Ventolin 0.083% Nebulizer Soln -) 1 amp NEB Q4H PRN PRN Reason: SHORT OF BREATH/WHEEZING Last Admin: 10/09/17 12:31 Dose: 1 amp Budesonide/Formoterol Fumarate (Symbicort 80/4.5mcg -) 2 puff IH BID [facility] Last Admin: 10/09/17 09:44 Dose: 2 puff Furosemide (Lasix Injection -) 40 mg IVPUSH DAILY [facility] Heparin Sodium (Porcine) (Heparin -) 5,000 unit SQ TID [facility] Stop: 10/10/17 23:00 Last Admin: 10/09/17 05:54 Dose: 5,000 unit Metoprolol Succinate (Toprol Xl -) 50 mg PO DAILY [facility] Last Admin: 10/09/17 09:43 Dose: 50 mg Pantoprazole Sodium (Protonix -) 40 mg PO DAILY [facility] Last Admin: 10/09/17 09:43 Dose: 40 mg Prednisone (Deltasone -) 60 mg PO DAILY [facility] Last Admin: 10/09/17 09:43 Dose: 60 mg Triamcinolone Acetonide (Aristocort 0.1% Cream -) 1 applic TP DAILY [facility] Last Admin: 10/09/17 09:44 Dose: Not Given A/P Polymyositis Pleural Effusions Lung Nodules +Troponins Asthma - continue prednisone same dose - inhaled bronchodilators - f/u biopsy - continue lasix - monitor urine output, creatinine - O2 as needed - DVT prophylaxis
--- NOTE | 2017-10-09 15:05 | PN ---
Progress Note, Physician History of Present Illness: Pt seen and examined at bedside. - Current Medication List Current Medications: Active Medications Acetaminophen (Tylenol -) 650 mg PO Q6H PRN PRN Reason: FEVER Last Admin: 10/03/17 09:17 Dose: 650 mg Albuterol Sulfate (Ventolin Hfa Inhaler -) 2 puff IH Q4H PRN PRN Reason: SHORT OF BREATH/WHEEZING Last Admin: 10/09/17 09:45 Dose: 2 inh Albuterol Sulfate (Ventolin 0.083% Nebulizer Soln -) 1 amp NEB Q4H PRN PRN Reason: SHORT OF BREATH/WHEEZING Last Admin: 10/09/17 12:31 Dose: 1 amp Budesonide/Formoterol Fumarate (Symbicort 80/4.5mcg -) 2 puff IH BID [facility] Last Admin: 10/09/17 09:44 Dose: 2 puff Furosemide (Lasix Injection -) 40 mg IVPUSH DAILY [facility] Heparin Sodium (Porcine) (Heparin -) 5,000 unit SQ TID [facility] Stop: 10/10/17 23:00 Last Admin: 10/09/17 13:21 Dose: 5,000 unit Metoprolol Succinate (Toprol Xl -) 50 mg PO DAILY [facility] Last Admin: 10/09/17 09:43 Dose: 50 mg Pantoprazole Sodium (Protonix -) 40 mg PO DAILY [facility] Last Admin: 10/09/17 09:43 Dose: 40 mg Prednisone (Deltasone -) 60 mg PO DAILY [facility] Last Admin: 10/09/17 09:43 Dose: 60 mg Triamcinolone Acetonide (Aristocort 0.1% Cream -) 1 applic TP DAILY [facility] Last Admin: 10/09/17 09:44 Dose: Not Given - Objective Vital Signs: Vital Signs Temperature 98.3 F 10/09/17 10:00 Pulse Rate 92 H 10/09/17 10:00 Respiratory Rate 18 10/09/17 10:00 Blood Pressure 130/77 10/09/17 10:00 O2 Sat by Pulse Oximetry (%) 99 10/09/17 10:00 Constitutional: Yes: Calm Eyes: Yes: Conjunctiva Clear HENT: Yes: Atraumatic Cardiovascular: Yes: S1, S2 Respiratory: Yes: On Nasal O2 Gastrointestinal: Yes: Soft Genitourinary: Yes: WNL Musculoskeletal: Yes: Muscle Weakness Edema: Yes Edema: LLE: 1+, RLE: 1+ Neurological: Yes: Oriented Psychiatric: Yes: Oriented Labs: CBC, BMP 10/09/17 05:43 10/09/17 05:43 INR, PTT INR 1.04 (0.82-1.09) 09/29/17 06:16 Problem List - Problems (1) Asthma Code(s): J45.909 - UNSPECIFIED ASTHMA, UNCOMPLICATED (2) Myositis Code(s): M60.9 - MYOSITIS, UNSPECIFIED (3) Pleural effusion Code(s): J90 - PLEURAL EFFUSION, NOT ELSEWHERE CLASSIFIED (4) Chest pain Code(s): R07.9 - CHEST PAIN, UNSPECIFIED Assessment/Plan Current Medications Generic Name Dose Route Start Last Admin Trade Name Freq PRN Reason Stop Dose Admin Acetaminophen 650 mg 10/01/17 11:01 10/03/17 09:17 Tylenol - PO 650 mg Q6H PRN Administration FEVER Albuterol Sulfate 2 puff 10/04/17 10:27 10/09/17 09:45 Ventolin Hfa Inhaler - IH 2 inh Q4H PRN Administration SHORT OF BREATH/WHEEZING Albuterol Sulfate 1 amp 10/08/17 17:18 10/09/17 12:31 Ventolin 0.083% Nebulizer Soln - NEB 1 amp Q4H PRN Administration SHORT OF BREATH/WHEEZING Budesonide/Formoterol Fumarate 2 puff 10/04/17 22:00 10/09/17 09:44 Symbicort 80/4.5mcg - IH 2 puff BID [facility] Administration Furosemide 40 mg 10/09/17 12:00 Lasix Injection - IVPUSH DAILY [facility] Heparin Sodium (Porcine) 5,000 unit 10/07/17 14:00 10/09/17 13:21 Heparin - SQ 10/10/17 23:00 5,000 unit TID [facility] Administration Metoprolol Succinate 50 mg 10/01/17 16:15 10/09/17 09:43 Toprol Xl - PO 50 mg DAILY [facility] Administration Pantoprazole Sodium 40 mg 10/01/17 16:15 10/09/17 09:43 Protonix - PO 40 mg DAILY [facility] Administration Prednisone 60 mg 10/05/17 10:00 10/09/17 09:43 Deltasone - PO 60 mg DAILY [facility] Administration Triamcinolone Acetonide 1 applic 10/02/17 10:00 10/09/17 09:44 Aristocort 0.1% Cream - TP Not Given DAILY [facility] Laboratory Tests 09/27/17 10/05/17 10/06/17 06:15 05:05 01:30 Urine Blood 2+ H Double Strand DNA Ab <1 Glomerular Base Memb Ab 3 Impression 1. polymyositis 2. hx breast cancer 3. HTN 4. pleural effusions 5. gerd 6. pos heb b core 7. hypoalbuminemia 8. microscopic hematuria 9. fatty infiltration of liver Plan - cont lasix - neuro eval - thoracocentesis on Wednesday - serologic workup in progress - consider GI eval for fatty liver - kidney biopsy likely Wednesday - renal workup in progress - discussed with pmd Dr Maloney
[2017-10-09] MEDS: FUROSEMIDE 40 MG/4 ML INJECTABLE VIAL IVPUSH SCH (16:15)
--- NOTE | 2017-10-09 16:51 | PN ---
Progress Note, Physician History of Present Illness: pt although getting insiduoisly better etoilogy still unclaer emg pnd neuropnd - Current Medication List Current Medications: Active Medications Acetaminophen (Tylenol -) 650 mg PO Q6H PRN PRN Reason: FEVER Last Admin: 10/03/17 09:17 Dose: 650 mg Albuterol Sulfate (Ventolin Hfa Inhaler -) 2 puff IH Q4H PRN PRN Reason: SHORT OF BREATH/WHEEZING Last Admin: 10/09/17 09:45 Dose: 2 inh Albuterol Sulfate (Ventolin 0.083% Nebulizer Soln -) 1 amp NEB Q4H PRN PRN Reason: SHORT OF BREATH/WHEEZING Last Admin: 10/09/17 12:31 Dose: 1 amp Budesonide/Formoterol Fumarate (Symbicort 80/4.5mcg -) 2 puff IH BID [facility] Last Admin: 10/09/17 09:44 Dose: 2 puff Furosemide (Lasix Injection -) 40 mg IVPUSH DAILY [facility] Last Admin: 10/09/17 16:15 Dose: 40 mg Heparin Sodium (Porcine) (Heparin -) 5,000 unit SQ TID [facility] Stop: 10/10/17 23:00 Last Admin: 10/09/17 13:21 Dose: 5,000 unit Metoprolol Succinate (Toprol Xl -) 50 mg PO DAILY [facility] Last Admin: 10/09/17 09:43 Dose: 50 mg Pantoprazole Sodium (Protonix -) 40 mg PO DAILY [facility] Last Admin: 10/09/17 09:43 Dose: 40 mg Prednisone (Deltasone -) 60 mg PO DAILY [facility] Last Admin: 10/09/17 09:43 Dose: 60 mg Triamcinolone Acetonide (Aristocort 0.1% Cream -) 1 applic TP DAILY [facility] Last Admin: 10/09/17 09:44 Dose: Not Given - Objective Vital Signs: Vital Signs Temperature 98.4 F 10/09/17 14:15 Pulse Rate 97 H 10/09/17 14:15 Respiratory Rate 18 10/09/17 14:15 Blood Pressure 141/72 10/09/17 14:15 O2 Sat by Pulse Oximetry (%) 99 10/09/17 10:00 Constitutional: Yes: No Distress Eyes: Yes: WNL HENT: Yes: WNL Neck: Yes: WNL Cardiovascular: Yes: WNL Respiratory: Yes: On Nasal O2 Gastrointestinal: Yes: WNL ...Rectal Exam: Yes: Deferred Genitourinary: Yes: WNL Breast(s): Yes: WNL Musculoskeletal: Yes: Muscle Weakness Extremities: Yes: WNL Edema: Yes Edema: LUE: 1+, RUE: 1+, LLE: 1+, RLE: 1+ Peripheral Pulses WNL: Yes Peripheral Pulses: Left Radial: 1+, Right Radial: 1+, Left Doralis Pedis: 1+, Right Dorsalis Pedis: 1+, Left Femoral: 1+, Right Femoral: 1+ Integumentary: Yes: WNL Neurological: Yes: WNL, Oriented Psychiatric: Yes: WNL Labs: CBC, BMP 10/09/17 05:43 10/09/17 05:43 INR, PTT INR 1.04 (0.82-1.09) 09/29/17 06:16 Assessment/Plan renal bx??? mary to do thorocentisis wednesday emg neuro in /am
--- NOTE | 2017-10-09 20:21 | PN ---
Progress Note (short form) - Note Progress Note: Patient seen and examined Feels well. Denies any complaints Last Vital Signs Temp Pulse Resp BP Pulse Ox 98.8 F 86 18 153/85 99 10/09/17 17:00 10/09/17 17:00 10/09/17 17:00 10/09/17 17:00 10/09/17 10:00 Cor: RSR, No murmurs, No gallops Lungs: Clear to P&A Abd: Soft, Normal bowel sounds, No organomegaly Ext:RUE edema.b/l lower ext edema Intake & Output 10/09/17 10/09/17 10/10/17 11:59 19:59 03:59 Intake Total 250 Balance 250 Weight 135 lb 6.4 oz Active Medications Generic Name Dose Route Start Last Admin Trade Name Freq PRN Reason Stop Dose Admin Acetaminophen 650 mg 10/01/17 11:01 10/03/17 09:17 Tylenol - PO 650 mg Q6H PRN Administration FEVER Albuterol Sulfate 2 puff 10/04/17 10:27 10/09/17 09:45 Ventolin Hfa Inhaler - IH 2 inh Q4H PRN Administration SHORT OF BREATH/WHEEZING Albuterol Sulfate 1 amp 10/08/17 17:18 10/09/17 16:30 Ventolin 0.083% Nebulizer Soln - NEB 1 amp Q4H PRN Administration SHORT OF BREATH/WHEEZING Budesonide/Formoterol Fumarate 2 puff 10/04/17 22:00 10/09/17 09:44 Symbicort 80/4.5mcg - IH 2 puff BID [facility] Administration Furosemide 40 mg 10/09/17 12:00 10/09/17 16:15 Lasix Injection - IVPUSH 40 mg DAILY [facility] Administration Heparin Sodium (Porcine) 5,000 unit 10/07/17 14:00 10/09/17 13:21 Heparin - SQ 10/10/17 23:00 5,000 unit TID [facility] Administration Metoprolol Succinate 50 mg 10/01/17 16:15 10/09/17 09:43 Toprol Xl - PO 50 mg DAILY [facility] Administration Pantoprazole Sodium 40 mg 10/01/17 16:15 10/09/17 09:43 Protonix - PO 40 mg DAILY [facility] Administration Prednisone 60 mg 10/05/17 10:00 10/09/17 09:43 Deltasone - PO 60 mg DAILY [facility] Administration Triamcinolone Acetonide 1 applic 10/02/17 10:00 10/09/17 09:44 Aristocort 0.1% Cream - TP Not Given DAILY [facility] A/P 67y/o female-- Leucocytosis/thrombocytosis mostly reactive from the underlying rheumatological disorder. diff mostly with neutrophils. unremarkable peripheral flow cytometry Pleural effusion: no malignant cells isolated Inflammatory myositis steroids per rehum rheum f/u noted for kidney biopsy
[2017-10-10] MEDS: ALBUTEROL SO4 0.083% IH SOL 2.5 MG/3 ML VIAL.NEB. NEB PRN ×3 (03:00→16:30)
[2017-10-10 05:47] LABS: URINE APPEARANCE CLEAR; URINE BILIRUBIN NEGATIVE (NEGATIVE); URINE BLOOD 2+ (NEGATIVE); URINE COLOR LTYELLOW; URINE GLUCOSE (UA) NEGATIVE (NEGATIVE); URINE KETONE NEGATIVE (NEGATIVE); URINE LEUK ESTERASE NEGATIVE (NEGATIVE); URINE NITRITE NEGATIVE (NEGATIVE); URINE UROBILINOGEN NEGATIVE mg/dL (0.2-1.0)
[2017-10-10 05:48] LABS: URINE PROTEIN 1+ (NEGATIVE)
[2017-10-10 05:54] LABS: EPI CELLS RARE /HPF (FEW); URINE BACTERIA RARE /hpf (NONE SEEN)
[2017-10-10] MEDS: HEPARIN NA (PORCINE) 5,000 UNITS/ML 1ML VIAL SQ SCH ×3 (06:08→21:43)
[2017-10-10 06:58] LABS: BASO % 0.1 % (0-2.0); EOS % 0.3 % (0-4.5); HEMATOCRIT 34.7 % (32.4-45.2); HEMOGLOBIN 11.5 GM/dL (10.7-15.3); LYMPH % 10.4 % (8-40); MCH 29.9 pg (25.7-33.7); MCHC 33.1 g/dl (32.0-36.0); MEAN CELL VOLUME 90.3 fl (80-96); MEAN PLT VOLUME 7.7 fl (7.5-11.1); MONO % 11.1 % (3.8-10.2); NEUT % 78.1 % (42.8-82.8); PLATELET COUNT 289 K/MM3 (134-434); RBC 3.85 M/mm3 (3.60-5.2); RDW 15.5 % (11.6-15.6); WHITE BLOOD COUNT 14.6 K/mm3 (4.0-10.0)
[2017-10-10 07:49] LABS: CHLORIDE 98 mmol/L (98-107); POTASSIUM 3.3 mmol/L (3.5-5.1); SODIUM 138 mmol/L (136-145)
[2017-10-10 08:10] LABS: ALBUMIN 1.9 g/dl (3.4-5.0); ALK PHOS 51 U/L (45-117); ANION GAP 10 (8-16); BILIRUBIN,TOTAL 0.5 mg/dL (0.2-1.0); BLOOD UREA NITROGEN 28 mg/dL (7-18); CALCIUM 7.5 mg/dL (8.5-10.1); CO2 30 mmol/L (21-32); CREATININE 0.6 mg/dL (0.55-1.02); GLUCOSE,RANDOM 94 mg/dL (74-106); SGOT/AST 139 U/L (15-37); SGPT/ALT 182 U/L (12-78)
--- NOTE | 2017-10-10 08:20 | PN ---
Progress Note, Physician Chief Complaint: sob History of Present Illness: stable sob when oob-->bathroom. no cp, palpitations, syncope - Current Medication List Current Medications: Active Medications Acetaminophen (Tylenol -) 650 mg PO Q6H PRN PRN Reason: FEVER Last Admin: 10/03/17 09:17 Dose: 650 mg Albuterol Sulfate (Ventolin Hfa Inhaler -) 2 puff IH Q4H PRN PRN Reason: SHORT OF BREATH/WHEEZING Last Admin: 10/09/17 09:45 Dose: 2 inh Albuterol Sulfate (Ventolin 0.083% Nebulizer Soln -) 1 amp NEB Q4H PRN PRN Reason: SHORT OF BREATH/WHEEZING Last Admin: 10/10/17 03:00 Dose: 1 amp Budesonide/Formoterol Fumarate (Symbicort 80/4.5mcg -) 2 puff IH BID [facility] Last Admin: 10/09/17 21:08 Dose: 2 puff Furosemide (Lasix Injection -) 40 mg IVPUSH DAILY [facility] Last Admin: 10/09/17 16:15 Dose: 40 mg Heparin Sodium (Porcine) (Heparin -) 5,000 unit SQ TID [facility] Stop: 10/10/17 23:00 Last Admin: 10/10/17 06:08 Dose: 5,000 unit Metoprolol Succinate (Toprol Xl -) 50 mg PO DAILY [facility] Last Admin: 10/09/17 09:43 Dose: 50 mg Pantoprazole Sodium (Protonix -) 40 mg PO DAILY [facility] Last Admin: 10/09/17 09:43 Dose: 40 mg Prednisone (Deltasone -) 60 mg PO DAILY [facility] Last Admin: 10/09/17 09:43 Dose: 60 mg Triamcinolone Acetonide (Aristocort 0.1% Cream -) 1 applic TP DAILY [facility] Last Admin: 10/09/17 09:44 Dose: Not Given - Objective Vital Signs: Vital Signs Temperature 97.6 F 10/10/17 05:38 Pulse Rate 100 H 10/10/17 05:38 Respiratory Rate 18 10/10/17 05:38 Blood Pressure 143/74 10/10/17 05:38 O2 Sat by Pulse Oximetry (%) 100 10/09/17 22:00 Constitutional: Yes: Well Nourished, No Distress, Calm Cardiovascular: Yes: Regular Rate and Rhythm, JVD (8-10 cm), S1, S2. No: Gallop , Murmur Respiratory: Yes: Regular, Diminished (bases). No: Accessory Muscle Use, Rales , Wheezes Extremities: No: Cold Edema: Yes (2+ pedal) Neurological: Yes: Alert, Oriented Psychiatric: No: Agitated Labs: CBC, BMP 10/10/17 05:37 INR, PTT INR 1.04 (0.82-1.09) 09/29/17 06:16 - ....Imaging EKG: Other (tele: NSR) Assessment/Plan IMPRESSION: 1. Dyspnea, palpitations, arthritis, myalgias, severe peripheral generalised polymyopathy, rash and pulmonary nodular lesions, lymphadenopathy and bilateral exudative pleural effusions. Etiology a). Polymyositis, associated with pulmonary infiltrates, pleural effusions and lymphadenopathy. 2. Intermediate (non-diagnostic) range trops on 09/26 DOA x2 (0.2-0.3)-->rpt / serial troponins 0.7-->0.8. Flat trend not c/w ACS -? myopericarditis though she's had no chest pain or ventricular arrhythmias on tele, and LV (and RV) function remain normal on 3 x serial echoes here, no peric effusion No infectious process has been identified to cause troponin leak, no major tachy /hypotension/hypoxia or acute anemia recorded in computer which would cause Type II WI 3. Volume overload (including JVD), hypoalbuminemia 4. Improving leukocytosis and thrombocytosis, since on steroids. 5. Exudative bilateral pleural effusions (see pleural fluid report). 6. S/p breast carcinoma. 7. Elevated AST/LT--? sec to fatty liver 8. Skeletal muscle CPK elevation--? from underlying connective tissue/ inflammatory dz PLAN: 1) plan per rheum 2) for renal biopsy once off ASA x 7d 3) for thoracentesis and f/u chest CT after that, per pulmonary 4) changed lasix to 40 iv yesterday--wt, JVD, edema unchanged, as is her AGUILLON sx' s. labs stable. cont same lasix for now, reassess exam and sx's after thoracentesis 5) cont tele monitoring 6) remains with no myocardial ischemia sx's. cont metoprolol as doing, ASA on hold for renal biopsy 7) consider risk stratification with MPI once other clinical issues are stabilized--per dr baltazar 8) replete K as ordered. rpt BMP later today and replete prn for target K 4.0 or above
[2017-10-10] MEDS ORDERED: PT OWN MED DRAWER 7, Y5N ONE (08:42)
[2017-10-10] MEDS: PANTOPRAZOLE 40 MG TABLET (FP) PO SCH (09:30)
[2017-10-10] MEDS: predniSONE 20 MG TABLET (UD) PO SCH (09:30)
[2017-10-10] MEDS: TRIAMCINOLONE ACET 0.1% CREAM 15 GM TUBE TP SCH (09:31)
[2017-10-10] MEDS: FUROSEMIDE 40 MG/4 ML INJECTABLE VIAL IVPUSH SCH (09:31)
[2017-10-10] MEDS: BUDESONIDE/FORMETEROL FUMARATE 80/4.5 mcg INHALER IH SCH ×2 (09:32→22:05)
--- NOTE | 2017-10-10 10:59 | PN ---
Progress Note, Physician History of Present Illness: pt nl bm vss oob feels muscles stronger able to flex uexs now less sob less chest tightness lung bx ? renal afterwards??? or in am stop heoarin mn npo after mn ? d/c on w vns serves replaced kcl - Current Medication List Current Medications: Active Medications Acetaminophen (Tylenol -) 650 mg PO Q6H PRN PRN Reason: FEVER Last Admin: 10/03/17 09:17 Dose: 650 mg Albuterol Sulfate (Ventolin Hfa Inhaler -) 2 puff IH Q4H PRN PRN Reason: SHORT OF BREATH/WHEEZING Last Admin: 10/09/17 09:45 Dose: 2 inh Albuterol Sulfate (Ventolin 0.083% Nebulizer Soln -) 1 amp NEB Q4H PRN PRN Reason: SHORT OF BREATH/WHEEZING Last Admin: 10/10/17 03:00 Dose: 1 amp Budesonide/Formoterol Fumarate (Symbicort 80/4.5mcg -) 2 puff IH BID [facility] Last Admin: 10/10/17 09:32 Dose: 2 puff Furosemide (Lasix Injection -) 40 mg IVPUSH DAILY [facility] Last Admin: 10/10/17 09:31 Dose: 40 mg Heparin Sodium (Porcine) (Heparin -) 5,000 unit SQ TID [facility] Stop: 10/10/17 23:00 Last Admin: 10/10/17 06:08 Dose: 5,000 unit Metoprolol Succinate (Toprol Xl -) 50 mg PO DAILY [facility] Last Admin: 10/10/17 09:30 Dose: 50 mg Pantoprazole Sodium (Protonix -) 40 mg PO DAILY [facility] Last Admin: 10/10/17 09:30 Dose: 40 mg Prednisone (Deltasone -) 60 mg PO DAILY [facility] Last Admin: 10/10/17 09:30 Dose: 60 mg Triamcinolone Acetonide (Aristocort 0.1% Cream -) 1 applic TP DAILY [facility] Last Admin: 10/10/17 09:31 Dose: 1 applic - Objective Vital Signs: Vital Signs Temperature 98 F 10/10/17 10:00 Pulse Rate 88 10/10/17 10:00 Respiratory Rate 22 10/10/17 10:00 Blood Pressure 131/67 10/10/17 10:00 O2 Sat by Pulse Oximetry (%) 100 02/03/18 22:00 Constitutional: Yes: Well Nourished Eyes: Yes: WNL HENT: Yes: WNL Neck: Yes: WNL Cardiovascular: Yes: WNL Respiratory: Yes: WNL Gastrointestinal: Yes: WNL ...Rectal Exam: Yes: Deferred Genitourinary: Yes: WNL Breast(s): Yes: WNL Musculoskeletal: Yes: Muscle Weakness Extremities: Yes: WNL Edema: Yes Edema: LUE: 2+, RUE: 2+, LLE: 2+, RLE: 2+ Peripheral Pulses WNL: Yes Labs: CBC, BMP 10/10/17 05:37 10/10/17 05:37 INR, PTT INR 1.04 (0.82-1.09) 09/29/17 06:16
[2017-10-10] MEDS ORDERED: KCL 10 MEQ IVPB 10 MEQ/100 ML INFUS.BAG IVPB SCH (11:00)
--- NOTE | 2017-10-10 12:15 | CON.NEURO ---
Consult - History of Present Illness History of Present Illness: 67 year old female with history of right breasr CA in 1990, S/P hysterectomy in 2000, choleliothiasis (scheduled for cholecystectomy) hypertension and hypercholesterolemia (presently not on medication) and asthma, admitted with myalgia, weakness and skin rash. 3 month history of dry mouth. One month ago she developed progressive diffuse myalgia, diffuse arthralgia involving mainly shoulders, hands and knees with difficulty in standing up or walking in the last 2 weeks. Also one month ago she developed an intermittent pruritic skin rash involving trunk and extremities. She denie fever, oral ulcers, Raynaud's phenomenon or dry mouth and reports SOB related to asthma. rheum eval suggested myositis with anti-Estela-1; no findings of ILD. kidney biopsy P elevated LFTS, CK Initial 2,469--> 3067. Preliminary report of muslce biopsy : no significant iflammatory infiltration, mild atrophy (probably of fiber type II) and no necrosis. Histochemistry and EM pending.Laboratory work-up: ant-DNAds, anti-BGM, anti-Sm and anti-LEADER WRITER negative. Complement normal (C3: 116, C4: 22). Urinalysis blood 2+ and no protein. she feels strength has improved with steroids, no swallowing c/o, breathing better but worse with exertion, no numbness, tingling; SCANS : CT ABD /pelvis IMPRESSION: 1. Large bilateral pleural effusions and bibasilar atelectasis. 2. Diffuse fatty infiltration of the liver. 3. No evidence of metastatic disease or acute pathology within the abdomen or pelvis. Please see above discussion. CT CHEST IMPRESSION: 1. No evidence of pulmonary embolism. 2. Bilateral pleural effusions , lower lobe atelectasis and probable mild pulmonary vascular congestion. 3. Stable nodularity since 08/17/2017. There is a developing area of nodular consolidation within the periphery of the right middle lobe. Clinical correlation and follow-up recommended. Please see above discussion. - History Source History Provided By: Patient, Family Member, Medical Record - Past Medical History Cardio/Vascular: Yes: AFIB, HTN Pulmonary: Yes: Asthma Gastrointestinal: Yes: Other (Cholelithiasis.) Hepatobiliary: Yes: Cholelithiasis ...: No Psych: Yes: Anxiety Musculoskeletal: Yes: Other (weak and jt pains) Rheumatology: Yes: Other (? fa test pnd) Dermatology: Yes: Other (chr rash on off) - Past Surgical History Past Surgical History: Yes: Hysterectomy, Mastectomy - Alcohol/Substance Use Hx Alcohol Use: No History of Substance Use: reports: None - Smoking History Smoking history: Never smoked Have you smoked in the past 12 months: No - Social History History of Recent Travel: No Home Medications - Allergies Allergies/Adverse Reactions: Allergies Allergy/AdvReac Type Severity Reaction Status Date / Time No Known Allergies Allergy Verified 09/26/17 12:38 - Home Medications Home Medications: Ambulatory Orders Albuterol Sulfate Inhaler - [Ventolin HFA Inhaler -] 2 inh PO Q4H PRN 08/16/17 Aspirin Coated [Ecotrin -] 81 mg PO DAILY tablet.ec 08/21/17 Azithromycin [Zithromax 250mg Tablets -] 500 mg PO DAILY 4 Days #4 tablet Metoprolol Succinate [Toprol XL -] 50 mg PO DAILY #90 tab.sr.24h 08/21/17 Physical Exam-Neuro Vital Signs: Vital Signs Temperature 98 F 10/10/17 10:00 Pulse Rate 88 10/10/17 10:00 Respiratory Rate 22 10/10/17 10:00 Blood Pressure 131/67 10/10/17 10:00 O2 Sat by Pulse Oximetry (%) 98 10/10/17 09:00 Labs: CBC, BMP 10/10/17 05:37 10/10/17 05:37 INR, PTT INR 1.04 (0.82-1.09) 09/29/17 06:16 - Neuro Exam Level Of Consciousness: Yes: Alert, Oriented to Person (EOMI, no facial, motor NECK FLEX EXT 5/5, Motor UE 4/5 BI/DEltoids and TR 5/5, LE IP 3/5 , hams/quads/ TA 5/5, no sesnory level, prop intact , reflexes symmetric, SWelling edema R >L ) Problem List - Problems (1) Myositis Code(s): M60.9 - MYOSITIS, UNSPECIFIED (2) Pleural effusion Code(s): J90 - PLEURAL EFFUSION, NOT ELSEWHERE CLASSIFIED Assessment/Plan 67 year old female with history of right breasr CA in 1990, S/P hysterectomy in 2000, choleliothiasis (scheduled for cholecystectomy) hypertension and hypercholesterolemia (presently not on medication) and asthma, admitted with myalgia, weakness and skin rash. 3 month history of dry mouth. One month ago she developed progressive diffuse myalgia, diffuse arthralgia involving mainly shoulders, hands and knees with difficulty in standing up or walking in the last 2 weeks. Also one month ago she developed an intermittent pruritic skin rash involving trunk and extremities. She denie fever, oral ulcers, Raynaud's phenomenon or dry mouth and reports SOB related to asthma. rheum eval suggested myositis with anti-Estela-1, though pathology + nonconfirmatory for polymyositis. 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 no evidence of an acute paraneoplastic process, though will need serial FU on this. given HX of breast CA should also get repeat mammogram. check SPEP with immunofixation. Agree with steroids but she has still has significant proximal weakness UE and LE. Recommend IVIG assuming no renal contraindications/-this could be given 3-6 months (monthly, and reduce overall prednsione dose bed bug exterminator), 2gm/kg total dose over 5 days. check Iga level prior. Await official muscle, lung biopsy results. please feel free to call if any questions Dr Contreras [phone]
--- NOTE | 2017-10-10 12:26 | PN ---
Progress Note (short form) - Note Progress Note: PULMONARY Continues to slowly improve. Still some dyspnea with ambulation but better. Last Vital Signs Temp Pulse Resp BP Pulse Ox 98 F 88 22 131/67 98 10/10/17 10:00 10/10/17 10:00 10/10/17 10:00 10/10/17 10:00 10/10/17 09:00 Gen: NAD at rest Heart: RRR Lung: decreased breath sounds at the bases Abd: soft, nontender Ext: no edema CBC, BMP 10/10/17 05:37 10/10/17 05:37 Active Medications Acetaminophen (Tylenol -) 650 mg PO Q6H PRN PRN Reason: FEVER Last Admin: 10/03/17 09:17 Dose: 650 mg Albuterol Sulfate (Ventolin Hfa Inhaler -) 2 puff IH Q4H PRN PRN Reason: SHORT OF BREATH/WHEEZING Last Admin: 10/09/17 09:45 Dose: 2 inh Albuterol Sulfate (Ventolin 0.083% Nebulizer Soln -) 1 amp NEB Q4H PRN PRN Reason: SHORT OF BREATH/WHEEZING Last Admin: 10/10/17 03:00 Dose: 1 amp Budesonide/Formoterol Fumarate (Symbicort 80/4.5mcg -) 2 puff IH BID [facility] Last Admin: 10/10/17 09:32 Dose: 2 puff Furosemide (Lasix Injection -) 40 mg IVPUSH DAILY [facility] Last Admin: 10/10/17 09:31 Dose: 40 mg Heparin Sodium (Porcine) (Heparin -) 5,000 unit SQ TID [facility] Stop: 10/10/17 23:00 Last Admin: 10/10/17 06:08 Dose: 5,000 unit Metoprolol Succinate (Toprol Xl -) 50 mg PO DAILY [facility] Last Admin: 10/10/17 09:30 Dose: 50 mg Pantoprazole Sodium (Protonix -) 40 mg PO DAILY [facility] Last Admin: 10/10/17 09:30 Dose: 40 mg Prednisone (Deltasone -) 60 mg PO DAILY [facility] Last Admin: 10/10/17 09:30 Dose: 60 mg Triamcinolone Acetonide (Aristocort 0.1% Cream -) 1 applic TP DAILY [facility] Last Admin: 10/10/17 09:31 Dose: 1 applic A/P Polymyositis Pleural Effusions Lung Nodules +Troponins Asthma - continue prednisone same dose - inhaled bronchodilators - f/u biopsy - continue lasix - monitor urine output, creatinine - O2 as needed - DVT prophylaxis
[2017-10-10] MEDS ORDERED: SODIUM CHLORIDE 100 ML with POTASSIUM CHLORIDE 10 MEQ IVPB ONE (15:15)
[2017-10-10] MEDS ORDERED: POTASSIUM CHLORIDE 10 MEQ in SODIUM CHLORIDE 100 ML IVPB ONE (15:17)
[2017-10-10 17:19] LABS: ANION GAP 8 (8-16); BLOOD UREA NITROGEN 29 mg/dL (7-18); CALCIUM 7.3 mg/dL (8.5-10.1); CHLORIDE 95 mmol/L (98-107); CO2 32 mmol/L (21-32); CREATININE 0.7 mg/dL (0.55-1.02); GLUCOSE,RANDOM 247 mg/dL (74-106); SODIUM 135 mmol/L (136-145)
[2017-10-10] MEDS ORDERED: FUROSEMIDE 40 MG TABLET (FP) PO ONE ×2 (18:34→22:00)
--- NOTE | 2017-10-10 18:34 | PN ---
Progress Note, Physician History of Present Illness: Pt seen and examined at bedside. She is awake and alert. She feels edema is starting to improve. - Current Medication List Current Medications: Active Medications Acetaminophen (Tylenol -) 650 mg PO Q6H PRN PRN Reason: FEVER Last Admin: 10/03/17 09:17 Dose: 650 mg Albuterol Sulfate (Ventolin Hfa Inhaler -) 2 puff IH Q4H PRN PRN Reason: SHORT OF BREATH/WHEEZING Last Admin: 10/09/17 09:45 Dose: 2 inh Albuterol Sulfate (Ventolin 0.083% Nebulizer Soln -) 1 amp NEB Q4H PRN PRN Reason: SHORT OF BREATH/WHEEZING Last Admin: 10/10/17 16:30 Dose: 1 amp Budesonide/Formoterol Fumarate (Symbicort 80/4.5mcg -) 2 puff IH BID [facility] Last Admin: 10/10/17 09:32 Dose: 2 puff Furosemide (Lasix Injection -) 40 mg IVPUSH DAILY [facility] Last Admin: 10/10/17 09:31 Dose: 40 mg Heparin Sodium (Porcine) (Heparin -) 5,000 unit SQ TID [facility] Stop: 10/10/17 23:00 Last Admin: 10/10/17 13:19 Dose: Not Given Metoprolol Succinate (Toprol Xl -) 50 mg PO DAILY [facility] Last Admin: 10/10/17 09:30 Dose: 50 mg Pantoprazole Sodium (Protonix -) 40 mg PO DAILY [facility] Last Admin: 10/10/17 09:30 Dose: 40 mg Prednisone (Deltasone -) 60 mg PO DAILY [facility] Last Admin: 10/10/17 09:30 Dose: 60 mg Triamcinolone Acetonide (Aristocort 0.1% Cream -) 1 applic TP DAILY [facility] Last Admin: 10/10/17 09:31 Dose: 1 applic - Objective Vital Signs: Vital Signs Temperature 98.2 F 10/10/17 14:54 Pulse Rate 89 10/10/17 14:54 Respiratory Rate 22 10/10/17 14:54 Blood Pressure 151/79 10/10/17 14:54 O2 Sat by Pulse Oximetry (%) 98 10/10/17 09:00 Constitutional: Yes: Calm Eyes: Yes: Conjunctiva Clear HENT: Yes: Atraumatic Neck: Yes: Supple Cardiovascular: Yes: S1, S2 Respiratory: Yes: CTA Bilaterally Gastrointestinal: Yes: Normal Bowel Sounds, Soft Genitourinary: Yes: WNL Musculoskeletal: Yes: Muscle Weakness Edema: Yes Edema: LUE: 1+, RUE: 1+, LLE: 1+, RLE: 1+ Neurological: Yes: Oriented Psychiatric: Yes: Oriented Labs: CBC, BMP 10/10/17 05:37 10/10/17 15:30 INR, PTT INR 1.04 (0.82-1.09) 09/29/17 06:16 Problem List - Problems (1) Asthma Code(s): J45.909 - UNSPECIFIED ASTHMA, UNCOMPLICATED (2) Myositis Code(s): M60.9 - MYOSITIS, UNSPECIFIED (3) Pleural effusion Code(s): J90 - PLEURAL EFFUSION, NOT ELSEWHERE CLASSIFIED (4) Chest pain Code(s): R07.9 - CHEST PAIN, UNSPECIFIED Assessment/Plan Current Medications Generic Name Dose Route Start Last Admin Trade Name Freq PRN Reason Stop Dose Admin Acetaminophen 650 mg 10/01/17 11:01 10/03/17 09:17 Tylenol - PO 650 mg Q6H PRN Administration FEVER Albuterol Sulfate 2 puff 10/04/17 10:27 10/09/17 09:45 Ventolin Hfa Inhaler - IH 2 inh Q4H PRN Administration SHORT OF BREATH/WHEEZING Albuterol Sulfate 1 amp 10/08/17 17:18 10/10/17 16:30 Ventolin 0.083% Nebulizer Soln - NEB 1 amp Q4H PRN Administration SHORT OF BREATH/WHEEZING Budesonide/Formoterol Fumarate 2 puff 10/04/17 22:00 10/10/17 09:32 Symbicort 80/4.5mcg - IH 2 puff BID [facility] Administration Furosemide 40 mg 10/09/17 12:00 10/10/17 09:31 Lasix Injection - IVPUSH 40 mg DAILY [facility] Administration Heparin Sodium (Porcine) 5,000 unit 10/07/17 14:00 10/10/17 13:19 Heparin - SQ 10/10/17 23:00 Not Given TID [facility] Metoprolol Succinate 50 mg 10/01/17 16:15 10/10/17 09:30 Toprol Xl - PO 50 mg DAILY [facility] Administration Pantoprazole Sodium 40 mg 10/01/17 16:15 10/10/17 09:30 Protonix - PO 40 mg DAILY [facility] Administration Prednisone 60 mg 10/05/17 10:00 10/10/17 09:30 Deltasone - PO 60 mg DAILY [facility] Administration Triamcinolone Acetonide 1 applic 10/02/17 10:00 10/10/17 09:31 Aristocort 0.1% Cream - TP 1 applic DAILY [facility] Administration Impression 1. polymyositis 2. hx breast cancer 3. HTN 4. pleural effusions 5. gerd 6. pos heb b core 7. hypoalbuminemia 8. microscopic hematuria 9. fatty infiltration of liver Plan - will give an extra dose of lasix - repeat labs in am - discussed with neuro, will optimize volume status before IVIG - will defer kidney biopsy for the meantime - pulmonary follow up - cont steroids - may need repeat muscle biopsy pending neuro review of emg, possible sample error - will follow - renal workup in progress Dr Maloney
[2017-10-10] MEDS ORDERED: POTASSIUM CHLORIDE TABS 10 MEQ TABLET.ER (FP) PO ONE ×2 (18:35→22:00)
[2017-10-11] MEDS: ALBUTEROL SO4 0.083% IH SOL 2.5 MG/3 ML VIAL.NEB. NEB PRN ×4 (01:04→15:50)
[2017-10-11 07:37] LABS: ALK PHOS 53 U/L (45-117); ANION GAP 8 (8-16); BILIRUBIN,TOTAL 0.5 mg/dL (0.2-1.0); BLOOD UREA NITROGEN 26 mg/dL (7-18); CALCIUM 7.3 mg/dL (8.5-10.1); CHLORIDE 98 mmol/L (98-107); CO2 33 mmol/L (21-32); CREATININE 0.6 mg/dL (0.55-1.02); GLUCOSE,RANDOM 107 mg/dL (74-106); POTASSIUM 3.6 mmol/L (3.5-5.1); SGOT/AST 167 U/L (15-37); SGPT/ALT 197 U/L (12-78); SODIUM 139 mmol/L (136-145); TOT PROT 5.2 g/dl (6.4-8.2)
[2017-10-11] MEDS: FUROSEMIDE 40 MG/4 ML INJECTABLE VIAL IVPUSH SCH ×2 (09:34→10:05)
[2017-10-11] MEDS: predniSONE 20 MG TABLET (UD) PO SCH (09:34)
[2017-10-11] MEDS: PANTOPRAZOLE 40 MG TABLET (FP) PO SCH (09:34)
[2017-10-11] MEDS: TRIAMCINOLONE ACET 0.1% CREAM 15 GM TUBE TP SCH (09:35)
[2017-10-11] MEDS: BUDESONIDE/FORMETEROL FUMARATE 80/4.5 mcg INHALER IH SCH ×2 (09:36→21:29)
--- NOTE | 2017-10-11 09:49 | PN ---
Progress Note (short form) - Note Progress Note: 67 year old female admitted with SOB, palpitations with minimal exertion arthalgias, myalgias, rash, persistent edeam, Pulmonary infiltrates and exudative pleural effusions. Dr. Rosado's f/u appreciated. Less dyspneic, improving muscular strength, no rash. Intermittent SOB, no chest pain or discomfort. Active Medications Generic Name Dose Route Start Last Admin Trade Name Freq PRN Reason Stop Dose Admin Acetaminophen 650 mg 10/01/17 11:01 10/03/17 09:17 Tylenol - PO 650 mg Q6H PRN Administration FEVER Albuterol Sulfate 2 puff 10/04/17 10:27 10/09/17 09:45 Ventolin Hfa Inhaler - IH 2 inh Q4H PRN Administration SHORT OF BREATH/WHEEZING Albuterol Sulfate 1 amp 10/08/17 17:18 10/11/17 05:57 Ventolin 0.083% Nebulizer Soln - NEB 1 amp Q4H PRN Administration SHORT OF BREATH/WHEEZING Budesonide/Formoterol Fumarate 2 puff 10/04/17 22:00 10/11/17 09:36 Symbicort 80/4.5mcg - IH 2 puff BID [facility] Administration Furosemide 40 mg 10/09/17 12:00 10/10/17 09:31 Lasix Injection - IVPUSH 40 mg DAILY [facility] Administration Metoprolol Succinate 50 mg 10/01/17 16:15 10/11/17 09:34 Toprol Xl - PO 50 mg DAILY [facility] Administration Pantoprazole Sodium 40 mg 10/01/17 16:15 10/11/17 09:34 Protonix - PO 40 mg DAILY [facility] Administration Prednisone 60 mg 10/05/17 10:00 10/11/17 09:34 Deltasone - PO 60 mg DAILY [facility] Administration Triamcinolone Acetonide 1 applic 10/02/17 10:00 10/11/17 09:35 Aristocort 0.1% Cream - TP 1 applic DAILY [facility] Administration 67 year old female in moderate distress no pallor or cyanosis or jaundice. Last Vital Signs Temp Pulse Resp BP Pulse Ox 97.1 F L 95 H 20 148/76 97 10/11/17 02:00 10/11/17 05:59 10/11/17 05:59 10/11/17 05:59 10/10/17 21:00 Intake & Output 10/08/17 10/09/17 10/10/17 10/11/17 23:59 23:59 23:59 23:59 Intake Total 1320 710 410 Balance 1320 710 410 Weight 137 lb 3.2 oz 135 lb 6.4 oz 135 lb 6.4 oz 134 lb 6.4 oz NECK: Supple, no JVD, slightly +ve HJR,carotids equal, no bruits. HEART: PMI in the 5th ICS, no heaves or thrills. S1 and S2 are normal, no murmur , gallops or rubs heard. LUNGS: No crepitations or wheezing heard. Decreased breath sounds at both bases. ABDOMEN: Soft, nontender, no organomegaly or masses felt. EXTREMITIES: 2+ lower extremities, edema of the hands has recurred, no wrist tenderness elicited or increased warmth, no tenderness of the knees. CBC, BMP 10/10/17 05:37 10/11/17 06:20 IMPRESSION: 1. Dyspnea, palpitations, arthritis, myalgias, Severe peripheral generalised polymyopathy, rash and pulmonary nodular lesions, lymphadenopathy and bilateral exudative pleural effusions. Etiology a). Polymyositis, associated with pulmonary infiltrates, pleural effusions and lymphadenopathy and elevated Kayden-1 antibody 2. Elevated trops: a). Secondary to Myocarditis b). KRISTEN. c). Infectious process. 3. Generalised edema, partly related to hypoproteinemia. 4. Improving leukocytosis and thrombocytosis, since on steroids. 5. Exudative bilateral pleural effusions ( see pleural fluid report). 6. S/p breast carcinoma. 7. Fatty liver, RECOMMENDATIONS: 1. Progressive PT 2. Awaiting renal biopsy. 3. F/u Xray chest.
--- NOTE | 2017-10-11 11:04 | PN ---
Progress Note, Physician History of Present Illness: PULMONARY ALERT,LESS DYSPNEIC,WEAKNESS IMPROVING - Current Medication List Current Medications: Active Medications Acetaminophen (Tylenol -) 650 mg PO Q6H PRN PRN Reason: FEVER Last Admin: 10/03/17 09:17 Dose: 650 mg Albuterol Sulfate (Ventolin Hfa Inhaler -) 2 puff IH Q4H PRN PRN Reason: SHORT OF BREATH/WHEEZING Last Admin: 10/09/17 09:45 Dose: 2 inh Albuterol Sulfate (Ventolin 0.083% Nebulizer Soln -) 1 amp NEB Q4H PRN PRN Reason: SHORT OF BREATH/WHEEZING Last Admin: 10/11/17 05:57 Dose: 1 amp Budesonide/Formoterol Fumarate (Symbicort 80/4.5mcg -) 2 puff IH BID [facility] Last Admin: 10/11/17 09:36 Dose: 2 puff Furosemide (Lasix Injection -) 40 mg IVPUSH DAILY [facility] Last Admin: 10/11/17 10:05 Dose: 40 mg Metoprolol Succinate (Toprol Xl -) 50 mg PO DAILY [facility] Last Admin: 10/11/17 09:34 Dose: 50 mg Pantoprazole Sodium (Protonix -) 40 mg PO DAILY [facility] Last Admin: 10/11/17 09:34 Dose: 40 mg Prednisone (Deltasone -) 60 mg PO DAILY [facility] Last Admin: 10/11/17 09:34 Dose: 60 mg Triamcinolone Acetonide (Aristocort 0.1% Cream -) 1 applic TP DAILY [facility] Last Admin: 10/11/17 09:35 Dose: 1 applic - Objective Vital Signs: Vital Signs Temperature 97.1 F L 10/11/17 02:00 Pulse Rate 95 H 10/11/17 05:59 Respiratory Rate 20 10/11/17 05:59 Blood Pressure 148/76 10/11/17 05:59 O2 Sat by Pulse Oximetry (%) 97 10/11/17 09:00 Constitutional: Yes: Well Nourished, Calm Eyes: Yes: WNL HENT: Yes: WNL Neck: Yes: WNL Cardiovascular: Yes: Regular Rate and Rhythm, S1, S2 Respiratory: Yes: Diminished, Rales Gastrointestinal: Yes: Normal Bowel Sounds, Soft Extremities: Yes: WNL Edema: Yes (LESS EDEMA BILATERALLY) Labs: CBC, BMP 10/10/17 05:37 10/11/17 06:20 INR, PTT INR 1.04 (0.82-1.09) 09/29/17 06:16 Problem List - Problems (1) Pleural effusion Code(s): J90 - PLEURAL EFFUSION, NOT ELSEWHERE CLASSIFIED (2) Intractable pain Code(s): R52 - PAIN, UNSPECIFIED (3) Myositis Code(s): M60.9 - MYOSITIS, UNSPECIFIED (4) Dyspnea Code(s): R06.00 - DYSPNEA, UNSPECIFIED (5) Asthma Code(s): J45.909 - UNSPECIFIED ASTHMA, UNCOMPLICATED (6) Troponin level elevated Code(s): R74.8 - ABNORMAL LEVELS OF OTHER SERUM ENZYMES Assessment/Plan IMP BILATERAL PLEURAL EFFUSIONS cytology negative BILATERAL PULMONARY NODULES ? INFLAMMATORY,INFECTIOUS,SARCOID,? MALIGNANT DYSPNEA WEAKNESS IMPROVING GENERALIZED JOINT PAINS + TROPONINS MYOPATHY,MYOSITIS ?POLYMYOSITIS + ANTI LIZBTEH ANTIBODY ASTHMA PLAN STEROIDS RHEUMATOLOGY O2 ANALGESICS THORACENTESIS TODAY F/U CHEST CT AFTER THORACENTESIS ZONIA PAULSON Problem List - Problems (1) Pleural effusion Code(s): J90 - PLEURAL EFFUSION, NOT ELSEWHERE CLASSIFIED (2) Intractable pain Code(s): R52 - PAIN, UNSPECIFIED (3) Myositis Code(s): M60.9 - MYOSITIS, UNSPECIFIED (4) Dyspnea Code(s): R06.00 - DYSPNEA, UNSPECIFIED (5) Asthma Code(s): J45.909 - UNSPECIFIED ASTHMA, UNCOMPLICATED (6) Troponin level elevated Code(s): R74.8 - ABNORMAL LEVELS OF OTHER SERUM ENZYMES
[2017-10-11 12:26] LABS: LDH 620 U/L (84-246)
--- NOTE | 2017-10-11 12:36 | EKG ---
Test Reason : Blood Pressure : / mmHG Vent. Rate : 095 BPM Atrial Rate : 095 BPM P-R Int : 116 ms QRS Dur : 084 ms QT Int : 344 ms P-R-T Axes : 012 021 022 degrees QTc Int : 432 ms NORMAL SINUS RHYTHM NORMAL ECG WHEN COMPARED WITH ECG OF 26-SEP-2017 17:01, NO SIGNIFICANT CHANGE WAS FOUND Confirmed by JORGE CÁRDENAS MD ([id number]) on 10/11/2017 12:36:20 PM Referred By: Confirmed By:JORGE CÁRDENAS MD
--- NOTE | 2017-10-11 12:50 | PN ---
Progress Note, RISK ASSESSMENT ANALYST - Note Progress Note: MBS results reviewed with staff, pt and family.Pt is compliant with swallowing compensatory strategies. Swallowing exercises given for self practice between tx sessions. Selected Entries 10/10/17 10/10/17 10/10/17 02:00 05:38 10:00 Breakfast Lunch Supper Temperature Pulse Rate 88 100 H 88 10/10/17 10/10/17 10/10/17 11:32 14:54 14:55 Breakfast 75% Lunch 50% Supper Temperature Pulse Rate 89 10/10/17 10/10/17 10/10/17 17:00 19:05 22:00 Breakfast Lunch Supper 50% Temperature Pulse Rate 85 94 H 10/11/17 02:00 Breakfast Lunch Supper Temperature 97.1 F L Pulse Rate Laboratory Tests 10/07/17 10/08/17 10/09/17 06:15 05:35 05:43 WBC 16.1 H 14.0 H 13.9 H 10/10/17 05:37 WBC 14.6 H Pt reports swallowing much better with modified diet and using compensatory swallowing exercises. Performing swallowing exercises with good carry over. Pt reports Diarrehea after each meal, related to Glucerna? Suggest holding supplements for now?
[2017-10-11 14:34] LABS: PLEURAL FLUID APPEARANCE CLEAR; PLEURAL FLUID COLOR STRAW; PLEURAL FLUID RBC 386 /mm3
[2017-10-11 14:35] LABS: PLEURAL FLUID APPEARANCE CLEAR; PLEURAL FLUID COLOR STRAW; PLEURAL FLUID RBC 329 /mm3
[2017-10-11 15:01] LABS: PLEURAL FLUID LYMPHOCYTES 27 %; PLEURAL FLUID MACROPHAGES 13 %; PLEURAL FLUID MESOTHELIAL 6 %; PLEURAL FLUID NEUTROPHIL 54 %
--- NOTE | 2017-10-11 15:01 | PN ---
Progress Note, Physician History of Present Illness: pao today w some foods vss spoke to neuro iv immunoglobulin tx ? out pt nephro momin not think renal bx needed d/c pt in am no blood work vns services p/t eval for d/c pre post 02 tx ? out pt - Current Medication List Current Medications: Active Medications Acetaminophen (Tylenol -) 650 mg PO Q6H PRN PRN Reason: FEVER Last Admin: 10/03/17 09:17 Dose: 650 mg Albuterol Sulfate (Ventolin Hfa Inhaler -) 2 puff IH Q4H PRN PRN Reason: SHORT OF BREATH/WHEEZING Last Admin: 10/09/17 09:45 Dose: 2 inh Albuterol Sulfate (Ventolin 0.083% Nebulizer Soln -) 1 amp NEB Q4H PRN PRN Reason: SHORT OF BREATH/WHEEZING Last Admin: 10/11/17 11:35 Dose: 1 amp Budesonide/Formoterol Fumarate (Symbicort 80/4.5mcg -) 2 puff IH BID [facility] Last Admin: 10/11/17 09:36 Dose: 2 puff Furosemide (Lasix Injection -) 40 mg IVPUSH DAILY [facility] Last Admin: 10/11/17 10:05 Dose: 40 mg Metoprolol Succinate (Toprol Xl -) 50 mg PO DAILY [facility] Last Admin: 10/11/17 09:34 Dose: 50 mg Pantoprazole Sodium (Protonix -) 40 mg PO DAILY [facility] Last Admin: 10/11/17 09:34 Dose: 40 mg Prednisone (Deltasone -) 60 mg PO DAILY [facility] Last Admin: 10/11/17 09:34 Dose: 60 mg Triamcinolone Acetonide (Aristocort 0.1% Cream -) 1 applic TP DAILY [facility] Last Admin: 10/11/17 09:35 Dose: 1 applic - Objective Vital Signs: Vital Signs Temperature 98.4 F 10/11/17 14:00 Pulse Rate 96 H 10/11/17 14:00 Respiratory Rate 20 10/11/17 14:00 Blood Pressure 153/88 10/11/17 14:00 O2 Sat by Pulse Oximetry (%) 97 10/11/17 09:00 Constitutional: Yes: No Distress Eyes: Yes: WNL HENT: Yes: WNL Neck: Yes: WNL ...Rectal Exam: Yes: Deferred Genitourinary: Yes: WNL, Urethral Discharge Musculoskeletal: Yes: Muscle Weakness Extremities: Yes: WNL Edema: Yes Edema: LUE: 2+, RUE: 2+, LLE: 2+, RLE: 2+ Peripheral Pulses WNL: Yes Peripheral Pulses: Left Radial: 2+, Right Radial: 2+, Left Doralis Pedis: 2+, Right Dorsalis Pedis: 2+, Left Femoral: 2+, Right Femoral: 2+ Integumentary: Yes: WNL Neurological: Yes: WNL Psychiatric: Yes: WNL Labs: CBC, BMP 10/10/17 05:37 10/11/17 06:20 INR, PTT INR 1.04 (0.82-1.09) 09/29/17 06:16 Assessment/Plan d/c in am vns serves
--- NOTE | 2017-10-11 15:22 | PN ---
Progress Note, Physician History of Present Illness: Pt seen and examined at bedside. She feels that her lower extremity edema is improving. - Current Medication List Current Medications: Active Medications Acetaminophen (Tylenol -) 650 mg PO Q6H PRN PRN Reason: FEVER Last Admin: 10/03/17 09:17 Dose: 650 mg Albuterol Sulfate (Ventolin Hfa Inhaler -) 2 puff IH Q4H PRN PRN Reason: SHORT OF BREATH/WHEEZING Last Admin: 10/09/17 09:45 Dose: 2 inh Albuterol Sulfate (Ventolin 0.083% Nebulizer Soln -) 1 amp NEB Q4H PRN PRN Reason: SHORT OF BREATH/WHEEZING Last Admin: 10/11/17 11:35 Dose: 1 amp Budesonide/Formoterol Fumarate (Symbicort 80/4.5mcg -) 2 puff IH BID [facility] Last Admin: 10/11/17 09:36 Dose: 2 puff Furosemide (Lasix Injection -) 40 mg IVPUSH DAILY [facility] Last Admin: 10/11/17 10:05 Dose: 40 mg Metoprolol Succinate (Toprol Xl -) 50 mg PO DAILY [facility] Last Admin: 10/11/17 09:34 Dose: 50 mg Pantoprazole Sodium (Protonix -) 40 mg PO DAILY [facility] Last Admin: 10/11/17 09:34 Dose: 40 mg Prednisone (Deltasone -) 60 mg PO DAILY [facility] Last Admin: 10/11/17 09:34 Dose: 60 mg Triamcinolone Acetonide (Aristocort 0.1% Cream -) 1 applic TP DAILY [facility] Last Admin: 10/11/17 09:35 Dose: 1 applic - Objective Vital Signs: Vital Signs Temperature 98.4 F 10/11/17 14:00 Pulse Rate 96 H 10/11/17 14:00 Respiratory Rate 20 10/11/17 14:00 Blood Pressure 153/88 10/11/17 14:00 O2 Sat by Pulse Oximetry (%) 97 10/11/17 09:00 Constitutional: Yes: Calm Eyes: Yes: Conjunctiva Clear HENT: Yes: Atraumatic Neck: Yes: Supple Cardiovascular: Yes: S1, S2 Respiratory: Yes: On Nasal O2 Gastrointestinal: Yes: Soft Genitourinary: Yes: WNL Musculoskeletal: Yes: Muscle Weakness Edema: Yes Edema: LLE: 1+, RLE: 1+ Neurological: Yes: Oriented Psychiatric: Yes: Oriented Labs: CBC, BMP 10/10/17 05:37 10/11/17 06:20 INR, PTT INR 1.04 (0.82-1.09) 09/29/17 06:16 Problem List - Problems (1) Asthma Code(s): J45.909 - UNSPECIFIED ASTHMA, UNCOMPLICATED (2) Myositis Code(s): M60.9 - MYOSITIS, UNSPECIFIED (3) Pleural effusion Code(s): J90 - PLEURAL EFFUSION, NOT ELSEWHERE CLASSIFIED (4) Chest pain Code(s): R07.9 - CHEST PAIN, UNSPECIFIED Assessment/Plan Current Medications Generic Name Dose Route Start Last Admin Trade Name Freq PRN Reason Stop Dose Admin Acetaminophen 650 mg 10/01/17 11:01 10/03/17 09:17 Tylenol - PO 650 mg Q6H PRN Administration FEVER Albuterol Sulfate 2 puff 10/04/17 10:27 10/09/17 09:45 Ventolin Hfa Inhaler - IH 2 inh Q4H PRN Administration SHORT OF BREATH/WHEEZING Albuterol Sulfate 1 amp 10/08/17 17:18 10/11/17 11:35 Ventolin 0.083% Nebulizer Soln - NEB 1 amp Q4H PRN Administration SHORT OF BREATH/WHEEZING Budesonide/Formoterol Fumarate 2 puff 10/04/17 22:00 10/11/17 09:36 Symbicort 80/4.5mcg - IH 2 puff BID [facility] Administration Furosemide 40 mg 10/09/17 12:00 10/11/17 10:05 Lasix Injection - IVPUSH 40 mg DAILY [facility] Administration Metoprolol Succinate 50 mg 10/01/17 16:15 10/11/17 09:34 Toprol Xl - PO 50 mg DAILY [facility] Administration Pantoprazole Sodium 40 mg 10/01/17 16:15 10/11/17 09:34 Protonix - PO 40 mg DAILY [facility] Administration Prednisone 60 mg 10/05/17 10:00 10/11/17 09:34 Deltasone - PO 60 mg DAILY [facility] Administration Triamcinolone Acetonide 1 applic 10/02/17 10:00 10/11/17 09:35 Aristocort 0.1% Cream - TP 1 applic DAILY [facility] Administration Impression 1. polymyositis 2. hx breast cancer 3. HTN 4. pleural effusions 5. gerd 6. pos heb b core 7. hypoalbuminemia 8. microscopic hematuria 9. fatty infiltration of liver 10. fluid overload Plan - cont with lasix - will defer kidney biopsy for now - renal workup in progress - neuro follow up for IVIG - discussed with pmd - volume status is starting to improve - cont steroids - may need repeat muscle biopsy pending neuro review of emg, possible sample error - will follow Dr Maloney
[2017-10-11 16:12] LABS: GLUCOSE,PLEURAL FLUID 127.677; TOTAL PROTEIN,PLEURAL FLUID 1.863; TOTAL PROTEIN,PLEURAL FLUID 1.871
[2017-10-11 16:23] LABS: PLEURAL FLUID NEUTROPHIL 54 %
[2017-10-11 16:24] LABS: PLEURAL FLUID LYMPHOCYTES 28 %; PLEURAL FLUID MACROPHAGES 4 %; PLEURAL FLUID MONOCYTE 14 %
--- NOTE | 2017-10-11 17:32 | PATH ---
Surgical Pathology Report Patient Name: BEATRICE VILLALOBOS [facility]. Rec. #: [id number] /Age/Gender: 1950 (Age: 67) / F Account: [id number] Location: 4 W TELEMETRY U Taken: 10/01/2017 Received: 10/01/2017 Reported: 10/11/2017 Physicians: Lizandro Loredo M.D. Specimen(s) Received MUSCLE BIOPSY SEND OUT Clinical History Myositis Final Diagnosis MUSCLE, THIGH, RIGHT, BIOPSY: SKELETAL MUSCLE WITH MYOFIBER ATROPHY, MODERATELY SEVERE, MAINLY TYPE 2, NON-SPECIFIC. SEE COMMENT. Comment: This muscle biopsy reveals myofiber atrophy of a moderately severe degree, mainly involving the type 2 fiber population. The pattern of atrophy is non-specific for further characterization of the disease, while type 2 myofiber atrophy in general can be seen in various conditions including disuse of the muscle, steroid myopathy, cachexia and some autoimmune diseases. In this particular muscle, there is no widespread inflammation, although minute perivascular collections of mononuclear cells are present. Immunohistochemically, HLA-A,B,C (MHC class I) is faintly upregulated, which may raise a question of immune-mediated background, in light of the clinical detection of Jo1 antibody. However, morphology alone is insufficient, without other diagnostic/supportive findings, to render an independent diagnosis of myositis/inflammatory myopathy. Electron microscopic examination (EM) for possible endothelial abnormality which can be seen in dermatomyositis and a few other immune-mediated disorders was carried out. Endothelial cells of the intramuscular microvessels in this case are found to be occasionally reactive, but no characteristic ultrastructure, reticulotubular aggregate (RTA), is found in any endothelial cell examined. In general, RTA can be seen in dermatomyositis, SLE, Sjogren syndrome, mixed connective tissue disease, as well as HIV infection. The lack of RTA in this EM examination does not exclude the possibility of those diseases. However, it provides no further delineation of the disease in order to support the clinical suspicion for an autoimmune inflammatory myopathy. This case was sent for consultation and work-up to Dr. Villa Jain from [place], [place], the diagnosis reflects her opinion ([id number]). See [place] report for additional details ([id number]). Electronically Signed Janet Orozco M.D. Gross Description Received fresh labeled "muscle tissue for biopsy right side," is a 1.5 cm in length x 1 cm in diameter red brown, cylindrical portion of muscle. The specimen is divided, placed into saline soaked gauze, formalin and glutaraldehyde. The specimen is sent to [facility] for further studies. DL10/01/2017 saudi10/01/2017
--- NOTE | 2017-10-11 19:34 | PN ---
Progress Note (short form) - Note Progress Note: The patient reports muscle strength is improving. Today she had new thoracocentesis, SOB improved. No skin rash, no arthralgia and no fever. P/E Lungs few diffuse crackles. air entry normal. No active joints. Labs Creatinine 0.6, LDH 620. No change in LFT (AST 167, ALT 197). Urinalysis stable (protein 1+ and blood 2+. Anti Sm/ENTRY LEVEL FINANCIAL ANALYST 24 (N<19). Impression. Etiology of Myositis, lung disease and hematuria nort clear. Based on level of Sm/ENTRY LEVEL FINANCIAL ANALYST the patient does not have MCTD and other serology was negative. I agree with Dr. Contreras ti start IVIg as outpatient. Kidney Bx and Lung Bx should still be considered. I suggest to decrease Prednisone to 40 mg/d. Problem List - Problems (1) Myositis Code(s): M60.9 - MYOSITIS, UNSPECIFIED
[2017-10-11] MEDS: ACETAMINOPHEN 325 MG TABLET (FP) PO PRN (21:33)
[2017-10-12] MEDS ORDERED: HYDROmorphone HCL CARPU-JECT 2 MG/1 ML DISP.SYRIN IVPB ONE (00:30)
[2017-10-12 02:03] LABS: URINE APPEARANCE CLEAR; URINE BILIRUBIN NEGATIVE (NEGATIVE); URINE BLOOD 1+ (NEGATIVE); URINE COLOR YELLOW; URINE GLUCOSE (UA) 1+ (NEGATIVE); URINE KETONE NEGATIVE (NEGATIVE); URINE LEUK ESTERASE NEGATIVE (NEGATIVE); URINE NITRITE NEGATIVE (NEGATIVE); URINE PROTEIN NEGATIVE (NEGATIVE); URINE UROBILINOGEN NEGATIVE mg/dL (0.2-1.0)
[2017-10-12 02:12] LABS: RATIO URIN PROTEIN/URIN CREAT 0.75 MG/DL
[2017-10-12 02:15] LABS: EPI CELLS RARE /HPF (FEW); URINE HYALINE CAST 1 /lpf
[2017-10-12] MEDS: predniSONE 20 MG TABLET (UD) PO SCH (09:27)
[2017-10-12] MEDS: BUDESONIDE/FORMETEROL FUMARATE 80/4.5 mcg INHALER IH SCH (09:28)
[2017-10-12] MEDS: PANTOPRAZOLE 40 MG TABLET (FP) PO SCH (09:28)
[2017-10-12] MEDS: FUROSEMIDE 40 MG/4 ML INJECTABLE VIAL IVPUSH SCH (09:28)
[2017-10-12] MEDS: TRIAMCINOLONE ACET 0.1% CREAM 15 GM TUBE TP SCH (09:29)
[2017-10-12] MEDS ORDERED: predniSONE 20 MG TABLET (UD) PO SCH (10:00)
[2017-10-12] MEDS ORDERED: FUROSEMIDE 20 MG TABLET (FP) PO SCH (10:00)
[2017-10-12 10:19] VITALS: BP 150/82; TEMP 98
[2017-10-12 10:23] VITALS: PULSE 90
--- NOTE | 2017-10-12 10:32 | PN ---
Progress Note (short form) - Note Progress Note: 67 year old female admitted with SOB, palpitations with minimal exertion arthalgias, myalgias, rash, persistent edeam, Pulmonary infiltrates and exudative pleural effusions. Showing progressive improvement, able to lift the arms above the head, able to ambulate with help, no joint pains or myalgias reported. Still has SOB and she feels that it has also improved. Progressive weight loss. Had thoracentesis, and CT chest reveals persistent right sided consolidation. Is being considered for IV gamma globulin therapy. Active Medications Acetaminophen (Tylenol -) 650 mg PO Q6H PRN PRN Reason: FEVER Last Admin: 10/11/17 21:33 Dose: 650 mg Albuterol Sulfate (Ventolin Hfa Inhaler -) 2 puff IH Q4H PRN PRN Reason: SHORT OF BREATH/WHEEZING Last Admin: 10/09/17 09:45 Dose: 2 inh Budesonide/Formoterol Fumarate (Symbicort 80/4.5mcg -) 2 puff IH BID [facility] Last Admin: 10/12/17 09:28 Dose: 2 puff Furosemide (Lasix -) 20 mg PO DAILY [facility] Metoprolol Succinate (Toprol Xl -) 50 mg PO DAILY [facility] Last Admin: 10/12/17 09:28 Dose: 50 mg Pantoprazole Sodium (Protonix -) 40 mg PO DAILY [facility] Last Admin: 10/12/17 09:28 Dose: 40 mg Prednisone (Deltasone -) 40 mg PO DAILY [facility] Triamcinolone Acetonide (Aristocort 0.1% Cream -) 1 applic TP DAILY [facility] Last Admin: 10/12/17 09:29 Dose: 1 applic 67 year old female in moderate distress no pallor or cyanosis or jaundice. Last Vital Signs Temp Pulse Resp BP Pulse Ox 98 F 90 20 150/82 94 L 10/12/17 10:00 10/12/17 10:19 10/12/17 10:00 10/12/17 10:00 10/12/17 10:19 Intake & Output 10/09/17 10/10/17 10/11/17 10/12/17 23:59 23:59 23:59 23:59 Intake Total 710 410 240 Balance 710 410 240 Weight 135 lb 6.4 oz 135 lb 6.4 oz 134 lb 6.4 oz 129 lb 9 oz NECK: Supple, no JVD, slightly +ve HJR,carotids equal, no bruits. HEART: PMI in the 5th ICS, no heaves or thrills. S1 and S2 are normal, no murmur , gallops or rubs heard. LUNGS: No crepitations or wheezing heard. Decreased breath sounds at both bases. ABDOMEN: Soft, nontender, no organomegaly or masses felt. EXTREMITIES: 1+ right lower extremity edema, 2+ left ankle edema. No edema of the hands. No calf tenderness. CBC, BMP 10/10/17 05:37 10/11/17 06:20 IMPRESSION: 1. Dyspnea, palpitations, arthritis, myalgias, Severe peripheral generalised polymyopathy, rash and pulmonary nodular lesions, lymphadenopathy and bilateral exudative pleural effusions. Etiology: a). Polymyositis, associated with pulmonary infiltrates, pleural effusions and lymphadenopathy and elevated Kayden-1 antibody, improving. 2. Elevated trops: a). possibily related Myocarditis. b). Infectious process. c). KRISTEN. 3. Generalised edema, partly related to hypoproteinemia. 4. Improving leukocytosis and thrombocytosis, since on steroids. 5. Exudative bilateral pleural effusions ( see pleural fluid report). 6. S/p breast carcinoma. 7. Fatty liver, RECOMMENDATIONS: 1. Progressive PT 2. Discharge is being planned. 3. If pulmonary infiltrates persist consider lung biopsy.
--- NOTE | 2017-10-12 10:53 | DS ---
Physical Examination Vital Signs: Vital Signs Temperature 98 F 10/12/17 10:00 Pulse Rate 90 10/12/17 10:19 Respiratory Rate 20 10/12/17 10:00 Blood Pressure 150/82 10/12/17 10:00 O2 Sat by Pulse Oximetry (%) 94 L 10/12/17 10:19 Constitutional: Yes: No Distress Eyes: Yes: WNL HENT: Yes: WNL Neck: Yes: WNL Cardiovascular: Yes: WNL Respiratory: Yes: WNL Gastrointestinal: Yes: WNL ...Rectal Exam: Yes: Deferred Renal/: Yes: WNL Breast(s): Yes: WNL Musculoskeletal: Yes: Muscle Pain Extremities: Yes: WNL Edema: Yes Edema: LUE: 2+, RUE: 2+, LLE: 2+, RLE: 2+ Peripheral Pulses WNL: Yes Peripheral Pulses: Left Radial: 1+, Right Radial: 1+, Left Doralis Pedis: 1+, Right Dorsalis Pedis: 1+, Left Femoral: 1+ Integumentary: Yes: WNL Neurological: Yes: WNL, Unresponsive (weak) ...Motor Strength: WNL Psychiatric: Yes: WNL Labs: CBC, BMP 10/10/17 05:37 10/11/17 06:20 Discharge Summary Reason For Visit: INTRACTABLE PAIN Current Active Problems Asthma (Acute) Breast cancer (Acute) Intractable pain (Acute) Leucocytosis (Acute) Myositis (Acute) Pleural effusion (Acute) Troponin level elevated (Acute) Condition: Guarded - Instructions Diet, Activity, Other Instructions: diet as tolerated appt w hi wednesday 1200noon o2 tx as needed w vns pulce oxi ambulaTE MUCH As can appt w pulmunary soon appt w renal soon Referrals: Darell Loredo MD [Primary Care Provider] - Disposition: VNS/HOME HEALTH CARE - Home Medications Comprehensive Discharge Medication List: Ambulatory Orders Aspirin Coated [Ecotrin -] 81 mg PO DAILY tablet.ec 08/21/17 Acetaminophen [Tylenol .Regular Strength -] 650 mg PO Q6H PRN #60 tablet Albuterol Sulfate Inhaler - [Ventolin HFA Inhaler -] 2 puff IH Q4H PRN #1 inhaler 10/12/17 Budesonide/Formeterol Fumarate [SYMBICORT 80/4.5mcg -] 2 puff IH BID #1 inhaler 10/12/17 Furosemide [Lasix -] 20 mg PO DAILY #90 tablet 10/12/17 Metoprolol Succinate [Toprol XL -] 50 mg PO DAILY 90 Days tab.sr.24h 10/12/17 Pantoprazole Sodium [Protonix -] 40 mg PO DAILY #90 tablet.ec 10/12/17 Prednisone [Deltasone -] 40 mg PO DAILY #90 tablet 10/12/17 Triamcinolone 0.1% Cream [Aristocort 0.1% Cream -] 1 applic TP DAILY #1 applic 10/12/17
--- NOTE | 2017-10-12 12:29 | PN ---
Progress Note (short form) - Note Progress Note: PULMONARY Continues to slowly improve. Still some dyspnea with ambulation but better with oxygen. Last Vital Signs Temp Pulse Resp BP Pulse Ox 98 F 90 20 150/82 94 L 10/12/17 10:00 10/12/17 10:19 10/12/17 10:00 10/12/17 10:00 10/12/17 10:19 Gen: NAD at rest Heart: RRR Lung: decreased breath sounds at the bases Abd: soft, nontender Ext: no edema CBC, BMP 10/10/17 05:37 10/11/17 06:20 Active Medications Acetaminophen (Tylenol -) 650 mg PO Q6H PRN PRN Reason: FEVER Last Admin: 10/11/17 21:33 Dose: 650 mg Albuterol Sulfate (Ventolin Hfa Inhaler -) 2 puff IH Q4H PRN PRN Reason: SHORT OF BREATH/WHEEZING Last Admin: 10/09/17 09:45 Dose: 2 inh Budesonide/Formoterol Fumarate (Symbicort 80/4.5mcg -) 2 puff IH BID [facility] Last Admin: 10/12/17 09:28 Dose: 2 puff Furosemide (Lasix -) 20 mg PO DAILY [facility] Last Admin: 10/12/17 10:53 Dose: Not Given Metoprolol Succinate (Toprol Xl -) 50 mg PO DAILY [facility] Last Admin: 10/12/17 09:28 Dose: 50 mg Pantoprazole Sodium (Protonix -) 40 mg PO DAILY [facility] Last Admin: 10/12/17 09:28 Dose: 40 mg Prednisone (Deltasone -) 40 mg PO DAILY [facility] Last Admin: 10/12/17 10:53 Dose: Not Given Triamcinolone Acetonide (Aristocort 0.1% Cream -) 1 applic TP DAILY [facility] Last Admin: 10/12/17 09:29 Dose: 1 applic A/P Polymyositis Pleural Effusions Lung Nodules +Troponins Asthma - continue prednisone - inhaled bronchodilators - continue lasix - monitor urine output, creatinine - home O2 - DVT prophylaxis - outpt f/u and PFTs
--- NOTE | 2017-10-13 15:49 | PATH ---
Cytology Non-Gynecological Report Patient Name: BEATRICE VILLALOBOS [facility]. Rec. #: [id number] /Age/Gender: 1950 (Age: 67) / F Account: [id number] Location: 4 TELEMETRY U Taken: 10/11/2017 Received: 10/12/2017 Reported: 10/13/2017 Physicians: Rosibel Velazquez M.D. Specimen(s) Received RIGHT PLEURAL FLUID Clinical History Pleural effusion Final Diagnosis PLEURAL FLUID, RIGHT, FOR CYTOLOGY: SATISFACTORY FOR EVALUATION. NO MALIGNANT CELLS IDENTIFIED. MESOTHELIAL CELLS PRESENT. Comment: See concurrent material [id number]. Electronically Signed Janet Orozco M.D. Gross Description Approximately 50 cc of yellow fluid received fixed in 50% alcohol. Two cytofunnels and one cellblock prepared.
--- NOTE | 2017-10-13 16:00 | PATH ---
Cytology Non-Gynecological Report Patient Name: BEATRICE VILLALOBOS [facility]. Rec. #: [id number] /Age/Gender: 1950 (Age: 67) / F Account: [id number] Location: 4 W TELEMETRY U Taken: 10/12/2017 Received: 10/12/2017 Reported: 10/13/2017 Physicians: Franki Briceno M.D. Specimen(s) Received A: LEFT PLEURAL FLUID B: LEFT PLEURAL FLUID Clinical History The Pleural effusion Final Diagnosis A & B. PLEURAL FLUID, LEFT, FOR CYTOLOGY: SATISFACTORY FOR EVALUATION. NO MALIGNANT CELLS IDENTIFIED. MESOTHELIAL CELLS, SCATTERED NEUTROPHILS AND FEW LYMPHOCYTES PRESENT. COMMENT: SEE CONCURRENT MATERIAL [id number]. Electronically Signed Janet Orozco M.D. Gross Description A. Approximately 50 cc of yellow fluid received fixed in 50% alcohol. Two cytofunnels and one cellblock prepared. B. Approximately 8000 cc of yellow fluid received fresh. Two cytofunnels and one cellblock prepared.
[2017-11-12 16:29] LABS: ATYPICAL pANCA <1:20 titer (Neg:<1:20); C-ANCA <1:20 titer (Neg:<1:20); P-ANCA <1:20 titer (Neg:<1:20); PROTEINASE-3 ANTIBODY <3.5 U/mL (0.0-3.5)
== END 2017-10-12 13:41 | disposition home health service (06) | DRG 501 ==
LOC: JER 12:19 → JERBED 15:46 → J8W 17:52 → OBSVTOIN 18:22 → J4W 20:32 → JERBED 09-28 13:54 → J4W 09-28 13:57
PROVIDERS: ADMIT Family Medicine; ATTEND Family Medicine
PROC: 0W993ZX Drainage of Right Pleural Cavity, Percutaneous Approach, Diagnostic (ICD-10-PCS; principal; 2017-09-29)
PROC: 0KBQ0ZX Excision of Right Upper Leg Muscle, Open Approach, Diagnostic (ICD-10-PCS; 2017-10-01)
PROC: 0W9B3ZX Drainage of Left Pleural Cavity, Percutaneous Approach, Diagnostic (ICD-10-PCS; 2017-10-12)
DX: M33.22 Polymyositis with myopathy (principal); J98.11 Atelectasis; J90 Pleural effusion, not elsewhere classified; N17.9 Acute kidney failure, unspecified; B19.10 Unspecified viral hepatitis B without hepatic coma; I48.91 Unspecified atrial fibrillation; I10 Essential (primary) hypertension; J45.909 Unspecified asthma, uncomplicated; R00.0 Tachycardia, unspecified; F41.8 Other specified anxiety disorders; R91.8 Other nonspecific abnormal finding of lung field; R74.8 Abnormal levels of other serum enzymes; R06.00 Dyspnea, unspecified; L30.8 Other specified dermatitis; D86.9 Sarcoidosis, unspecified; D72.828 Other elevated white blood cell count; I51.4 Myocarditis, unspecified; R00.2 Palpitations; R59.1 Generalized enlarged lymph nodes; R60.0 Localized edema; R13.10 Dysphagia, unspecified; D47.3 Essential (hemorrhagic) thrombocythemia; K76.0 Fatty (change of) liver, not elsewhere classified; E87.5 Hyperkalemia; E88.09 Other disorders of plasma-protein metabolism, not elsewhere classified; E77.8 Other disorders of glycoprotein metabolism; K21.9 Gastro-esophageal reflux disease without esophagitis; R07.89 Other chest pain; Z85.3 Personal history of malignant neoplasm of breast
CPT/HCPCS: 36415; 36600; 71045-TC-FY; 71046-TC-FY; 71250-TC; 71260-TC; 74177-TC; 74230-TC-FY; 76098-TC-FY; 76700-TC; 76775-TC; 76856-TC; 76942; 78306-TC; 80048; 80053; 80061; 80074; 80076; 81003; 81015; 82042; 82085; 82150; 82172; 82247; 82272; 82438; 82465; 82550; 82553; 82570; 82607; 82747; 82784; 82803; 82945; 82947; 82977; 83010; 83516; 83520; 83615; 83625; 83690; 83721; 83874; 83880; 83883; 84155; 84156; 84157; 84165; 84311; 84450; 84460; 84478; 84484; 85014; 85025; 85027; 85044; 85379; 85610; 85651; 85730; 86038; 86140; 86160; 86162; 86200; 86225; 86235; 86256; 86431; 86593; 86618; 86707; 86790; 87040; 87070; 87075; 87102; 87116; 87186; 87205; 87206; 87210; 87350; 87389; 87517; 87804; 87899; 88108; 88305-TC; 89051; 92611-GN; 93005; 93010; 93306-TC; 93970-TC; 94640; 94760; 94761; 95860-TC; 97116-GP; 97161-GP; 99284-25; A9503; G0378; J1644; J7030

== ENCOUNTER 2018-02-23 05:14 | Day surgery (SDC) | payer OTHER ==
--- NOTE | 2018-02-01 10:56 | HP ---
DATE OF ADMISSION: 02/23/2018 DATE OF DICTATION: 12/30/2017 PHYSICIAN COMMENT: The patient's previous dictation was completed on September 07, 2017, and transcribed on that same day. Please include a copy of the original history and physical, as that is the body of the substance to this addendum. ADDENDUM Since the patient's previous dictation, she has remained under the care of both the medical and pulmonary services, with Dr. Darell Loredo and Dr. Ata Booth. Apparently the patient was found to have polymyositis with pulmonary findings secondary to such. She has been managed by the medical and pulmonary services and has had near-complete resolution of her pulmonary issues. Patient now asked by the medical service to return to schedule her elective cholecystectomy for her symptomatic cholelithiasis. On questionable, the patient states she is having intermittent bouts of discomfort in the right upper quadrant. The patient's past medical history remains significant for hypertension, hypercholesterolemia, diabetes, and her arthritic condition. Also her history of breast cancer dating back to the . Past surgical history is significant for mastectomy; as well as pelvic surgery for benign ovarian issues, done remotely. ALLERGIES: None known. CURRENT MEDICATIONS: Baby aspirin, losartan. SOCIAL HISTORY: Negative tobacco. Negative alcohol. FAMILY HISTORY: Father: Heart disease. Mother: Pancreatic cancer. REVIEW OF SYSTEMS: Otherwise nil. Prior shortness of breath has since resolved. PHYSICAL EXAMINATION: Abdomen soft, nontender, with no palpable findings. IMPRESSION: Chronic cholecystitis/cholelithiasis, resolved pulmonary process. PLAN: Patient did complete an ultrasound of her gallbladder, as I had previously requested, prior to this intervention. Nonetheless, based on prior studies, she does have underlying cholecystitis and cholelithiasis. Will proceed with laparoscopic cholecystectomy, possible open cholecystectomy. Indications, alternatives, possible complications of the intended procedure reviewed. Consent obtained. Patient to see Dr. Darell Loredo preoperatively for general medical evaluation. Please see those notes for those medical details. GRACE GORDON M.D. SADE/[id number] cc: Darell Loredo MD
--- NOTE | 2018-02-22 14:57 | HP ---
DATE OF ADMISSION: 02/23/2018 HISTORY: A 67-year-old woman admitted to the hospital for laparoscopic cholecystectomy/possible open cholecystectomy. Patient with intermittent bouts of right upper quadrant pain radiating to her back over the course of the past year. Fatty-food intolerance by history. CT evaluation completed in August 2017 demonstrated gallbladder. Patient also had pneumonic process which has been dealt with by the medical service over the past several months. PAST MEDICAL HISTORY: Significant for hypertension, hypercholesterolemia, diabetes, history of right breast cancer. PAST SURGICAL HISTORY: Significant for right mastectomy in 1990. She also had pelvic surgery for benign ovarian problems. ALLERGIES: None known. CURRENT MEDICATIONS: Baby aspirin, losartan. SOCIAL HISTORY: Negative tobacco. Negative alcohol. FAMILY HISTORY: Father: History of heart disease. Mother: History of pancreatic cancer. Siblings: One with history of cancer/details not available. REVIEW OF SYSTEMS: Otherwise nil. Patient had had recent shortness of breath which has been worked up and evaluated by the medial and pulmonary services. That has since resolved. PHYSICAL EXAMINATION: Abdomen: Soft, nontender with no palpable findings. Low transverse scar noted consistent with prior pelvic surgery. IMPRESSION: Chronic cholecystitis/cholelithiasis. PLAN: Laparoscopic cholecystectomy/possible open cholecystectomy. Indications, alternatives, possible complications reviewed. Consent obtained. Patient was seen preoperatively by Dr. Darell Loredo. Please refer to his notes for those medical details. GRACE GORDON M.D. SADE/[id number]
[2018-02-23 06:21] VITALS: BMI 20.2
[2018-02-23] MEDS ORDERED: ERTAPENEM SODIUM 1 GM VIAL ONE (06:43)
[2018-02-23] MEDS ORDERED: ERTAPENEM SODIUM 1 GM VIAL IVPB ONE (08:22)
[2018-02-23] MEDS ORDERED: ALBUTEROL SO4 18 GM HFA INHALER IH PRN (08:51)
[2018-02-23] MEDS ORDERED: morphine SULFATE 4 MG/ML VIAL IVPB PRN (08:52)
[2018-02-23] MEDS ORDERED: oxyCODONE HCL 5 MG TABLET PO PRN (08:52)
[2018-02-23] MEDS ORDERED: ONDANSETRON 4 MG/2 ML VIAL IVPUSH PRN ×2 (08:52→09:08)
[2018-02-23] MEDS ORDERED: ACETAMINOPHEN 325 MG TABLET (FP) PO PRN (08:52)
[2018-02-23] MEDS: METOPROLOL TARTRATE 5 MG/5 ML VIAL IVPUSH ONE ×2 (09:15→15:04)
[2018-02-23] MEDS ORDERED: LACTATED RINGERS SOLUTION 1,000 ML IV SCH (09:15)
[2018-02-23] MEDS ORDERED: PATIENT'S OWN MEDICATION (NON-FORMULARY) (Meloxicam [Meloxicam] 7.5 MG) PO SCH (10:00)
[2018-02-23] MEDS: predniSONE 20 MG TABLET (UD) PO SCH (10:07)
[2018-02-23] MEDS: azaTHIOprine 50 MG TABLET PO SCH ×2 (10:08→22:25)
[2018-02-23] MEDS: metFORMIN HCL 500 MG TABLET (FP) PO SCH (10:08)
--- NOTE | 2018-02-23 10:25 | OP ---
DATE OF OPERATION: 02/23/2018 PREOPERATIVE DIAGNOSIS: Chronic cholecystitis/cholelithiasis. POSTOPERATIVE DIAGNOSIS: Chronic cholecystitis/cholelithiasis. PROCEDURE: Laparoscopic cholecystectomy. OPERATING SURGEON: Viktor Rolle MD CAMPUS RECRUITING COORDINATOR: Ata Roque DO ANESTHESIA: Paul Welsh MD (general) HISTORY: This is a 67-year-old woman who presents for laparoscopic removal of her gallbladder as management of symptomatic cholelithiasis/chronic cholecystitis. Indications, alternatives and possible complications reviewed. Consent obtained. PROCEDURE: With the patient in the supine position. and after general anesthesia, the abdomen was prepped and draped in a sterile fashion using chlorhexidine. An infraumbilical transverse incision was made through which a Veress needle was placed into the abdominal cavity. The abdominal cavity was insufflated to an adequate pressure and volume using CO2 gas. The Veress needle was removed. An 11-mm trocar port placed through the infraumbilical wound. The camera lens was passed through this port and the intraabdominal cavity visualized. Under direct vision two 5-mm right anterolateral ports were placed through which clamps were passed to aid in the retraction and dissection. An 11-mm port was placed in the epigastrium through which the operating instruments were passed. First a limited exploration of the abdomen revealed several adhesions about the gallbladder. The gallbladder appeared to be thin walled. No acute inflammation. The adhesions were taken down under direct vision, exposing the entire gallbladder and hepatoduodenal ligament. The peritoneum of the hepatoduodenal ligament was incised. The cystic duct was identified. Cystic duct/bile duct junction noted. The cystic duct was clipped proximally and distally and divided. The adjacent artery was managed similarly. The gallbladder was then removed from the gallbladder bed, lysing its attachment to the liver. Prior to complete disconnection the bed was inspected and no bleeding identified. The gallbladder was freed from the liver entirely. All ports were removed under direct vision. No bleeding identified at the port sites. The gallbladder was then delivered through the umbilical port uneventfully. The pneumoperitoneum was allowed to escape. The fascia at the umbilicus was approximated using interrupted No. 1 Vicryl sutures. All skin wounds were closed using subcuticular 4-0 Biosyn sutures. The needle and instrument counts were correct. Estimated blood loss: Minimal. Specimen: Gallbladder. Drains: None. Patient tolerated the procedure. The procedure was terminated. Rosibel MADISON/[id number] cc: Darell Loredo MD MTDD
[2018-02-23] MEDS: SODIUM CHLORIDE 1,000 ML IV SCH ×2 (11:45→21:04)
[2018-02-23] MEDS: PANTOPRAZOLE SODIUM 40 MG VIAL IVPUSH SCH (17:11)
[2018-02-23] MEDS ORDERED: PT OWN MED DRAWER 7, Y5N ONE (22:01)
[2018-02-24] MEDS ORDERED: ASPIRIN COATED 81 MG TABLET.EC PO SCH (10:00)
[2018-02-24] MEDS ORDERED: ENOXAPARIN NA (PORCINE) 40 MG/0.4 ML DISP.SYRIN SQ SCH (10:00)
[2018-02-24] MEDS ORDERED: FENOFIBRIC ACID 135 MG CAP PO SCH (10:00)
[2018-02-24] MEDS: PANTOPRAZOLE SODIUM 40 MG VIAL IVPUSH SCH (10:01)
[2018-02-24] MEDS: metFORMIN HCL 500 MG TABLET (FP) PO SCH (10:01)
[2018-02-24] MEDS: predniSONE 20 MG TABLET (UD) PO SCH (10:01)
[2018-02-24] MEDS: azaTHIOprine 50 MG TABLET PO SCH (10:04)
[2018-02-24 12:22] VITALS: BP 125/65; PULSE 94; TEMP 99
--- NOTE | 2018-02-24 15:08 | PATH ---
Surgical Pathology Report Patient Name: BEATRICE VILLALOBOS [facility]. Rec. #: [id number] /Age/Gender: 1950 (Age: 67) / F Account: [id number] Location: AMBULATORY SURG Taken: 02/23/2018 Received: 02/23/2018 Reported: 02/24/2018 Physicians: Viktor Rolle M.D. Specimen(s) Received GALLBLADDER Clinical History Calculus of gallbladder Final Diagnosis GALLBLADDER, CHOLECYSTECTOMY: CHRONIC CHOLECYSTITIS AND CHOLELITHIASIS. Electronically Signed Cleo Hugo M.D. Gross Description Received in formalin, labeled "gallbladder," is a 7.0 x 2.7 x 2.2 cm. gallbladder with a 0.9 cm. in length portion of cystic duct attached. The outer surface is rausch-pink and varies from smooth to shaggy. The lumen contains rausch-brown, tenacious bile as well as a 0.4 cm greatest dimension black cholelith. The mucosa is rausch-brown and velvety. The wall of the gallbladder measures 0.1 cm. in thickness. Production Maintenance Technician sections are submitted in one cassette. /02/23/2018 saudi02/23/2018
== END 2018-02-24 13:01 | disposition home or self-care (01) ==
LOC: JASUSAT 05:14 → J8W 13:18 → JASUSAT 02-24 13:01
PROVIDERS: ATTEND Surgery
PROC: 0FT44ZZ Resection of Gallbladder, Percutaneous Endoscopic Approach (ICD-10-PCS; principal; 2018-02-23 08:00)
DX: K80.10 Calculus of gallbladder with chronic cholecystitis without obstruction (principal)
CPT/HCPCS: 82962; 88304-TC; 94760; J7030